=== PATIENT | male | born 1950 | race Caucasian/White ===

== ENCOUNTER 2017-06-05 16:48 | Inpatient (IN) | payer MEDICARE, BC ==
[~2017-06-05] VITALS: Ht 167.6 cm; Wt 79.7 kg
[~2017-06-05 16:48] MED LIST: APIX2.5T PO; FURO40TA PO; ISOS10TA35 PO; METO50TA PO; PARO1TAB71 PO; TRAD5TAB PO; ULTR50TA PO
[2017-06-05] MEDS: VASOPRESSIN INJ 40 UNITS in DEXTROSE 5% IN WATER 100ML INJ 98 ML IV SCH ×2 (16:56)
[2017-06-05 16:57] VITALS: BP 77/49; PULSE 60; RESP 13; TEMP 97.6; O2SAT 94
[2017-06-05] MEDS: NOREPINEPHRINE 4 MG/4 ML AMP ONE ×2 (16:57→17:46)
[2017-06-05 17:00] VITALS: O2SAT 94
[2017-06-05] MEDS ORDERED: EPINEPHrine (1:1000) INJ 2 MG in DEXTROSE 5% IN WATER INJ 248 ML IV PRN ×2 (17:00)
[2017-06-05] MEDS ORDERED: NOREPINEPHRINE-DEXTROSE DRIP 250 ML IV PRN (17:00)
[2017-06-05] MEDS: NOREPINEPHRINE 4 MG/D5W 250 ML IV PRN (17:47)
[2017-06-05 17:49] LABS: AUTOMATED NEUTROPHIL # 10.4 TH/MM3 (1.8-7.7); BASOPHIL % 0.2 % (0.0-2.0); EOSINOPHIL % 0.3 % (0.0-4.0); LYMPH % 3.9 % (9.0-44.0); LYMPHOCYTE # 0.4 TH/MM3 (1.0-4.8); MEAN CELL VOLUME 104.8 FL (80.0-100.0); MEAN CORPUSCULAR HEMOGLOBIN 33.4 PG (27.0-34.0); MEAN CORPUSCULAR HGB CONC 31.9 % (32.0-36.0); MONO % 4.7 % (0.0-8.0); MONOCYTE # 0.5 TH/MM3 (0-0.9); NEUT % 90.9 % (16.0-70.0); PLATELET COUNT 189 TH/MM3 (150-450); RED BLOOD COUNT 1.99 MIL/MM3 (4.50-5.90); RED CELL DISTRIBUTION WIDTH 17.7 % (11.6-17.2); WHITE BLOOD COUNT 11.4 TH/MM3 (4.0-11.0)
--- NOTE | 2017-06-05 17:55 | RADRPT ---
EXAM DATE/TIME: 06/05/2017 17:25 [place] COMPARISON: No previous studies available for comparison. INDICATIONS : Confirm central line placement. MEDICAL HISTORY : Stroke. AFIB, Stage 4 Renal Disease, Kidney failure, Low blood pressure. SURGICAL HISTORY : Appendectomy. Double lumen catheter on right side of chest. ENCOUNTER: Initial ACUITY: 1 day PAIN SCORE: Non-responsive. LOCATION: Bilateral chest FINDINGS: A single view of the chest demonstrates the lungs to be symmetrically, but under aerated with no conf luent infiltrate. Accounting for low lung volumes, heart size is borderline prominent a well compensa darling. Right IJ central venous catheter projects over the central venous system. Osseous structures are intact. CONCLUSION: 1. Right IJ central venous catheter with the tip projecting over the central venous system. No pneumo thorax. 2. Lungs are hypoinflated but clear. 3. Borderline prominent but well compensated heart Navneet Dover MD on June 05, 2017 at 17:52 Board Certified Radiologist. This report was verified electronically.
[2017-06-05 17:59] LABS: INTERNATIONAL NORMALIZED RATIO 1.8 RATIO
[2017-06-05 18:16] LABS: HEMATOCRIT 20.8 % (39.0-51.0); HEMOGLOBIN 6.7 GM/DL (13.0-17.0)
[2017-06-05 18:18] LABS: ALBUMIN 1.4 GM/DL (3.4-5.0); BICARBONATE 30.9 MEQ/L (21.0-32.0); CALCIUM 7.2 MG/DL (8.5-10.1); CREATININE 5.39 MG/DL (0.60-1.30)
[2017-06-05 18:22] LABS: CALCIUM-PROTEIN CORRECTED 8.2 MG/DL (8.5-10.1); TOTAL BILIRUBIN ADULT 0.4 MG/DL (0.2-1.0); TOTAL PROTEIN 5.2 GM/DL (6.4-8.2); TROPONIN I 0.05 NG/ML (0.02-0.05)
--- NOTE | 2017-06-05 19:01 | PD ---
HPI Chief Complaint: Cardiac Complaint Time Seen by Provider: 16:56 Travel History International Travel<30 days: No Contact w/Intl Traveler<30days: No Traveled to known affect area: No History of Present Illness HPI This is a 66-year-old male with a history of end-stage renal disease, peritoneal dialysis dependent, who presents here from dialysis center with profound hypotension. The patient apparently was getting ready for peritoneal dialysis when he was noted to be hypotensive and lethargic. 911 was called and he was transported here emergency. When patient arrived, he was hypotensive with a blood pressure in the 70s systolic. His heart rate was in the low 100s diastolic. The patient was awake and able to answer questions. He denied any pain. He was able to state that he was incontinent to stool. There is no further history given. PFSH Past Medical History Atrial Fibrillation: Yes Cancer: No Cardiovascular Problems: Yes (a fib) Diabetes: Yes Patient Takes Glucophage: Yes (unknown) Endocrine: Yes Genitourinary: Yes (kidney failure left AV fistula, peritoneal dialysis catheter) Hepatitis: No Hiatal Hernia: No Immune Disorder: No Medical other: Yes Musculoskeletal: Yes (minor arthritis) Neurologic: Yes (hx strokes) Psychiatric: No Reproductive: No Respiratory: No Renal Failure: Yes Thyroid Disease: No Past Surgical History Abdominal Surgery: Yes (appendectomy) Appendectomy: Yes Body Medical Devices: right double lumen catheter Cardiac Surgery: No Ear Surgery: No Endocrine Surgery: No Eye Surgery: Yes (CATARACTS REMOVED WITH LENS IMPLANTS) Genitourinary Surgery: No Joint Replacement: Yes (left hip) Oral Surgery: No Pacemaker: No Thoracic Surgery: Yes (double lumen catheter on the right side) Social History Alcohol Use: No Tobacco Use: No Substance Use: No Allergies-Medications (Allergen,Severity, Reaction): Coded Allergies: morphine (Unverified Allergy, Severe, anaphylactic, 06/05/17) Reported Meds & Prescriptions Reported Meds & Active Scripts Active Active Prescriptions or Reported Medications Unobtainable Review of Systems ROS Limitations: Clinical Condition (Review of systems may not be extremely accurate secondary to the patient's clinical situation.) Except as stated in HPI: all other systems reviewed are Neg General / Constitutional: No: Fever, Chills HENT: No: Headaches, Lightheadedness, Neck Stiffness, Neck Pain Cardiovascular: No: Chest Pain or Discomfort, Palpitations Respiratory: No: Cough, Shortness of Breath Gastrointestinal: Positive: Diarrhea, No: Nausea, Vomiting Genitourinary: Positive: Other (Patient reports that he makes trace amount of urine.) Musculoskeletal: Positive: Weakness (Generalized), No: Pain Neurologic: Positive: Weakness, No: Headache (Generalized) Physical Exam Narrative GENERAL: Pale ill-appearing male in no acute respiratory distress. SKIN: Focused skin assessment cool and dry. HEAD: Atraumatic. Normocephalic. EYES: No scleral icterus. No injection or drainage. ENT: No nasal bleeding or discharge. Mucous membranes pink and dry.. NECK: Trachea midline. Supple. CARDIOVASCULAR: Heart rate in the 80s. Irregularly irregular consistent with A. fib. RESPIRATORY: No accessory muscle use. Clear to auscultation. Breath sounds equal bilaterally. Decreased respiratory effort. GASTROINTESTINAL: Abdomen soft, nondistended. There is a Vas-Cath in place. There is no drainage noted around it. MUSCULOSKELETAL: Patient has a healing heel ulcer. This is noted on his right lower extremity. Venous stasis changes noted to his bilateral lower extremities. NEUROLOGICAL: Awake and weak and mildly confused. No obvious cranial nerve deficits. Minimal musculoskeletal movement. BACK: Stage I/early to decubitus in his sacral area. There is a large amount of maroon colored stool noted in his rectum area. This was grossly positive for heme. There were large clots noted as well. Data Data Last Documented VS Vital Signs Date Time Temp Pulse Resp B/P (MAP) Pulse Ox O2 Delivery O2 Flow Rate FiO2 06/05/17 19:13 86 18 98/50 (66) 96 Room Air 06/05/17 17:00 2.00 06/05/17 16:57 97.6 Orders Orders Norepinephrine Inj (Levophed Inj) (06/05/17 16:57) Sepsis Workup Initiated (06/05/17 ) Electrocardiogram (06/05/17 16:56) Complete Blood Count With Diff (06/05/17 16:56) Comprehensive Metabolic Panel (06/05/17 16:56) Prothrombin Time / Inr (Pt) (06/05/17 16:56) Act Partial Throm Time (Ptt) (06/05/17 16:56) Lactic Acid Sepsis Protocol (06/05/17 16:56) Ckmb (Isoenzyme) Profile (06/05/17 16:56) Troponin I (06/05/17 16:56) Urinalysis - C+S If Indicated (06/05/17 16:56) Blood Culture (06/05/17 16:56) Chest, Single Ap (06/05/17 16:56) Blood Glucose (06/05/17 16:56) Ecg Monitoring (06/05/17 16:56) Iv Access Insert/Monitor (06/05/17 16:56) Oximetry (06/05/17 16:56) Oxygen Administration (06/05/17 16:56) Norepinephrine-Dextrose Drip (Levophed-D (06/05/17 17:00) Dextrose 5% In Wate... W/Vasopressin Inj (06/05/17 16:56) Epinephrine (1:1000) Inj (Adrenalin (1:1 (06/05/17 17:00) Blood Culture (06/05/17 16:56) Norepinephrine-Dextrose Drip (Levophed-D (06/05/17 17:15) Type And Screen (06/05/17 18:02) Red Blood Cells (Rbc) (06/05/17 18:02) Labs Laboratory Tests Test 06/05/17 17:25 White Blood Count 11.4 TH/MM3 Red Blood Count 1.99 MIL/MM3 Hemoglobin 6.7 GM/DL Hematocrit 20.8 % Mean Corpuscular Volume 104.8 FL Mean Corpuscular Hemoglobin 33.4 PG Mean Corpuscular Hemoglobin Concent 31.9 % Red Cell Distribution Width 17.7 % Platelet Count 189 TH/MM3 Mean Platelet Volume 8.0 FL Neutrophils (%) (Auto) 90.9 % Lymphocytes (%) (Auto) 3.9 % Monocytes (%) (Auto) 4.7 % Eosinophils (%) (Auto) 0.3 % Basophils (%) (Auto) 0.2 % Neutrophils # (Auto) 10.4 TH/MM3 Lymphocytes # (Auto) 0.4 TH/MM3 Monocytes # (Auto) 0.5 TH/MM3 Eosinophils # (Auto) 0.0 TH/MM3 Basophils # (Auto) 0.0 TH/MM3 CBC Comment DIFF FINAL Differential Comment Prothrombin Time 18.0 SEC Prothromb Time International Ratio 1.8 RATIO Activated Partial Thromboplast Time 29.4 SEC Blood Urea Nitrogen 57 MG/DL Creatinine 5.39 MG/DL Random Glucose 163 MG/DL Total Protein 5.2 GM/DL Albumin 1.4 GM/DL Calcium Level 7.2 MG/DL Alkaline Phosphatase 414 U/L Aspartate Amino Transf (AST/SGOT) 22 U/L Alanine Aminotransferase (ALT/SGPT) 17 U/L Total Bilirubin 0.4 MG/DL Sodium Level 139 MEQ/L Potassium Level 4.5 MEQ/L Chloride Level 100 MEQ/L Carbon Dioxide Level 30.9 MEQ/L Anion Gap 8 MEQ/L Estimat Glomerular Filtration Rate 11 ML/MIN Lactic Acid Level 1.3 mmol/L Protein Corrected Calcium 8.2 MG/DL Total Creatine Kinase 45 U/L Troponin I 0.05 NG/ML MDM Medical Decision Making Medical Screen Exam Complete: Yes Emergency Medical Condition: Yes Differential Diagnosis GI bleed versus metabolic derangement versus sepsis Narrative Course 66-year-old gentleman with history of end-stage renal disease, atrial fibrillation, who presents here from dialysis center and profound hypotension. The patient was unable to give clear history. The patient was started on a Levophed drip after a central line was placed. He was noted to have profound bloody stool. Patient's came in and stated that he was a DO NOT RESUSCITATE. She states she is power of workers compensation defense attorney and wishes to have no further heroic treatment. She has requested that we not transfuse blood and discontinue the vasopressors. At that time, I discussed with her that if we were to do this then it would be best to have hospice come in and evaluate him for placement. She was amenable to this. There is a call out to hospice for evaluation and placement. Critical Care Narrative Aggregate critical care time was 60 minutes. Time to perform other separately billable procedures was not included in the critical care time. My time did not include minutes spent treating any other patients simultaneously or on activities that did not directly contribute to the patient's treatment. The services I provided to this patient were to treat and/or prevent clinically significant deterioration that could result in: I provided critical care services requiring my management, as noted below: Chart data review, documentation time, medication orders and management, vital sign assessments/reviewing monitor data, ordering and reviewing lab tests, ordering and interpreting/reviewing x-rays and diagnostic studies, care of the patient and discussion of the patient with the admitting physicians. Procedures Procedure Narrative CENTRAL VENOUS LINE: The site was prepped with Betadine and sterilely draped. It was infiltrated with 1% lidocaine plain. The deep vein was cannulated using normal Seldinger technique. A central line was placed in the right internal jugular site and secured with simple interrupted suture. The site was sterilely dressed. The patient tolerated the procedure well. Diagnosis Primary Impression: GI bleed Additional Impressions: Hypotension History of renal failure Do not resuscitate Scripts Unable to Obtain Active Prescriptions or Reported Meds Antonio Guzman MD Jun 05, 2017 19:01
[2017-06-05 19:13] VITALS: BP 98/50; PULSE 86; RESP 18; O2SAT 96
[2017-06-05 21:20] VITALS: BP 106/51; PULSE 91; RESP 18; O2SAT 98
[2017-06-06] VITALS (24 sets, daily range): BP systolic 85–101; BP diastolic 45–62; PULSE 66–160; RESP 11–20; TEMP 96.7–98.9; O2SAT 94–100
[2017-06-06] MEDS ORDERED: SODIUM CHLOR 0.9% 250 ML INJ 250 ML IV ONE (02:15)
--- NOTE | 2017-06-06 02:46 | HHI.HP ---
[facility] Service Critical Care Medicine Primary Care Physician Darryl Fair MD Admission Diagnosis GI Bleed Diagnosis: Travel History International Travel<30 Days: No Contact w/Intl Traveler <30 Da: No Traveled to Known Affected Are: No History of Present Illness History of Present Illness HPI 66 year-old male with a medical history significant for end-stage renal disease on peritoneal dialysis who was noted to be severely hypotensive and lethargic at the dialysis center on 06/05 and 911 was called and patient was transferred to [facility] ER. On arrival he was noted to be hypotensive with SBP 70s and heart rate 100s. He also reportedly had significant melena and rectal bleeding following arrival. A right IJ central line was placed by ER physician. Patient's arrived and wanted to make patient DNR status and did not want blood transfusions and wished transferring to hospice however subsequently patient woke up and wanted to continue aggressive care including blood transfusions. ER physician contacted me questioning patient's 's ability to make decisions for him due to concern for secondary gain as well as possible psychiatric illness. Patient was accepted for admission by critical care medicine service. 4 units PRBCs were ordered to be transfused stat by ER physician. When I arrived to see the patient he was laying in the ER stretcher on nasal cannula on 5 mics of Levophed. He is drowsy but easily arousable. He knew he was at the hospital. He could not give me details of his history. 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 Fair is his psychic reader. [facility] Past Medical History Atrial Fibrillation: Yes Cancer: No Cardiovascular Problems: Yes (a fib) Diabetes: Yes Patient Takes Glucophage: Yes (unknown) Endocrine: Yes Genitourinary: Yes (kidney failure left AV fistula, peritoneal dialysis catheter) Hepatitis: No Hiatal Hernia: No Immune Disorder: No Medical other: Yes Musculoskeletal: Yes (minor arthritis) Neurologic: Yes (hx strokes) Psychiatric: No Reproductive: No Respiratory: No Renal Failure: Yes Thyroid Disease: No Past Surgical History Abdominal Surgery: Yes (appendectomy) Appendectomy: Yes Body Medical Devices: right double lumen catheter Cardiac Surgery: No Ear Surgery: No Endocrine Surgery: No Eye Surgery: Yes (CATARACTS REMOVED WITH LENS IMPLANTS) Genitourinary Surgery: No Joint Replacement: Yes (left hip) Oral Surgery: No Pacemaker: No Thoracic Surgery: Yes (double lumen catheter on the right side) Social History Alcohol Use: No Tobacco Use: No Substance Use: No Allergies-Medications (Allergen,Severity, Reaction): Coded Allergies: morphine (Unverified Allergy, Severe, anaphylactic, 06/05/17) Reported Meds & Prescriptions Reported Meds & Active Scripts Active Active Prescriptions or Reported Medications Unobtainable Review of Systems ROS Limitations: Clinical Condition (Review of systems may not be extremely accurate secondary to the patient's clinical situation.) Except as stated in HPI: all other systems reviewed are Neg General / Constitutional: No: Fever, Chills HENT: No: Headaches, Lightheadedness, Neck Stiffness, Neck Pain Cardiovascular: No: Chest Pain or Discomfort, Palpitations Respiratory: No: Cough, Shortness of Breath Gastrointestinal: Positive: Diarrhea, No: Nausea, Vomiting Genitourinary: Positive: Other (Patient reports that he makes trace amount of urine.) Musculoskeletal: Positive: Weakness (Generalized), No: Pain Neurologic: Positive: Weakness, No: Headache (Generalized) Past Family Social History Allergies: Coded Allergies: morphine (Unverified Allergy, Severe, anaphylactic, 06/05/17) Physical Exam Vital Signs Vital Signs Date Time Temp Pulse Resp B/P (MAP) Pulse Ox O2 Delivery O2 Flow Rate FiO2 06/06/17 02:20 86 18 101/56 (71) 100 Nasal Cannula 2.00 06/05/17 21:20 91 18 106/51 (69) 98 Nasal Cannula 2.00 06/05/17 19:13 86 18 98/50 (66) 96 Room Air 06/05/17 17:47 81 84/57 06/05/17 17:00 94 Nasal Cannula 2.00 06/05/17 17:00 94 Nasal Cannula 2.00 06/05/17 16:57 97.6 60 13 77/49 (58) 94 Nasal Cannula 2.00 Physical Exam Physical Exam Narrative GENERAL: Pale ill-appearing male laying in ER stretcher in minimal respiratory distress on nasal cannula SKIN: Focused skin assessment cool and dry. HEAD: Atraumatic. Normocephalic. EYES: No scleral icterus. No injection or drainage. ENT: No nasal bleeding or discharge. Mucous membranes pink and dry.. NECK: Trachea midline. Supple. CARDIOVASCULAR: Heart rate in the 80s. Irregularly irregular consistent with A. fib. RESPIRATORY: No accessory muscle use. Clear to auscultation. Breath sounds equal bilaterally. Decreased respiratory effort. GASTROINTESTINAL: Abdomen soft, nondistended. There is a PD-Cath in place. There is no drainage noted around it. MUSCULOSKELETAL: Patient has a healing rt heel ulcer. Venous stasis changes noted to his bilateral lower extremities. NEUROLOGICAL: Awake and weak and mildly confused. No obvious cranial nerve deficits. Moves both upper extremity is BACK: Stage I/early to decubitus in his sacral area. There is a large amount of maroon colored stool noted in his rectum area. Laboratory Laboratory Tests Test 06/05/17 17:25 White Blood Count 11.4 Red Blood Count 1.99 Hemoglobin 6.7 Hematocrit 20.8 Mean Corpuscular Volume 104.8 Mean Corpuscular Hemoglobin 33.4 Mean Corpuscular Hemoglobin Concent 31.9 Red Cell Distribution Width 17.7 Platelet Count 189 Mean Platelet Volume 8.0 Neutrophils (%) (Auto) 90.9 Lymphocytes (%) (Auto) 3.9 Monocytes (%) (Auto) 4.7 Eosinophils (%) (Auto) 0.3 Basophils (%) (Auto) 0.2 Neutrophils # (Auto) 10.4 Lymphocytes # (Auto) 0.4 Monocytes # (Auto) 0.5 Eosinophils # (Auto) 0.0 Basophils # (Auto) 0.0 CBC Comment DIFF FINAL Differential Comment Prothrombin Time 18.0 Prothromb Time International Ratio 1.8 Activated Partial Thromboplast Time 29.4 Blood Urea Nitrogen 57 Creatinine 5.39 Random Glucose 163 Total Protein 5.2 Albumin 1.4 Calcium Level 7.2 Alkaline Phosphatase 414 Aspartate Amino Transf (AST/SGOT) 22 Alanine Aminotransferase (ALT/SGPT) 17 Total Bilirubin 0.4 Sodium Level 139 Potassium Level 4.5 Chloride Level 100 Carbon Dioxide Level 30.9 Anion Gap 8 Estimat Glomerular Filtration Rate 11 Lactic Acid Level 1.3 Protein Corrected Calcium 8.2 Total Creatine Kinase 45 Troponin I 0.05 Date/Time Source Procedure Growth Status 06/05/17 17:30 Blood Peripheral Aerobic Blood Culture Pending Received 06/05/17 17:30 Blood Peripheral Anaerobic Blood Culture Pending Received Result Diagram: 06/05/17 1725 06/05/17 1725 Imaging Last Impressions Chest X-Ray 06/05/17 1656 Signed Impressions: Service Date/Time: May 17:25 - CONCLUSION: 1. Right IJ central venous catheter with the tip projecting over the central venous system. No pneumothorax. 2. Lungs are hypoinflated but clear. 3. Borderline prominent but well compensated heart MD Earlene Ellis VTE Risk Assessment Caprinwilner VTE Risk Assessment: Mod/High Risk (score >= 2) Caprini Risk Assessment Model Point Value = 1 Point Value = 2 Point Value = 3 Point Value = 5 Age 41-60 Minor surgery BMI > 25 kg/m2 Swollen legs Varicose veins or History of unexplained or recurrent spontaneous Oral contraceptives or hormone replacement Sepsis (< 1 month) Serious lung disease, including pneumonia (< 1 month) Abnormal pulmonary function Acute myocardial infarction Congestive heart failure (< 1 month) History of inflammatory bowel disease Medical patient at bed rest Age 61-74 Arthroscopic surgery Major open surgery (> 45 min) Laparoscopic surgery (> 45 min) Malignancy Confined to bed (> 72 hours) Immobilizing plaster cast Central venous access Age >= 75 History of VTE Family history of VTE Factor V Leiden Prothrombin [id number] Lupus anticoagulant Anticardiolipin antibodies Elevated serum homocysteine Heparin-induced thrombocytopenia Other congenital or acquired thrombophilia Stroke (< 1 month) Elective arthroplasty Hip, pelvis, or leg fracture Acute spinal cord injury (< 1 month) Prophylaxis Regimen Total Risk Factor Score Risk Level Prophylaxis Regimen 0-1 Low Early ambulation 2 Moderate Order ONE of the following: *Sequential Compression Device (SCD) *Heparin 5000 units SQ BID 3-4 Higher Order ONE of the following medications: *Heparin 5000 units SQ TID *Enoxaparin/Lovenox 40 mg SQ daily (WT < 150 kg, CrCl > 30 mL/min) *Enoxaparin/Lovenox 30 mg SQ daily (WT < 150 kg, CrCl > 10-29 mL/min) *Enoxaparin/Lovenox 30 mg SQ BID (WT < 150 kg, CrCl > 30 mL/min) AND/OR *Sequential Compression Device (SCD) 5 or more Highest Order ONE of the following medications: *Heparin 5000 units SQ TID (Preferred with Epidurals) *Enoxaparin/Lovenox 40 mg SQ daily (WT < 150 kg, CrCl > 30 mL/min) *Enoxaparin/Lovenox 30 mg SQ daily (WT < 150 kg, CrCl > 10-29 mL/min) *Enoxaparin/Lovenox 30 mg SQ BID (WT < 150 kg, CrCl > 30 mL/min) AND *Sequential Compression Device (SCD) Assessment and Plan Assessment and Plan 66 year-old male with: GI bleed Hypotension Encephalopathy ESRD on peritoneal dialysis Diabetes mellitus Atrial fibrillation Sacral decubitus ulcer Right heel ulcer Plan: Neuro: Avoid sedatives and narcotics, follow neuro status. Cardiovascular: 4 units PRBCs to be transfused stat. Continue Levophed for pressor support. Pulmonary: Supplemental O2 as needed. Bronchodilators when necessary. GI/liver: Nothing by mouth, we'll initiate Protonix 80 mg IV bolus followed by 8 mg/h IV infusion. GI consult for further evaluation of GI bleed. EGD/ colonoscopy to be decided by GI. Renal/: Strict intake output, monitor and replete electro lites, follow BUN/ creatinine. We'll consult nephrology Dr. Fair for peritoneal dialysis. Heme: Follow serial H&H and coags. Vitamin K 10 mg IV stat. Calcium chloride 1 g IV piggyback. Endocrine: SSI for glycemic control ID: Will obtain blood cultures. Empiric antibiotic coverage with IV Levaquin. Prophylaxis: PPI/SCDs. CODE STATUS: Full CODE STATUS at this time. We'll consult palliative care to assist with deciding goals of therapy. Condition critical Time spent on critical care excluding procedures 60 minutes Michael Rodriguez MD Jun 06, 2017 02:46
[2017-06-06 02:53] LABS: AUTOMATED NEUTROPHIL # 10.6 TH/MM3 (1.8-7.7); BASOPHIL % 0.3 % (0.0-2.0); EOSINOPHIL % 0.2 % (0.0-4.0); LYMPH % 3.9 % (9.0-44.0); LYMPHOCYTE # 0.5 TH/MM3 (1.0-4.8); MEAN CELL VOLUME 104.9 FL (80.0-100.0); MEAN CORPUSCULAR HEMOGLOBIN 33.4 PG (27.0-34.0); MEAN CORPUSCULAR HGB CONC 31.8 % (32.0-36.0); MEAN PLATELET VOLUME 7.6 FL (7.0-11.0); MONO % 3.5 % (0.0-8.0); MONOCYTE # 0.4 TH/MM3 (0-0.9); NEUT % 92.1 % (16.0-70.0); PLATELET COUNT 204 TH/MM3 (150-450); RED CELL DISTRIBUTION WIDTH 17.8 % (11.6-17.2); WHITE BLOOD COUNT 11.6 TH/MM3 (4.0-11.0)
[2017-06-06 03:00] LABS: HEMOGLOBIN 6.4 GM/DL (13.0-17.0)
[2017-06-06] MEDS ORDERED: CHLORHEXIDINE GLUCONATE 2 % 1 PACK (2 CLOTHS) TOP PRN (03:00)
[2017-06-06] MEDS ORDERED: ACETAMINOPHEN 1000 MG/100 ML 100 ML IV ONE (03:00)
[2017-06-06] MEDS ORDERED: MISCELLANEOUS NURSING INFORMATION XX SCH (03:00)
[2017-06-06] MEDS ORDERED: ONDANSETRON HCL 4 MG/2 ML VIAL IV PUSH PRN ×2 (03:00→13:15)
[2017-06-06] MEDS ORDERED: SODIUM CHLORIDE 0.9% FLUSH 10 ML FLUSH IV FLUSH PRN ×2 (03:00→13:15)
[2017-06-06] MEDS ORDERED: RESP: ALBUTEROL 2.5 MG/IPRATROPIUM 0.5 MG NEB (PRN) INH (03:00)
[2017-06-06] MEDS ORDERED: LACTULOSE SYRUP 20 GM/30 ML CUP PO PRN (03:00)
[2017-06-06] MEDS ORDERED: CALCIUM GLUCONATE INJ 2 GM in DEXTROSE 5% IN WATER 100ML INJ 100 ML IV ONE ×2 (03:00)
[2017-06-06] MEDS ORDERED: MAGNESIUM HYDROXIDE SUSP 30 ML CUP PO PRN (03:00)
[2017-06-06] MEDS ORDERED: BISACODYL 10 MG SUPP RECTAL PRN (03:00)
[2017-06-06] MEDS ORDERED: SENNOSIDES 8.6 MG TAB PO PRN (03:00)
[2017-06-06 03:08] LABS: INTERNATIONAL NORMALIZED RATIO 1.6 RATIO; PROTHROMBIN TIME - PATIENT 16.4 SEC (9.8-11.6)
[2017-06-06] MEDS ORDERED: PHYTONADIONE INJ 10 MG in SODIUM CHLORIDE 0.9% INJ 50 ML IV ONE (03:10)
[2017-06-06] MEDS ORDERED: PANTOPRAZOLE INJ 80 MG in SODIUM CHLORIDE 0.9% INJ 35 ML IV ONE ×2 (03:30→03:46)
[2017-06-06] MEDS ORDERED: PANTOPRAZOLE INJ 80 MG in SODIUM CHLORIDE 0.9% INJ 100 ML IV SCH (03:46)
[2017-06-06 03:57] LABS: BANDS 3 % (0-6); CORRECTED NUCLEATED RBC 1 /100 WBC (0-0); LYMPHOCYTES 6 % (9-44); MONOCYTES 4 % (0-8); MYELOCYTES 1 % (0-0); NEUTROPHIL # MANUAL DIFF 10.4 TH/MM3 (1.8-7.7); NUCLEATED RED BLOOD CELL 1 (0-0); POLYS (SEG NEUTROPHILS) 86 % (16-70)
[2017-06-06 04:00] LABS: POLYCHROMASIA 5.5 % (0.0-1.9)
[2017-06-06] MEDS ORDERED: LEVOFLOXACIN 750 MG PREMIX INJ 150 ML IV ONE (04:00)
[2017-06-06] MEDS: CHLORHEXIDINE GLUCONATE 2 % 1 PACK (2 CLOTHS) TOP SCH (04:00)
--- NOTE | 2017-06-06 04:00 | PD ---
Physical Exam Narrative Case signed out to me at shift change by Dr. Antonio Guzman, status post resuscitation efforts central line placement and patient being put on Levophed blood pressure support. Patient currently altered, patient's presented with incomplete documentation for DNR, as well as a request for patient to be transferred to hospice. Hospice consulted, usual hospice nurse unavailable for consultation secondary to call, social worker assistant from [facility] presented for evaluation. Patient unable to give history at that time. Some concerns among staff regarding patient's 's capacity to understand provocations of transition to hospice care in patient's current state of hypotension, active probable GI bleed, and hypotension requiring pressors. Patient repeatedly expressed concern about bringing the patient's dog in so that the patient could say goodbye to the family pet. After some time on pressors, patient became awake and alert, able to communicate well and answer questions appropriately. Upon interview with patient, patient states that he understands his chronic illnesses and chronically debilitated state, and realizes the potential inevitability of his diseases, but states that he is not ready to have medical support removed and go on hospice. Patient also noted that he needs time to get his affairs in order. Update discussed with hospitalist nurse curing finisher who presented, who interviewed patient and agrees with plan. Case discussed with Dr. Rodriguez from intensive care, patient is to be admitted with continued pressure support, transfusion of blood products as originally ordered by Dr. Guzman, with addition of 3 more units for a total 4. Data Data Last Documented VS Vital Signs Date Time Temp Pulse Resp B/P (MAP) Pulse Ox O2 Delivery O2 Flow Rate FiO2 06/05/17 21:20 91 18 106/51 (69) 98 Nasal Cannula 2.00 06/05/17 16:57 97.6 Orders Orders Norepinephrine Inj (Levophed Inj) (06/05/17 16:57) Sepsis Workup Initiated (06/05/17 ) Electrocardiogram (06/05/17 16:56) Complete Blood Count With Diff (06/05/17 16:56) Comprehensive Metabolic Panel (06/05/17 16:56) Prothrombin Time / Inr (Pt) (06/05/17 16:56) Act Partial Throm Time (Ptt) (06/05/17 16:56) Lactic Acid Sepsis Protocol (06/05/17 16:56) Ckmb (Isoenzyme) Profile (06/05/17 16:56) Troponin I (06/05/17 16:56) Urinalysis - C+S If Indicated (06/05/17 16:56) Blood Culture (06/05/17 16:56) Chest, Single Ap (06/05/17 16:56) Blood Glucose (06/05/17 16:56) Ecg Monitoring (06/05/17 16:56) Iv Access Insert/Monitor (06/05/17 16:56) Oximetry (06/05/17 16:56) Oxygen Administration (06/05/17 16:56) Norepinephrine-Dextrose Drip (Levophed-D (06/05/17 17:00) Dextrose 5% In Wate... W/Vasopressin Inj (06/05/17 16:56) Epinephrine (1:1000) Inj (Adrenalin (1:1 (06/05/17 17:00) Norepinephrine-Dextrose Drip (Levophed-D (06/05/17 17:15) Type And Screen (06/05/17 18:02) Red Blood Cells (Rbc) (06/05/17 18:02) Hospice Consult (06/05/17 21:56) Complete Blood Count With Diff (06/06/17 02:06) Prothrombin Time / Inr (Pt) (06/06/17 02:06) Act Partial Throm Time (Ptt) (06/06/17 02:06) Red Blood Cells (Rbc) (06/06/17 02:08) Blood Product Administration (06/06/17 02:08) Sodium Chlor 0.9% 250 Ml Inj (Ns 250 Ml (06/06/17 02:15) Admit Order (Ed Use Only) (06/06/17 02:08) Labs Laboratory Tests Test 06/05/17 17:25 White Blood Count 11.4 TH/MM3 Red Blood Count 1.99 MIL/MM3 Hemoglobin 6.7 GM/DL Hematocrit 20.8 % Mean Corpuscular Volume 104.8 FL Mean Corpuscular Hemoglobin 33.4 PG Mean Corpuscular Hemoglobin Concent 31.9 % Red Cell Distribution Width 17.7 % Platelet Count 189 TH/MM3 Mean Platelet Volume 8.0 FL Neutrophils (%) (Auto) 90.9 % Lymphocytes (%) (Auto) 3.9 % Monocytes (%) (Auto) 4.7 % Eosinophils (%) (Auto) 0.3 % Basophils (%) (Auto) 0.2 % Neutrophils # (Auto) 10.4 TH/MM3 Lymphocytes # (Auto) 0.4 TH/MM3 Monocytes # (Auto) 0.5 TH/MM3 Eosinophils # (Auto) 0.0 TH/MM3 Basophils # (Auto) 0.0 TH/MM3 CBC Comment DIFF FINAL Differential Comment Prothrombin Time 18.0 SEC Prothromb Time International Ratio 1.8 RATIO Activated Partial Thromboplast Time 29.4 SEC Blood Urea Nitrogen 57 MG/DL Creatinine 5.39 MG/DL Random Glucose 163 MG/DL Total Protein 5.2 GM/DL Albumin 1.4 GM/DL Calcium Level 7.2 MG/DL Alkaline Phosphatase 414 U/L Aspartate Amino Transf (AST/SGOT) 22 U/L Alanine Aminotransferase (ALT/SGPT) 17 U/L Total Bilirubin 0.4 MG/DL Sodium Level 139 MEQ/L Potassium Level 4.5 MEQ/L Chloride Level 100 MEQ/L Carbon Dioxide Level 30.9 MEQ/L Anion Gap 8 MEQ/L Estimat Glomerular Filtration Rate 11 ML/MIN Lactic Acid Level 1.3 mmol/L Protein Corrected Calcium 8.2 MG/DL Total Creatine Kinase 45 U/L Troponin I 0.05 NG/ML MDM Medical Record Reviewed: Yes Supervised Visit with COLIN: Yes Differential Diagnosis GI bleed, hypertension, end-stage renal disease, potential end-of-life care Narrative Course Patient admitted to ICU with palliative care consult pending. Patient being actively transfused in ED. Diagnosis Primary Impression: GI bleed Qualified Codes: K92.2 - Gastrointestinal hemorrhage, unspecified Additional Impressions: Do not resuscitate History of renal failure Hypotension Qualified Codes: I95.9 - Hypotension, unspecified Admitting Information Admitting Physician Requests: Admit Scripts Unable to Obtain Active Prescriptions or Reported Meds Mac Reinoso MD Jun 06, 2017 04:00
[2017-06-06 04:01] LABS: ACANTHOCYTES OCC (NORMAL)
[2017-06-06] MEDS: PANTOPRAZOLE INJ 80 MG in SODIUM CHLORIDE 0.9% INJ 100 ML IV SCH ×2 (04:51→23:35)
[2017-06-06] MEDS ORDERED: GLUCAGON 1 MG/ML VIAL OTHER PRN (08:45)
[2017-06-06] MEDS: INSULIN NovoLIN REGULAR SUPPLEMENTAL SCALE SQ SCH ×2 (08:45→20:45)
[2017-06-06] MEDS ORDERED: DEXTROSE 50% IN WATER 50 ML VIAL(D50) IV PUSH PRN (08:45)
[2017-06-06] MEDS: SODIUM CHLORIDE 0.9% FLUSH 10 ML FLUSH IV FLUSH SCH ×2 (09:00→21:00)
[2017-06-06] MEDS: DOCUSATE SODIUM 50 MG/SENNA 8.6 MG TAB PO SCH ×2 (09:00→21:00)
--- NOTE | 2017-06-06 09:16 | PD.CONS ---
HPI History of Present Illness This is a 66 year old male who came into the emergency room on 06/06/17 hypotensive, lethargic, and with a hemoglobin of 6.7/hematocrit 20.8. An IJ central line was placed in the emergency room, Levophed was started. Patient was very drowsy initially on admission but did awaken son and was able to talk to staff. He requested aggressive care at that time and still is willing to continue treatment regimen if he can return back to his baseline. Onset of acute epigastric pain and discomfort noted for 5 days ago, but worsened over the past 24 hours. In the emergency room patient did report melena, nausea, mild vomiting undigested food yesterday, but denied any coffee ground emesis. Patient denies abdominal pain diarrhea or constipation. Current labs include WBC count 11.6, alkaline phosphatase 414. Blood pressure with mild fluctuation currently 98 systolic. Patient is currently off Levophed. 2 units packed RBCs have been transfused. (Mica Mann) PFSH Past Medical History End-stage renal disease with peritoneal dialysis Atrial fibrillation Diabetes Renal failure with left AV fistula Arthritis Chronic pain History of strokes Past Surgical History Appendectomy Cataracts removed with lens implants Right peritoneal double-lumen catheter This information is per the record (Mica Mann) Coded Allergies: morphine (Unverified Allergy, Severe, anaphylactic, 06/05/17) Medications Administered Medications Medications (Trade) Dose Ordered Sig/Randall Route PRN Reason Start Time Stop Time Status Last Admin Dose Admin Norepinephrine Bitartrate 250 ml @ 7.5 mls/hr TITRATE PRN IV Maintain MAP > 65 mmHg 06/05/17 17:15 06/05/17 17:47 Sodium Chloride 250 ml @ 15 mls/hr ONCE ONCE IV 06/06/17 02:15 06/06/17 18:54 06/06/17 04:30 Chlorhexidine Gluconate (Chlorhexidine 2% Cloth) 3 pack Taper DAILY@04 TOP 06/06/17 04:00 06/02/18 03:59 06/06/17 04:00 Pantoprazole Sodium 80 mg/ Sodium Chloride 100 ml @ 10 mls/hr Q10H IV 06/06/17 03:35 06/06/17 04:51 Social History Patient does have No current tobacco or alcohol (Mica Mann) Review of Systems Constitutional: COMPLAINS OF: Fatigue Gastrointestinal: COMPLAINS OF: Nausea Musculoskeletal: COMPLAINS OF: Joint pain (chronic pain and acute) (Mica Mann) GI Exam Vitals I&O Vital Signs Date Time Temp Pulse Resp B/P (MAP) Pulse Ox O2 Delivery O2 Flow Rate FiO2 06/06/17 06:07 78 84/54 06/06/17 06:06 06/06/17 06:00 87 06/06/17 05:55 96.7 66 20 98/56 (70) 06/06/17 05:34 77 18 90/50 (63) 98 Room Air 2.00 06/06/17 05:06 71 18 100/57 (71) 100 06/06/17 04:52 70 97/82 06/06/17 04:15 18 06/06/17 04:03 77 18 100/52 (68) 94 Nasal Cannula 2.00 06/06/17 03:51 81 18 90/51 (64) 98 Nasal Cannula 2.00 06/06/17 03:44 83 18 90/51 (64) 100 Nasal Cannula 2.00 06/06/17 03:39 78 16 90/45 97 06/06/17 03:05 97.4 101 16 93/55 100 06/06/17 02:59 99 Nasal Cannula 2.00 06/06/17 02:20 86 18 101/56 (71) 100 Nasal Cannula 2.00 06/05/17 21:20 91 18 106/51 (69) 98 Nasal Cannula 2.00 06/05/17 19:13 86 18 98/50 (66) 96 Room Air 06/05/17 17:47 81 84/57 06/05/17 17:00 94 Nasal Cannula 2.00 06/05/17 17:00 94 Nasal Cannula 2.00 06/05/17 16:57 97.6 60 13 77/49 (58) 94 Nasal Cannula 2.00 I/O 06/05/17 06/05/17 06/05/17 06/06/17 06/06/17 06/06/17 07:00 15:00 23:00 07:00 15:00 23:00 Intake Total 1137 ml Balance 1137 ml Intake IV Total 337 ml Packed Cells 800 ml # Voids 0 # Bowel Movements 1 Imaging Last Impressions Chest X-Ray 06/05/17 1636 Signed Impressions: Service Date/Time: May 17:25 - CONCLUSION: 1. Right IJ central venous catheter with the tip projecting over the central venous system. No pneumothorax. 2. Lungs are hypoinflated but clear. 3. Borderline prominent but well compensated heart Navneet Dover MD Laboratory Test 06/05/17 17:25 06/06/17 02:37 06/06/17 06:40 White Blood Count 11.4 TH/MM3 11.6 TH/MM3 Red Blood Count 1.99 MIL/MM3 1.90 MIL/MM3 Hemoglobin 6.7 GM/DL 6.4 GM/DL Hematocrit 20.8 % 20.0 % Mean Corpuscular Volume 104.8 FL 104.9 FL Mean Corpuscular Hemoglobin 33.4 PG 33.4 PG Mean Corpuscular Hemoglobin Concent 31.9 % 31.8 % Red Cell Distribution Width 17.7 % 17.8 % Platelet Count 189 TH/MM3 204 TH/MM3 Mean Platelet Volume 8.0 FL 7.6 FL Neutrophils (%) (Auto) 90.9 % 92.1 % Lymphocytes (%) (Auto) 3.9 % 3.9 % Monocytes (%) (Auto) 4.7 % 3.5 % Eosinophils (%) (Auto) 0.3 % 0.2 % Basophils (%) (Auto) 0.2 % 0.3 % Neutrophils # (Auto) 10.4 TH/MM3 10.6 TH/MM3 Lymphocytes # (Auto) 0.4 TH/MM3 0.5 TH/MM3 Monocytes # (Auto) 0.5 TH/MM3 0.4 TH/MM3 Eosinophils # (Auto) 0.0 TH/MM3 0.0 TH/MM3 Basophils # (Auto) 0.0 TH/MM3 0.0 TH/MM3 CBC Comment DIFF FINAL AUTO DIFF Differential Comment FINAL DIFF MANUAL Prothrombin Time 18.0 SEC 16.4 SEC Prothromb Time International Ratio 1.8 RATIO 1.6 RATIO Activated Partial Thromboplast Time 29.4 SEC 28.3 SEC Blood Urea Nitrogen 57 MG/DL Creatinine 5.39 MG/DL Random Glucose 163 MG/DL Total Protein 5.2 GM/DL Albumin 1.4 GM/DL Calcium Level 7.2 MG/DL Alkaline Phosphatase 414 U/L Aspartate Amino Transf (AST/SGOT) 22 U/L Alanine Aminotransferase (ALT/SGPT) 17 U/L Total Bilirubin 0.4 MG/DL Sodium Level 139 MEQ/L Potassium Level 4.5 MEQ/L Chloride Level 100 MEQ/L Carbon Dioxide Level 30.9 MEQ/L Anion Gap 8 MEQ/L Estimat Glomerular Filtration Rate 11 ML/MIN Lactic Acid Level 1.3 mmol/L Protein Corrected Calcium 8.2 MG/DL Total Creatine Kinase 45 U/L Troponin I 0.05 NG/ML Differential Total Cells Counted 100 Neutrophils % (Manual) 86 % Band Neutrophils % 3 % Lymphocytes % 6 % Monocytes % 4 % Neutrophils # (Manual) 10.4 TH/MM3 Myelocytes 1 % Nucleated Red Blood Cells 1 /100 WBC Platelet Estimate NORMAL Platelet Morphology Comment NORMAL Polychromasia 5.5 % Basophilic Stippling FAINT Acanthocytes OCC Date/Time Source Procedure Growth Status 06/06/17 07:19 Blood Peripheral Aerobic Blood Culture Pending Received 06/06/17 07:19 Blood Peripheral Anaerobic Blood Culture Pending Received Physical Examination HEENT: Pupils round and reactive to light 1-2 mm bilateral; normocephalic; atraumatic; no jaundice, very pale, Throat is hoarse NECK: Neck is supple, no JVD, no lymphadenopathy. CHEST: Chest managed breath sounds CARDIAC: Irregular rhythm under 100 ABDOMEN: Flat, Soft, nondistended, nontender; no hepatosplenomegaly; bowel sounds soft EXTREMITIES: No clubbing, cyanosis, or edema. SKIN: Thin, dry, pale, no rash; no jaundice. RN SOCIAL WORK: ; alert and oriented times 3, drowsy but arouses to verbal stimuli (Mica Mann) Assessment and Plan Assessment: (1) Anemia ICD Codes: D64.9 - Anemia, unspecified (2) GI bleed ICD Codes: K92.2 - Gastrointestinal hemorrhage, unspecified Status: Acute (3) History of renal failure ICD Codes: Z87.448 - Personal history of other diseases of urinary system Status: Acute Plan Anemia, symptomatic on admission to emergency room, so far received 2 units packed RBCs, hemoglobin is pending GI bleed, pain had been in gastric and epigastric area worse over the past 48 hours, 4 days total Patient has been hypotensive and is being monitored in the intensive care unit, but currently Levophed is off Plan EGD today, but need to evaluate next hemoglobin Consents, OR has been called to put on scheduled Monitor for any acute bleeding and call GI IV PPI drip Monitor hemoglobin and hematocrit and other labs Further recommendations will be based on symptom management and plan of care, currently patient is requesting full code full aggressive care per my discussion with him. This note has been written on the behalf of Dr. Amaral, seen on his behalf (Mica Mann) Plan Patient was seen and examined, agree with above-noted, we'll plan on doing upper endoscopy but may need colonoscopy eventually the patient is has multiple medical problems so he is high risk for the procedure and he is aware that (Avani Booth MD) Problem Qualifiers (1) GI bleed: Qualified Codes: K92.2 - Gastrointestinal hemorrhage, unspecified Mica Mann Jun 06, 2017 09:16 Avani Booth MD Jun 06, 2017 11:50
[2017-06-06 09:43] LABS: AUTOMATED NEUTROPHIL # 8.7 TH/MM3 (1.8-7.7); BASOPHIL % 0.1 % (0.0-2.0); EOSINOPHIL % 0.3 % (0.0-4.0); HEMATOCRIT 26.5 % (39.0-51.0); HEMOGLOBIN 8.9 GM/DL (13.0-17.0); LYMPHOCYTE # 0.4 TH/MM3 (1.0-4.8); MEAN CELL VOLUME 95.8 FL (80.0-100.0); MEAN CORPUSCULAR HEMOGLOBIN 32.1 PG (27.0-34.0); MEAN CORPUSCULAR HGB CONC 33.5 % (32.0-36.0); MEAN PLATELET VOLUME 7.7 FL (7.0-11.0); MONO % 4.3 % (0.0-8.0); MONOCYTE # 0.4 TH/MM3 (0-0.9); NEUT % 91.3 % (16.0-70.0); PLATELET COUNT 136 TH/MM3 (150-450); RED BLOOD COUNT 2.77 MIL/MM3 (4.50-5.90); RED CELL DISTRIBUTION WIDTH 18.6 % (11.6-17.2); WHITE BLOOD COUNT 9.6 TH/MM3 (4.0-11.0)
[2017-06-06 09:49] LABS: INTERNATIONAL NORMALIZED RATIO 1.5 RATIO; PROTHROMBIN TIME - PATIENT 15.2 SEC (9.8-11.6)
--- NOTE | 2017-06-06 09:59 | EKG ---
Date Performed: 06/05/2017 Time Performed: 16:57:23 PTAGE: 66 years EKG: ATRIAL FIBRILLATION INDETERMINATE AXIS RIGHT BUNDLE BRANCH BLOCK LOW QRS VOLTAGE ABNORMAL E CG PREVIOUS TRACING : 10/13/2015 14.06 No change from previous tracing noted. DOCTOR: Gonzales Joseph Interpretating Date/Time 06/06/2017 09:57:17
--- NOTE | 2017-06-06 10:01 | PD.CONS ---
[facility] Nephrology Consult Requested By Dr. Rodriguez Reason for Consult ESRD on PD Primary Care Physician Darryl Fair MD History of Present Illness Patient is a very pleasant 66 year old male who came into the emergency room on 06/06/17 hypotensive, lethargic, and with a hemoglobin of 6.7. He was transfused 2 units of PRBC's with a recheck pending. He was initially put on Levophed for blood pressure support however it is currently not running. Has a past medical history of End -stage renal disease with peritoneal dialysis, AFIB , diabetes, arthritis, chronic pain, and hx of strokes. Onset of acute epigastric pain and discomfort noted for 5 days ago, but worsened over the past 24 hours. Reported loose stools for 3 weeks. In the emergency room patient did report melena, nausea, mild vomiting undigested food yesterday, but denied any coffee ground emesis. Patient has AV fistula and will have dialysis while here. Per patient PD catheter needs to be removed secondary to infection. EGD planned for today. (Samreen Ward) Review of Systems Constitutional: COMPLAINS OF: Fatigue Respiratory: COMPLAINS OF: Shortness of breath Cardiovascular: DENIES: Chest pain, Lower Extremity Edema Gastrointestinal: COMPLAINS OF: Black stools, Diarrhea, Nausea, Vomiting Genitourinary: DENIES: Dysuria Musculoskeletal: COMPLAINS OF: Joint pain (Samreen Ward) Past Family Social History Allergies: Coded Allergies: morphine (Unverified Allergy, Severe, anaphylactic, 06/05/17) Past Medical History End-stage renal disease with peritoneal dialysis Atrial fibrillation Diabetes Renal failure with left AV fistula Arthritis Chronic pain History of strokes Past Surgical History Appendectomy Cataracts removed with lens implants Right peritoneal double-lumen catheter AVF Active Ordered Medications Current Medications Medications (Trade) Dose Ordered Sig/Randall Route Start Time Stop Time Status Last Admin Vasopressin 40 units/Dextrose 100 ml @ 6 mls/hr [id number] IV 06/05/17 16:56 Epinephrine HCl 2 mg/Dextrose 250 ml @ 22.5 mls/hr TITRATE PRN IV 06/05/17 17:00 Norepinephrine Bitartrate 250 ml @ 7.5 mls/hr TITRATE PRN IV 06/05/17 17:15 06/05/17 17:47 Sodium Chloride 250 ml @ 15 mls/hr ONCE ONCE IV 06/06/17 02:15 06/06/17 18:54 06/06/17 04:30 (NS Flush) 2 ml UNSCH PRN IV FLUSH 06/06/17 03:00 (NS Flush) 2 ml BID IV FLUSH 06/06/17 09:00 (Zofran Inj) 4 mg Q6H PRN IV PUSH 06/06/17 03:00 (Duoneb Neb) 1 ampule Q4HR NEB PRN INH 06/06/17 03:00 Miscellaneous Information 1 Q361D XX 06/06/17 03:00 (Chlorhexidine 2% Cloth) 3 pack Taper DAILY@04 TOP 06/06/17 04:00 06/02/18 03:59 06/06/17 04:00 (Chlorhexidine 2% Cloth) 3 pack UNSCH PRN TOP 06/06/17 03:00 (Rebecca-Colace) 1 tab BID PO 06/06/17 09:00 (Milk Of Magnesia Liq) 30 ml Q12H PRN PO 06/06/17 03:00 (Senokot) 17.2 mg Q12H PRN PO 06/06/17 03:00 (Dulcolax Supp) 10 mg DAILY PRN RECTAL 06/06/17 03:00 (Lactulose Liq) 30 ml DAILY PRN PO 06/06/17 03:00 Pantoprazole Sodium 80 mg/ Sodium Chloride 100 ml @ 10 mls/hr Q10H IV 06/06/17 03:35 06/06/17 04:51 (D50w (Vial) Inj) 50 ml UNSCH PRN IV PUSH 06/06/17 08:45 (Glucagon Inj) 1 mg UNSCH PRN OTHER 06/06/17 08:45 (NovoLIN R SUPPLEMENTAL SCALE) 1 Q4H SQ 06/06/17 08:45 Social History Denies ETOH use Denies smoking (Samreen Ward) Physical Exam Vital Signs Vital Signs Date Time Temp Pulse Resp B/P (MAP) Pulse Ox O2 Delivery O2 Flow Rate FiO2 06/06/17 06:07 78 84/54 06/06/17 06:06 06/06/17 06:00 87 06/06/17 05:55 96.7 66 20 98/56 (70) 06/06/17 05:34 77 18 90/50 (63) 98 Room Air 2.00 06/06/17 05:06 71 18 100/57 (71) 100 06/06/17 04:52 70 97/82 06/06/17 04:15 18 06/06/17 04:03 77 18 100/52 (68) 94 Nasal Cannula 2.00 06/06/17 03:51 81 18 90/51 (64) 98 Nasal Cannula 2.00 06/06/17 03:44 83 18 90/51 (64) 100 Nasal Cannula 2.00 06/06/17 03:39 78 16 90/45 97 06/06/17 03:05 97.4 101 16 93/55 100 06/06/17 02:59 99 Nasal Cannula 2.00 06/06/17 02:20 86 18 101/56 (71) 100 Nasal Cannula 2.00 06/05/17 21:20 91 18 106/51 (69) 98 Nasal Cannula 2.00 06/05/17 19:13 86 18 98/50 (66) 96 Room Air 06/05/17 17:47 81 84/57 06/05/17 17:00 94 Nasal Cannula 2.00 06/05/17 17:00 94 Nasal Cannula 2.00 06/05/17 16:57 97.6 60 13 77/49 (58) 94 Nasal Cannula 2.00 Physical Exam GENERAL: Pale and delayed SKIN: cool and dry. HEAD: Atraumatic. Normocephalic. EYES: No scleral icterus. No injection or drainage. ENT: No nasal bleeding or discharge. Mucous membranes pink and dry.. NECK: Trachea midline. Supple. CARDIOVASCULAR:. Irregularly irregular consistent with A. fib. RESPIRATORY: No accessory muscle use. Clear to auscultation. Breath sounds equal bilaterally. Decreased respiratory effort. GASTROINTESTINAL: Abdomen soft, nondistended. There is a PD-Cath in place. MUSCULOSKELETAL: Patient has a healing rt heel ulcer. Venous stasis changes noted to his bilateral lower extremities. NEUROLOGICAL: Awake and weak and mildly confused. No obvious cranial nerve deficits. Moves both upper extremity is Laboratory Laboratory Tests Test 06/05/17 17:25 06/06/17 02:37 06/06/17 06:40 06/06/17 09:00 White Blood Count 11.4 11.6 Red Blood Count 1.99 1.90 Hemoglobin 6.7 6.4 Hematocrit 20.8 20.0 Mean Corpuscular Volume 104.8 104.9 Mean Corpuscular Hemoglobin 33.4 33.4 Mean Corpuscular Hemoglobin Concent 31.9 31.8 Red Cell Distribution Width 17.7 17.8 Platelet Count 189 204 Mean Platelet Volume 8.0 7.6 Neutrophils (%) (Auto) 90.9 92.1 Lymphocytes (%) (Auto) 3.9 3.9 Monocytes (%) (Auto) 4.7 3.5 Eosinophils (%) (Auto) 0.3 0.2 Basophils (%) (Auto) 0.2 0.3 Neutrophils # (Auto) 10.4 10.6 Lymphocytes # (Auto) 0.4 0.5 Monocytes # (Auto) 0.5 0.4 Eosinophils # (Auto) 0.0 0.0 Basophils # (Auto) 0.0 0.0 CBC Comment DIFF FINAL AUTO DIFF Differential Comment FINAL DIFF MANUAL Prothrombin Time 18.0 16.4 Prothromb Time International Ratio 1.8 1.6 Activated Partial Thromboplast Time 29.4 28.3 Blood Urea Nitrogen 57 Creatinine 5.39 Random Glucose 163 Total Protein 5.2 Albumin 1.4 Calcium Level 7.2 Alkaline Phosphatase 414 Aspartate Amino Transf (AST/SGOT) 22 Alanine Aminotransferase (ALT/SGPT) 17 Total Bilirubin 0.4 Sodium Level 139 Potassium Level 4.5 Chloride Level 100 Carbon Dioxide Level 30.9 Anion Gap 8 Estimat Glomerular Filtration Rate 11 Lactic Acid Level 1.3 Protein Corrected Calcium 8.2 Total Creatine Kinase 45 Troponin I 0.05 Differential Total Cells Counted 100 Neutrophils % (Manual) 86 Band Neutrophils % 3 Lymphocytes % 6 Monocytes % 4 Neutrophils # (Manual) 10.4 Myelocytes 1 Nucleated Red Blood Cells 1 Platelet Estimate NORMAL Platelet Morphology Comment NORMAL Polychromasia 5.5 Basophilic Stippling FAINT Acanthocytes OCC Date/Time Source Procedure Growth Status 06/06/17 07:19 Blood Peripheral Aerobic Blood Culture Pending Received 06/06/17 07:19 Blood Peripheral Anaerobic Blood Culture Pending Received (Samreen Ward) Result Diagram: 06/06/17 0237 06/05/17 1725 Imaging Last Impressions Chest X-Ray 06/05/17 1656 Signed Impressions: Service Date/Time: May 17:25 - CONCLUSION: 1. Right IJ central venous catheter with the tip projecting over the central venous system. No pneumothorax. 2. Lungs are hypoinflated but clear. 3. Borderline prominent but well compensated heart Navneet Dover MD (Samreen Ward) Assessment and Plan Problem List: (1) ESRD (end stage renal disease) on dialysis ICD Codes: N18.6 - End stage renal disease; Z99.2 - Dependence on renal dialysis (2) Hypotension ICD Codes: I95.9 - Hypotension, unspecified Status: Acute (3) GI bleed ICD Codes: K92.2 - Gastrointestinal hemorrhage, unspecified Status: Acute Plan: (4) Anemia ICD Codes: D64.9 - Anemia, unspecified Assessment and Plan ESRD has usually been PD nightly but was told that he catheter needs to come out due to a fungal infection. BC pending. Has AVF fistula in left arm and dialyzed on Fri, , and was not able to have done on secondary to condition. Potassium WNL Dr. Fair to arrange dialysis. EGD today,symptomatic anemia with HGB of 6.7 to 6.4 on admission. Transfused 2 units of PRBC's. Initially on levophed. GI bleed, pain had been in gastric and epigastric area worse over the past 48 hours, 4 days total Protonix gtt. Monitor hemoglobin and hematocrit and other labs (Samreen Ward) Problem List: (1) ESRD (end stage renal disease) on dialysis ICD Codes: N18.6 - End stage renal disease; Z99.2 - Dependence on renal dialysis (2) Hypotension ICD Codes: I95.9 - Hypotension, unspecified Status: Acute (3) GI bleed ICD Codes: K92.2 - Gastrointestinal hemorrhage, unspecified Status: Acute Plan: (4) Anemia ICD Codes: D64.9 - Anemia, unspecified Assessment and Plan Patient seen and examined. Agree with above. HD arranged, orders written, minimal fluid removal. Surgery consulted for PD Catheter removal. (Darryl Fair MD) Problem Qualifiers (1) Hypotension: Qualified Codes: I95.9 - Hypotension, unspecified (2) GI bleed: Qualified Codes: K92.2 - Gastrointestinal hemorrhage, unspecified (3) Anemia: Samreen Ward Jun 06, 2017 10:01 Darryl Fair MD Jun 06, 2017 19:48
[2017-06-06 10:05] LABS: ALBUMIN 1.4 GM/DL (3.4-5.0); BICARBONATE 27.7 MEQ/L (21.0-32.0); CALCIUM 7.1 MG/DL (8.5-10.1); CALCIUM-PROTEIN CORRECTED 8.4 MG/DL (8.5-10.1); CREATININE 5.31 MG/DL (0.60-1.30); TOTAL BILIRUBIN ADULT 0.7 MG/DL (0.2-1.0); TOTAL PROTEIN 4.7 GM/DL (6.4-8.2)
[2017-06-06] MEDS ORDERED: PIPERACIL-TAZO 3.375 GM PREMIX 50 ML IV SCH (11:00)
--- NOTE | 2017-06-06 11:09 | PD.CONS ---
Consult Service Palliative Care Consult Requested By Dr Rodriguez Primary Care Physician Darryl Fair MD Reason for Consultation a. To assist with evaluation and management of symptoms including: weakness , chronic pain b. To assist medical decision maker(s) with: better understanding of current medical conditions; weighing benefits/burdens of medical treatment options; making medical treatment decisions. HPI History of Present Illness This 66-year-old male presented to the ED on 06/05/17, sent from dialysis center with significant hypotension. He was preparing for peritoneal dialysis when was noted to be hypotensive and lethargic, EMS was activated. At ED arrival patient hypotensive blood pressure 70s systolic, heart rate low 100s. Patient awake and able to answer questions. Denied pain, reporting incontinent of stool. No additional history provided. * ED: started on IVF, levophed. + bloody stool noted. Hemoglobin 6.7, hematocrit 20.8. Pt requested DNR, no heroic measures. requested no transfusions and to d/c vasopressors. ED MD recommended hospice for comfort if that was wishes, amenable. pt apparently later became more alert, and requested whatever aggressive treatments available to help him. Full CODE STATUS requested. Critical care was consulted; notes "ER physician contacted me questioning patient's 's ability to make decisions for him due to concern for secondary gain as well as possible psychiatric illness.". Ordered for 4 units PRBC. Given vitamin K. Him. Levaquin initiated. Cultures pending. Nephrology consulted. GI consulted. Tolerating nasal cannula O2. Palliative care consulted to assist with clarification of goals of treatment. * Planned for EGD 06/06/17, serial H&H's transfusions as needed. Status post transfusion 4 units RBC, hemoglobin 8.9, hematocrit 26.5 this morning. Attempted to see patient on unit however he is off unit for EGD procedure. Nursing reports he is Oriented and appropriate and able to provide his own consents. Unit staff reports patient called requesting update, I attempted to reach her, voicemail left. Will attempt to see him later and obtain additional psychosocial history etc. 1400 Pt seen again in room later afternoon, returned from GI procedure [dual visit w Juvencio Roth medical student] He is alert, oriented x3, appropriate. Fair insight into hospital course thus far, though forgetful at times, has to search for words at times. Cooperative, pleasant. He reports several recent hospitalizations at [facility]. He has been in rehab since April. He reports limited to no ambulation since May 05. He reports general weakness, decline, not well since May 05. He also reports IVC filter placed 4-[address] Izquierdo at [facility], though he is not aware of DVT at the time. He had recently had electrolyte abnormalities , and had recently just had 2 hemodialysis treatments. returned and assisted pt to complete new HCS, names his as HCS. Later spoke w his on phone- review current conditions, diagnostics. details trajectory or decline past several mos to year. Pt used to be able to go fishing, go on cruises etc 1-2 yrs ago. Has had progressive weakness, severe pain to BLE over past few mos. She describes a sharp, aching, pain to bilateral legs and chronic foot wounds, worse at night. (pt denies pain during my visit) Weakness more profound since around , + significant weight loss/ decreased appetite. She reports anemia requiring blood transfusion in April, she does not know that cause was identified. She reports weight 2 yr ago around 165#, at weight about 145#. Current weight this admission 148#. She reports pt has c/o suffering and in the past he had even questioned stopping dialysis but was frightened about a possible painful . Review w her current conditions, my d/w pt, and his expressed wishes. She is supportive of DNR. She will not be visiting today because she is trying to rest. . Function/Cognitive Trajectory Most recently at [facility], since April. Prior to April lived at home w , reports still driving at that time. Prev independent w ADLs though now requires some assistance. Prev. ambulatory w cane, scooter for longer distances, past 1 year. . Review of Systems Constitutional: COMPLAINS OF: Weight loss (3-4 lb in past month), Change in appetite (decreased x 2 wk), Generalized weakness (difficulty ambulating x 1 mo. ), DENIES: Fever, Chills, Dizziness, Pain Eyes: DENIES: Blurred vision, Vision loss Ears, nose, mouth, throat: DENIES: Oral lesions, Throat pain Respiratory: COMPLAINS OF: Cough (x 1 week), DENIES: Hemoptysis, Sputum production, Shortness of breath Cardiovascular: DENIES: Chest pain, Lower Extremity Edema Gastrointestinal: COMPLAINS OF: Bloody stools, Anorexia, DENIES: Abdominal pain , Nausea, Vomiting, Difficulty Swallowing Genitourinary: DENIES: Hematuria Musculoskeletal: DENIES: Joint pain Integumentary: DENIES: Rash Neurologic: DENIES: Headache, Localized weakness Past Family Social History Coded Allergies: morphine (Unverified Allergy, Severe, anaphylactic, 06/05/17) Past Medical History End-stage renal disease with peritoneal dialysis Atrial fibrillation Hypertension Diabetes Renal failure with left AV fistula Arthritis Chronic pain CVAs : 2006, 1995 recent infection to peritoneal dialysis catheter per pt . Past Surgical History Appendectomy Cataracts removed with lens implants Right peritoneal double-lumen catheter placement 2016 Left hip replacement . Reported Medications Calcium acetate clopidogrel 75mg eliquis 2.5mg furosemide 40mg norco 5/325 isosorbide mononitrate 30mg ER lisinopril 20mg metoprolol succinate 25mg ER, 50mg ER paroxetine 10mg proair respiclick Tradjenta 5mg tramodol 50mg . Current Medications Medications (Trade) Dose Ordered Sig/Randall Route Start Time Stop Time Status Last Admin Vasopressin 40 units/Dextrose 100 ml @ 6 mls/hr [id number] IV 06/05/17 16:56 Epinephrine HCl 2 mg/Dextrose 250 ml @ 22.5 mls/hr TITRATE PRN IV 06/05/17 17:00 Norepinephrine Bitartrate 250 ml @ 7.5 mls/hr TITRATE PRN IV 06/05/17 17:15 06/05/17 17:47 Sodium Chloride 250 ml @ 15 mls/hr ONCE ONCE IV 06/06/17 02:15 06/06/17 18:54 06/06/17 04:30 (NS Flush) 2 ml UNSCH PRN IV FLUSH 06/06/17 03:00 (NS Flush) 2 ml BID IV FLUSH 06/06/17 09:00 (Zofran Inj) 4 mg Q6H PRN IV PUSH 06/06/17 03:00 (Duoneb Neb) 1 ampule Q4HR NEB PRN INH 06/06/17 03:00 Miscellaneous Information 1 Q361D XX 06/06/17 03:00 (Chlorhexidine 2% Cloth) 3 pack Taper DAILY@04 TOP 06/06/17 04:00 06/02/18 03:59 06/06/17 04:00 (Chlorhexidine 2% Cloth) 3 pack UNSCH PRN TOP 06/06/17 03:00 (Rebecca-Colace) 1 tab BID PO 06/06/17 09:00 (Milk Of Magnesia Liq) 30 ml Q12H PRN PO 06/06/17 03:00 (Senokot) 17.2 mg Q12H PRN PO 06/06/17 03:00 (Dulcolax Supp) 10 mg DAILY PRN RECTAL 06/06/17 03:00 (Lactulose Liq) 30 ml DAILY PRN PO 06/06/17 03:00 Pantoprazole Sodium 80 mg/ Sodium Chloride 100 ml @ 10 mls/hr Q10H IV 06/06/17 03:35 06/06/17 04:51 (D50w (Vial) Inj) 50 ml UNSCH PRN IV PUSH 06/06/17 08:45 (Glucagon Inj) 1 mg UNSCH PRN OTHER 06/06/17 08:45 (NovoLIN R SUPPLEMENTAL SCALE) 1 Q4H SQ 06/06/17 08:45 Family History Mother had arthritis, father of old age at age 84, sister living in good health Substance Use Tobacco: Smokes 1/2 PPD x 50 years Alcohol: None Prescription med abuse: None Illicits: None . Psychosocial History to his x 6 yrs. Has 1 adult son from prior marriage, who is incarcerated in [place]. He communicates with him every Friday (son calls him) . 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 His mother is still living there, and a sister. Moved to [place] in his 50s for intermediate. . 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 Living Will: Never completed Health Care Surrogate: Copy in medical record Durable Power of Counter Professional: Copy in medical record Date completed: 06/01/17 Health Care Surrogate(s): Healthcare surrogate document [06/01/17] actually names the patient as healthcare surrogate. durable power of state's attorney does not include healthcare decision making. Ethical and Legal Issues Patient has a healthcare surrogate document in his chart [dated 06/01/17] however this document actually names the patient as designated healthcare surrogate. Per [place] statutes his would be appropriate legal proxy if patient incapacitated. Physical Exam Vital Signs Date Time Temp Pulse Resp B/P (MAP) Pulse Ox O2 Delivery O2 Flow Rate FiO2 06/06/17 06:07 78 84/54 06/06/17 06:06 06/06/17 06:00 87 06/06/17 05:55 96.7 66 20 98/56 (70) 06/06/17 05:34 77 18 90/50 (63) 98 Room Air 2.00 06/06/17 05:06 71 18 100/57 (71) 100 06/06/17 04:52 70 97/82 06/06/17 04:15 18 06/06/17 04:03 77 18 100/52 (68) 94 Nasal Cannula 2.00 06/06/17 03:51 81 18 90/51 (64) 98 Nasal Cannula 2.00 06/06/17 03:44 83 18 90/51 (64) 100 Nasal Cannula 2.00 06/06/17 03:39 78 16 90/45 97 06/06/17 03:05 97.4 101 16 93/55 100 06/06/17 02:59 99 Nasal Cannula 2.00 06/06/17 02:20 86 18 101/56 (71) 100 Nasal Cannula 2.00 06/05/17 21:20 91 18 106/51 (69) 98 Nasal Cannula 2.00 06/05/17 19:13 86 18 98/50 (66) 96 Room Air 06/05/17 17:47 81 84/57 06/05/17 17:00 94 Nasal Cannula 2.00 06/05/17 17:00 94 Nasal Cannula 2.00 06/05/17 16:57 97.6 60 13 77/49 (58) 94 Nasal Cannula 2.00 Exam CONSTITUTIONAL/GENERAL: Frail. Slight temporal wasting. In no apparent distress. Voice is hoarse. TUBES/LINES/DRAINS: Erythema with white, dry material surrounding immediate peritoneal drain. Central line rt IJ. SKIN: No jaundice. Diffuse pallor prominent in nail beds. Scattered petechia on upper extremities. Chronic venous insufficiency of lower extremities. Ulcers on plantar aspect of left foot and right great toe. HEAD: Atraumatic. Normocephalic. EYES: Pupils equal and round. No scleral icterus. No injection or drainage. Fundi not examined. ENT: Hearing grossly normal. Nose without bleeding or purulent drainage. NECK: Trachea midline. Supple, nontender. No palpable thyroid enlargement or nodularity. CARDIOVASCULAR: Irregular rate and irregular rhythm without murmurs, gallops, or rubs. No JVD. Peripheral pulses symmetric.atrial fib observed bedside monitor. RESPIRATORY/CHEST: Mild shortness of breath with conversation. Diffuse crackles bilaterally. Breath sounds equal bilaterally. No wheezes. GASTROINTESTINAL: Abdomen soft, non-tender, nondistended. No hepato- splenomegaly. No guarding. Peritoneal drain mid abdomen GENITOURINARY: Without palpable bladder distension. MUSCULOSKELETAL: Atrophy in bilateral lower extremities. Extremities without clubbing, cyanosis, or edema. No joint tenderness or effusion noted. No calf tenderness. No mottling or clubbing. NEUROLOGICAL: Awake and alert. Oriented x 3. Fair insight. Some word searching, and difficulty recalling events. Motor and sensory grossly within normal limits. Follows commands. moves all 4 extremities. PSYCHIATRIC:. No obvious anxiety/depression. no apparent hallucinations or other psychotic thought process. Diagnostic Tests Laboratory Laboratory Tests Test 06/05/17 17:25 06/06/17 02:37 06/06/17 06:40 06/06/17 09:00 White Blood Count 11.4 TH/MM3 (4.0-11.0) 11.6 TH/MM3 (4.0-11.0) 9.6 TH/MM3 (4.0-11.0) Red Blood Count 1.99 MIL/MM3 (4.50-5.90) 1.90 MIL/MM3 (4.50-5.90) 2.77 MIL/MM3 (4.50-5.90) Hemoglobin 6.7 GM/DL (13.0-17.0) 6.4 GM/DL (13.0-17.0) 8.9 GM/DL (13.0-17.0) Hematocrit 20.8 % (39.0-51.0) 20.0 % (39.0-51.0) 26.5 % (39.0-51.0) Mean Corpuscular Volume 104.8 FL (80.0-100.0) 104.9 FL (80.0-100.0) 95.8 FL (80.0-100.0) Mean Corpuscular Hemoglobin 33.4 PG (27.0-34.0) 33.4 PG (27.0-34.0) 32.1 PG (27.0-34.0) Mean Corpuscular Hemoglobin Concent 31.9 % (32.0-36.0) 31.8 % (32.0-36.0) 33.5 % (32.0-36.0) Red Cell Distribution Width 17.7 % (11.6-17.2) 17.8 % (11.6-17.2) 18.6 % (11.6-17.2) Platelet Count 189 TH/MM3 (150-450) 204 TH/MM3 (150-450) 136 TH/MM3 (150-450) Mean Platelet Volume 8.0 FL (7.0-11.0) 7.6 FL (7.0-11.0) 7.7 FL (7.0-11.0) Neutrophils (%) (Auto) 90.9 % (16.0-70.0) 92.1 % (16.0-70.0) 91.3 % (16.0-70.0) Lymphocytes (%) (Auto) 3.9 % (9.0-44.0) 3.9 % (9.0-44.0) 4.0 % (9.0-44.0) Monocytes (%) (Auto) 4.7 % (0.0-8.0) 3.5 % (0.0-8.0) 4.3 % (0.0-8.0) Eosinophils (%) (Auto) 0.3 % (0.0-4.0) 0.2 % (0.0-4.0) 0.3 % (0.0-4.0) Basophils (%) (Auto) 0.2 % (0.0-2.0) 0.3 % (0.0-2.0) 0.1 % (0.0-2.0) Neutrophils # (Auto) 10.4 TH/MM3 (1.8-7.7) 10.6 TH/MM3 (1.8-7.7) 8.7 TH/MM3 (1.8-7.7) Lymphocytes # (Auto) 0.4 TH/MM3 (1.0-4.8) 0.5 TH/MM3 (1.0-4.8) 0.4 TH/MM3 (1.0-4.8) Monocytes # (Auto) 0.5 TH/MM3 (0-0.9) 0.4 TH/MM3 (0-0.9) 0.4 TH/MM3 (0-0.9) Eosinophils # (Auto) 0.0 TH/MM3 (0-0.4) 0.0 TH/MM3 (0-0.4) 0.0 TH/MM3 (0-0.4) Basophils # (Auto) 0.0 TH/MM3 (0-0.2) 0.0 TH/MM3 (0-0.2) 0.0 TH/MM3 (0-0.2) CBC Comment DIFF FINAL AUTO DIFF DIFF FINAL Differential Comment FINAL DIFF MANUAL Prothrombin Time 18.0 SEC (9.8-11.6) 16.4 SEC (9.8-11.6) 15.2 SEC (9.8-11.6) Prothromb Time International Ratio 1.8 RATIO 1.6 RATIO 1.5 RATIO Activated Partial Thromboplast Time 29.4 SEC (24.3-30.1) 28.3 SEC (24.3-30.1) Blood Urea Nitrogen 57 MG/DL (7-18) Creatinine 5.39 MG/DL (0.60-1.30) Random Glucose 163 MG/DL (74-106) Total Protein 5.2 GM/DL (6.4-8.2) Albumin 1.4 GM/DL (3.4-5.0) Calcium Level 7.2 MG/DL (8.5-10.1) Alkaline Phosphatase 414 U/L (45-117) Aspartate Amino Transf (AST/SGOT) 22 U/L (15-37) Alanine Aminotransferase (ALT/SGPT) 17 U/L (12-78) Total Bilirubin 0.4 MG/DL (0.2-1.0) Sodium Level 139 MEQ/L (136-145) Potassium Level 4.5 MEQ/L (3.5-5.1) Chloride Level 100 MEQ/L (98-107) Carbon Dioxide Level 30.9 MEQ/L (21.0-32.0) Anion Gap 8 MEQ/L (5-15) Estimat Glomerular Filtration Rate 11 ML/MIN (>89) Lactic Acid Level 1.3 mmol/L (0.4-2.0) Protein Corrected Calcium 8.2 MG/DL (8.5-10.1) Total Creatine Kinase 45 U/L (39-308) Troponin I 0.05 NG/ML (0.02-0.05) Differential Total Cells Counted 100 Neutrophils % (Manual) 86 % (16-70) Band Neutrophils % 3 % (0-6) Lymphocytes % 6 % (9-44) Monocytes % 4 % (0-8) Neutrophils # (Manual) 10.4 TH/MM3 (1.8-7.7) Myelocytes 1 % (0-0) Nucleated Red Blood Cells 1 /100 WBC (0-0) Platelet Estimate NORMAL (NORMAL) Platelet Morphology Comment NORMAL (NORMAL) Polychromasia 5.5 % (0.0-1.9) Basophilic Stippling FAINT (NORMAL) Acanthocytes OCC (NORMAL) Result Diagram: 06/06/17 0900 06/05/17 1725 Microbiology Microbiology Date/Time Source Procedure Growth Status 06/06/17 07:19 Blood Peripheral Aerobic Blood Culture Pending Received 06/06/17 07:19 Blood Peripheral Anaerobic Blood Culture Pending Received 06/06/17 07:04 Blood Peripheral Aerobic Blood Culture Pending Received 06/06/17 07:04 Blood Peripheral Anaerobic Blood Culture Pending Received 06/05/17 17:30 Blood Peripheral Aerobic Blood Culture Pending Received 06/05/17 17:30 Blood Peripheral Anaerobic Blood Culture Pending Received 06/05/17 17:25 Blood Peripheral Aerobic Blood Culture Pending Received 06/05/17 17:25 Blood Peripheral Anaerobic Blood Culture Pending Received Imaging Last Impressions Chest X-Ray 06/05/17 1656 Signed Impressions: Service Date/Time: May 17:25 - CONCLUSION: 1. Right IJ central venous catheter with the tip projecting over the central venous system. No pneumothorax. 2. Lungs are hypoinflated but clear. 3. Borderline prominent but well compensated heart Navneet Dover MD Procedures 06/06/17 EGD Patient/Family Conference Family Conference Location: Bedside Issues Discussed: d/w pt at bedside: * Palliative care role, purpose, approach * Additional medical, psychosocial, and spiritual history * Patients general health, functional status, and cognitive changes in the months leading up to the current hospitalization * Patient understanding of the current medical problems * Patient understanding of prognosis * Patients goals of care as best understood from advance directives and/or conversations and/or values- he indicates at this time he would want to treat what things are treatable, short of resuscitation. He is accepting of blood transfusions if indicated. * Current medical treatment options and benefits/burdens of those options * code status- pt appears to understand benefits/burdens-- requests DNR * legal decision maker- indicates he would want his as decision maker- agrees to complete HCS * Likely scenarios comparing ongoing aggressive care with a transition to comfort measures only * Questions answered to the best of my ability * Palliative care contact information provided Call to after, also d/w her above bullet point items. She is supportive of pt wishes. She expresses that the pt is suffering and she does not wish to see him suffer. Assessment and Plan Disease Oriented Problem List: (1) Atrial fibrillation (2) Sacral decubitus ulcer (3) Heel ulceration (4) Hypotension (5) GI bleed (6) Anemia (7) ESRD (end stage renal disease) on dialysis Symptom Scale: (1) Weakness Pertinent Non-Medical Issues Psychosocial: to his x 6 yrs. Has 1 adult son from prior marriage, who is incarcerated in [place]. He communicates with him every Friday (son calls him). 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 His mother is still living there, and a sister. Moved to [place] in his 50s for intermediate. 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 Per [place] statutes his would be appropriate legal proxy if patient incapacitated. 06/06/17 assisted pt to complete new HCS, names his as HCS. Ethical issues impacting care: Important Contacts spouse Aparna Guadalupe [phone] . Prognosis This patient was admitted for hypotension, significant anemia, GI bleed. He has known history of dialysis dependent end-stage renal disease. Ongoing diagnostics, GI evaluation. With ongoing aggressive treatments and interventions may be able to recover from current acute conditions. . Code Status: Full Code Plan * Legal decision maker:Patient has a healthcare surrogate document in his chart however this document actually names the patient as designated healthcare surrogate. Per [place] statutes his would be appropriate legal proxy if patient incapacitated. Pt at time of my exam is oriented, appropriate and appears to have fair insight to his conditions/options. Appears able to make his own decisions . 06/06/17 assisted pt to complete new HCS, names his as HCS. * Pt reports multiple recent hospitalizations/ER visits at [facility] , recommend RECORDS REQUEST from [facility] * Goals: Pt goals aggressive short of resuscitation. * CODE STATUS: DNR * SYMPTOMS: --weakness/debility- ongoing since May 05. Limited to no ambulation since that time. Rec cont OT/PT to maintain/improve functional status --pain- pt denies pain, however pt reports he has chronic neuropathic sounding pain to BLE alyse at night, and chronic pain to bilateral chronic foot wounds. He has been on norco 5mg at home. Pt hypotensive, requiring pressor, cautious use of opiates. Consider resuming home norco or tramadol PRN * Palliative care will continue to follow during hospital course as condition evolves, to assist patient/decision-maker with understanding of medical conditions, weighing benefits/burdens of treatment options, for clarification of goals of treatment. Additionally will assist with any symptoms of palliative concern Thank you for the opportunity to participate in the care of Mr. Flor. Attestation To help prompt me to consider important information that might be impacting today's encounter and assessment, information from prior notes written by myself or my colleagues may have been "brought forward" into today's note. My signature on this note, however, is an attestation that I personally performed the exam, history, and/or decision-making noted today, and, unless otherwise indicated, the interactions with patient, family, and staff as well as the review of records all occurred today. I also attest that the listed assessment and stated plan reflect my best clinical judgment today based on the combination of historical information, prior notes, and today's exam/ interactions. When time spent is documented, it refers only to time spent today by the signer, or if indicated, combined time spent today by collaborating physician/nurse practitioner. Ranjana Linda Jun 06, 2017 11:09
[2017-06-06] MEDS ORDERED: KETAMINE HCL 500 MG/10 ML VIAL ONE (11:45)
--- NOTE | 2017-06-06 12:01 | PD.PROCEDR ---
GI Procedure PROCEDURE PERFORMED Upper endoscopy with biopsy INDICATION FOR PROCEDURE Anemia history of ulcer PROCEDURE: The procedure, risks and benefits were discussed with Mr. Flor and informed consent was obtained. Anesthesia sedated him with Diprivan. He was placed in the left lateral decubitus position. EGD: The Pentax videoscope was introduced through the oropharynx and advanced to the second portion of the duodenum under direct visualization. Retroflexion was performed in the stomach. Biopsy from the duodenum and from the antrum ESTIMATED BLOOD LOSS: None SPECIMENS REMOVED: Antrum, duodenal COMPLICATIONS: None IMPRESSION: Severe esophagitis grade D Gastritis 2 large duodenal ulcer almost taking over the duodenal bulb and first portion biopsy was done to rule out malignancy most likely the reason for the anemia and the bleeding PLAN: No NSAIDs Protonix 40 mg daily Follow-up biopsy Follow-up H&H with packed RBC as needed Clear liquid advance as tolerated Avani Booth MD Jun 06, 2017 12:01
[2017-06-06] MEDS ORDERED: DO NOT ADM ANY ANTICOAGULANT DRUGS PRN (12:05)
[2017-06-06] MEDS: MICAFUNGIN INJ 100 MG in SODIUM CHLORIDE 0.9% INJ 100 ML IV SCH (12:55)
[2017-06-06] MEDS ORDERED: SODIUM CHLOR 0.9% 1000 ML INJ 1,000 ML OTHER PRN ×2 (13:04)
[2017-06-06] MEDS ORDERED: SODIUM CHLOR 0.9% 1000 ML INJ 1,000 ML IV PRN (13:04)
[2017-06-06] MEDS ORDERED: MANNITOL 12.5 GM/50 ML VIAL IV PRN (13:15)
[2017-06-06] MEDS ORDERED: GENTAMICIN SULFATE 20 MG/2 ML VIAL OTHER PRN (13:15)
[2017-06-06] MEDS ORDERED: diphenhydrAMINE HCL 25 MG CAP PO PRN (13:15)
[2017-06-06] MEDS ORDERED: HEPARIN SODIUM - IV 10,000 UNITS/10 ML VIAL PRN (13:15)
[2017-06-06] MEDS ORDERED: cloNIDine HCL 0.1 MG TAB PO PRN (13:15)
[2017-06-06] MEDS ORDERED: NITROGLYCERIN 0.4 MG SL 25 TABS/BTL SL PRN (13:15)
[2017-06-06] MEDS ORDERED: HEPARIN SODIUM - IV 10,000 UNITS/10 ML VIAL IV FLUSH PRN (13:15)
--- NOTE | 2017-06-06 13:22 | PD.PROCEDR ---
GI Procedure PROCEDURE PERFORMED EGD with biopsy INDICATION FOR PROCEDURE Nausea vomiting, anemia, patient is known to have severe diabetes on hemodialysis PROCEDURE: The procedure, risks and benefits were discussed with Mr. Flor and informed consent was obtained. Anesthesia sedated him with Diprivan. He was placed in the left lateral decubitus position. EGD: The Pentax videoscope was introduced through the oropharynx and advanced to the second portion of the duodenum under direct visualization. Retroflexion was performed in the stomach. Biopsy from the antrum ESTIMATED BLOOD LOSS: None SPECIMENS REMOVED: Antrum, distal esophagus COMPLICATIONS: None IMPRESSION: Severe grade D esophagitis Severe gastritis Anemia could be related to chronic disease plus blood loss from the upper GI tract from above PLAN: no NSAIDs protonix 40 mg po Q am Follow-up biopsy Better control of diabetes Avani Booth MD Jun 06, 2017 13:21
[2017-06-06] MEDS ORDERED: LIDOCAINE 1%/EPINEPHrine 1:100,000 SOLN 20 ML VIAL ONE (14:14)
--- NOTE | 2017-06-06 14:34 | PD.ID.CON ---
History of Present Illness Service ID Consult Requested By Dr Ware Reason for Consult PD cath related peritonitis, candidal Primary Care Physician Darryl Fair MD Diagnoses: History of Present Illness Pt is a very poor historian AQ 66 yo male with multiple med problems including ESRD on PD He apparently has h/o 1-2 weeks of redness and discomfort aorund his PD cath that was placed 1.5 yrs ago I talked to Dr Fair, his shoulder pad molder who tolm me that his PD fluid grew out C.dallin arvizu Pt wa admitted yday severely hypotensive and lethargic at the dialysis center on 06/05 after 911 was called and patient was transferred to [facility] ER. He reportedly had significant melena and rectal bleeding following arrival. Patient's arrived and wanted to make patient DNR status and did not want blood transfusions and wished transferring to hospice however subsequently patient woke up and wanted to continue aggressive care including blood transfusions. Blood clx are negative @ 1 day At the time I saw the pt he was on low dose of Levaphed Review of Systems ROS Limitations: Poor Historian Past Family Social History Allergies: Coded Allergies: morphine (Unverified Allergy, Severe, anaphylactic, 06/05/17) Past Medical History End-stage renal disease with peritoneal dialysis Atrial fibrillation Diabetes Renal failure with left AV fistula Arthritis Chronic pain History of strokes Past Surgical History Past Surgical History Appendectomy Cataracts removed with lens implants Right peritoneal double-lumen catheter AVF Active Ordered Medications Medications where reviewed in EMR Antibiotics Include: micafungin, zosyn Family History reviewed non contributory Social History No Tobacco. No ETOH. No Illicit Drugs. Physical Exam Vital Signs Vital Signs Date Time Temp Pulse Resp B/P (MAP) Pulse Ox O2 Delivery O2 Flow Rate FiO2 06/06/17 12:30 97.6 96 16 98/55 (69) 96 Nasal Cannula 3 06/06/17 12:15 99 16 97/52 (67) 99 Nasal Cannula 4 06/06/17 12:05 97.6 98 16 103/59 (74) 98 Nasal Cannula 4 06/06/17 06:07 78 84/54 06/06/17 06:06 06/06/17 06:00 87 06/06/17 05:55 96.7 66 20 98/56 (70) 06/06/17 05:34 77 18 90/50 (63) 98 Room Air 2.00 06/06/17 05:06 71 18 100/57 (71) 100 06/06/17 04:52 70 97/82 06/06/17 04:15 18 06/06/17 04:03 77 18 100/52 (68) 94 Nasal Cannula 2.00 06/06/17 03:51 81 18 90/51 (64) 98 Nasal Cannula 2.00 06/06/17 03:44 83 18 90/51 (64) 100 Nasal Cannula 2.00 06/06/17 03:39 78 16 90/45 97 06/06/17 03:05 97.4 101 16 93/55 100 06/06/17 02:59 99 Nasal Cannula 2.00 06/06/17 02:20 86 18 101/56 (71) 100 Nasal Cannula 2.00 06/05/17 21:20 91 18 106/51 (69) 98 Nasal Cannula 2.00 06/05/17 19:13 86 18 98/50 (66) 96 Room Air 06/05/17 17:47 81 84/57 06/05/17 17:00 94 Nasal Cannula 2.00 06/05/17 17:00 94 Nasal Cannula 2.00 06/05/17 16:57 97.6 60 13 77/49 (58) 94 Nasal Cannula 2.00 Physical Exam CONSTITUTIONAL/GENERAL: This is an adequately nourished patient, in no apparent distress. Chronically ill apearing TUBES/LINES/DRAINS: AV fistula in place LUE with excellent thrill SKIN: No jaundice, rashes, or lesions. Ecchymoses on upper extremities. No wounds seen anteriorly. Skin temperature appropriate. Not diaphoretic. HEAD: Atraumatic. Normocephalic. EYES: Pupils equal and round and reactive. Extraocular motions intact. No scleral icterus. No injection or drainage. Fundi not examined. ENT: Hearing grossly normal. Nose without bleeding or purulent drainage. Throat without visible erythema, exudates, masses, or lesions. NECK: Trachea midline. Supple, nontender. No palpable thyroid enlargement or nodularity. CARDIOVASCULAR: Regular rate and rhythm without murmurs, gallops, or rubs. No JVD. Peripheral pulses symmetric. RESPIRATORY/CHEST: Symmetric, unlabored respirations. Clear to auscultation. Breath sounds equal bilaterally. No wheezes, rales, or rhonchi. GASTROINTESTINAL: Abdomen soft, non-tender, nondistended. No hepato-splenomegaly , or palpable masses. No guarding. Bowel sounds present. PD cath in place LLQ with minimal erythema and minimal tenderness NO peritoneal signs GENITOURINARY: Without palpable bladder distension. MUSCULOSKELETAL: Extremities without clubbing, cyanosis, or edema. No joint tenderness or effusion noted. No calf tenderness. No mottling or clubbing. LYMPHATICS: No palpable cervical or supraclavicular adenopathy. NEUROLOGICAL: Awake and alert. Motor and sensory grossly within normal limits. Follows commands. confused. Moves all extremities. PSYCHIATRIC: No obvious anxiety/depression. no apparent hallucinations or other psychotic thought process. Laboratory Laboratory Tests Test 06/05/17 17:25 06/06/17 02:37 06/06/17 06:40 06/06/17 09:00 White Blood Count 11.4 11.6 9.6 Red Blood Count 1.99 1.90 2.77 Hemoglobin 6.7 6.4 8.9 Hematocrit 20.8 20.0 26.5 Mean Corpuscular Volume 104.8 104.9 95.8 Mean Corpuscular Hemoglobin 33.4 33.4 32.1 Mean Corpuscular Hemoglobin Concent 31.9 31.8 33.5 Red Cell Distribution Width 17.7 17.8 18.6 Platelet Count 189 204 136 Mean Platelet Volume 8.0 7.6 7.7 Neutrophils (%) (Auto) 90.9 92.1 91.3 Lymphocytes (%) (Auto) 3.9 3.9 4.0 Monocytes (%) (Auto) 4.7 3.5 4.3 Eosinophils (%) (Auto) 0.3 0.2 0.3 Basophils (%) (Auto) 0.2 0.3 0.1 Neutrophils # (Auto) 10.4 10.6 8.7 Lymphocytes # (Auto) 0.4 0.5 0.4 Monocytes # (Auto) 0.5 0.4 0.4 Eosinophils # (Auto) 0.0 0.0 0.0 Basophils # (Auto) 0.0 0.0 0.0 CBC Comment DIFF FINAL AUTO DIFF DIFF FINAL Differential Comment FINAL DIFF MANUAL Prothrombin Time 18.0 16.4 15.2 Prothromb Time International Ratio 1.8 1.6 1.5 Activated Partial Thromboplast Time 29.4 28.3 Blood Urea Nitrogen 57 62 Creatinine 5.39 5.31 Random Glucose 163 157 Total Protein 5.2 4.7 Albumin 1.4 1.4 Calcium Level 7.2 7.1 Alkaline Phosphatase 414 342 Aspartate Amino Transf (AST/SGOT) 22 20 Alanine Aminotransferase (ALT/SGPT) 17 16 Total Bilirubin 0.4 0.7 Sodium Level 139 138 Potassium Level 4.5 5.0 Chloride Level 100 102 Carbon Dioxide Level 30.9 27.7 Anion Gap 8 8 Estimat Glomerular Filtration Rate 11 11 Lactic Acid Level 1.3 Protein Corrected Calcium 8.2 8.4 Total Creatine Kinase 45 Troponin I 0.05 Differential Total Cells Counted 100 Neutrophils % (Manual) 86 Band Neutrophils % 3 Lymphocytes % 6 Monocytes % 4 Neutrophils # (Manual) 10.4 Myelocytes 1 Nucleated Red Blood Cells 1 Platelet Estimate NORMAL Platelet Morphology Comment NORMAL Polychromasia 5.5 Basophilic Stippling FAINT Acanthocytes OCC Nasal Screen MRSA (PCR) MRSA NOT DETECTED Date/Time Source Procedure Growth Status 06/06/17 07:19 Blood Peripheral Aerobic Blood Culture Pending Received 06/06/17 07:19 Blood Peripheral Anaerobic Blood Culture Pending Received Result Diagram: 06/06/17 0900 06/06/17 0900 Imaging Last Impressions Chest X-Ray 06/05/17 1656 Signed Impressions: Service Date/Time: May 17:25 - CONCLUSION: 1. Right IJ central venous catheter with the tip projecting over the central venous system. No pneumothorax. 2. Lungs are hypoinflated but clear. 3. Borderline prominent but well compensated heart Navneet Dover MD Assessment and Plan Assessment and Plan Fungal peritonitis 2[facility] dw Dr Fair: he travis me that clx grw out C.albicans Sepis suspeced on presentation - catheter needs to be removed fu new PD fluid cl;x cont for now broad spectrum abx will switch to flucoanzol Discussed Condition With Manjula Tapia,Lexie Blevins MD Jun 06, 2017 14:34
--- NOTE | 2017-06-06 17:11 | HHI.PR ---
Addendum to Inpatient Note Additional Information Pt seen around 1500 today full note to follow Lexie Keith MD Jun 06, 2017 17:11
[2017-06-06 17:13] LABS: HEMATOCRIT 28.8 % (39.0-51.0); HEMOGLOBIN 9.6 GM/DL (13.0-17.0)
--- NOTE | 2017-06-06 17:57 | HHI.PR ---
Subjective Subjective Notes Pt known to me from office visit this week to discuss removal of PD catheter that by verbal report had a fungal infection. There apparently is difficulty confirming that per Dr Keith of ID. New fluid sent for culture, fungus included. Pt getting HD at the present. Notes from my office evaluation this week sent in for the hospital record. Objective Vitals/I&O Vital Signs Date Time Temp Pulse Resp B/P (MAP) Pulse Ox O2 Delivery O2 Flow Rate FiO2 06/06/17 16:00 160 06/06/17 15:00 98.9 94/62 (73) 06/06/17 12:30 16 96 Nasal Cannula 3 Labs Laboratory Tests Test 06/06/17 02:37 06/06/17 06:40 06/06/17 09:00 06/06/17 16:33 White Blood Count 11.6 9.6 Red Blood Count 1.90 2.77 Hemoglobin 6.4 8.9 9.6 Hematocrit 20.0 26.5 28.8 Mean Corpuscular Volume 104.9 95.8 Mean Corpuscular Hemoglobin 33.4 32.1 Mean Corpuscular Hemoglobin Concent 31.8 33.5 Red Cell Distribution Width 17.8 18.6 Platelet Count 204 136 Mean Platelet Volume 7.6 7.7 Neutrophils (%) (Auto) 92.1 91.3 Lymphocytes (%) (Auto) 3.9 4.0 Monocytes (%) (Auto) 3.5 4.3 Eosinophils (%) (Auto) 0.2 0.3 Basophils (%) (Auto) 0.3 0.1 Neutrophils # (Auto) 10.6 8.7 Lymphocytes # (Auto) 0.5 0.4 Monocytes # (Auto) 0.4 0.4 Eosinophils # (Auto) 0.0 0.0 Basophils # (Auto) 0.0 0.0 CBC Comment AUTO DIFF DIFF FINAL Differential Total Cells Counted 100 Neutrophils % (Manual) 86 Band Neutrophils % 3 Lymphocytes % 6 Monocytes % 4 Neutrophils # (Manual) 10.4 Myelocytes 1 Nucleated Red Blood Cells 1 Differential Comment FINAL DIFF MANUAL Platelet Estimate NORMAL Platelet Morphology Comment NORMAL Polychromasia 5.5 Basophilic Stippling FAINT Acanthocytes OCC Prothrombin Time 16.4 15.2 Prothromb Time International Ratio 1.6 1.5 Activated Partial Thromboplast Time 28.3 Nasal Screen MRSA (PCR) MRSA NOT DETECTED Blood Urea Nitrogen 62 Creatinine 5.31 Random Glucose 157 Total Protein 4.7 Albumin 1.4 Calcium Level 7.1 Alkaline Phosphatase 342 Aspartate Amino Transf (AST/SGOT) 20 Alanine Aminotransferase (ALT/SGPT) 16 Total Bilirubin 0.7 Sodium Level 138 Potassium Level 5.0 Chloride Level 102 Carbon Dioxide Level 27.7 Anion Gap 8 Estimat Glomerular Filtration Rate 11 Protein Corrected Calcium 8.4 Date/Time Source Procedure Growth Status 06/06/17 07:19 Blood Peripheral Aerobic Blood Culture Pending Received 06/06/17 07:19 Blood Peripheral Anaerobic Blood Culture Pending Received 06/06/17 15:20 Fluid Peritoneal Fluid Fungal Smear Pending Received 06/06/17 15:20 Fluid Peritoneal Fluid Fungal Culture Pending Received Narrative Exam Abdominal exam benign. No peritonitis present. PD catheter exit site uncomplicated. A/P Assessment and Plan PD catheter in place, apparent fungal infection requiring PD catheter removal. Cultures sent. Pt recovering from anemia, has had transfusions. I will se patient tomorrow and follow up on cultures. I will add on for PD catheter removal if cultures do demonstrate infection is present. I d/w patient tonight. He agrees with the plan. Bakari Donovan MD Jun 06, 2017 17:57
[2017-06-06] MEDS: PIPERACIL-TAZO 2.25 GM PREMIX 50 ML IV SCH (19:00)
[2017-06-06] MEDS: ALBUMIN 25% INJ 100 ML IV PRN (20:09)
[2017-06-06] MEDS: EPOETIN ALFA 10,000 UNITS/ML VIAL IV PUSH PRN (20:09)
[2017-06-06] MEDS: GELATIN 12 MM/7 MM FOAM TOP PRN (20:10)
[2017-06-07] VITALS (21 sets, daily range): BP systolic 80–124; BP diastolic 44–67; PULSE 71–124; RESP 9–28; TEMP 97.5–97.9; O2SAT 80–100
[2017-06-07] MEDS: INSULIN NovoLIN REGULAR SUPPLEMENTAL SCALE SQ SCH ×6 (01:00→20:45)
[2017-06-07 01:09] LABS: HEMATOCRIT 23.8 % (39.0-51.0)
[2017-06-07] MEDS: PIPERACIL-TAZO 2.25 GM PREMIX 50 ML IV SCH ×3 (01:40→13:03)
[2017-06-07] MEDS: CHLORHEXIDINE GLUCONATE 2 % 1 PACK (2 CLOTHS) TOP SCH (02:09)
[2017-06-07] MEDS: VASOPRESSIN INJ 40 UNITS in DEXTROSE 5% IN WATER 100ML INJ 98 ML IV SCH ×4 (02:16→17:35)
[2017-06-07 04:19] LABS: AUTOMATED NEUTROPHIL # 11.2 TH/MM3 (1.8-7.7); BASOPHIL % 0.1 % (0.0-2.0); EOSINOPHIL % 0.1 % (0.0-4.0); HEMATOCRIT 23.7 % (39.0-51.0); LYMPH % 2.5 % (9.0-44.0); LYMPHOCYTE # 0.3 TH/MM3 (1.0-4.8); MEAN CELL VOLUME 96.9 FL (80.0-100.0); MEAN CORPUSCULAR HEMOGLOBIN 32.5 PG (27.0-34.0); MEAN CORPUSCULAR HGB CONC 33.6 % (32.0-36.0); MEAN PLATELET VOLUME 7.7 FL (7.0-11.0); MONO % 2.1 % (0.0-8.0); MONOCYTE # 0.2 TH/MM3 (0-0.9); NEUT % 95.2 % (16.0-70.0); PLATELET COUNT 108 TH/MM3 (150-450); RED BLOOD COUNT 2.45 MIL/MM3 (4.50-5.90); WHITE BLOOD COUNT 11.8 TH/MM3 (4.0-11.0)
--- NOTE | 2017-06-07 04:25 | RADRPT ---
EXAM DATE/TIME: 06/07/2017 03:15 [place] COMPARISON: CHEST SINGLE AP, June 05, 2017, 17:25. INDICATIONS : Shortness of breath, possible pulmonary disease. MEDICAL HISTORY : Stroke. Renal disease, end stage. Renal failure, chronic. A-Fib SURGICAL HISTORY : Appendectomy. ENCOUNTER: Subsequent ACUITY: 3 days PAIN SCORE: Non-responsive. LOCATION: Bilateral chest FINDINGS: The heart size is upper limits of normal. There is a right internal jugular central line in place wit h the tip overlying the right atrium. There is patchy density at the left lower lung. The right lung is grossly clear. CONCLUSION: Patchy consolidation or atelectasis of the left lower lung. Tom Berry MD on June 07, 2017 at 4:21 Board Certified Radiologist. This report was verified electronically.
[2017-06-07 04:35] LABS: AST (GOT) 13 U/L (15-37); BICARBONATE 29.5 MEQ/L (21.0-32.0); BLOOD UREA NITROGEN 39 MG/DL (7-18); CALCIUM 7.7 MG/DL (8.5-10.1); CHLORIDE 103 MEQ/L (98-107); CREATININE 3.88 MG/DL (0.60-1.30); GLOMERULAR FILTRATION RATE 16 ML/MIN (>89); GLUCOSE,RANDOM 148 MG/DL (74-106); MAGNESIUM 1.9 MG/DL (1.5-2.5); SODIUM (NA) 140 MEQ/L (136-145)
[2017-06-07 04:46] LABS: ALKALINE PHOSPHATASE 237 U/L (45-117); ALT (GPT) 12 U/L (12-78); PHOSPHORUS 2.5 MG/DL (2.5-4.9); TOTAL BILIRUBIN ADULT 0.7 MG/DL (0.2-1.0); TOTAL PROTEIN 4.6 GM/DL (6.4-8.2)
--- NOTE | 2017-06-07 07:30 | HHI.CCPN ---
Subjective Remarks/Hospital Course 66 year-old male with a medical history significant for end-stage renal disease on peritoneal dialysis who was noted to be severely hypotensive and lethargic at the dialysis center on 06/05 and was called and patient was transferred to [facility] ER. On arrival he was noted to be hypotensive with SBP 70s and heart rate 100s. He also reportedly had significant melena and rectal bleeding following arrival. A right IJ central line was placed by ER physician. Patient's arrived and wanted to make patient DNR status and did not want blood transfusions and wished transferring to hospice however subsequently patient woke up and wanted to continue aggressive care including blood transfusions. ER physician contacted me questioning patient's 's ability to make decisions for him due to concern for secondary gain as well as possible psychiatric illness. Patient was accepted for admission by critical care medicine service. 4 units PRBCs were ordered to be transfused stat by ER physician. When I arrived to see the patient he was laying in the ER stretcher on nasal cannula on 5 mics of Levophed. He is drowsy but easily arousable. He knew he was at the hospital. He could not give me details of his history. 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 06/07 Patient is on Levophed 2 mics, s/p HD yesterday. Awake and alert on Protonix drip. s/p EGD yesterday showed 2 large Duodenal ulcer, esophagitis and gastritis. Objective Vital Signs Date Time Temp Pulse Resp B/P (MAP) Pulse Ox O2 Delivery O2 Flow Rate FiO2 06/07/17 06:00 95 06/07/17 03:00 97.6 12 85/52 (63) 97 06/06/17 21:17 Nasal Cannula 2.00 Result Diagram: 06/07/17 0358 06/07/17 0358 Other Results Laboratory Tests Test 06/06/17 09:00 06/06/17 16:33 06/07/17 00:39 06/07/17 03:58 White Blood Count 9.6 TH/MM3 11.8 TH/MM3 Red Blood Count 2.77 MIL/MM3 2.45 MIL/MM3 Hemoglobin 8.9 GM/DL 9.6 GM/DL 8.0 GM/DL 8.0 GM/DL Hematocrit 26.5 % 28.8 % 23.8 % 23.7 % Mean Corpuscular Volume 95.8 FL 96.9 FL Mean Corpuscular Hemoglobin 32.1 PG 32.5 PG Mean Corpuscular Hemoglobin Concent 33.5 % 33.6 % Red Cell Distribution Width 18.6 % 19.0 % Platelet Count 136 TH/MM3 108 TH/MM3 Mean Platelet Volume 7.7 FL 7.7 FL Neutrophils (%) (Auto) 91.3 % 95.2 % Lymphocytes (%) (Auto) 4.0 % 2.5 % Monocytes (%) (Auto) 4.3 % 2.1 % Eosinophils (%) (Auto) 0.3 % 0.1 % Basophils (%) (Auto) 0.1 % 0.1 % Neutrophils # (Auto) 8.7 TH/MM3 11.2 TH/MM3 Lymphocytes # (Auto) 0.4 TH/MM3 0.3 TH/MM3 Monocytes # (Auto) 0.4 TH/MM3 0.2 TH/MM3 Eosinophils # (Auto) 0.0 TH/MM3 0.0 TH/MM3 Basophils # (Auto) 0.0 TH/MM3 0.0 TH/MM3 CBC Comment DIFF FINAL DIFF FINAL Differential Comment Prothrombin Time 15.2 SEC Prothromb Time International Ratio 1.5 RATIO Blood Urea Nitrogen 62 MG/DL 39 MG/DL Creatinine 5.31 MG/DL 3.88 MG/DL Random Glucose 157 MG/DL 148 MG/DL Total Protein 4.7 GM/DL 4.6 GM/DL Albumin 1.4 GM/DL 2.0 GM/DL Calcium Level 7.1 MG/DL 7.7 MG/DL Alkaline Phosphatase 342 U/L 237 U/L Aspartate Amino Transf (AST/SGOT) 20 U/L 13 U/L Alanine Aminotransferase (ALT/SGPT) 16 U/L 12 U/L Total Bilirubin 0.7 MG/DL 0.7 MG/DL Sodium Level 138 MEQ/L 140 MEQ/L Potassium Level 5.0 MEQ/L 4.2 MEQ/L Chloride Level 102 MEQ/L 103 MEQ/L Carbon Dioxide Level 27.7 MEQ/L 29.5 MEQ/L Anion Gap 8 MEQ/L 8 MEQ/L Estimat Glomerular Filtration Rate 11 ML/MIN 16 ML/MIN Protein Corrected Calcium 8.4 MG/DL Phosphorus Level 2.5 MG/DL Magnesium Level 1.9 MG/DL Lactic Acid Level 2.2 mmol/L Imaging Last Impressions Chest X-Ray 06/07/17 0000 Signed Impressions: Service Date/Time: Wednesday, June 07, 2017 03:15 - CONCLUSION: Patchy consolidation or atelectasis of the left lower lung. Tom Berry MD Objective Remarks Physical Exam Narrative GENERAL: Pale ill-appearing male laying in ER stretcher in minimal respiratory distress on nasal cannula SKIN: Focused skin assessment cool and dry. HEAD: Atraumatic. Normocephalic. EYES: No scleral icterus. No injection or drainage. ENT: No nasal bleeding or discharge. Mucous membranes pink and dry.. NECK: Trachea midline. Supple. CARDIOVASCULAR: Heart rate in the 80s. Irregularly irregular consistent with A. fib. RESPIRATORY: No accessory muscle use. Clear to auscultation. Breath sounds equal bilaterally. Decreased respiratory effort. GASTROINTESTINAL: Abdomen soft, nondistended. There is a PD-Cath in place. There is no drainage noted around it. MUSCULOSKELETAL: Patient has a healing rt heel ulcer. Venous stasis changes noted to his bilateral lower extremities. NEUROLOGICAL: Awake and weak and mildly confused. No obvious cranial nerve deficits. Moves both upper extremity is BACK: Stage I/early to decubitus in his sacral area. There is a large amount of maroon colored stool noted in his rectum area. A/P Assessment and Plan 66 year-old male with: GI bleed Hypotension Encephalopathy ESRD on peritoneal dialysis Diabetes mellitus Atrial fibrillation Sacral decubitus ulcer Right heel ulcer Plan: Neuro: Avoid sedatives and narcotics, monitor neuro status. Awake and alert CV: On Levophed 2 mics, monitor HR and BP keep MAP>65mmHg Lactic acid 2.2 Pulm: Continue with oxygen keep sat >92%. Bronchodilators when necessary. GI/liver: On clear liquid diet, on Protonix drip. s/p EGD yesterday which showed 2 large duodenal ulcers, esophagitis, gastritis. Renal/: Monitor renal function, I/O's, avoid nephrotoxins. nephrology Dr. Fair. Surgery is following- Dr. Donovan? fungal infection requiring PD catheter removal. Heme:Monitor CBC, s/p transfusion 2units PRBC yesterday Hgb 8.0 from 6.4 Endocrine: SSI for glycemic control ID: Continue abx ( Micafungin, Zosyn) monitor for signs of infections ( Fever, WBC) follow up on cultures. ID is following. Prophylaxis: PPI/SCDs. Lines: Right IJ CVP placed 06/05 Palliative care is following Code status: No code DNR Stu He MD Jun 07, 2017 07:30
--- NOTE | 2017-06-07 08:24 | HHI.NPPN ---
Subjective Interval History On Levophed drip. Received 2 units of PRBC. Patient seen by surgery. Reportedly has fungal peritonitis. Had HD yesterday. Objective Data Data Vital Signs Date Time Temp Pulse Resp B/P (MAP) Pulse Ox O2 Delivery O2 Flow Rate FiO2 06/07/17 06:00 95 06/07/17 04:00 84 06/07/17 03:00 97.6 81 12 85/52 (63) 97 06/07/17 02:00 88 06/07/17 00:00 114 06/06/17 23:00 97.5 92 11 87/53 (64) 97 06/06/17 23:00 92 06/06/17 22:00 91 06/06/17 21:17 99 Nasal Cannula 2.00 06/06/17 20:00 97.5 92 11 85/50 (62) 99 06/06/17 20:00 92 06/06/17 18:00 104 06/06/17 16:00 160 06/06/17 15:00 98 06/06/17 15:00 98.9 99 94/62 (73) 06/06/17 14:00 101 06/06/17 12:30 97.6 96 16 98/55 (69) 96 Nasal Cannula 3 06/06/17 12:15 99 16 97/52 (67) 99 Nasal Cannula 4 06/06/17 12:05 97.6 98 16 103/59 (74) 98 Nasal Cannula 4 06/06/17 12:00 85 06/06/17 11:00 98.7 85 94/62 (73) 06/06/17 10:00 84 -: 06/07/17 0358 06/07/17 0358 Microbiology 06/06/17 Fungal Smear, Received Pending 06/06/17 Fungal Culture, Received Pending 06/06/17 Acid Fast Stain, Received Pending 06/06/17 Mycobacterial Culture, Received Pending 06/06/17 Gram Stain, Received Pending 06/06/17 Body Fluid Culture, Received Pending Physical Exam Neck Neck Exam: Neck Supple Pulmonary Resp Exam: Clear Bilaterally Cardiology CV Exam: Regular Gastrointestinal/Abdomen GI Exam: Soft Extremeties Extremities Exam: No Edema Assessment/Plan Problem List: (1) ESRD (end stage renal disease) on dialysis ICD Codes: N18.6 - End stage renal disease; Z99.2 - Dependence on renal dialysis Plan: Continue HD support. Was dialyzed on 06/06. Monitor fluid and electrolytes. (2) Hypotension ICD Codes: I95.9 - Hypotension, unspecified Status: Acute Plan: On Levophed. (3) GI bleed ICD Codes: K92.2 - Gastrointestinal hemorrhage, unspecified Status: Acute Plan: s/p EGD: duodenal ulcer, gastritis, esophagitis. Received blood transfusion. Hemoglobin is 8. On Protonix drip. (4) Anemia ICD Codes: D64.9 - Anemia, unspecified Problem Qualifiers (1) Hypotension: Qualified Codes: I95.9 - Hypotension, unspecified (2) GI bleed: Qualified Codes: K92.2 - Gastrointestinal hemorrhage, unspecified (3) Anemia: Abdirashid Escobar MD Jun 07, 2017 08:24
[2017-06-07] MEDS: PANTOPRAZOLE SOD 40 MG DELAYED RELEASE TAB PO SCH (09:00)
[2017-06-07] MEDS: DOCUSATE SODIUM 50 MG/SENNA 8.6 MG TAB PO SCH ×2 (09:00→21:00)
[2017-06-07] MEDS: PANTOPRAZOLE INJ 80 MG in SODIUM CHLORIDE 0.9% INJ 100 ML IV SCH ×2 (09:35→17:35)
[2017-06-07] MEDS: SODIUM CHLORIDE 0.9% FLUSH 10 ML FLUSH IV FLUSH SCH ×2 (09:55→21:00)
--- NOTE | 2017-06-07 11:35 | HHI.PR ---
Subjective Subjective Notes He feels much better, would like to get up and walk. He would like to continue peritoneal dialysis if possible, he says his thinks because they are getting older, they may not be able to do it. He has hooked himself up to the machine in the past and thinks he can continue to do it. Objective Vitals/I&O Vital Signs Date Time Temp Pulse Resp B/P (MAP) Pulse Ox O2 Delivery O2 Flow Rate FiO2 06/07/17 09:57 100 Nasal Cannula 2.00 06/07/17 06:00 95 06/07/17 03:00 97.6 12 85/52 (63) Labs Laboratory Tests Test 06/06/17 16:33 06/07/17 00:39 06/07/17 03:58 Hemoglobin 9.6 8.0 8.0 Hematocrit 28.8 23.8 23.7 White Blood Count 11.8 Red Blood Count 2.45 Mean Corpuscular Volume 96.9 Mean Corpuscular Hemoglobin 32.5 Mean Corpuscular Hemoglobin Concent 33.6 Red Cell Distribution Width 19.0 Platelet Count 108 Mean Platelet Volume 7.7 Neutrophils (%) (Auto) 95.2 Lymphocytes (%) (Auto) 2.5 Monocytes (%) (Auto) 2.1 Eosinophils (%) (Auto) 0.1 Basophils (%) (Auto) 0.1 Neutrophils # (Auto) 11.2 Lymphocytes # (Auto) 0.3 Monocytes # (Auto) 0.2 Eosinophils # (Auto) 0.0 Basophils # (Auto) 0.0 CBC Comment DIFF FINAL Differential Comment Blood Urea Nitrogen 39 Creatinine 3.88 Random Glucose 148 Total Protein 4.6 Albumin 2.0 Calcium Level 7.7 Phosphorus Level 2.5 Magnesium Level 1.9 Alkaline Phosphatase 237 Aspartate Amino Transf (AST/SGOT) 13 Alanine Aminotransferase (ALT/SGPT) 12 Total Bilirubin 0.7 Sodium Level 140 Potassium Level 4.2 Chloride Level 103 Carbon Dioxide Level 29.5 Anion Gap 8 Estimat Glomerular Filtration Rate 16 Lactic Acid Level 2.2 Date/Time Source Procedure Growth Status 06/06/17 07:19 Blood Peripheral Aerobic Blood Culture - Preliminary NO GROWTH IN 1 DAY Resulted 06/06/17 07:19 Blood Peripheral Anaerobic Blood Culture - Preliminary NO GROWTH IN 1 DAY Resulted 06/06/17 15:20 Fluid Peritoneal Fluid Fungal Smear - Final NO FUNGAL ELEMENTS SEEN. Resulted 06/06/17 15:20 Fluid Peritoneal Fluid Fungal Culture Pending Resulted Narrative Exam Abdominal exam benign. No peritonitis present. PD catheter exit site uncomplicated. A/P Assessment and Plan PD catheter in place, apparent fungal infection requiring PD catheter removal. Cultures sent. Initial results- no fungal elements seen. Final culture pending. Pt clinically improved. Discussed leaving PD catheter in and resuming PD, he would like that if possible. I will follow up on Friday. Can discuss logistics with Dr Fair at that time. Bakari Donovan MD Jun 07, 2017 11:35
[2017-06-07] MEDS: MICAFUNGIN INJ 100 MG in SODIUM CHLORIDE 0.9% INJ 100 ML IV SCH (13:02)
--- NOTE | 2017-06-07 15:15 | HHI.GIFU ---
Subjective Remarks Resting in the bed feels somewhat better today Still has some mild hoarseness but much improved and able to communicate better Pale mild improved Melena stool 1 (Mica Mann) Objective Vitals I&O Vital Signs Date Time Temp Pulse Resp B/P (MAP) Pulse Ox O2 Delivery O2 Flow Rate FiO2 06/07/17 09:57 100 Nasal Cannula 2.00 06/07/17 06:00 95 06/07/17 04:00 84 06/07/17 03:00 97.6 81 12 85/52 (63) 97 06/07/17 02:16 92/62 06/07/17 02:00 88 06/07/17 00:00 114 06/06/17 23:00 97.5 92 11 87/53 (64) 97 06/06/17 23:00 92 06/06/17 22:00 91 06/06/17 21:17 99 Nasal Cannula 2.00 06/06/17 20:00 97.5 92 11 85/50 (62) 99 06/06/17 20:00 92 06/06/17 18:00 104 06/06/17 16:00 160 I/O 06/06/17 06/06/17 06/06/17 06/07/17 06/07/17 06/07/17 07:00 15:00 23:00 07:00 15:00 23:00 Intake Total 1137 ml 100 ml 50 ml Output Total 250 ml Balance 1137 ml 100 ml -250 ml 50 ml Intake IV Total 337 ml 50 ml Packed Cells 800 ml Other 100 ml Output Hemodialysis 250 ml # Voids 0 0 # Bowel Movements 1 Laboratory Laboratory Tests Test 06/06/17 16:33 06/07/17 00:39 06/07/17 03:58 06/07/17 12:34 Hemoglobin 9.6 8.0 8.0 Hematocrit 28.8 23.8 23.7 White Blood Count 11.8 Red Blood Count 2.45 Mean Corpuscular Volume 96.9 Mean Corpuscular Hemoglobin 32.5 Mean Corpuscular Hemoglobin Concent 33.6 Red Cell Distribution Width 19.0 Platelet Count 108 Mean Platelet Volume 7.7 Neutrophils (%) (Auto) 95.2 Lymphocytes (%) (Auto) 2.5 Monocytes (%) (Auto) 2.1 Eosinophils (%) (Auto) 0.1 Basophils (%) (Auto) 0.1 Neutrophils # (Auto) 11.2 Lymphocytes # (Auto) 0.3 Monocytes # (Auto) 0.2 Eosinophils # (Auto) 0.0 Basophils # (Auto) 0.0 CBC Comment DIFF FINAL Differential Comment Blood Urea Nitrogen 39 Creatinine 3.88 Random Glucose 148 Total Protein 4.6 Albumin 2.0 Calcium Level 7.7 Phosphorus Level 2.5 Magnesium Level 1.9 Alkaline Phosphatase 237 Aspartate Amino Transf (AST/SGOT) 13 Alanine Aminotransferase (ALT/SGPT) 12 Total Bilirubin 0.7 Sodium Level 140 Potassium Level 4.2 Chloride Level 103 Carbon Dioxide Level 29.5 Anion Gap 8 Estimat Glomerular Filtration Rate 16 Lactic Acid Level 2.2 Activated Partial Thromboplast Time 30.9 Date/Time Source Procedure Growth Status 06/06/17 07:19 Blood Peripheral Aerobic Blood Culture - Preliminary NO GROWTH IN 1 DAY Resulted 06/06/17 07:19 Blood Peripheral Anaerobic Blood Culture - Preliminary NO GROWTH IN 1 DAY Resulted 06/06/17 15:20 Fluid Peritoneal Fluid Fungal Smear - Final NO FUNGAL ELEMENTS SEEN. Resulted 06/06/17 15:20 Fluid Peritoneal Fluid Fungal Culture Pending Resulted Imaging Last Impressions Chest X-Ray 06/07/17 0000 Signed Impressions: Service Date/Time: Wednesday, June 07, 2017 03:15 - CONCLUSION: Patchy consolidation or atelectasis of the left lower lung. Tom Berry MD Physical Exam HEENT: Pupils round and reactive to light; normocephalic; atraumatic; no jaundice. Pale Throat, hoarseness improved in the last 24 hours NECK: Neck thin CHEST: Chest is clear , CARDIAC: Regular rate and rhythm ABDOMEN: Soft, mild bloating, nontender; no hepatosplenomegaly; bowel sounds soft EXTREMITIES: No clubbing, cyanosis, or edema. SKIN: Thin turgor pale, frail; no rash; no jaundice. 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., Hoarseness improved but understandable today (Mica Mann) Assessment and Plan Assessment: (1) Anemia ICD Codes: D64.9 - Anemia, unspecified (2) GI bleed ICD Codes: K92.2 - Gastrointestinal hemorrhage, unspecified Status: Acute (3) History of renal failure ICD Codes: Z87.448 - Personal history of other diseases of urinary system Status: Acute Plan Anemia, history of renal disease probable chronic, Hoarseness improving over the past 24 hours Melena 1 stool today EGD done 06/06/17, results show Severe grade D esophagitis Severe gastritis Anemia could be related to chronic disease plus blood loss from the upper GI tract from above PLAN: Multivitamins Diet renal ADA, clear liquids today may advance no NSAIDs Pantoprazole 40 mg by mouth daily, 30 minutes before eating the a.m. Follow-up biopsy in 7-10 days Patient will need colonoscopy in the future for his multi-medical comorbidities can follow-up in the office as outpatient. duodenal ulcers enlarged that was biopsied most likely reason for the anemia, biopsy was done from the duodenum not from the esophagus Continue to monitor hemoglobin, no active bleeding now, currently stable at 8 Bowel regimen meds stool softeners and laxatives as needed Supportive care CODE STATUS no code DO NOT RESUSCITATE Patient was seen by myself and Dr. Booth, note done on his behalf (Mica Mann) Plan Patient was seen and examined, agree with above-noted, seemed to be doing better , okay to advance diet as tolerated, we will follow up as needed please call us if there is any question (Avani Booth MD) Problem Qualifiers (1) Anemia: (2) GI bleed: Qualified Codes: K92.2 - Gastrointestinal hemorrhage, unspecified Mica Mann Jun 07, 2017 15:15 Avani Booth MD Jun 07, 2017 20:25
--- NOTE | 2017-06-07 16:54 | HHI.IDPN ---
Subjective Subjective Remarks BP is still a little low On minimal Levophed 1.5 mcgs + diarrhea growing yeast again from PD fluid no fever BC negative @ 1-2 days Antibiotics zosyn micafungin Allergies: Coded Allergies: morphine (Unverified Allergy, Severe, anaphylactic, 06/05/17) Objective . Vital Signs Date Time Temp Pulse Resp B/P (MAP) Pulse Ox O2 Delivery O2 Flow Rate FiO2 06/07/17 16:00 97.8 84 28 89/55 (66) 99 06/07/17 16:00 84 06/07/17 15:00 89 25 80/54 (63) 95 06/07/17 14:00 80 9 92/51 (65) 100 06/07/17 14:00 80 06/07/17 13:00 104 25 102/54 (70) 95 06/07/17 12:00 98 06/07/17 12:00 97.6 98 14 99/58 (72) 100 06/07/17 11:01 100 25 107/67 (80) 90 06/07/17 10:00 86 06/07/17 10:00 86 13 92/62 (72) 100 06/07/17 09:57 100 Nasal Cannula 2.00 06/07/17 09:00 124 23 102/51 (68) 80 06/07/17 08:00 97.9 77 16 86/52 (63) 06/07/17 08:00 95 06/07/17 07:01 83 21 124/67 (86) 96 06/07/17 06:00 95 06/07/17 06:00 76 13 86/51 (63) 93 06/07/17 05:00 71 15 91/44 (60) 93 06/07/17 04:00 84 19 82/50 (61) 95 06/07/17 04:00 84 06/07/17 03:00 97.6 81 12 85/52 (63) 97 06/07/17 02:16 92/62 06/07/17 02:00 88 06/07/17 00:00 114 06/06/17 23:00 97.5 92 11 87/53 (64) 97 06/06/17 23:00 92 06/06/17 22:00 91 06/06/17 21:17 99 Nasal Cannula 2.00 06/06/17 20:00 97.5 92 11 85/50 (62) 99 06/06/17 20:00 92 06/06/17 18:00 104 06/07/17 06/07/17 06/08/17 15:00 23:00 07:00 # Bowel Movements 1 . Laboratory Tests Test 06/05/17 17:25 06/06/17 02:37 06/06/17 09:00 06/06/17 16:33 White Blood Count 11.4 TH/MM3 11.6 TH/MM3 9.6 TH/MM3 Red Blood Count 1.99 MIL/MM3 1.90 MIL/MM3 2.77 MIL/MM3 Hemoglobin 6.7 GM/DL 6.4 GM/DL 8.9 GM/DL 9.6 GM/DL Hematocrit 20.8 % 20.0 % 26.5 % 28.8 % Mean Corpuscular Volume 104.8 FL 104.9 FL 95.8 FL Mean Corpuscular Hemoglobin 33.4 PG 33.4 PG 32.1 PG Mean Corpuscular Hemoglobin Concent 31.9 % 31.8 % 33.5 % Red Cell Distribution Width 17.7 % 17.8 % 18.6 % Platelet Count 189 TH/MM3 204 TH/MM3 136 TH/MM3 Mean Platelet Volume 8.0 FL 7.6 FL 7.7 FL Neutrophils (%) (Auto) 90.9 % 92.1 % 91.3 % Lymphocytes (%) (Auto) 3.9 % 3.9 % 4.0 % Monocytes (%) (Auto) 4.7 % 3.5 % 4.3 % Eosinophils (%) (Auto) 0.3 % 0.2 % 0.3 % Basophils (%) (Auto) 0.2 % 0.3 % 0.1 % Neutrophils # (Auto) 10.4 TH/MM3 10.6 TH/MM3 8.7 TH/MM3 Lymphocytes # (Auto) 0.4 TH/MM3 0.5 TH/MM3 0.4 TH/MM3 Monocytes # (Auto) 0.5 TH/MM3 0.4 TH/MM3 0.4 TH/MM3 Eosinophils # (Auto) 0.0 TH/MM3 0.0 TH/MM3 0.0 TH/MM3 Basophils # (Auto) 0.0 TH/MM3 0.0 TH/MM3 0.0 TH/MM3 CBC Comment DIFF FINAL AUTO DIFF DIFF FINAL Differential Comment FINAL DIFF MANUAL Differential Total Cells Counted 100 Neutrophils % (Manual) 86 % Band Neutrophils % 3 % Lymphocytes % 6 % Monocytes % 4 % Neutrophils # (Manual) 10.4 TH/MM3 Myelocytes 1 % Nucleated Red Blood Cells 1 /100 WBC Platelet Estimate NORMAL Platelet Morphology Comment NORMAL Polychromasia 5.5 % Basophilic Stippling FAINT Acanthocytes OCC Test 06/07/17 00:39 06/07/17 03:58 Hemoglobin 8.0 GM/DL 8.0 GM/DL Hematocrit 23.8 % 23.7 % White Blood Count 11.8 TH/MM3 Red Blood Count 2.45 MIL/MM3 Mean Corpuscular Volume 96.9 FL Mean Corpuscular Hemoglobin 32.5 PG Mean Corpuscular Hemoglobin Concent 33.6 % Red Cell Distribution Width 19.0 % Platelet Count 108 TH/MM3 Mean Platelet Volume 7.7 FL Neutrophils (%) (Auto) 95.2 % Lymphocytes (%) (Auto) 2.5 % Monocytes (%) (Auto) 2.1 % Eosinophils (%) (Auto) 0.1 % Basophils (%) (Auto) 0.1 % Neutrophils # (Auto) 11.2 TH/MM3 Lymphocytes # (Auto) 0.3 TH/MM3 Monocytes # (Auto) 0.2 TH/MM3 Eosinophils # (Auto) 0.0 TH/MM3 Basophils # (Auto) 0.0 TH/MM3 CBC Comment DIFF FINAL Differential Comment Laboratory Tests Test 06/05/17 17:25 06/06/17 09:00 06/07/17 03:58 Blood Urea Nitrogen 57 MG/DL 62 MG/DL 39 MG/DL Creatinine 5.39 MG/DL 5.31 MG/DL 3.88 MG/DL Random Glucose 163 MG/DL 157 MG/DL 148 MG/DL Total Protein 5.2 GM/DL 4.7 GM/DL 4.6 GM/DL Albumin 1.4 GM/DL 1.4 GM/DL 2.0 GM/DL Calcium Level 7.2 MG/DL 7.1 MG/DL 7.7 MG/DL Alkaline Phosphatase 414 U/L 342 U/L 237 U/L Aspartate Amino Transf (AST/SGOT) 22 U/L 20 U/L 13 U/L Alanine Aminotransferase (ALT/SGPT) 17 U/L 16 U/L 12 U/L Total Bilirubin 0.4 MG/DL 0.7 MG/DL 0.7 MG/DL Sodium Level 139 MEQ/L 138 MEQ/L 140 MEQ/L Potassium Level 4.5 MEQ/L 5.0 MEQ/L 4.2 MEQ/L Chloride Level 100 MEQ/L 102 MEQ/L 103 MEQ/L Carbon Dioxide Level 30.9 MEQ/L 27.7 MEQ/L 29.5 MEQ/L Anion Gap 8 MEQ/L 8 MEQ/L 8 MEQ/L Estimat Glomerular Filtration Rate 11 ML/MIN 11 ML/MIN 16 ML/MIN Lactic Acid Level 1.3 mmol/L 2.2 mmol/L Protein Corrected Calcium 8.2 MG/DL 8.4 MG/DL Total Creatine Kinase 45 U/L Troponin I 0.05 NG/ML Phosphorus Level 2.5 MG/DL Magnesium Level 1.9 MG/DL Microbiology Date/Time Source Procedure Growth Status 06/06/17 07:19 Blood Peripheral Aerobic Blood Culture - Preliminary NO GROWTH IN 1 DAY Resulted 06/06/17 07:19 Blood Peripheral Anaerobic Blood Culture - Preliminary NO GROWTH IN 1 DAY Resulted 06/06/17 07:04 Blood Peripheral Aerobic Blood Culture - Preliminary NO GROWTH IN 1 DAY Resulted 06/06/17 07:04 Blood Peripheral Anaerobic Blood Culture - Preliminary NO GROWTH IN 1 DAY Resulted 06/05/17 17:30 Blood Peripheral Aerobic Blood Culture - Preliminary NO GROWTH IN 2 DAYS Resulted 06/05/17 17:30 Blood Peripheral Anaerobic Blood Culture - Preliminary NO GROWTH IN 2 DAYS Resulted 06/05/17 17:25 Blood Peripheral Aerobic Blood Culture - Preliminary NO GROWTH IN 2 DAYS Resulted 06/05/17 17:25 Blood Peripheral Anaerobic Blood Culture - Preliminary NO GROWTH IN 2 DAYS Resulted 06/06/17 15:20 Fluid Peritoneal Fluid Fungal Smear - Final NO FUNGAL ELEMENTS SEEN. Resulted 06/06/17 15:20 Fluid Peritoneal Fluid Fungal Culture Pending Resulted 06/06/17 15:20 Fluid Peritoneal Fluid Acid Fast Stain Pending Received 06/06/17 15:20 Fluid Peritoneal Fluid Mycobacterial Culture Pending Received 06/06/17 15:20 Fluid Peritoneal Fluid Gram Stain - Final Resulted 06/06/17 15:20 Body Fluid Culture - Preliminary Carmen Albicans Resulted Imaging Last Impressions Chest X-Ray 06/07/17 0000 Signed Impressions: Service Date/Time: Wednesday, June 07, 2017 03:15 - CONCLUSION: Patchy consolidation or atelectasis of the left lower lung. Tom Berry MD Physical Exam CONSTITUTIONAL/GENERAL: This is an adequately nourished patient, in no apparent distress. Chronically ill apearing TUBES/LINES/DRAINS: AV fistula in place LUE with excellent thrill SKIN: No jaundice, rashes, or lesions. Ecchymoses on upper extremities. No wounds seen anteriorly. Skin temperature appropriate. Not diaphoretic. EYES: Pupils equal and round and reactive. Extraocular motions intact. No scleral icterus. No injection or drainage. Fundi not examined. CARDIOVASCULAR: Regular rate and rhythm without murmurs, gallops, or rubs. No JVD. Peripheral pulses symmetric. RESPIRATORY/CHEST: Symmetric, unlabored respirations. Clear to auscultation. Breath sounds equal bilaterally. No wheezes, rales, or rhonchi. GASTROINTESTINAL: Abdomen soft, non-tender, nondistended. No hepato-splenomegaly , or palpable masses. No guarding. Bowel sounds present. Imncontinent of liquid stool PD cath in place NO peritoneal signs GENITOURINARY: Without palpable bladder distension. MUSCULOSKELETAL: Extremities without clubbing, cyanosis, or edema. No joint tenderness or effusion noted. No calf tenderness. No mottling or clubbing. LYMPHATICS: No palpable cervical or supraclavicular adenopathy. NEUROLOGICAL: Awake and alert. Motor and sensory grossly within normal limits. Follows commands. confused. Moves all extremities. PSYCHIATRIC: No obvious anxiety/depression. no apparent hallucinations or other psychotic thought process. Assessment & Plan Remarks Assessment and Plan Assessment and Plan Fungal peritonitis 2/2 PD cahteter - again growin C albicans case was dw Dr Fair: he travis me that clx grw out C.albicans Sepis suspeced on presentation sp GI bleed - catheter needs to be removed fu new PD fluid cl;x dc zosyn chk stool for C.diff will switch to flucoanzol Discussed Condition With Lexie Galaviz RN, MD Jun 07, 2017 16:54
[2017-06-07] MEDS: FLUCONAZOLE 200 MG PREMIX BAG 100 ML IV SCH (17:35)
[2017-06-08] VITALS (22 sets, daily range): BP systolic 82–107; BP diastolic 40–64; PULSE 81–175; RESP 9–27; TEMP 97.2–98; O2SAT 94–100
[2017-06-08] MEDS: INSULIN NovoLIN REGULAR SUPPLEMENTAL SCALE SQ SCH ×6 (00:45→20:32)
[2017-06-08] MEDS: NOREPINEPHRINE 4 MG/D5W 250 ML IV PRN (02:35)
[2017-06-08] MEDS: CHLORHEXIDINE GLUCONATE 2 % 1 PACK (2 CLOTHS) TOP SCH (04:00)
[2017-06-08] MEDS: PANTOPRAZOLE INJ 80 MG in SODIUM CHLORIDE 0.9% INJ 100 ML IV SCH ×2 (05:35→15:35)
[2017-06-08 07:07] LABS: AUTOMATED NEUTROPHIL # 8.5 TH/MM3 (1.8-7.7); BASOPHIL % 0.1 % (0.0-2.0); EOSINOPHIL # 0.1 TH/MM3 (0-0.4); EOSINOPHIL % 0.9 % (0.0-4.0); HEMATOCRIT 25.6 % (39.0-51.0); HEMOGLOBIN 8.4 GM/DL (13.0-17.0); LYMPH % 3.8 % (9.0-44.0); LYMPHOCYTE # 0.3 TH/MM3 (1.0-4.8); MEAN CELL VOLUME 98.2 FL (80.0-100.0); MEAN CORPUSCULAR HEMOGLOBIN 32.3 PG (27.0-34.0); MEAN CORPUSCULAR HGB CONC 32.9 % (32.0-36.0); MONO % 2.8 % (0.0-8.0); MONOCYTE # 0.3 TH/MM3 (0-0.9); NEUT % 92.4 % (16.0-70.0); PLATELET COUNT 113 TH/MM3 (150-450); RED CELL DISTRIBUTION WIDTH 19.4 % (11.6-17.2); WHITE BLOOD COUNT 9.2 TH/MM3 (4.0-11.0)
[2017-06-08 07:24] LABS: BICARBONATE 27.6 MEQ/L (21.0-32.0); CALCIUM 7.1 MG/DL (8.5-10.1); CREATININE 4.46 MG/DL (0.60-1.30)
[2017-06-08 07:54] LABS: CALCIUM-PROTEIN CORRECTED 8.5 MG/DL (8.5-10.1); TOTAL PROTEIN 4.6 GM/DL (6.4-8.2)
--- NOTE | 2017-06-08 08:29 | HHI.NPPN ---
Subjective Interval History All the notes were reviewed. Peritoneal fluid culture is positive for Carmen albicans. Seen by ID. On Diflucan. Review of Systems General Constitutional: Fatigue Objective Data Data Vital Signs Date Time Temp Pulse Resp B/P (MAP) Pulse Ox O2 Delivery O2 Flow Rate FiO2 06/08/17 06:00 116 06/08/17 04:06 94 Nasal Cannula 2.00 06/08/17 04:00 87 06/08/17 04:00 97.7 87 10 82/53 (63) 96 06/08/17 02:35 104 92/54 06/08/17 02:00 114 06/08/17 00:18 96 Nasal Cannula 2.00 06/08/17 00:00 175 06/08/17 00:00 97.8 175 19 92/52 (65) 94 06/07/17 22:00 80 06/07/17 20:15 94 Nasal Cannula 2.00 06/07/17 20:00 79 06/07/17 20:00 97.5 79 17 88/54 (65) 96 06/07/17 18:00 84 06/07/17 17:43 86 87/55 06/07/17 16:00 97.8 84 28 89/55 (66) 99 06/07/17 16:00 84 06/07/17 15:00 89 25 80/54 (63) 95 06/07/17 14:00 80 9 92/51 (65) 100 06/07/17 14:00 80 06/07/17 13:00 104 25 102/54 (70) 95 06/07/17 12:00 98 06/07/17 12:00 97.6 98 14 99/58 (72) 100 06/07/17 11:01 100 25 107/67 (80) 90 06/07/17 10:00 86 06/07/17 10:00 86 13 92/62 (72) 100 06/07/17 09:57 100 Nasal Cannula 2.00 06/07/17 09:00 124 23 102/51 (68) 80 -: 06/08/17 0530 06/08/17 0530 Physical Exam General Appearance: Malnourished Neck Neck Exam: Neck Supple Pulmonary Resp Exam: Clear Bilaterally Cardiology CV Exam: Regular Gastrointestinal/Abdomen GI Exam: Soft Extremeties Extremities Exam: No Edema Assessment/Plan Problem List: (1) ESRD (end stage renal disease) on dialysis ICD Codes: N18.6 - End stage renal disease; Z99.2 - Dependence on renal dialysis Plan: Continue HD support. Was dialyzed on 06/06. Monitor fluid and electrolytes. Next dialysis will be on 06/09. (2) Peritonitis associated with peritoneal dialysis ICD Codes: T85.71XA - Infection and inflammatory reaction due to peritoneal dialysis catheter, initial encounter Plan: Peritoneal fluid culture positive for Carmen. PD catheter needs to be removed. ID and surgery following. (3) Hypotension ICD Codes: I95.9 - Hypotension, unspecified Status: Acute Plan: Sepsis present on admission. Continue supportive care. (4) GI bleed ICD Codes: K92.2 - Gastrointestinal hemorrhage, unspecified Status: Acute Plan: s/p EGD: duodenal ulcer, gastritis, esophagitis. Received blood transfusion. Hemoglobin is 8. On Protonix drip. (5) Anemia ICD Codes: D64.9 - Anemia, unspecified Problem Qualifiers (1) Hypotension: Qualified Codes: I95.9 - Hypotension, unspecified (2) GI bleed: Qualified Codes: K92.2 - Gastrointestinal hemorrhage, unspecified (3) Anemia: Abdirashid Escobar MD Jun 08, 2017 08:29
[2017-06-08] MEDS: PANTOPRAZOLE SOD 40 MG DELAYED RELEASE TAB PO SCH ×2 (09:00→13:46)
[2017-06-08] MEDS: SODIUM CHLORIDE 0.9% FLUSH 10 ML FLUSH IV FLUSH SCH ×2 (09:00→20:34)
[2017-06-08] MEDS: DOCUSATE SODIUM 50 MG/SENNA 8.6 MG TAB PO SCH ×2 (09:00→20:33)
[2017-06-08] MEDS: VASOPRESSIN INJ 40 UNITS in DEXTROSE 5% IN WATER 100ML INJ 98 ML IV SCH ×2 (10:08)
[2017-06-08] MEDS: FLUCONAZOLE 200 MG PREMIX BAG 100 ML IV SCH (18:33)
--- NOTE | 2017-06-08 20:55 | HHI.CCPN ---
Subjective Remarks/Hospital Course 66 year-old male with a medical history significant for end-stage renal disease on peritoneal dialysis who was noted to be severely hypotensive and lethargic at the dialysis center on 06/05 and was called and patient was transferred to [facility] [place] ER. On arrival he was noted to be hypotensive with SBP 70s and heart rate 100s. He also reportedly had significant melena and rectal bleeding following arrival. A right IJ central line was placed by ER physician. Patient's arrived and wanted to make patient DNR status and did not want blood transfusions and wished transferring to hospice however subsequently patient woke up and wanted to continue aggressive care including blood transfusions. ER physician contacted me questioning patient's 's ability to make decisions for him due to concern for secondary gain as well as possible psychiatric illness. Patient was accepted for admission by critical care medicine service. 4 units PRBCs were ordered to be transfused stat by ER physician. When I arrived to see the patient he was laying in the ER stretcher on nasal cannula on 5 mics of Levophed. He is drowsy but easily arousable. He knew he was at the hospital. He could not give me details of his history. 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 06/07 Patient is on Levophed 2 mics, s/p HD yesterday. Awake and alert on Protonix drip. s/p EGD yesterday showed 2 large Duodenal ulcer, esophagitis and gastritis. Subjective 06/08: Afebrile. Currently off norepinephrine but MAP is around 60 currently. States he is okay with removing peritoneal dialysis catheter. Will discuss with general surgery in nephrology in a.m. Objective Vital Signs Date Time Temp Pulse Resp B/P (MAP) Pulse Ox O2 Delivery O2 Flow Rate FiO2 06/08/17 18:00 107 06/08/17 16:00 97.8 27 107/56 (73) 99 06/08/17 08:22 Nasal Cannula 2.00 Intake and Output 06/08/17 06/08/17 06/09/17 08:00 16:00 00:00 Intake Total 201 ml 422 ml Balance 201 ml 422 ml Result Diagram: 06/08/17 0530 06/08/17 0530 Other Results Microbiology Date/Time Source Procedure Growth Status 06/06/17 07:19 Blood Peripheral Aerobic Blood Culture - Preliminary NO GROWTH IN 2 DAYS Resulted 06/06/17 07:19 Blood Peripheral Anaerobic Blood Culture - Preliminary NO GROWTH IN 2 DAYS Resulted 06/06/17 15:20 Fluid Peritoneal Fluid Fungal Smear - Final NO FUNGAL ELEMENTS SEEN. Resulted 06/06/17 15:20 Fluid Peritoneal Fluid Fungal Culture Pending Resulted Imaging Last Impressions Chest X-Ray 06/07/17 0000 Signed Impressions: Service Date/Time: Wednesday, June 07, 2017 03:15 - CONCLUSION: Patchy consolidation or atelectasis of the left lower lung. Tom Berry MD Objective Remarks GENERAL: 66 year male resting in bed in no acute distress SKIN: Woman dry. No rash HEAD: Atraumatic. Normocephalic. EYES: No scleral icterus. No injection or drainage. ENT: No nasal bleeding or discharge. Mucous membranes pink and dry.. NECK: Trachea midline. Supple. CARDIOVASCULAR: Heart rate in the 80s. Irregularly irregular consistent with A. fib. RESPIRATORY: No accessory muscle use. Clear to auscultation. Breath sounds equal bilaterally. Decreased respiratory effort. GASTROINTESTINAL: Abdomen soft, nondistended. There is a PD-Cath in place. No signs erythema or drainage. MUSCULOSKELETAL: Patient has a well-healed rt heel ulcer. Venous stasis changes noted to his bilateral lower extremities. NEUROLOGICAL: Awake and weak and mildly confused. No obvious cranial nerve deficits. Moves both upper extremity is BACK: Stage I/early to decubitus in his sacral area. Vascular Central Line Catheter: Yes Assessment to: Continue Line: Central Venous Catheter Side: Right Location: Internal, Jugular A/P Assessment and Plan Neuro/Psych: Depression Chronic Pain syndrome History of CVA Holding paroxetine 10 mg daily/home medication. Resume when clinically indicated Avoid sedatives and narcotics including tramadol/home medication, monitor neuro status. Awake and alert Holding clopidogrel 75 mg daily. Resume when okay with GI CV: Atrial fibrillation rate controlled Straight hypertension monitor HR and BP keep MAP>65mmHg Lactic acid 2.2 Holding clopidogrel 75 mg daily light of duodenal ulcer Holding lisinopril 20 mill grams daily and metoprolol 50 mill grams daily in light of hypotension Holding isosorbide mononitrate 30 mg daily light of borderline blood pressures As needed norepinephrine to maintain mean arterial pressure gradient 65 Pulm: Continue with oxygen keep sat >92%. Bronchodilators when necessary. GI/liver: Upper GI bleed secondary to duodenal ulcer On clear liquid diet, On pantoprazole 40 mg by mouth daily s/p EGD/ which showed 2 large duodenal ulcers, grade D esophagitis, gastritis. Renal/: Monitor renal function, I/O's, avoid nephrotoxins. nephrology Dr. Fair. Surgery is following- Dr. Donovan? fungal infection requiring PD catheter removal. Heme: Normocytic anemia Thrombocytopenia Monitor CBC, s/p transfusion 2units PRBC Endocrine: Diabetes mellitus SSI for glycemic control with low Novulog before meals at bedtime Holding Tradjenta 5 mg daily ID: Infected peritoneal dialysis catheter Continue /fluconazole 200 mg IV daily) monitor for signs of infections ( Fever, WBC) follow up on cultures. ID is following. All cultures from this hospital admission no growth to date. Patient wishes to discuss with nephrology and general surgery in a.m. Wishes to have dialysis catheter removed at this time. MSK: Right heel ulcer Sacral decubitus ulcer Wound care evaluate and treat Prophylaxis: PPI/SCDs. Lines: Right IJ CVP placed 06/05 Level II follow-up Tariq Layc MD Jun 08, 2017 20:55
[2017-06-09] VITALS (40 sets, daily range): BP systolic 84–116; BP diastolic 50–72; PULSE 74–127; RESP 11–27; TEMP 97.3–98.6; O2SAT 86–100
[2017-06-09] MEDS: CHLORHEXIDINE GLUCONATE 2 % 1 PACK (2 CLOTHS) TOP SCH (04:00)
[2017-06-09 04:40] LABS: AUTOMATED NEUTROPHIL # 9.6 TH/MM3 (1.8-7.7); BASOPHIL # 0.1 TH/MM3 (0-0.2); BASOPHIL % 0.5 % (0.0-2.0); EOSINOPHIL # 0.1 TH/MM3 (0-0.4); EOSINOPHIL % 0.8 % (0.0-4.0); HEMATOCRIT 24.5 % (39.0-51.0); HEMOGLOBIN 8.3 GM/DL (13.0-17.0); LYMPH % 3.5 % (9.0-44.0); LYMPHOCYTE # 0.4 TH/MM3 (1.0-4.8); MEAN CELL VOLUME 98.9 FL (80.0-100.0); MEAN CORPUSCULAR HEMOGLOBIN 33.5 PG (27.0-34.0); MEAN CORPUSCULAR HGB CONC 33.9 % (32.0-36.0); MEAN PLATELET VOLUME 8.2 FL (7.0-11.0); MONO % 3.1 % (0.0-8.0); MONOCYTE # 0.3 TH/MM3 (0-0.9); NEUT % 92.1 % (16.0-70.0); PLATELET COUNT 111 TH/MM3 (150-450); RED BLOOD COUNT 2.48 MIL/MM3 (4.50-5.90); RED CELL DISTRIBUTION WIDTH 18.7 % (11.6-17.2); WHITE BLOOD COUNT 10.4 TH/MM3 (4.0-11.0)
[2017-06-09 05:08] LABS: ALBUMIN 1.6 GM/DL (3.4-5.0); BICARBONATE 27.5 MEQ/L (21.0-32.0); CALCIUM 6.8 MG/DL (8.5-10.1); CALCIUM-PROTEIN CORRECTED 8.1 MG/DL (8.5-10.1); CREATININE 5.04 MG/DL (0.60-1.30); MAGNESIUM 2.1 MG/DL (1.5-2.5); PHOSPHORUS 3.6 MG/DL (2.5-4.9); TOTAL BILIRUBIN ADULT 0.5 MG/DL (0.2-1.0); TOTAL PROTEIN 4.7 GM/DL (6.4-8.2)
[2017-06-09] MEDS: INSULIN NovoLIN REGULAR SUPPLEMENTAL SCALE SQ SCH ×3 (08:00→21:00)
[2017-06-09] MEDS: DOCUSATE SODIUM 50 MG/SENNA 8.6 MG TAB PO SCH ×2 (08:06→21:00)
[2017-06-09] MEDS: SODIUM CHLORIDE 0.9% FLUSH 10 ML FLUSH IV FLUSH SCH ×2 (08:06→21:26)
[2017-06-09] MEDS: PANTOPRAZOLE SOD 40 MG DELAYED RELEASE TAB PO SCH (08:06)
[2017-06-09] MEDS: NOREPINEPHRINE 4 MG/D5W 250 ML IV PRN ×2 (08:07→22:05)
--- NOTE | 2017-06-09 10:02 | HHI.NPPN ---
Subjective General Problems: Anemia Renal Failure: End Stage Renal Disease History of Present Illness Patient is a very pleasant 66 year old male who came into the emergency room on 06/06/17 hypotensive, lethargic, and with a hemoglobin of 6.7. He was transfused 2 units of PRBC's with a recheck pending. He was initially put on Levophed for blood pressure support however it is currently not running. Has a past medical history of End -stage renal disease with peritoneal dialysis, AFIB , diabetes, arthritis, chronic pain, and hx of strokes. Onset of acute epigastric pain and discomfort noted for 5 days ago, but worsened over the past 24 hours. Reported loose stools for 3 weeks. In the emergency room patient did report melena, nausea, mild vomiting undigested food yesterday, but denied any coffee ground emesis. Patient has AV fistula and will have dialysis while here. Per patient PD catheter needs to be removed secondary to infection. Additional Remarks Resting comfortably. Seen during dialysis. On low dose Levophed (Samreen Ward) Additional Remarks Patient seen in AM, during HD, not in distress, still on pressors. (Darryl Fair MD) Review of Systems General Constitutional: Fatigue General Remarks weakness (Samreen Ward) Respiratory Respiratory Remarks Denies SOB (Samreen Ward) Cardiovascular Cardiac Remarks Denies CP (Samreen Ward) Gastrointestinal GI Remarks Denies abdominal pain (Samreen Ward) Objective Data Data 06/09/17 06/10/17 19:00 07:00 Intake Total 100 ml Balance 100 ml IV Total 100 ml Vital Signs Date Time Temp Pulse Resp B/P (MAP) Pulse Ox O2 Delivery O2 Flow Rate FiO2 06/09/17 09:30 93 06/09/17 09:30 93 13 95/54 (68) 94 06/09/17 09:15 74 06/09/17 09:15 74 12 98/55 (69) 96 06/09/17 09:00 79 06/09/17 09:00 79 14 109/51 (70) 97 06/09/17 08:45 74 06/09/17 08:45 74 19 96/52 (67) 96 06/09/17 08:32 95 21 06/09/17 08:30 81 12 93/63 (73) 97 06/09/17 08:30 81 06/09/17 08:07 87 84/51 06/09/17 08:00 98.2 84 21 84/51 (62) 98 06/09/17 08:00 84 06/09/17 06:00 76 06/09/17 04:00 97.3 86 23 116/65 (82) 93 06/09/17 04:00 86 06/09/17 02:00 89 06/09/17 00:00 97.4 76 13 85/50 (62) 95 06/09/17 00:00 76 06/08/17 22:00 84 06/08/17 20:00 97.2 97 11 83/53 (63) 98 06/08/17 20:00 97 06/08/17 19:12 95 Nasal Cannula 2.00 06/08/17 18:00 107 06/08/17 16:00 103 06/08/17 16:00 97.8 103 27 107/56 (73) 99 06/08/17 14:00 104 06/08/17 12:00 98.0 88 19 84/53 (63) 99 06/08/17 12:00 88 06/08/17 11:00 81 9 85/40 (55) 99 06/08/17 10:30 123 27 100/64 (76) 98 06/08/17 10:00 119 23 98/58 (71) 99 06/08/17 10:00 119 (Samreen Ward) -: 06/09/17 0420 06/09/17 0420 Imaging Last Impressions Chest X-Ray 06/07/17 0000 Signed Impressions: Service Date/Time: Wednesday, June 07, 2017 03:15 - CONCLUSION: Patchy consolidation or atelectasis of the left lower lung. Tom Berry MD (Samreen Ward) Physical Exam General Appearance: Malnourished (Samreen Ward) Neck Neck Exam: Neck Supple (Samreen Ward) Pulmonary Resp Exam: Clear Bilaterally (Samreen Ward) Cardiology CV Exam: Regular (Samreen Ward) Gastrointestinal/Abdomen GI Exam: Soft (Samreen Ward) Extremeties Extremities Exam: No Edema (Samreen Ward) Assessment/Plan Problem List: (1) ESRD (end stage renal disease) on dialysis ICD Codes: N18.6 - End stage renal disease; Z99.2 - Dependence on renal dialysis Plan: Seen during dialysis. Potassium and phos WNL Protein corrected calcuim at 8.3. Replacement added. Monitor fluid and electrolytes. (2) Peritonitis associated with peritoneal dialysis ICD Codes: T85.71XA - Infection and inflammatory reaction due to peritoneal dialysis catheter, initial encounter Plan: Peritoneal fluid culture positive for Carmen. PD catheter needs to be removed. ID and surgery following. (3) Hypotension ICD Codes: I95.9 - Hypotension, unspecified Status: Acute Plan: Sepsis present on admission. Continue supportive care. (4) GI bleed ICD Codes: K92.2 - Gastrointestinal hemorrhage, unspecified Status: Acute Plan: s/p EGD: duodenal ulcer, gastritis, esophagitis. Received blood transfusion. Hemoglobin is 8. (5) Anemia ICD Codes: D64.9 - Anemia, unspecified (Samreen Ward) Problem List: (1) ESRD (end stage renal disease) on dialysis ICD Codes: N18.6 - End stage renal disease; Z99.2 - Dependence on renal dialysis Plan: Seen during dialysis. Potassium and phos WNL Protein corrected calcium at 8.3. Replacement added. Monitor fluid and electrolytes. HD now, will remove minimal fluid as the BP is low. For PD Catheter removal. (2) Peritonitis associated with peritoneal dialysis ICD Codes: T85.71XA - Infection and inflammatory reaction due to peritoneal dialysis catheter, initial encounter Plan: Peritoneal fluid culture positive for Carmen. PD catheter needs to be removed. ID and surgery following. (3) Hypotension ICD Codes: I95.9 - Hypotension, unspecified Status: Acute Plan: Sepsis present on admission. Continue supportive care. (4) GI bleed ICD Codes: K92.2 - Gastrointestinal hemorrhage, unspecified Status: Acute Plan: s/p EGD: duodenal ulcer, gastritis, esophagitis. Received blood transfusion. Hemoglobin is 8. (5) Anemia ICD Codes: D64.9 - Anemia, unspecified (Darryl Fair MD) Problem Qualifiers (1) Hypotension: Qualified Codes: I95.9 - Hypotension, unspecified (2) GI bleed: Qualified Codes: K92.2 - Gastrointestinal hemorrhage, unspecified (3) Anemia: Samreen Ward Jun 09, 2017 10:02 Darryl Fair MD Jun 09, 2017 16:14
[2017-06-09] MEDS: EPOETIN ALFA 10,000 UNITS/ML VIAL IV PUSH PRN (11:12)
[2017-06-09] MEDS: GELATIN 12 MM/7 MM FOAM TOP PRN (11:35)
--- NOTE | 2017-06-09 11:41 | HHI.HCPN ---
Reason for visit a. To assist with evaluation and management of symptoms including: weakness , chronic pain b. To assist medical decision maker(s) with: better understanding of current medical conditions; weighing benefits/burdens of medical treatment options; making medical treatment decisions. Subjective/Interval History Pt seen today to follow up on comfort, goals. Stable over the weekend. S/p gen surgery consult RE possible infected peritoneal dialysis catheter, GS to follow cultures, possible may remove. Culture + nahid, pt changed from micafungin to fluconazole per ID. Pt now on HD, nephrology following. Requiring some Levophed for hypotension, nursing titrating up to 8mcg during hemodialysis. H&H stable. CXR 06/07= Patchy consolidation or atelectasis of the left lower lung. [dual visit w Carrol PACK] Pt seen in room while HD nurse present, pt undergoing HD currently. He is alert , mostly oriented, Does not remember me from last week. Indicates feeling better overall (than last week). Some insight into hospital course-- some insight to dialysis situation, GI situation/EGD findings. Explore with him my conversation last week regarding conditions, prognosis, and that he is likely to continue to experience chronic medical problems and continued debility though with aggressive medical treatments he might remain stable for some time. Not clear at this time if or when he would be able to resume peritoneal dialysis. He indicates he is okay with things as they are as he is physically feeling much better. He endorses aggressive goal short of resuscitation. Further breifly explore with him that if/when he no longer desires aggressive/invasive interventions he has the option for comfort measures , no further aggressive tx. ROS essentially negative he denies any GI complaints. Endorses fair appetite though he is only receiving clear liquids at this time. Indicates feeling significant weakness when they attempted to stand him up at the bedside and get to a chair yesterday. Patient complains of very mild pain to legs/feet, only when "roughly touched". Denies SOB, endorses mild infrequent cough, nonproductive. Requests I call his to update. Call to . . Family/friend interactions call to per pt request. provided update, all questions answered. She has questions RE possible discharge home, explore w her possible may require rehab again, depending on functional status. She asks about PT, OOB activity. She will be in later to see pt . Advance Directives Living Will: Never completed Health Care Surrogate: Copy in medical record Durable Power of Vertical Mill Operator: Copy in medical record Advance Directive Specifics Date completed: 06/01/17 Health Care Surrogate(s): Healthcare surrogate document [06/01/17] actually names the patient as healthcare surrogate. durable power of funeral counselor does not include healthcare decision making. Objective Vital Signs Date Time Temp Pulse Resp B/P (MAP) Pulse Ox O2 Delivery O2 Flow Rate FiO2 06/09/17 10:03 85 83/47 06/09/17 10:00 95 06/09/17 09:30 93 06/09/17 09:30 93 13 95/54 (68) 94 06/09/17 09:15 74 06/09/17 09:15 74 12 98/55 (69) 96 06/09/17 09:00 79 06/09/17 09:00 79 14 109/51 (70) 97 06/09/17 08:45 74 06/09/17 08:45 74 19 96/52 (67) 96 06/09/17 08:32 95 21 06/09/17 08:30 81 12 93/63 (73) 97 06/09/17 08:30 81 06/09/17 08:07 87 84/51 06/09/17 08:00 98.2 84 21 84/51 (62) 98 06/09/17 08:00 84 06/09/17 06:00 76 06/09/17 04:00 97.3 86 23 116/65 (82) 93 06/09/17 04:00 86 06/09/17 02:00 89 06/09/17 00:00 97.4 76 13 85/50 (62) 95 06/09/17 00:00 76 06/08/17 22:00 84 06/08/17 20:00 97.2 97 11 83/53 (63) 98 06/08/17 20:00 97 06/08/17 19:12 95 Nasal Cannula 2.00 06/08/17 18:00 107 06/08/17 16:00 103 06/08/17 16:00 97.8 103 27 107/56 (73) 99 06/08/17 14:00 104 06/08/17 12:00 98.0 88 19 84/53 (63) 99 06/08/17 12:00 88 06/08/17 11:00 81 9 85/40 (55) 99 Intake & Output 06/09/17 06/09/17 07:00 19:00 Intake Total 240 ml 100 ml Output Total 1000 ml Balance 240 ml -900 ml Intake Oral 240 ml IV Total 100 ml Hemodialysis 1000 ml # Bowel Movements 2 Physical Exam CONSTITUTIONAL/GENERAL: Frail. Slight temporal wasting. In no apparent distress. Voice is hoarse. TUBES/LINES/DRAINS: . Central line rt IJ. SKIN: No jaundice. Diffuse pallor prominent in nail beds. Scattered petechia on upper extremities. Chronic venous insufficiency of lower extremities. Ulcers on plantar aspect of left foot and right great toe. NECK: Trachea midline. Supple, nontender. No palpable thyroid enlargement or nodularity. CARDIOVASCULAR: Irregular rate and irregular rhythm without murmur. observe afib on bedside monitor. No JVD. Peripheral pulses symmetric. RESPIRATORY/CHEST: Mild shortness of breath with conversation. Diffuse crackles bilaterally. Breath sounds equal bilaterally. No wheezes. GASTROINTESTINAL: Abdomen soft, non-tender, nondistended. No hepato- splenomegaly. No guarding. Peritoneal drain mid abdomen covered w clean dry dressing GENITOURINARY: Without palpable bladder distension. MUSCULOSKELETAL: Atrophy in bilateral lower extremities. Extremities without clubbing, cyanosis, or edema.+ chronic vascular skin changes BLE NEUROLOGICAL: Awake and alert. Oriented x2-3. Fair insight. Some word searching. Motor and sensory grossly within normal limits. Follows commands. moves all 4 extremities. PSYCHIATRIC:. No obvious anxiety/depression. no apparent hallucinations or other psychotic thought process. Diagnostic Tests Laboratory Laboratory Tests Test 06/06/17 16:33 06/07/17 00:39 06/07/17 03:58 06/07/17 12:34 Hemoglobin 9.6 GM/DL (13.0-17.0) 8.0 GM/DL (13.0-17.0) 8.0 GM/DL (13.0-17.0) Hematocrit 28.8 % (39.0-51.0) 23.8 % (39.0-51.0) 23.7 % (39.0-51.0) White Blood Count 11.8 TH/MM3 (4.0-11.0) Red Blood Count 2.45 MIL/MM3 (4.50-5.90) Mean Corpuscular Volume 96.9 FL (80.0-100.0) Mean Corpuscular Hemoglobin 32.5 PG (27.0-34.0) Mean Corpuscular Hemoglobin Concent 33.6 % (32.0-36.0) Red Cell Distribution Width 19.0 % (11.6-17.2) Platelet Count 108 TH/MM3 (150-450) Mean Platelet Volume 7.7 FL (7.0-11.0) Neutrophils (%) (Auto) 95.2 % (16.0-70.0) Lymphocytes (%) (Auto) 2.5 % (9.0-44.0) Monocytes (%) (Auto) 2.1 % (0.0-8.0) Eosinophils (%) (Auto) 0.1 % (0.0-4.0) Basophils (%) (Auto) 0.1 % (0.0-2.0) Neutrophils # (Auto) 11.2 TH/MM3 (1.8-7.7) Lymphocytes # (Auto) 0.3 TH/MM3 (1.0-4.8) Monocytes # (Auto) 0.2 TH/MM3 (0-0.9) Eosinophils # (Auto) 0.0 TH/MM3 (0-0.4) Basophils # (Auto) 0.0 TH/MM3 (0-0.2) CBC Comment DIFF FINAL Differential Comment Blood Urea Nitrogen 39 MG/DL (7-18) Creatinine 3.88 MG/DL (0.60-1.30) Random Glucose 148 MG/DL (74-106) Total Protein 4.6 GM/DL (6.4-8.2) Albumin 2.0 GM/DL (3.4-5.0) Calcium Level 7.7 MG/DL (8.5-10.1) Phosphorus Level 2.5 MG/DL (2.5-4.9) Magnesium Level 1.9 MG/DL (1.5-2.5) Alkaline Phosphatase 237 U/L (45-117) Aspartate Amino Transf (AST/SGOT) 13 U/L (15-37) Alanine Aminotransferase (ALT/SGPT) 12 U/L (12-78) Total Bilirubin 0.7 MG/DL (0.2-1.0) Sodium Level 140 MEQ/L (136-145) Potassium Level 4.2 MEQ/L (3.5-5.1) Chloride Level 103 MEQ/L (98-107) Carbon Dioxide Level 29.5 MEQ/L (21.0-32.0) Anion Gap 8 MEQ/L (5-15) Estimat Glomerular Filtration Rate 16 ML/MIN (>89) Lactic Acid Level 2.2 mmol/L (0.4-2.0) Activated Partial Thromboplast Time 30.9 SEC (24.3-30.1) Test 06/08/17 05:30 06/09/17 04:20 White Blood Count 9.2 TH/MM3 (4.0-11.0) 10.4 TH/MM3 (4.0-11.0) Red Blood Count 2.60 MIL/MM3 (4.50-5.90) 2.48 MIL/MM3 (4.50-5.90) Hemoglobin 8.4 GM/DL (13.0-17.0) 8.3 GM/DL (13.0-17.0) Hematocrit 25.6 % (39.0-51.0) 24.5 % (39.0-51.0) Mean Corpuscular Volume 98.2 FL (80.0-100.0) 98.9 FL (80.0-100.0) Mean Corpuscular Hemoglobin 32.3 PG (27.0-34.0) 33.5 PG (27.0-34.0) Mean Corpuscular Hemoglobin Concent 32.9 % (32.0-36.0) 33.9 % (32.0-36.0) Red Cell Distribution Width 19.4 % (11.6-17.2) 18.7 % (11.6-17.2) Platelet Count 113 TH/MM3 (150-450) 111 TH/MM3 (150-450) Mean Platelet Volume 8.0 FL (7.0-11.0) 8.2 FL (7.0-11.0) Neutrophils (%) (Auto) 92.4 % (16.0-70.0) 92.1 % (16.0-70.0) Lymphocytes (%) (Auto) 3.8 % (9.0-44.0) 3.5 % (9.0-44.0) Monocytes (%) (Auto) 2.8 % (0.0-8.0) 3.1 % (0.0-8.0) Eosinophils (%) (Auto) 0.9 % (0.0-4.0) 0.8 % (0.0-4.0) Basophils (%) (Auto) 0.1 % (0.0-2.0) 0.5 % (0.0-2.0) Neutrophils # (Auto) 8.5 TH/MM3 (1.8-7.7) 9.6 TH/MM3 (1.8-7.7) Lymphocytes # (Auto) 0.3 TH/MM3 (1.0-4.8) 0.4 TH/MM3 (1.0-4.8) Monocytes # (Auto) 0.3 TH/MM3 (0-0.9) 0.3 TH/MM3 (0-0.9) Eosinophils # (Auto) 0.1 TH/MM3 (0-0.4) 0.1 TH/MM3 (0-0.4) Basophils # (Auto) 0.0 TH/MM3 (0-0.2) 0.1 TH/MM3 (0-0.2) CBC Comment DIFF FINAL DIFF FINAL Differential Comment Blood Urea Nitrogen 46 MG/DL (7-18) 51 MG/DL (7-18) Creatinine 4.46 MG/DL (0.60-1.30) 5.04 MG/DL (0.60-1.30) Random Glucose 55 MG/DL (74-106) 90 MG/DL (74-106) Total Protein 4.6 GM/DL (6.4-8.2) 4.7 GM/DL (6.4-8.2) Calcium Level 7.1 MG/DL (8.5-10.1) 6.8 MG/DL (8.5-10.1) Sodium Level 140 MEQ/L (136-145) 137 MEQ/L (136-145) Potassium Level 4.2 MEQ/L (3.5-5.1) 4.4 MEQ/L (3.5-5.1) Chloride Level 103 MEQ/L (98-107) 100 MEQ/L (98-107) Carbon Dioxide Level 27.6 MEQ/L (21.0-32.0) 27.5 MEQ/L (21.0-32.0) Anion Gap 9 MEQ/L (5-15) 10 MEQ/L (5-15) Estimat Glomerular Filtration Rate 13 ML/MIN (>89) 12 ML/MIN (>89) Protein Corrected Calcium 8.5 MG/DL (8.5-10.1) 8.1 MG/DL (8.5-10.1) Albumin 1.6 GM/DL (3.4-5.0) Phosphorus Level 3.6 MG/DL (2.5-4.9) Magnesium Level 2.1 MG/DL (1.5-2.5) Alkaline Phosphatase 239 U/L (45-117) Aspartate Amino Transf (AST/SGOT) 13 U/L (15-37) Alanine Aminotransferase (ALT/SGPT) 15 U/L (12-78) Total Bilirubin 0.5 MG/DL (0.2-1.0) Result Diagram: 06/09/17 0420 06/09/17 0420 Microbiology Microbiology Date/Time Source Procedure Growth Status 06/06/17 15:20 Fluid Peritoneal Fluid Fungal Smear - Final NO FUNGAL ELEMENTS SEEN. Resulted 06/06/17 15:20 Fluid Peritoneal Fluid Fungal Culture Pending Resulted 06/06/17 15:20 Fluid Peritoneal Fluid Acid Fast Stain - Final NO ACID FAST BACILLI SEEN Resulted 06/06/17 15:20 Fluid Peritoneal Fluid Mycobacterial Culture Pending Resulted 06/06/17 15:20 Fluid Peritoneal Fluid Gram Stain - Final Complete 06/06/17 15:20 Body Fluid Culture - Final Nahid Albicans Complete Imaging Last Impressions Chest X-Ray 06/07/17 0000 Signed Impressions: Service Date/Time: Wednesday, June 07, 2017 03:15 - CONCLUSION: Patchy consolidation or atelectasis of the left lower lung. Tom Berry MD Procedures 06/06/17 EGD Assessment and Plan Disease Oriented Problem List: (1) Atrial fibrillation (2) Sacral decubitus ulcer (3) Heel ulceration (4) Hypotension (5) GI bleed (6) Anemia (7) ESRD (end stage renal disease) on dialysis Symptom Scale: (1) Weakness Pertinent Non-Medical Issues Psychosocial: to his x 6 yrs. Has 1 adult son from prior marriage, who is incarcerated in [place]. He communicates with him every Friday (son calls him). 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 His mother is still living there, and a sister. Moved to [place] in his 50s for snf. Spiritual:no particular affiliation, does not want category analyst support Legal:Patient has a healthcare surrogate document in his chart however this document actually names the patient as designated healthcare surrogate. Per [place] statutes his would be appropriate legal proxy if patient incapacitated. 06/06/17 assisted pt to complete new HCS, names his as HCS. Ethical issues impacting care: Important Contacts spouse Aparna Guadalupe [phone] . Prognosis This patient was admitted for hypotension, significant anemia, GI bleed. He has known history of dialysis dependent end-stage renal disease. Ongoing diagnostics, GI evaluation. With ongoing aggressive treatments and interventions may be able to recover from current acute conditions. . Code Status: Full Code Plan * Legal decision maker:Patient has a healthcare surrogate document in his chart however this document actually names the patient as designated healthcare surrogate. Per [place] statutes his would be appropriate legal proxy if patient incapacitated. Pt at time of my exam is oriented, appropriate and appears to have fair insight to his conditions/options. Appears able to make his own decisions . 06/06/17 assisted pt to complete new HCS, names his as HCS. * Pt reports multiple recent hospitalizations/ER visits at [facility] , recommend RECORDS REQUEST from [facility] * Goals: Pt goals aggressive short of resuscitation. * CODE STATUS: DNR * SYMPTOMS: --weakness/debility- ongoing since May 05. Limited to no ambulation since that time. Rec cont OT/PT to maintain/improve functional status --pain- pt denies pain, however pt reports he has chronic neuropathic sounding pain to BLE alyse at night, and chronic pain to bilateral chronic foot wounds. He has been on norco 5mg at home. Pt hypotensive, requiring pressor, cautious use of opiates. Consider resuming home norco or tramadol PRN . denies pain today except with "rough touch " to LE. * Palliative care will continue to follow during hospital course as condition evolves, to assist patient/decision-maker with understanding of medical conditions, weighing benefits/burdens of treatment options, for clarification of goals of treatment. Additionally will assist with any symptoms of palliative concern Attestation To help prompt me to consider important information that might be impacting today's encounter and assessment, information from prior notes written by myself or my colleagues may have been "brought forward" into today's note. My signature on this note, however, is an attestation that I personally performed the exam, history, and/or decision-making noted today, and, unless otherwise indicated, the interactions with patient, family, and staff as well as the review of records all occurred today. I also attest that the listed assessment and stated plan reflect my best clinical judgment today based on the combination of historical information, prior notes, and today's exam/ interactions. When time spent is documented, it refers only to time spent today by the signer, or if indicated, combined time spent today by collaborating physician/nurse practitioner. Ranjana Linda Jun 09, 2017 11:41
--- NOTE | 2017-06-09 12:47 | HHI.CCPN ---
Subjective Remarks/Hospital Course 66 year-old male with a medical history significant for end-stage renal disease on peritoneal dialysis who was noted to be severely hypotensive and lethargic at the dialysis center on 06/05 and 1 was called and patient was transferred to [facility] ER. On arrival he was noted to be hypotensive with SBP 70s and heart rate 100s. He also reportedly had significant melena and rectal bleeding following arrival. A right IJ central line was placed by ER physician. Patient's arrived and wanted to make patient DNR status and did not want blood transfusions and wished transferring to hospice however subsequently patient woke up and wanted to continue aggressive care including blood transfusions. ER physician contacted me questioning patient's 's ability to make decisions for him due to concern for secondary gain as well as possible psychiatric illness. Patient was accepted for admission by critical care medicine service. 4 units PRBCs were ordered to be transfused stat by ER physician. When I arrived to see the patient he was laying in the ER stretcher on nasal cannula on 5 mics of Levophed. He is drowsy but easily arousable. He knew he was at the hospital. He could not give me details of his history. 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 06/07 Patient is on Levophed 2 mics, s/p HD yesterday. Awake and alert on Protonix drip. s/p EGD yesterday showed 2 large Duodenal ulcer, esophagitis and gastritis. 06/08: Afebrile. Currently off norepinephrine but MAP is around 60 currently. States he is okay with removing peritoneal dialysis catheter. Will discuss with general surgery in nephrology in a.m. Subjective 06/09: Blood pressures are borderline. Awake and alert and eating popsicles currently. Patient's okay with removing peroneal dialysis catheter. Dr. Van as yet to see patient today. Agree with ID and nephrology's recommendations for removal. Objective Vital Signs Date Time Temp Pulse Resp B/P (MAP) Pulse Ox O2 Delivery O2 Flow Rate FiO2 06/09/17 10:03 85 83/47 06/09/17 09:30 13 94 06/09/17 08:32 21 06/09/17 08:00 98.2 06/08/17 19:12 Nasal Cannula 2.00 Intake and Output 106/09/17 06/10/17 08:00 16:00 00:00 Intake Total 240 ml 100 ml Output Total 600 ml Balance 240 ml -500 ml Result Diagram: 06/09/170 06/09/17 0420 Other Results Microbiology Date/Time Source Procedure Growth Status 06/06/17 07:19 Blood Peripheral Aerobic Blood Culture - Preliminary NO GROWTH IN 3 DAYS Resulted 06/06/17 07:19 Blood Peripheral Anaerobic Blood Culture - Preliminary NO GROWTH IN 3 DAYS Resulted 06/06/17 15:20 Fluid Peritoneal Fluid Fungal Smear - Final NO FUNGAL ELEMENTS SEEN. Resulted 06/06/17 15:20 Fungal Culture - Preliminary Yeast Species Resulted Imaging Last Impressions Chest X-Ray 06/07/17 0000 Signed Impressions: Service Date/Time: Wednesday, June 07, 2017 03:15 - CONCLUSION: Patchy consolidation or atelectasis of the left lower lung. Tom Berry MD Objective Remarks GENERAL: 66 year male resting in bed in no acute distress SKIN: Woman dry. No rash HEAD: Atraumatic. Normocephalic. EYES: No scleral icterus. No injection or drainage. ENT: No nasal bleeding or discharge. Mucous membranes pink and dry.. NECK: Trachea midline. Supple. CARDIOVASCULAR: Heart rate in the 80s. Irregularly irregular consistent with A. fib. RESPIRATORY: No accessory muscle use. Clear to auscultation. Breath sounds equal bilaterally. Decreased respiratory effort. GASTROINTESTINAL: Abdomen soft, nondistended. There is a PD-Cath in place. No signs erythema or drainage. MUSCULOSKELETAL: Patient has a well-healed rt heel ulcer. Venous stasis changes noted to his bilateral lower extremities. NEUROLOGICAL: Awake and weak and mildly confused. No obvious cranial nerve deficits. Moves both upper extremity is BACK: Stage I/early to decubitus in his sacral area. Vascular Central Line Catheter: Yes Assessment to: Continue Line: Central Venous Catheter Side: Right Location: Internal, Jugular A/P Assessment and Plan Neuro/Psych: Depression Chronic Pain syndrome History of CVA Holding paroxetine 10 mg daily/home medication. Resume when clinically indicated Avoid sedatives and narcotics including tramadol/home medication, monitor neuro status. Awake and alert Holding clopidogrel 75 mg daily. Resume when okay with GI CV: Atrial fibrillation rate controlled Straight hypertension monitor HR and BP keep MAP>65mmHg Lactic acid 2.2 Holding clopidogrel 75 mg daily light of duodenal ulcer Holding lisinopril 20 mill grams daily and metoprolol 50 mill grams daily in light of hypotension Holding isosorbide mononitrate 30 mg daily light of borderline blood pressures As needed norepinephrine to maintain mean arterial pressure gradient 65 Pulm: Continue with oxygen keep sat >92%. Bronchodilators when necessary. GI/liver: Upper GI bleed secondary to duodenal ulcer On clear liquid diet, advance per surgery/GI On pantoprazole 40 mg by mouth daily s/p EGD 06/06 which showed 2 large duodenal ulcers, grade D esophagitis, gastritis. Renal/: Monitor renal function, I/O's, avoid nephrotoxins. nephrology Dr. Fair. Surgery is following- Dr. Donovan fungal infection requiring PD catheter removal. Heme: Normocytic anemia Thrombocytopenia Monitor CBC, s/p transfusion 2units PRBC Endocrine: Diabetes mellitus SSI for glycemic control with low Novulog before meals at bedtime Holding Tradjenta 5 mg daily ID: Infected peritoneal dialysis catheter/peritonitis fungal Continue /fluconazole 200 mg IV daily) monitor for signs of infections ( Fever, WBC) follow up on cultures. Peritoneal fluid 06/06 positive for yeast/Carmen ID is following. All cultures from this hospital admission no growth to date. Patient wishes to discuss with nephrology and general surgery in a.m. Wishes to have dialysis catheter removed at this time. MSK: Right heel ulcer Sacral decubitus ulcer Wound care evaluate and treat Prophylaxis: PPI/SCDs. Lines: Right IJ CVP placed 06/05 Level II follow-up Tariq Lacy MD Jun 09, 2017 12:47
[2017-06-09] MEDS ORDERED: ALBUMIN 25% INJ 100 ML IV ONE (13:00)
--- NOTE | 2017-06-09 15:47 | HHI.PR ---
Addendum to Inpatient Note Additional Information pt seen around 1200 today full note to follow Lexie Ketih MD Jun 09, 2017 15:47
--- NOTE | 2017-06-09 16:22 | HHI.PR ---
Subjective Subjective Notes Awake, alert. No complaints. Objective Vitals/I&O Vital Signs Date Time Temp Pulse Resp B/P (MAP) Pulse Ox O2 Delivery O2 Flow Rate FiO2 06/09/17 16:15 89 06/09/17 13:30 18 108/60 (76) 99 06/09/17 12:00 98.0 06/09/17 08:32 21 06/08/17 19:12 Nasal Cannula 2.00 Labs Laboratory Tests Test 06/09/17 04:20 White Blood Count 10.4 Red Blood Count 2.48 Hemoglobin 8.3 Hematocrit 24.5 Mean Corpuscular Volume 98.9 Mean Corpuscular Hemoglobin 33.5 Mean Corpuscular Hemoglobin Concent 33.9 Red Cell Distribution Width 18.7 Platelet Count 111 Mean Platelet Volume 8.2 Neutrophils (%) (Auto) 92.1 Lymphocytes (%) (Auto) 3.5 Monocytes (%) (Auto) 3.1 Eosinophils (%) (Auto) 0.8 Basophils (%) (Auto) 0.5 Neutrophils # (Auto) 9.6 Lymphocytes # (Auto) 0.4 Monocytes # (Auto) 0.3 Eosinophils # (Auto) 0.1 Basophils # (Auto) 0.1 CBC Comment DIFF FINAL Differential Comment Blood Urea Nitrogen 51 Creatinine 5.04 Random Glucose 90 Total Protein 4.7 Albumin 1.6 Calcium Level 6.8 Phosphorus Level 3.6 Magnesium Level 2.1 Alkaline Phosphatase 239 Aspartate Amino Transf (AST/SGOT) 13 Alanine Aminotransferase (ALT/SGPT) 15 Total Bilirubin 0.5 Sodium Level 137 Potassium Level 4.4 Chloride Level 100 Carbon Dioxide Level 27.5 Anion Gap 10 Estimat Glomerular Filtration Rate 12 Protein Corrected Calcium 8.1 Date/Time Source Procedure Growth Status 06/06/17 07:19 Blood Peripheral Aerobic Blood Culture - Preliminary NO GROWTH IN 3 DAYS Resulted 06/06/17 07:19 Blood Peripheral Anaerobic Blood Culture - Preliminary NO GROWTH IN 3 DAYS Resulted 06/06/17 15:20 Fluid Peritoneal Fluid Fungal Smear - Final NO FUNGAL ELEMENTS SEEN. Resulted 06/06/17 15:20 Fungal Culture - Preliminary Yeast Species Resulted Narrative Exam Abdominal exam benign. No peritonitis present. PD catheter exit site uncomplicated. A/P Assessment and Plan PD catheter in place, apparent fungal infection requiring PD catheter removal. Fungal culture grew Carmen. Plan Removal PD catheter in OR tomorrow 7:15 AM. Discussed in detail with patient. He understands. Bakari Donovan MD Jun 09, 2017 16:22
[2017-06-09] MEDS: FLUCONAZOLE 200 MG PREMIX BAG 100 ML IV SCH (16:46)
[2017-06-09] MEDS: CALCIUM CARBONATE 500 MG CHEWABLE TAB CHEW SCH (21:26)
--- NOTE | 2017-06-09 23:51 | HHI.IDPN ---
Subjective Subjective Remarks delaeyd entry pt is doing well to OR tomorrow no fever C.alicans in the blood Antibiotics fluconazole Allergies: Coded Allergies: morphine (Unverified Allergy, Severe, anaphylactic, 06/05/17) Objective . Vital Signs Date Time Temp Pulse Resp B/P (MAP) Pulse Ox O2 Delivery O2 Flow Rate FiO2 06/09/17 22:05 99 99/59 06/09/17 21:26 99 Nasal Cannula 2.00 06/09/17 18:30 100 06/09/17 18:15 107 22 96/53 (67) 98 06/09/17 18:15 107 06/09/17 18:00 96 16 98/55 (69) 100 06/09/17 18:00 96 06/09/17 17:45 84 13 97/57 (70) 100 06/09/17 17:30 91 16 101/59 (73) 100 06/09/17 17:15 96 18 99/59 (72) 100 06/09/17 17:00 92 18 105/55 (72) 86 06/09/17 16:45 105 23 98/54 (69) 97 06/09/17 16:30 108 18 106/50 (68) 97 06/09/17 16:15 89 16 98/52 (67) 99 06/09/17 16:15 89 06/09/17 16:00 89 06/09/17 16:00 98.6 89 19 98/53 (68) 98 06/09/17 15:45 89 06/09/17 15:30 99 06/09/17 15:15 97 06/09/17 15:00 88 06/09/17 14:45 89 06/09/17 14:30 89 06/09/17 14:15 100 06/09/17 14:00 101 06/09/17 13:30 97 18 108/60 (76) 99 06/09/17 13:30 97 06/09/17 13:15 105 11 104/72 (83) 96 06/09/17 13:15 105 06/09/17 13:00 127 06/09/17 13:00 127 27 91/72 (78) 89 06/09/17 12:46 123 06/09/17 12:46 123 27 103/64 (77) 94 1/29/18 12:30 113 26 91/65 (74) 95 06/09/17 12:30 113 06/09/17 12:16 116 06/09/17 12:16 116 18 89/67 (74) 91 06/09/17 12:00 84 06/09/17 12:00 98.0 84 15 111/60 (77) 97 06/09/17 10:03 85 83/47 06/09/17 10:00 95 06/09/17 09:30 93 06/09/17 09:30 93 13 95/54 (68) 94 06/09/17 09:15 74 06/09/17 09:15 74 12 98/55 (69) 96 06/09/17 09:00 79 06/09/17 09:00 79 14 109/51 (70) 97 06/09/17 08:45 74 06/09/17 08:45 74 19 96/52 (67) 96 06/09/17 08:32 95 21 06/09/17 08:30 81 12 93/63 (73) 97 06/09/17 08:30 81 06/09/17 08:07 87 84/51 06/09/17 08:00 98.2 84 21 84/51 (62) 98 06/09/17 08:00 84 06/09/17 06:00 76 06/09/17 04:00 97.3 86 23 116/65 (82) 93 06/09/17 04:00 86 06/09/17 02:00 89 06/09/17 00:00 97.4 76 13 85/50 (62) 95 06/09/17 00:00 76 06/09/17 06/09/17 06/10/17 15:00 23:00 07:00 Intake Total 100 ml 1640 ml Output Total 600 ml 600 ml Balance -500 ml 1040 ml Intake Oral 1440 ml IV Total 100 ml 200 ml Hemodialysis 600 ml 600 ml # Bowel Movements 0 . Laboratory Tests Test 06/08/17 05:30 06/09/17 04:20 White Blood Count 9.2 TH/MM3 10.4 TH/MM3 Red Blood Count 2.60 MIL/MM3 2.48 MIL/MM3 Hemoglobin 8.4 GM/DL 8.3 GM/DL Hematocrit 25.6 % 24.5 % Mean Corpuscular Volume 98.2 FL 98.9 FL Mean Corpuscular Hemoglobin 32.3 PG 33.5 PG Mean Corpuscular Hemoglobin Concent 32.9 % 33.9 % Red Cell Distribution Width 19.4 % 18.7 % Platelet Count 113 TH/MM3 111 TH/MM3 Mean Platelet Volume 8.0 FL 8.2 FL Neutrophils (%) (Auto) 92.4 % 92.1 % Lymphocytes (%) (Auto) 3.8 % 3.5 % Monocytes (%) (Auto) 2.8 % 3.1 % Eosinophils (%) (Auto) 0.9 % 0.8 % Basophils (%) (Auto) 0.1 % 0.5 % Neutrophils # (Auto) 8.5 TH/MM3 9.6 TH/MM3 Lymphocytes # (Auto) 0.3 TH/MM3 0.4 TH/MM3 Monocytes # (Auto) 0.3 TH/MM3 0.3 TH/MM3 Eosinophils # (Auto) 0.1 TH/MM3 0.1 TH/MM3 Basophils # (Auto) 0.0 TH/MM3 0.1 TH/MM3 CBC Comment DIFF FINAL DIFF FINAL Differential Comment Laboratory Tests Test 06/08/17 05:30 06/09/17 04:20 Blood Urea Nitrogen 46 MG/DL 51 MG/DL Creatinine 4.46 MG/DL 5.04 MG/DL Random Glucose 55 MG/DL 90 MG/DL Total Protein 4.6 GM/DL 4.7 GM/DL Calcium Level 7.1 MG/DL 6.8 MG/DL Sodium Level 140 MEQ/L 137 MEQ/L Potassium Level 4.2 MEQ/L 4.4 MEQ/L Chloride Level 103 MEQ/L 100 MEQ/L Carbon Dioxide Level 27.6 MEQ/L 27.5 MEQ/L Anion Gap 9 MEQ/L 10 MEQ/L Estimat Glomerular Filtration Rate 13 ML/MIN 12 ML/MIN Protein Corrected Calcium 8.5 MG/DL 8.1 MG/DL Albumin 1.6 GM/DL Phosphorus Level 3.6 MG/DL Magnesium Level 2.1 MG/DL Alkaline Phosphatase 239 U/L Aspartate Amino Transf (AST/SGOT) 13 U/L Alanine Aminotransferase (ALT/SGPT) 15 U/L Total Bilirubin 0.5 MG/DL Imaging Last Impressions Chest X-Ray 06/07/17 0000 Signed Impressions: Service Date/Time: Wednesday, June 07, 2017 03:15 - CONCLUSION: Patchy consolidation or atelectasis of the left lower lung. Tom Berry MD Physical Exam CONSTITUTIONAL/GENERAL: This is an adequately nourished patient, in no apparent distress. Chronically ill apearing TUBES/LINES/DRAINS: AV fistula in place LUE with excellent thrill SKIN: No jaundice, rashes, or lesions. Ecchymoses on upper extremities. No wounds seen anteriorly. Skin temperature appropriate. Not diaphoretic. CARDIOVASCULAR: Regular rate and rhythm without murmurs, gallops, or rubs. No JVD. Peripheral pulses symmetric. RESPIRATORY/CHEST: Symmetric, unlabored respirations. Clear to auscultation. Breath sounds equal bilaterally. No wheezes, rales, or rhonchi. GASTROINTESTINAL: Abdomen soft, non-tender, nondistended. No hepato-splenomegaly , or palpable masses. No guarding. Bowel sounds present. Imncontinent of liquid stool PD cath in place NO peritoneal signs MUSCULOSKELETAL: Extremities without clubbing, cyanosis, or edema. No joint tenderness or effusion noted. No calf tenderness. No mottling or clubbing. NEUROLOGICAL: Awake and alert. Motor and sensory grossly within normal limits. Follows commands. confused. Moves all extremities. PSYCHIATRIC: No obvious anxiety/depression. no apparent hallucinations or other psychotic thought process. Assessment & Plan Remarks Assessment and Plan Assessment and Plan Fungal peritonitis 2/2 PD cahteter - again growin C albicans case was dw Dr Fair: he travis me that clx grw out C.albicans Sepis suspeced on presentation sp GI bleed - catheter to be removed tomorros fu new PD fluid cl;x cont flucoanzol, can be switched to PO cont for 2 weeks post op if blood clx remain negative Lexie Keith MD Jun 09, 2017 23:51
[2017-06-10] VITALS (68 sets, daily range): BP systolic 78–106; BP diastolic 51–68; PULSE 90–152; RESP 11–24; TEMP 97.5–98.9; O2SAT 70–100
[2017-06-10 05:25] LABS: AUTOMATED NEUTROPHIL # 8.2 TH/MM3 (1.8-7.7); BASOPHIL % 0.4 % (0.0-2.0); EOSINOPHIL # 0.1 TH/MM3 (0-0.4); EOSINOPHIL % 0.6 % (0.0-4.0); HEMATOCRIT 25.3 % (39.0-51.0); HEMOGLOBIN 8.6 GM/DL (13.0-17.0); LYMPH % 4.4 % (9.0-44.0); LYMPHOCYTE # 0.4 TH/MM3 (1.0-4.8); MEAN CORPUSCULAR HEMOGLOBIN 33.5 PG (27.0-34.0); MEAN CORPUSCULAR HGB CONC 33.8 % (32.0-36.0); MEAN PLATELET VOLUME 7.9 FL (7.0-11.0); MONO % 3.6 % (0.0-8.0); MONOCYTE # 0.3 TH/MM3 (0-0.9); PLATELET COUNT 118 TH/MM3 (150-450); RED BLOOD COUNT 2.55 MIL/MM3 (4.50-5.90); RED CELL DISTRIBUTION WIDTH 19.3 % (11.6-17.2)
[2017-06-10 05:51] LABS: BICARBONATE 30.7 MEQ/L (21.0-32.0); CALCIUM-PROTEIN CORRECTED 8.1 MG/DL (8.5-10.1); CREATININE 3.77 MG/DL (0.60-1.30); MAGNESIUM 1.9 MG/DL (1.5-2.5); PHOSPHORUS 2.9 MG/DL (2.5-4.9); TOTAL BILIRUBIN ADULT 0.6 MG/DL (0.2-1.0)
[2017-06-10] MEDS ORDERED: BUPIVACAINE/EPINEPHRINE 0.25% 50 ML VIAL ONE (06:04)
[2017-06-10] MEDS: INSULIN NovoLIN REGULAR SUPPLEMENTAL SCALE SQ SCH ×4 (08:00→21:00)
--- NOTE | 2017-06-10 08:08 | PD.OP ---
Operative Report Date of Surgery: Jun 10, 2017 Preoperative Diagnosis: fungal infection of PD catheter Postoperative Diagnosis: same Procedure: removal PD catheter Anesthesia: general Surgeon: Bakari Donovan Wind Farm Designer(s): Pat Operation and Findings: PD catheter removed. EBL less than 5 ml. Bakari Donovan MD Jun 10, 2017 08:08
[2017-06-10] MEDS ORDERED: DO NOT ADM ANY ANTICOAGULANT DRUGS PRN (08:15)
[2017-06-10] MEDS: SODIUM CHLORIDE 0.9% FLUSH 10 ML FLUSH IV FLUSH SCH ×2 (09:00→22:42)
[2017-06-10] MEDS ORDERED: Post-op Orders (for Pharmacy) XX ONE (09:00)
[2017-06-10] MEDS: PANTOPRAZOLE SOD 40 MG DELAYED RELEASE TAB PO SCH (09:41)
[2017-06-10] MEDS: CALCIUM CARBONATE 500 MG CHEWABLE TAB CHEW SCH ×2 (09:41→22:42)
[2017-06-10] MEDS: DOCUSATE SODIUM 50 MG/SENNA 8.6 MG TAB PO SCH ×2 (09:41→22:42)
--- NOTE | 2017-06-10 10:07 | HHI.CCPN ---
Subjective Remarks/Hospital Course 66 year-old male with a medical history significant for end-stage renal disease on peritoneal dialysis who was noted to be severely hypotensive and lethargic at the dialysis center on 06/05 and was called and patient was transferred to [facility] ER. On arrival he was noted to be hypotensive with SBP 70s and heart rate 100s. He also reportedly had significant melena and rectal bleeding following arrival. A right IJ central line was placed by ER physician. Patient's arrived and wanted to make patient DNR status and did not want blood transfusions and wished transferring to hospice however subsequently patient woke up and wanted to continue aggressive care including blood transfusions. ER physician contacted me questioning patient's 's ability to make decisions for him due to concern for secondary gain as well as possible psychiatric illness. Patient was accepted for admission by critical care medicine service. 4 units PRBCs were ordered to be transfused stat by ER physician. When I arrived to see the patient he was laying in the ER stretcher on nasal cannula on 5 mics of Levophed. He is drowsy but easily arousable. He knew he was at the hospital. He could not give me details of his history. 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 06/07 Patient is on Levophed 2 mics, s/p HD yesterday. Awake and alert on Protonix drip. s/p EGD yesterday showed 2 large Duodenal ulcer, esophagitis and gastritis. 06/08: Afebrile. Currently off norepinephrine but MAP is around 60 currently. States he is okay with removing peritoneal dialysis catheter. Will discuss with general surgery in nephrology in a.m. Subjective 06/09: Blood pressures are borderline. Awake and alert and eating popsicles currently. Patient's okay with removing peroneal dialysis catheter. Dr. Van as yet to see patient today. Agree with ID and nephrology's recommendations for removal. 06/10 Patient s/p PD catheter removal this morning. On Levophed 2 mics. Afebrile. Objective Vital Signs Date Time Temp Pulse Resp B/P (MAP) Pulse Ox O2 Delivery O2 Flow Rate FiO2 06/10/17 09:53 100 Nasal Cannula 2.00 06/10/17 09:00 98.0 107 17 99/42 (61) 06/09/17 08:32 21 Intake and Output 06/10/17 06/10/17 06/11/17 08:00 16:00 00:00 Intake Total 100 ml Output Total 0 ml Balance 100 ml Result Diagram: 06/10/17 0505 06/10/17 0505 Other Results Laboratory Tests Test 06/10/17 05:05 White Blood Count 9.0 TH/MM3 Red Blood Count 2.55 MIL/MM3 Hemoglobin 8.6 GM/DL Hematocrit 25.3 % Mean Corpuscular Volume 99.0 FL Mean Corpuscular Hemoglobin 33.5 PG Mean Corpuscular Hemoglobin Concent 33.8 % Red Cell Distribution Width 19.3 % Platelet Count 118 TH/MM3 Mean Platelet Volume 7.9 FL Neutrophils (%) (Auto) 91.0 % Lymphocytes (%) (Auto) 4.4 % Monocytes (%) (Auto) 3.6 % Eosinophils (%) (Auto) 0.6 % Basophils (%) (Auto) 0.4 % Neutrophils # (Auto) 8.2 TH/MM3 Lymphocytes # (Auto) 0.4 TH/MM3 Monocytes # (Auto) 0.3 TH/MM3 Eosinophils # (Auto) 0.1 TH/MM3 Basophils # (Auto) 0.0 TH/MM3 CBC Comment AUTO DIFF Differential Comment AUTO DIFF CONFIRMED Platelet Estimate LOW Platelet Morphology Comment NORMAL Basophilic Stippling FAINT Blood Urea Nitrogen 32 MG/DL Creatinine 3.77 MG/DL Random Glucose 70 MG/DL Total Protein 5.0 GM/DL Albumin 2.0 GM/DL Calcium Level 7.0 MG/DL Phosphorus Level 2.9 MG/DL Magnesium Level 1.9 MG/DL Alkaline Phosphatase 245 U/L Aspartate Amino Transf (AST/SGOT) 12 U/L Alanine Aminotransferase (ALT/SGPT) 12 U/L Total Bilirubin 0.6 MG/DL Sodium Level 137 MEQ/L Potassium Level 4.0 MEQ/L Chloride Level 99 MEQ/L Carbon Dioxide Level 30.7 MEQ/L Anion Gap 7 MEQ/L Estimat Glomerular Filtration Rate 16 ML/MIN Protein Corrected Calcium 8.1 MG/DL Imaging Last Impressions Chest X-Ray 06/07/17 0000 Signed Impressions: Service Date/Time: Wednesday, June 07, 2017 03:15 - CONCLUSION: Patchy consolidation or atelectasis of the left lower lung. Tom Berry MD Objective Remarks GENERAL: 66 year male resting in bed in no acute distress SKIN: Woman dry. No rash HEAD: Atraumatic. Normocephalic. EYES: No scleral icterus. No injection or drainage. ENT: No nasal bleeding or discharge. Mucous membranes pink and dry.. NECK: Trachea midline. Supple. CARDIOVASCULAR: Heart rate in the 80s. Irregularly irregular consistent with A. fib. RESPIRATORY: No accessory muscle use. Clear to auscultation. Breath sounds equal bilaterally. Decreased respiratory effort. GASTROINTESTINAL: Abdomen soft, nondistended. There is a PD-Cath in place. No signs erythema or drainage. MUSCULOSKELETAL: Patient has a well-healed rt heel ulcer. Venous stasis changes noted to his bilateral lower extremities. NEUROLOGICAL: Awake and weak and mildly confused. No obvious cranial nerve deficits. Moves both upper extremity is BACK: Stage I/early to decubitus in his sacral area. Line: Central Venous Catheter Side: Right Location: Internal, Jugular A/P Assessment and Plan Neuro/Psych: Depression Chronic Pain syndrome History of CVA Holding paroxetine 10 mg daily/home medication. Resume when clinically indicated Avoid sedatives and narcotics including tramadol/home medication, monitor neuro status. Awake and alert Holding clopidogrel 75 mg daily. Resume when okay with GI CV: Atrial fibrillation rate controlled Straight hypertension On Levophed 2 mics- Monitor HR and BP keep MAP>65mmHg Lactic acid 2.2 on 06/07 Holding clopidogrel 75 mg daily light of duodenal ulcer Holding lisinopril 20 mill grams daily, Imdur and metoprolol 50 mill grams daily in light of hypotension Pulm: Continue with oxygen keep sat >92%. Bronchodilators when necessary. GI/liver: Upper GI bleed secondary to duodenal ulcer NPO advance if ok with surgery/GI On pantoprazole 40 mg by mouth daily s/p EGD 06/06 which showed 2 large duodenal ulcers, grade D esophagitis, gastritis. Renal/: Monitor renal function, I/O's, avoid nephrotoxins. nephrology Dr. Fair. Surgery is following- Dr. Donovan fungal infection requiring PD catheter removal. Heme: Normocytic anemia Thrombocytopenia Monitor CBC, s/p transfusion 2units PRBC on 06/06 Endocrine: Diabetes mellitus SSI for glycemic control with low Novulog before meals at bedtime Holding Tradjenta 5 mg daily ID: Infected peritoneal dialysis catheter/peritonitis fungal Continue fluconazole 200 mg IV daily) monitor for signs of infections ( Fever, WBC) follow up on cultures. Peritoneal fluid 06/06 positive for yeast/Carmen ID is following. MSK: Right heel ulcer Sacral decubitus ulcer Wound care evaluate and treat Prophylaxis: PPI/SCDs. Lines: Right IJ CVP placed 06/05 Level II follow-up Stu He MD Jun 10, 2017 10:07
[2017-06-10] MEDS ORDERED: SODIUM CHLORID 0.9% 500 ML INJ 1,000 ML IV ONE (12:00)
[2017-06-10] MEDS ORDERED: LIDOCAINE HCL 1% PF 5 ML SYRINGE OTHER ONE (12:00)
[2017-06-10] MEDS ORDERED: PROPOFOL 200 MG/20 ML AMP IV ONE (12:00)
[2017-06-10] MEDS ORDERED: ROCURONIUM INJ 50 MG/5 ML SYRINGE IV PUSH ONE (12:00)
[2017-06-10] MEDS ORDERED: ONDANSETRON HCL 4 MG/2 ML VIAL IV ONE (12:00)
[2017-06-10] MEDS ORDERED: DEXAMETHASONE SOD PHOS 4 MG/ML VIAL IV ONE (12:00)
--- NOTE | 2017-06-10 17:26 | HHI.NPPN ---
Subjective General Problems: Anemia Renal Failure: End Stage Renal Disease History of Present Illness Patient is a very pleasant 66 year old male who came into the emergency room on 06/06/17 hypotensive, lethargic, and with a hemoglobin of 6.7. He was transfused 2 units of PRBC's with a recheck pending. He was initially put on Levophed for blood pressure support however it is currently not running. Has a past medical history of End -stage renal disease with peritoneal dialysis, AFIB , diabetes, arthritis, chronic pain, and hx of strokes. Onset of acute epigastric pain and discomfort noted for 5 days ago, but worsened over the past 24 hours. Reported loose stools for 3 weeks. In the emergency room patient did report melena, nausea, mild vomiting undigested food yesterday, but denied any coffee ground emesis. Patient has AV fistula and will have dialysis while here. Per patient PD catheter needs to be removed secondary to infection. Additional Remarks Patient is alert, now off and on has confusion, not in distress, still on pressors. Review of Systems General Constitutional: Fatigue General Remarks weakness Respiratory Respiratory Remarks Denies SOB Cardiovascular Cardiac Remarks Denies CP Gastrointestinal GI Remarks Denies abdominal pain Objective Data Data 06/10/17 06/11/17 19:00 07:00 Intake Total 250 ml Balance 250 ml Other 250 ml Vital Signs Date Time Temp Pulse Resp B/P (MAP) Pulse Ox O2 Delivery O2 Flow Rate FiO2 06/10/17 15:35 118 06/10/17 15:31 134 06/10/17 15:25 117 06/10/17 15:20 117 06/10/17 15:15 117 06/10/17 15:10 113 06/10/17 15:05 119 06/10/17 15:00 119 06/10/17 14:55 120 06/10/17 14:50 114 06/10/17 14:45 120 06/10/17 14:40 115 06/10/17 14:35 123 06/10/17 14:30 120 06/10/17 14:25 121 06/10/17 14:20 92 06/10/17 14:15 101 06/10/17 14:10 103 06/10/17 14:05 112 06/10/17 14:00 117 06/10/17 12:00 98.1 139 24 98 06/10/17 12:00 139 06/10/17 11:00 103 13 99 06/10/17 11:00 103 06/10/17 10:00 125 06/10/17 10:00 125 17 97 06/10/17 09:53 100 Nasal Cannula 2.00 06/10/17 09:50 117 06/10/17 09:50 117 11 99/58 (72) 100 06/10/17 09:00 98.0 107 17 99/42 (61) 100 Nasal Cannula 2 06/10/17 08:45 110 17 96/52 (67) 100 Nasal Cannula 2 101/56 (71) 06/10/17 08:30 102 17 99/42 (61) 97 Nasal Cannula 2 92/48 (63) 06/10/17 08:13 97.7 98 17 112/58 (76) 99 Simple Mask 6 93/55 (68) 06/10/17 06:40 97.7 94 16 98/56 (70) 100 Nasal Cannula 2 06/10/17 00:00 97.5 90 20 102/57 (72) 97 06/10/17 00:00 90 06/09/17 22:05 99 99/59 06/09/17 21:26 99 Nasal Cannula 2.00 06/09/17 20:00 97.7 115 20 97/64 (75) 99 06/09/17 20:00 115 06/09/17 18:30 100 06/09/17 18:15 107 22 96/53 (67) 98 06/09/17 18:15 107 06/09/17 18:00 96 16 98/55 (69) 100 06/09/17 18:00 96 06/09/17 17:45 84 13 97/57 (70) 100 06/09/17 17:30 91 16 101/59 (73) 100 -: 06/10/17 0505 06/10/17 0505 Physical Exam General Appearance: Malnourished Neck Neck Exam: Neck Supple Pulmonary Resp Exam: Clear Bilaterally Cardiology CV Exam: Regular Gastrointestinal/Abdomen GI Exam: Soft Extremeties Extremities Exam: No Edema Assessment/Plan Problem List: (1) ESRD (end stage renal disease) on dialysis ICD Codes: N18.6 - End stage renal disease; Z99.2 - Dependence on renal dialysis Plan: Seen during dialysis. Potassium and phos WNL Protein corrected calcium at 8.3. Replacement added. Monitor fluid and electrolytes. HD done yesterday. PD Catheter removed. Continue antibiotics as per ID. BP is still low, and has tachycardia. HD will be in AM. (2) Peritonitis associated with peritoneal dialysis ICD Codes: T85.71XA - Infection and inflammatory reaction due to peritoneal dialysis catheter, initial encounter Plan: Peritoneal fluid culture positive for Carmen. PD catheter needs to be removed. ID and surgery following. (3) Hypotension ICD Codes: I95.9 - Hypotension, unspecified Status: Acute Plan: Sepsis present on admission. Continue supportive care. (4) GI bleed ICD Codes: K92.2 - Gastrointestinal hemorrhage, unspecified Status: Acute Plan: s/p EGD: duodenal ulcer, gastritis, esophagitis. Received blood transfusion. Hemoglobin is 8. (5) Anemia ICD Codes: D64.9 - Anemia, unspecified Problem Qualifiers (1) Hypotension: Qualified Codes: I95.9 - Hypotension, unspecified (2) GI bleed: Qualified Codes: K92.2 - Gastrointestinal hemorrhage, unspecified (3) Anemia: Darryl Fair MD Jun 10, 2017 17:26
[2017-06-10] MEDS: FLUCONAZOLE 200 MG PREMIX BAG 100 ML IV SCH (18:41)
--- NOTE | 2017-06-10 23:00 | MP ---
cc: DUY LERMA MD, ABDUL Q. MD NEMANI,GINETTE Dubon MD DATE OF SURGERY: 06/10/2017 PREOPERATIVE DIAGNOSIS: Fungal infection of peritoneal dialysis catheter. POSTOPERATIVE DIAGNOSIS Fungal infection of peritoneal dialysis catheter. PROCEDURE Removal of peritoneal dialysis catheter. SURGEON Dr. Duy Lerma ANESTHESIA General INDICATIONS This is an unfortunate 66-year-old gentleman who had a peritoneal dialysis catheter placed about a year and a half ago. It functioned very well. He has developed fungal infection. Recommendations were made for removal. INTRAOPERATIVE FINDINGS The entire PD catheter removed. ESTIMATED BLOOD LOSS: Less than 5 mL DESCRIPTION OF PROCEDURE IN DETAIL The patient identified as Jc Flor, taken to the operating room and placed in supine position. Sequential compression devices were placed on bilateral lower extremities. Following induction of adequate general endotracheal anesthesia, the patient's abdomen was prepped and draped in the usual sterile fashion with Betadine. A time-out procedure was performed. Following completion of time-out procedure to everyone's satisfaction within the room, local anesthetic was injected around the peritoneal dialysis catheter exit site along its tract to the second palpable cuff in the infraumbilical position slightly left of midline. The proximal cuff had extruded through the incision. It was released from the remaining attachments to subcutaneous tissue using a scalpel. Hemostat was used to dissect along the catheter. A counter incision was made over the second cuff which was palpable through the skin and subcutaneous tissue. It was mobilized with a hemostat and brought into the second open surgical wound. The distal cuff and catheter was excised and the catheter was brought out through the wound. The cuff was then able to be visualized and from surrounding subcutaneous tissue using a scalpel. The tunnel tract was identified and grasped with a mosquito hemostat. The catheter was removed from the peritoneal cavity in its entirety and discarded. A [id number] 2-0 Vicryl suture was used to occlude the catheter tract. Copious irrigation was then performed. The catheter exit site skin which was irritated was excised in its entirety with an elliptical incision. Hemostasis was controlled electrocautery. Further irrigation ensued. The two wounds were approximated with interrupted inverted 4-0 Monocryl sutures. Dry dressing was applied. The patient tolerated the procedure without apparent complication. Sponge, needle and instrument counts were correct at the end of the case. MD FRANCISCO Lackey /8:03 AM /10:41 PM
[2017-06-11] VITALS (9 sets, daily range): BP systolic 89–107; BP diastolic 52–76; PULSE 79–122; RESP 11–20; TEMP 97.5–98.4; O2SAT 70–100
[2017-06-11] MEDS: NOREPINEPHRINE 4 MG/D5W 250 ML IV PRN (05:43)
[2017-06-11 06:22] LABS: AUTOMATED NEUTROPHIL # 7.8 TH/MM3 (1.8-7.7); BASOPHIL % 0.1 % (0.0-2.0); EOSINOPHIL % 0.2 % (0.0-4.0); HEMOGLOBIN 8.6 GM/DL (13.0-17.0); LYMPH % 4.4 % (9.0-44.0); LYMPHOCYTE # 0.4 TH/MM3 (1.0-4.8); MEAN CORPUSCULAR HEMOGLOBIN 32.9 PG (27.0-34.0); MEAN CORPUSCULAR HGB CONC 33.2 % (32.0-36.0); MEAN PLATELET VOLUME 8.1 FL (7.0-11.0); MONO % 5.5 % (0.0-8.0); MONOCYTE # 0.5 TH/MM3 (0-0.9); NEUT % 89.8 % (16.0-70.0); PLATELET COUNT 150 TH/MM3 (150-450); RED BLOOD COUNT 2.63 MIL/MM3 (4.50-5.90); WHITE BLOOD COUNT 8.7 TH/MM3 (4.0-11.0)
[2017-06-11 06:34] LABS: BICARBONATE 28.2 MEQ/L (21.0-32.0); CREATININE 4.38 MG/DL (0.60-1.30)
[2017-06-11 07:00] LABS: CALCIUM-PROTEIN CORRECTED 8.1 MG/DL (8.5-10.1); TOTAL PROTEIN 5.1 GM/DL (6.4-8.2)
[2017-06-11] MEDS: INSULIN NovoLIN REGULAR SUPPLEMENTAL SCALE SQ SCH ×4 (08:00→20:17)
--- NOTE | 2017-06-11 08:20 | HHI.PR ---
Subjective Subjective Notes " I did not feel a thing". No pain Objective Vitals/I&O Vital Signs Date Time Temp Pulse Resp B/P (MAP) Pulse Ox O2 Delivery O2 Flow Rate FiO2 06/11/17 05:43 95 91/53 06/11/17 04:00 97.7 20 06/11/17 00:00 100 06/10/17 20:32 Nasal Cannula 2.00 06/09/17 08:32 21 Labs Laboratory Tests Test 06/11/17 05:30 White Blood Count 8.7 Red Blood Count 2.63 Hemoglobin 8.6 Hematocrit 26.0 Mean Corpuscular Volume 99.0 Mean Corpuscular Hemoglobin 32.9 Mean Corpuscular Hemoglobin Concent 33.2 Red Cell Distribution Width 21.0 Platelet Count 150 Mean Platelet Volume 8.1 Neutrophils (%) (Auto) 89.8 Lymphocytes (%) (Auto) 4.4 Monocytes (%) (Auto) 5.5 Eosinophils (%) (Auto) 0.2 Basophils (%) (Auto) 0.1 Neutrophils # (Auto) 7.8 Lymphocytes # (Auto) 0.4 Monocytes # (Auto) 0.5 Eosinophils # (Auto) 0.0 Basophils # (Auto) 0.0 CBC Comment DIFF FINAL Differential Comment Blood Urea Nitrogen 37 Creatinine 4.38 Random Glucose 134 Total Protein 5.1 Calcium Level 7.0 Sodium Level 135 Potassium Level 4.3 Chloride Level 98 Carbon Dioxide Level 28.2 Anion Gap 9 Estimat Glomerular Filtration Rate 14 Protein Corrected Calcium 8.1 Date/Time Source Procedure Growth Status 06/06/17 07:19 Blood Peripheral Aerobic Blood Culture - Preliminary NO GROWTH IN 4 DAYS Resulted 06/06/17 07:19 Blood Peripheral Anaerobic Blood Culture - Preliminary NO GROWTH IN 4 DAYS Resulted 06/06/17 15:20 Fluid Peritoneal Fluid Fungal Smear - Final NO FUNGAL ELEMENTS SEEN. Resulted 06/06/17 15:20 Fungal Culture - Preliminary Carmen Albicans Resulted Narrative Exam Dressing dry, minimal serosanguinous drainage. Non tender abdomen. A/P Assessment and Plan POD 1 s/p PD catheter removal. Recovering well. Dry dressing as needed. Will sign off. Please call me if needed [phone]. Bakari Donovan MD Jun 11, 2017 08:20
[2017-06-11] MEDS: SODIUM CHLORIDE 0.9% FLUSH 10 ML FLUSH IV FLUSH SCH ×2 (09:00→20:19)
[2017-06-11] MEDS: CALCIUM CARBONATE 500 MG CHEWABLE TAB CHEW SCH ×2 (09:18→20:19)
[2017-06-11] MEDS: DOCUSATE SODIUM 50 MG/SENNA 8.6 MG TAB PO SCH ×2 (09:18→20:16)
[2017-06-11] MEDS: PANTOPRAZOLE SOD 40 MG DELAYED RELEASE TAB PO SCH (09:18)
--- NOTE | 2017-06-11 09:56 | HHI.NPPN ---
Subjective General Problems: Anemia Renal Failure: End Stage Renal Disease History of Present Illness Patient is a very pleasant 66 year old male who came into the emergency room on 06/06/17 hypotensive, lethargic, and with a hemoglobin of 6.7. He was transfused 2 units of PRBC's with a recheck pending. He was initially put on Levophed for blood pressure support however it is currently not running. Has a past medical history of End -stage renal disease with peritoneal dialysis, AFIB , diabetes, arthritis, chronic pain, and hx of strokes. Onset of acute epigastric pain and discomfort noted for 5 days ago, but worsened over the past 24 hours. Reported loose stools for 3 weeks. In the emergency room patient did report melena, nausea, mild vomiting undigested food yesterday, but denied any coffee ground emesis. Patient has AV fistula and will have dialysis while here. Per patient PD catheter needs to be removed secondary to infection. Additional Remarks Patient is alert. Reports that he is feeling much better today. Continues on low dose pressors with SBP in the . Plan for dialysis today. (Samreen Ward) Review of Systems General Constitutional: Fatigue General Remarks weakness (Samreen Ward) Respiratory Respiratory Remarks Denies SOB (Samreen Ward) Cardiovascular Cardiac Remarks Denies CP (Samreen Ward) Gastrointestinal GI Remarks Denies abdominal pain (Samreen Ward) Objective Data Data Vital Signs Date Time Temp Pulse Resp B/P (MAP) Pulse Ox O2 Delivery O2 Flow Rate FiO2 06/11/17 05:43 95 91/53 06/11/17 04:00 95 06/11/17 04:00 97.7 95 20 107/76 (86) 06/11/17 00:00 97.6 96 20 91/55 (67) 100 06/11/17 00:00 96 06/10/17 20:32 95 Nasal Cannula 2.00 06/10/17 20:00 117 06/10/17 20:00 97.7 117 20 90/66 (74) 97 06/10/17 19:35 115 06/10/17 19:30 97 06/10/17 19:25 135 1/30/18 19:20 115 06/10/17 19:16 140 06/10/17 19:10 122 06/10/17 19:05 152 06/10/17 19:00 117 06/10/17 18:55 113 06/10/17 18:50 119 06/10/17 18:46 126 06/10/17 18:40 121 06/10/17 18:35 120 06/10/17 18:30 124 06/10/17 18:25 110 06/10/17 18:20 114 06/10/17 18:15 126 06/10/17 18:10 126 06/10/17 18:05 140 06/10/17 18:00 120 06/10/17 17:35 124 06/10/17 17:35 124 13 91/61 (71) 06/10/17 17:30 125 06/10/17 17:30 125 14 94/59 (71) 06/10/17 17:25 118 14 96/51 (66) 06/10/17 17:25 118 06/10/17 17:20 122 16 93/57 (69) 06/10/17 17:20 122 06/10/17 17:15 126 13 97/58 (71) 06/10/17 17:15 126 06/10/17 17:10 130 12 93/53 (66) 06/10/17 17:10 130 06/10/17 17:05 136 20 93/57 (69) 06/10/17 17:05 136 06/10/17 17:00 135 15 91/61 (71) 06/10/17 17:00 135 06/10/17 16:56 138 06/10/17 16:56 138 13 101/68 (79) 06/10/17 16:50 127 06/10/17 16:50 127 21 78/52 (61) 06/10/17 16:45 129 17 99/57 (71) 06/10/17 16:45 129 06/10/17 16:40 123 06/10/17 16:40 123 13 92/59 (70) 06/10/17 16:35 140 06/10/17 16:35 140 12 93/55 (68) 06/10/17 16:30 118 12 93/52 (66) 06/10/17 16:30 118 06/10/17 16:25 114 06/10/17 16:25 114 11 101/55 (70) 06/10/17 16:20 125 06/10/17 16:20 125 12 92/51 (65) 06/10/17 16:15 126 06/10/17 16:15 126 12 102/60 (74) 70 06/10/17 16:10 119 14 92/61 (71) 96 06/10/17 16:10 119 06/10/17 16:05 121 06/10/17 16:05 121 11 92/54 (67) 100 06/10/17 16:00 98.9 123 12 106/55 (72) 99 06/10/17 16:00 123 06/10/17 15:35 118 06/10/17 15:31 134 06/10/17 15:25 117 06/10/17 15:20 117 06/10/17 15:15 117 06/10/17 15:10 113 06/10/17 15:05 119 06/10/17 15:00 119 06/10/17 14:55 120 06/10/17 14:50 114 06/10/17 14:45 120 06/10/17 14:40 115 06/10/17 14:35 123 06/10/17 14:30 120 06/10/17 14:25 121 06/10/17 14:20 92 06/10/17 14:15 101 06/10/17 14:10 103 06/10/17 14:05 112 06/10/17 14:00 117 06/10/17 12:00 98.1 139 24 98 06/10/17 12:00 139 06/10/17 11:00 103 13 99 06/10/17 11:00 103 06/10/17 10:00 125 06/10/17 10:00 125 17 97 06/10/17 09:53 100 Nasal Cannula 2.00 (Samreen Ward) -: 06/11/17 0530 06/11/17 0530 Imaging Last Impressions Chest X-Ray 06/07/17 0000 Signed Impressions: Service Date/Time: Wednesday, June 07, 2017 03:15 - CONCLUSION: Patchy consolidation or atelectasis of the left lower lung. Tom Berry MD (Samreen Ward) Physical Exam General Appearance: Malnourished (Samreen Ward) Neck Neck Exam: Neck Supple (Samreen Ward) Pulmonary Resp Exam: Clear Bilaterally (Samreen Ward) Cardiology CV Exam: Regular (Samreen Ward) Gastrointestinal/Abdomen GI Exam: Soft (Samreen Wadr) Extremeties Extremities Exam: No Edema (Samreen Ward) Assessment/Plan Problem List: (1) ESRD (end stage renal disease) on dialysis ICD Codes: N18.6 - End stage renal disease; Z99.2 - Dependence on renal dialysis Plan: Potassium and phos WNL Protein corrected calcium at 8.1 on replacement. PD Catheter removed. Continue antibiotics as per ID. BP is still low on low dose norepinephrine with SBP in the 90's. HD today (2) Peritonitis associated with peritoneal dialysis ICD Codes: T85.71XA - Infection and inflammatory reaction due to peritoneal dialysis catheter, initial encounter Plan: Peritoneal fluid culture positive for Carmen. PD catheter removed ID and surgery following. (3) Hypotension ICD Codes: I95.9 - Hypotension, unspecified Status: Acute Plan: Sepsis present on admission. Continue supportive care. (4) GI bleed ICD Codes: K92.2 - Gastrointestinal hemorrhage, unspecified Status: Acute Plan: s/p EGD: duodenal ulcer, gastritis, esophagitis. Received blood transfusion. Hemoglobin stable (5) Anemia ICD Codes: D64.9 - Anemia, unspecified Plan: HGB stable at 8.6 procrit with dialysis (Samreen Ward) Problem List: (1) ESRD (end stage renal disease) on dialysis ICD Codes: N18.6 - End stage renal disease; Z99.2 - Dependence on renal dialysis Plan: Potassium and phos WNL Protein corrected calcium at 8.1 on replacement. PD Catheter removed. Continue antibiotics as per ID. BP is still low on low dose norepinephrine with SBP in the 90's. HD today, I will add Midodrine, try to get off Norepi. Not much fluid removal with HD. (2) Peritonitis associated with peritoneal dialysis ICD Codes: T85.71XA - Infection and inflammatory reaction due to peritoneal dialysis catheter, initial encounter Plan: Peritoneal fluid culture positive for Carmen. PD catheter removed ID and surgery following. (3) Hypotension ICD Codes: I95.9 - Hypotension, unspecified Status: Acute Plan: Sepsis present on admission. Continue supportive care. (4) GI bleed ICD Codes: K92.2 - Gastrointestinal hemorrhage, unspecified Status: Acute Plan: s/p EGD: duodenal ulcer, gastritis, esophagitis. Received blood transfusion. Hemoglobin stable (5) Anemia ICD Codes: D64.9 - Anemia, unspecified Plan: HGB stable at 8.6 procrit with dialysis (Darryl Fair MD) Problem Qualifiers (1) Hypotension: Qualified Codes: I95.9 - Hypotension, unspecified (2) GI bleed: Qualified Codes: K92.2 - Gastrointestinal hemorrhage, unspecified (3) Anemia: Samreen Ward Jun 11, 2017 09:56 Darryl Fair MD Jun 11, 2017 11:12
--- NOTE | 2017-06-11 10:56 | HHI.CCPN ---
Subjective Remarks/Hospital Course 66 year-old male with a medical history significant for end-stage renal disease on peritoneal dialysis who was noted to be severely hypotensive and lethargic at the dialysis center on 06/05 and was called and patient was transferred to [facility] ER. On arrival he was noted to be hypotensive with SBP 70s and heart rate 100s. He also reportedly had significant melena and rectal bleeding following arrival. A right IJ central line was placed by ER physician. Patient's arrived and wanted to make patient DNR status and did not want blood transfusions and wished transferring to hospice however subsequently patient woke up and wanted to continue aggressive care including blood transfusions. ER physician contacted me questioning patient's 's ability to make decisions for him due to concern for secondary gain as well as possible psychiatric illness. Patient was accepted for admission by critical care medicine service. 4 units PRBCs were ordered to be transfused stat by ER physician. When I arrived to see the patient he was laying in the ER stretcher on nasal cannula on 5 mics of Levophed. He is drowsy but easily arousable. He knew he was at the hospital. He could not give me details of his history. 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 06/07 Patient is on Levophed 2 mics, s/p HD yesterday. Awake and alert on Protonix drip. s/p EGD yesterday showed 2 large Duodenal ulcer, esophagitis and gastritis. 06/08: Afebrile. Currently off norepinephrine but MAP is around 60 currently. States he is okay with removing peritoneal dialysis catheter. Will discuss with general surgery in nephrology in a.m. 06/09: Blood pressures are borderline. Awake and alert and eating popsicles currently. Patient's okay with removing peroneal dialysis catheter. Dr. Van as yet to see patient today. Agree with ID and nephrology's recommendations for removal. 06/10 Patient s/p PD catheter removal this morning. On Levophed 2 mics. Afebrile. Subjective 06/11: Postoperative day #1 PD catheter removal. Remains on norepinephrine at 2 g per minute. Asymptomatic. Plan for hemodialysis today. Objective Vital Signs Date Time Temp Pulse Resp B/P (MAP) Pulse Ox O2 Delivery O2 Flow Rate FiO2 06/11/17 08:00 98.4 79 11 101/56 (08) 100 06/11/17 07:00 Nasal Cannula 2.00 06/09/17 08:32 21 Intake and Output 06/11/17 06/11/17 2/05/29 08:00 16:00 00:00 Intake Total 120 ml Output Total 0 ml Balance 120 ml Result Diagram: 06/11/17 0530 06/11/17 0530 Other Results Microbiology Date/Time Source Procedure Growth Status 06/06/17 07:19 Blood Peripheral Aerobic Blood Culture - Preliminary NO GROWTH IN 4 DAYS Resulted 06/06/17 07:19 Blood Peripheral Anaerobic Blood Culture - Preliminary NO GROWTH IN 4 DAYS Resulted 06/06/17 15:20 Fluid Peritoneal Fluid Fungal Smear - Final NO FUNGAL ELEMENTS SEEN. Resulted 06/06/17 15:20 Fungal Culture - Preliminary Carmen Albicans Resulted Imaging Last Impressions Chest X-Ray 06/07/17 0000 Signed Impressions: Service Date/Time: Wednesday, June 07, 2017 03:15 - CONCLUSION: Patchy consolidation or atelectasis of the left lower lung. Tom Berry MD Objective Remarks GENERAL: 66 year male resting in bed in no acute distress SKIN: Woman dry. No rash HEAD: Atraumatic. Normocephalic. EYES: No scleral icterus. No injection or drainage. ENT: No nasal bleeding or discharge. Mucous membranes pink and dry.. NECK: Trachea midline. Supple. CARDIOVASCULAR: Heart rate in the 80s. Irregularly irregular consistent with A. fib. RESPIRATORY: No accessory muscle use. Clear to auscultation. Breath sounds equal bilaterally. Decreased respiratory effort. GASTROINTESTINAL: Abdomen soft, nondistended. PD catheter has been removed. Site is clean dry and intact. No signs erythema drainage. MUSCULOSKELETAL: Patient has a well-healed rt heel ulcer. Venous stasis changes noted to his bilateral lower extremities. NEUROLOGICAL: Awake and weak and mildly confused. No obvious cranial nerve deficits. Moves bilateral upper extremities. BACK: Stage I/early decubitus in his sacral area. Urinary Catheter: No Assessment to: Continue Vascular Central Line Catheter: Yes Assessment to: Continue Line: Central Venous Catheter Side: Right Location: Internal, Jugular A/P Assessment and Plan Neuro/Psych: Depression Chronic Pain syndrome History of CVA Holding paroxetine 10 mg daily/home medication. Resume when clinically indicated Avoid sedatives and narcotics including tramadol/home medication, monitor neuro status. Awake and alert Holding clopidogrel 75 mg daily. Resume when okay with GI CV: Atrial fibrillation rate controlled History of essential hypertension On norepinephrine at 2 g per minute- Monitor HR and BP keep MAP>65mmHg Lactic acid 2.2 on 06/07 Holding clopidogrel 75 mg daily light of duodenal ulcer Holding lisinopril 20 mill grams daily, Imdur and metoprolol 50 mill grams daily in light of hypotension Check cortisol level. Start Midodrine 5 mg 3 times a day Pulm: Continue with oxygen keep sat >92%. Currently on room air Albuterol aerosols every 2 hours when necessary dyspnea GI/liver: Upper GI bleed secondary to duodenal ulcer NPO advance if ok with surgery/GI On pantoprazole 40 mg by mouth daily s/p EGD 06/06 which showed 2 large duodenal ulcers, grade D esophagitis, gastritis. Renal/: Status post PD catheter removal day #1 Dr. Donovan End-stage renal disease on hemodialysis Monitor renal function, I/O's, avoid nephrotoxins. Pathology Dr. Fair. General Surgery is following- Dr. Donovan fungal infection requiring PD catheter removal. Heme: Normocytic anemia Monitor CBC, s/p transfusion 2units PRBC on 06/06 Endocrine: Diabetes mellitus SSI for glycemic control with low Novulog before meals at bedtime Holding Tradjenta 5 mg daily ID: Infected peritoneal dialysis catheter/peritonitis fungal Continue fluconazole 200 mg IV daily) monitor for signs of infections ( Fever, WBC) follow up on cultures. Peritoneal fluid 06/06 positive for yeast/Carmen ID is following. MSK: Right heel ulcer Sacral decubitus ulcer Wound care evaluate and treat Prophylaxis: Pantoprazole/heparin subcutaneous Lines: Right IJ CVP placed 06/05 Level II follow-up Tariq Lacy MD Jun 11, 2017 10:56
--- NOTE | 2017-06-11 11:52 | HHI.IDPN ---
Note Infectious Disease Note ID coverage: For Dr Keith. Notes reviewed. Patient says he feels okay. Has visual hallucinations but is oriented x 3. Afebrile. C. albicans in the peritoneal fluid. Post removal of PD catheter. Antibiotics fluconazole Allergies: Coded Allergies: morphine (Unverified Allergy, Severe, anaphylactic, 06/05/17) Objective Vital Signs Date Time Temp Pulse Resp B/P (MAP) Pulse Ox O2 Delivery O2 Flow Rate FiO2 06/11/17 08:00 98.4 79 11 101/56 (71) 100 06/11/17 07:00 97 Nasal Cannula 2.00 06/11/17 05:43 95 91/53 06/11/17 04:00 95 06/11/17 04:00 97.7 95 20 107/76 (86) 06/11/17 00:00 97.6 96 20 91/55 (67) 100 06/11/17 00:00 96 06/10/17 20:32 95 Nasal Cannula 2.00 06/10/17 20:00 117 06/10/17 20:00 97.7 117 20 90/66 (74) 97 06/10/17 19:35 115 06/10/17 19:30 97 06/10/17 19:25 135 06/10/17 19:20 115 06/10/17 19:16 140 06/10/17 19:10 122 06/10/17 19:05 152 06/10/17 19:00 117 06/10/17 18:55 113 06/10/17 18:50 119 06/10/17 18:46 126 06/10/17 18:40 121 06/10/17 18:35 120 06/10/17 18:30 124 18 18:25 110 06/10/17 18:20 114 06/10/17 18:15 126 06/10/17 18:10 126 06/10/17 18:05 140 06/10/17 18:00 120 06/10/17 17:35 124 06/10/17 17:35 124 13 91/61 (71) 06/10/17 17:30 125 06/10/17 17:30 125 14 94/59 (71) 06/10/17 17:25 118 14 96/51 (66) 06/10/17 17:25 118 1/30/18 17:20 122 16 93/57 (69) 18 17:20 122 18 17:15 126 13 97/58 (71) 18 17:15 126 18 17:10 130 12 93/53 (66) 18 17:10 130 18 17:05 136 20 93/57 (69) 06/10/17 17:05 136 06/10/17 17:00 135 15 91/61 (71) 06/10/17 17:00 135 06/10/17 16:56 138 06/10/17 16:56 138 13 101/68 (79) 06/10/17 16:50 127 06/10/17 16:50 127 21 78/52 (61) 06/10/17 16:45 129 17 99/57 (71) 06/10/17 16:45 129 06/10/17 16:40 123 06/10/17 16:40 123 13 92/59 (70) 06/10/17 16:35 140 18 16:35 140 12 93/55 (68) 06/10/17 16:30 118 12 93/52 (66) 18 16:30 118 06/10/17 16:25 114 18 16:25 114 11 101/55 (70) 18 16:20 125 18 16:20 125 12 92/51 (65) 18 16:15 126 06/10/17 16:15 126 12 102/60 (74) 70 18 16:10 119 14 92/61 (71) 96 18 16:10 119 18 16:05 121 06/10/17 16:05 121 11 92/54 (67) 100 06/10/17 16:00 98.9 123 12 106/55 (72) 99 18 16:00 123 06/10/17 15:35 118 18 15:31 134 18 15:25 117 18 15:20 117 18 15:15 117 18 15:10 113 18 15:05 119 06/10/17 15:00 119 06/10/17 14:55 120 06/10/17 14:50 114 06/10/17 14:45 120 06/10/17 14:40 115 06/10/17 14:35 123 06/10/17 14:30 120 06/10/17 14:25 121 06/10/17 14:20 92 06/10/17 14:15 101 06/10/17 14:10 103 06/10/17 14:05 112 06/10/17 14:00 117 06/10/17 12:00 98.1 139 24 98 06/10/17 12:00 139 Laboratory Tests Test 06/11/17 05:30 White Blood Count 8.7 TH/MM3 Red Blood Count 2.63 MIL/MM3 Hemoglobin 8.6 GM/DL Hematocrit 26.0 % Mean Corpuscular Volume 99.0 FL Mean Corpuscular Hemoglobin 32.9 PG Mean Corpuscular Hemoglobin Concent 33.2 % Red Cell Distribution Width 21.0 % Platelet Count 150 TH/MM3 Mean Platelet Volume 8.1 FL Neutrophils (%) (Auto) 89.8 % Lymphocytes (%) (Auto) 4.4 % Monocytes (%) (Auto) 5.5 % Eosinophils (%) (Auto) 0.2 % Basophils (%) (Auto) 0.1 % Neutrophils # (Auto) 7.8 TH/MM3 Lymphocytes # (Auto) 0.4 TH/MM3 Monocytes # (Auto) 0.5 TH/MM3 Eosinophils # (Auto) 0.0 TH/MM3 Basophils # (Auto) 0.0 TH/MM3 CBC Comment DIFF FINAL Differential Comment Blood Urea Nitrogen 37 MG/DL Creatinine 4.38 MG/DL Random Glucose 134 MG/DL Total Protein 5.1 GM/DL Calcium Level 7.0 MG/DL Sodium Level 135 MEQ/L Potassium Level 4.3 MEQ/L Chloride Level 98 MEQ/L Carbon Dioxide Level 28.2 MEQ/L Anion Gap 9 MEQ/L Estimat Glomerular Filtration Rate 14 ML/MIN Protein Corrected Calcium 8.1 MG/DL Imaging Chest X-Ray 06/07/17 0000 Signed Impressions: Service Date/Time: Wednesday, June 07, 2017 03:15 - CONCLUSION: Patchy consolidation or atelectasis of the left lower lung. Tom Berry MD Physical Exam GENERAL: Patient is in no acute distress. HEENT: EOMI, No icterus. NECK: Supple. LUNGS: Clear breath sounds. CARDIAC: Regular rate and rhythm. ABDOMEN: Soft, non tender. EXTREMITIES: No clubbing, cyanosis or edema. SKIN: No rash. Assessment and Plan Fungal peritonitis 2/2 PD cahteter. C albicans Sepis suspeced on presentation sp GI bleed Continue fluconazole, can be switched to PO cont for 2 weeks post op if blood clx remain negative. Nikhil Conti MD Jun 11, 2017 11:52
[2017-06-11] MEDS: MIDODRINE 5 MG TAB PO SCH ×2 (12:00→17:00)
[2017-06-11] MEDS ORDERED: RESP: ALBUTEROL 2.5 MG/3 ML NEB (PRN) NEB (12:00)
--- NOTE | 2017-06-11 15:54 | OTSOAPIP ---
TIME SESSION COMPLETED: PM TREATMENT TIME: 0 MINS. CHART REVIEWED. ATTEMPTED TO SEE FOR OT EVALUATION, HOWEVER HAVING DIALYSIS. Therapist: DULCE MARIA MALONEY OT/L Signature on file
[2017-06-11] MEDS: FLUCONAZOLE 200 MG PREMIX BAG 100 ML IV SCH (17:00)
[2017-06-11] MEDS: HEPARIN SODIUM - SQ 10,000 UNITS/ML VIAL SQ SCH (20:19)
[2017-06-11] MEDS: CHLORHEXIDINE GLUCONATE 2 % 1 PACK (2 CLOTHS) TOP SCH (23:25)
[2017-06-12] VITALS (14 sets, daily range): BP systolic 91–104; BP diastolic 50–62; PULSE 71–147; RESP 11–19; TEMP 97.3–98; O2SAT 92–100
[2017-06-12] MEDS: NOREPINEPHRINE 4 MG/D5W 250 ML IV PRN (04:43)
[2017-06-12 05:48] LABS: AUTOMATED NEUTROPHIL # 8.4 TH/MM3 (1.8-7.7); BASOPHIL % 0.2 % (0.0-2.0); EOSINOPHIL % 0.4 % (0.0-4.0); HEMATOCRIT 25.3 % (39.0-51.0); HEMOGLOBIN 8.2 GM/DL (13.0-17.0); LYMPHOCYTE # 0.4 TH/MM3 (1.0-4.8); MEAN CELL VOLUME 100.4 FL (80.0-100.0); MEAN CORPUSCULAR HEMOGLOBIN 32.8 PG (27.0-34.0); MEAN CORPUSCULAR HGB CONC 32.6 % (32.0-36.0); MONO % 4.6 % (0.0-8.0); MONOCYTE # 0.4 TH/MM3 (0-0.9); NEUT % 90.8 % (16.0-70.0); PLATELET COUNT 155 TH/MM3 (150-450); RED BLOOD COUNT 2.52 MIL/MM3 (4.50-5.90); RED CELL DISTRIBUTION WIDTH 21.6 % (11.6-17.2); WHITE BLOOD COUNT 9.3 TH/MM3 (4.0-11.0)
[2017-06-12] MEDS: MIDODRINE 5 MG TAB PO SCH ×3 (06:02→18:32)
[2017-06-12 06:22] LABS: ALBUMIN 1.8 GM/DL (3.4-5.0); BICARBONATE 29.6 MEQ/L (21.0-32.0); CALCIUM 6.9 MG/DL (8.5-10.1); CREATININE 3.15 MG/DL (0.60-1.30)
[2017-06-12] MEDS: INSULIN NovoLIN REGULAR SUPPLEMENTAL SCALE SQ SCH ×4 (08:00→20:28)
[2017-06-12] MEDS: DOCUSATE SODIUM 50 MG/SENNA 8.6 MG TAB PO SCH ×2 (09:00→19:46)
[2017-06-12] MEDS: CALCIUM CARBONATE 500 MG CHEWABLE TAB CHEW SCH ×2 (09:36→21:45)
[2017-06-12] MEDS: HEPARIN SODIUM - SQ 10,000 UNITS/ML VIAL SQ SCH ×2 (09:36→21:45)
[2017-06-12] MEDS: PANTOPRAZOLE SOD 40 MG DELAYED RELEASE TAB PO SCH (09:36)
[2017-06-12] MEDS: SODIUM CHLORIDE 0.9% FLUSH 10 ML FLUSH IV FLUSH SCH ×2 (09:38→21:45)
[2017-06-12] MEDS ORDERED: DILTIAZEM INJ 125 MG in SODIUM CHLORIDE 0.9% INJ 100 ML IV PRN (11:00)
[2017-06-12] MEDS ORDERED: DILTIAZEM HCL 25 MG/5 ML VIAL IV PUSH ONE (11:00)
[2017-06-12] MEDS ORDERED: TERBUTALINE INJ 1 MG/ML AMP SQ PRN (11:00)
[2017-06-12] MEDS ORDERED: CALCIUM GLUCONATE INJ 1 GM in SODIUM CHLORIDE 0.9% INJ 100 ML IV ONE (11:00)
--- NOTE | 2017-06-12 12:11 | HHI.NPPN ---
Subjective General Problems: Anemia Renal Failure: End Stage Renal Disease History of Present Illness Patient is a very pleasant 66 year old male who came into the emergency room on 06/06/17 hypotensive, lethargic, and with a hemoglobin of 6.7. He was transfused 2 units of PRBC's with a recheck pending. He was initially put on Levophed for blood pressure support however it is currently not running. Has a past medical history of End -stage renal disease with peritoneal dialysis, AFIB , diabetes, arthritis, chronic pain, and hx of strokes. Onset of acute epigastric pain and discomfort noted for 5 days ago, but worsened over the past 24 hours. Reported loose stools for 3 weeks. In the emergency room patient did report melena, nausea, mild vomiting undigested food yesterday, but denied any coffee ground emesis. Patient has AV fistula and will have dialysis while here. Per patient PD catheter needs to be removed secondary to infection. Additional Remarks Patient is resting comfortably. Does report any problems or concerns. Continues on low dose pressors (Samreen Ward) Review of Systems General Constitutional: Fatigue General Remarks weakness (Samreen Ward) Respiratory Respiratory Remarks Denies SOB (Samreen Ward) Cardiovascular Cardiac Remarks Denies CP (Samreen Ward) Gastrointestinal GI Remarks Denies abdominal pain (Samreen Ward) Objective Data Data Vital Signs Date Time Temp Pulse Resp B/P (MAP) Pulse Ox O2 Delivery O2 Flow Rate FiO2 06/12/17 08:04 100 21 06/12/17 08:04 100 21 06/12/17 08:00 105 06/12/17 08:00 97.3 105 11 94/62 (73) 92 06/12/17 06:00 102 06/12/17 04:43 132 91/55 06/12/17 04:42 132 06/12/17 04:00 139 06/12/17 04:00 97.8 139 16 91/51 (64) 97 06/12/17 02:00 118 06/12/17 00:00 110 06/12/17 00:00 97.6 147 19 104/54 (71) 95 06/11/17 23:09 97 Nasal Cannula 06/11/17 22:00 101 06/11/17 20:00 97.5 102 11 91/53 (66) 87 Arterial Line 06/11/17 20:00 102 06/11/17 19:00 104 91/57 06/11/17 18:00 98.0 106 11 89/52 (64) 98 (Samreen Ward) -: 06/12/17 0400 06/12/17 0400 Physical Exam General Appearance: Malnourished (Samreen Ward) Neck Neck Exam: Neck Supple (Samreen Ward) Pulmonary Resp Exam: Clear Bilaterally (Samreen Ward) Cardiology CV Exam: Regular (Samreen Ward) Gastrointestinal/Abdomen GI Exam: Soft (Samreen Ward) Extremeties Extremities Exam: No Edema (Samreen Ward) Assessment/Plan Problem List: (1) ESRD (end stage renal disease) on dialysis ICD Codes: N18.6 - End stage renal disease; Z99.2 - Dependence on renal dialysis Plan: Dialysis MWF Potassium and phos WNL Calcuim glucanate given Albumin with dialsis PD Catheter removed. Continue antibiotics as per ID. BP is still low on low dose norepinephrine with SBP in the midodrine has been added TID Not much fluid removal with HD yesterday Dialysis scheduled for tomorrow (2) Peritonitis associated with peritoneal dialysis ICD Codes: T85.71XA - Infection and inflammatory reaction due to peritoneal dialysis catheter, initial encounter Plan: Peritoneal fluid culture positive for Carmen. PD catheter removed ID and surgery following. (3) Hypotension ICD Codes: I95.9 - Hypotension, unspecified Status: Acute Plan: Sepsis present on admission. Continue supportive care. (4) GI bleed ICD Codes: K92.2 - Gastrointestinal hemorrhage, unspecified Status: Acute Plan: s/p EGD: duodenal ulcer, gastritis, esophagitis. Received blood transfusion. Hemoglobin stable (5) Anemia ICD Codes: D64.9 - Anemia, unspecified Plan: HGB stable at 8.2 procrit with dialysis (Samreen Ward) Problem List: (1) ESRD (end stage renal disease) on dialysis ICD Codes: N18.6 - End stage renal disease; Z99.2 - Dependence on renal dialysis Plan: Dialysis MWF Potassium and phos WNL Calcium gluconate given Albumin with dialysis PD Catheter removed. Continue antibiotics as per ID. BP is still low on low dose norepinephrine with SBP in the midodrine has been added TID Not much fluid removal with HD yesterday Dialysis scheduled for tomorrow. Patient seen, examined and agree with above. On Midodrine, seen by Palliative care. (2) Peritonitis associated with peritoneal dialysis ICD Codes: T85.71XA - Infection and inflammatory reaction due to peritoneal dialysis catheter, initial encounter Plan: Peritoneal fluid culture positive for Carmen. PD catheter removed ID and surgery following. (3) Hypotension ICD Codes: I95.9 - Hypotension, unspecified Status: Acute Plan: Sepsis present on admission. Continue supportive care. (4) GI bleed ICD Codes: K92.2 - Gastrointestinal hemorrhage, unspecified Status: Acute Plan: s/p EGD: duodenal ulcer, gastritis, esophagitis. Received blood transfusion. Hemoglobin stable (5) Anemia ICD Codes: D64.9 - Anemia, unspecified Plan: HGB stable at 8.2 procrit with dialysis (Darryl Fair MD) Problem Qualifiers (1) Hypotension: Qualified Codes: I95.9 - Hypotension, unspecified (2) GI bleed: Qualified Codes: K92.2 - Gastrointestinal hemorrhage, unspecified (3) Anemia: Samreen Ward Jun 12, 2017 12:11 Darryl Fair MD Jun 12, 2017 17:09
[2017-06-12] MEDS: PHENYLEPHRINE INJ 160 MG in DEXTROSE 5% IN WATE 500 ML INJ 484 ML IV PRN ×2 (12:27)
[2017-06-12 13:37] LABS: MAGNESIUM 1.9 MG/DL (1.5-2.5)
[2017-06-12 13:46] LABS: TROPONIN I 0.08 NG/ML (0.02-0.05)
--- NOTE | 2017-06-12 14:35 | HHI.HCPN ---
Reason for visit a. To assist with evaluation and management of symptoms including: weakness , chronic pain b. To assist medical decision maker(s) with: better understanding of current medical conditions; weighing benefits/burdens of medical treatment options; making medical treatment decisions. Subjective/Interval History Pt seen today to follow up on comfort, goals. s/p peritoneal dialysis catheter removal. Episode afib RVR earlier today, pt received cardizem, resolved, now rate 90s. Serial troponins pending; first at 1200 0.08. H&H low but stable, cont to have several loose dark brown/reddish stools. On norepinephrine for hypotension. [dual visit w Carrol PACK] Pt seen in ICU room . He is initially sleeping, arouses easily. Once awake is oriented, however distant/flat affect. Answers orientation questions appropriately however is forgetful and word searches and is poor historian for today's events and medical treatments in place. He denies dyspnea. C/o rt knee pain, no other c/o pain. Unable to further describe pain- knee exam benign. He denies chest pain. D/w primary nurse, called her earlier today for update. . Family/friend interactions attempted to reach , unable leave VM . Advance Directives Living Will: Never completed Health Care Surrogate: Copy in medical record Durable Power of Log Yard Manager: Copy in medical record Advance Directive Specifics Date completed: 06/01/17 Health Care Surrogate(s): Healthcare surrogate document [06/01/17] actually names the patient as healthcare surrogate. durable power of content designer does not include healthcare decision making. Objective Vital Signs Date Time Temp Pulse Resp B/P (MAP) Pulse Ox O2 Delivery O2 Flow Rate FiO2 06/12/17 12:27 103 94/55 06/12/17 08:04 100 21 06/12/17 08:04 100 21 06/12/17 08:00 105 06/12/17 08:00 97.3 105 11 94/62 (73) 92 06/12/17 06:00 102 06/12/17 04:43 132 91/55 06/12/17 04:42 132 06/12/17 04:00 139 06/12/17 04:00 97.8 139 16 91/51 (64) 97 06/12/17 02:00 118 06/12/17 00:00 110 06/12/17 00:00 97.6 147 19 104/54 (71) 95 06/11/17 23:09 97 Nasal Cannula 06/11/17 22:00 101 06/11/17 20:00 97.5 102 11 91/53 (66) 87 Arterial Line 06/11/17 20:00 102 06/11/17 19:00 104 91/57 06/11/17 18:00 98.0 106 11 89/52 (64) 98 Intake & Output 06/12/17 06/12/17 07:00 19:00 Intake Total 310 ml Output Total 0 ml Balance 310 ml Intake Oral 60 ml IV Total 250 ml Output Urine Total 0 ml Physical Exam CONSTITUTIONAL/GENERAL: Frail. Slight temporal wasting. In no apparent distress. Voice is hoarse. TUBES/LINES/DRAINS: Central line rt IJ. SKIN: No jaundice. Diffuse pallor prominent in nail beds. Scattered petechia on upper extremities. Chronic venous insufficiency of lower extremities. Ulcers on plantar aspect of left foot and right great toe. NECK: Trachea midline. Supple, nontender. No palpable thyroid enlargement or nodularity. CARDIOVASCULAR: Irregular rate and irregular rhythm without murmur. observe afib on bedside monitor. rate 90s. No JVD. Peripheral pulses symmetric. RESPIRATORY/CHEST: Mild shortness of breath with conversation. Diffuse crackles bilaterally. Breath sounds equal bilaterally. No wheezes. GASTROINTESTINAL: Abdomen soft, non-tender, nondistended. No hepato- splenomegaly. No guarding. dressing abdomen clean dry. +large amt dark red/ brown stool in bedding notified nurse GENITOURINARY: Without palpable bladder distension. MUSCULOSKELETAL: Atrophy in bilateral lower extremities. Extremities without clubbing, cyanosis, or edema.+ chronic vascular skin changes BLE. No joint effusion, erythema or tenderness to exam bilateral knees NEUROLOGICAL: Awake and alert. Oriented x 3. very limited insight. + word searching. Motor and sensory grossly within normal limits. Follows commands. moves all 4 extremities. PSYCHIATRIC:. No obvious anxiety/depression. flat/distance affect . Diagnostic Tests Laboratory Laboratory Tests Test 06/10/17 05:05 06/11/17 05:30 06/11/17 20:56 06/12/17 04:00 White Blood Count 9.0 TH/MM3 (4.0-11.0) 8.7 TH/MM3 (4.0-11.0) 9.3 TH/MM3 (4.0-11.0) Red Blood Count 2.55 MIL/MM3 (4.50-5.90) 2.63 MIL/MM3 (4.50-5.90) 2.52 MIL/MM3 (4.50-5.90) Hemoglobin 8.6 GM/DL (13.0-17.0) 8.6 GM/DL (13.0-17.0) 8.2 GM/DL (13.0-17.0) Hematocrit 25.3 % (39.0-51.0) 26.0 % (39.0-51.0) 25.3 % (39.0-51.0) Mean Corpuscular Volume 99.0 FL (80.0-100.0) 99.0 FL (80.0-100.0) 100.4 FL (80.0-100.0) Mean Corpuscular Hemoglobin 33.5 PG (27.0-34.0) 32.9 PG (27.0-34.0) 32.8 PG (27.0-34.0) Mean Corpuscular Hemoglobin Concent 33.8 % (32.0-36.0) 33.2 % (32.0-36.0) 32.6 % (32.0-36.0) Red Cell Distribution Width 19.3 % (11.6-17.2) 21.0 % (11.6-17.2) 21.6 % (11.6-17.2) Platelet Count 118 TH/MM3 (150-450) 150 TH/MM3 (150-450) 155 TH/MM3 (150-450) Mean Platelet Volume 7.9 FL (7.0-11.0) 8.1 FL (7.0-11.0) 8.0 FL (7.0-11.0) Neutrophils (%) (Auto) 91.0 % (16.0-70.0) 89.8 % (16.0-70.0) 90.8 % (16.0-70.0) Lymphocytes (%) (Auto) 4.4 % (9.0-44.0) 4.4 % (9.0-44.0) 4.0 % (9.0-44.0) Monocytes (%) (Auto) 3.6 % (0.0-8.0) 5.5 % (0.0-8.0) 4.6 % (0.0-8.0) Eosinophils (%) (Auto) 0.6 % (0.0-4.0) 0.2 % (0.0-4.0) 0.4 % (0.0-4.0) Basophils (%) (Auto) 0.4 % (0.0-2.0) 0.1 % (0.0-2.0) 0.2 % (0.0-2.0) Neutrophils # (Auto) 8.2 TH/MM3 (1.8-7.7) 7.8 TH/MM3 (1.8-7.7) 8.4 TH/MM3 (1.8-7.7) Lymphocytes # (Auto) 0.4 TH/MM3 (1.0-4.8) 0.4 TH/MM3 (1.0-4.8) 0.4 TH/MM3 (1.0-4.8) Monocytes # (Auto) 0.3 TH/MM3 (0-0.9) 0.5 TH/MM3 (0-0.9) 0.4 TH/MM3 (0-0.9) Eosinophils # (Auto) 0.1 TH/MM3 (0-0.4) 0.0 TH/MM3 (0-0.4) 0.0 TH/MM3 (0-0.4) Basophils # (Auto) 0.0 TH/MM3 (0-0.2) 0.0 TH/MM3 (0-0.2) 0.0 TH/MM3 (0-0.2) CBC Comment AUTO DIFF DIFF FINAL DIFF FINAL Differential Comment AUTO DIFF CONFIRMED Platelet Estimate LOW (NORMAL) Platelet Morphology Comment NORMAL (NORMAL) Basophilic Stippling FAINT (NORMAL) Blood Urea Nitrogen 32 MG/DL (7-18) 37 MG/DL (7-18) 27 MG/DL (7-18) Creatinine 3.77 MG/DL (0.60-1.30) 4.38 MG/DL (0.60-1.30) 3.15 MG/DL (0.60-1.30) Random Glucose 70 MG/DL (74-106) 134 MG/DL (74-106) 144 MG/DL (74-106) Total Protein 5.0 GM/DL (6.4-8.2) 5.1 GM/DL (6.4-8.2) Albumin 2.0 GM/DL (3.4-5.0) 1.8 GM/DL (3.4-5.0) Calcium Level 7.0 MG/DL (8.5-10.1) 7.0 MG/DL (8.5-10.1) 6.9 MG/DL (8.5-10.1) Phosphorus Level 2.9 MG/DL (2.5-4.9) 3.0 MG/DL (2.5-4.9) Magnesium Level 1.9 MG/DL (1.5-2.5) Alkaline Phosphatase 245 U/L (45-117) Aspartate Amino Transf (AST/SGOT) 12 U/L (15-37) Alanine Aminotransferase (ALT/SGPT) 12 U/L (12-78) Total Bilirubin 0.6 MG/DL (0.2-1.0) Sodium Level 137 MEQ/L (136-145) 135 MEQ/L (136-145) 138 MEQ/L (136-145) Potassium Level 4.0 MEQ/L (3.5-5.1) 4.3 MEQ/L (3.5-5.1) 3.9 MEQ/L (3.5-5.1) Chloride Level 99 MEQ/L (98-107) 98 MEQ/L (98-107) 99 MEQ/L (98-107) Carbon Dioxide Level 30.7 MEQ/L (21.0-32.0) 28.2 MEQ/L (21.0-32.0) 29.6 MEQ/L (21.0-32.0) Anion Gap 7 MEQ/L (5-15) 9 MEQ/L (5-15) 9 MEQ/L (5-15) Estimat Glomerular Filtration Rate 16 ML/MIN (>89) 14 ML/MIN (>89) 20 ML/MIN (>89) Protein Corrected Calcium 8.1 MG/DL (8.5-10.1) 8.1 MG/DL (8.5-10.1) Random Cortisol 20.9 MCG/DL Test 06/12/17 12:00 Magnesium Level 1.9 MG/DL (1.5-2.5) Troponin I 0.08 NG/ML (0.02-0.05) Thyroid Stimulating Hormone 3rd Gen 4.190 uIU/ML (0.358-3.740) Result Diagram: 06/12/17 0400 06/12/17 0400 Imaging Last Impressions Chest X-Ray 06/07/17 0000 Signed Impressions: Service Date/Time: Wednesday, June 07, 2017 03:15 - CONCLUSION: Patchy consolidation or atelectasis of the left lower lung. Tom Berry MD Procedures 06/06/17 EGD Assessment and Plan Disease Oriented Problem List: (1) Atrial fibrillation (2) Sacral decubitus ulcer (3) Heel ulceration (4) Hypotension (5) GI bleed (6) Anemia (7) ESRD (end stage renal disease) on dialysis Symptom Scale: (1) Weakness 0-10 Scale: Unable to quantify Pertinent Non-Medical Issues Psychosocial: to his x 6 yrs. Has 1 adult son from prior marriage, who is incarcerated in [place]. He communicates with him every Friday (son calls him). Originally from [place] worked in [employer] there. His mother is still living there, and a sister. Moved to [place] in his 50s for group home. Spiritual:no particular affiliation, does not want demolition specialist support Legal:Patient has a healthcare surrogate document in his chart however this document actually names the patient as designated healthcare surrogate. Per [place] statutes his would be appropriate legal proxy if patient incapacitated. 06/06/17 assisted pt to complete new HCS, names his as HCS. Ethical issues impacting care: Important Contacts spouse Aparna Guadalupe [phone] . Prognosis This patient was admitted for hypotension, significant anemia, GI bleed. He has known history of dialysis dependent end-stage renal disease. Ongoing diagnostics, GI evaluation. With ongoing aggressive treatments and interventions may be able to recover from current acute conditions. . Code Status: Full Code Plan * Legal decision maker:Patient has a healthcare surrogate document in his chart however this document actually names the patient as designated healthcare surrogate. Per [place] statutes his would be appropriate legal proxy if patient incapacitated. Pt at time of my exam is oriented, appropriate and appears to have fair insight to his conditions/options. Appears able to make his own decisions . 06/06/17 assisted pt to complete new HCS, names his as HCS. * Pt reports multiple recent hospitalizations/ER visits at [facility] , recommend RECORDS REQUEST from [facility] * Goals: Pt goals aggressive short of resuscitation. * CODE STATUS: DNR * SYMPTOMS: --weakness/debility- ongoing since May 05. Limited to no ambulation since that time. Rec cont OT/PT to maintain/improve functional status --pain- today pt reports Rt knee pain, exam benign. pt reports he has chronic neuropathic sounding pain to BLE alyse at night, and chronic pain to bilateral chronic foot wounds. He has been on norco 5mg at home. Pt hypotensive , requiring pressor, cautious use of opiates. Consider resuming home norco or tramadol PRN . * Palliative care will continue to follow during hospital course as condition evolves, to assist patient/decision-maker with understanding of medical conditions, weighing benefits/burdens of treatment options, for clarification of goals of treatment. Additionally will assist with any symptoms of palliative concern Attestation To help prompt me to consider important information that might be impacting today's encounter and assessment, information from prior notes written by myself or my colleagues may have been "brought forward" into today's note. My signature on this note, however, is an attestation that I personally performed the exam, history, and/or decision-making noted today, and, unless otherwise indicated, the interactions with patient, family, and staff as well as the review of records all occurred today. I also attest that the listed assessment and stated plan reflect my best clinical judgment today based on the combination of historical information, prior notes, and today's exam/ interactions. When time spent is documented, it refers only to time spent today by the signer, or if indicated, combined time spent today by collaborating physician/nurse practitioner. Ranjana Linda Jun 12, 2017 14:34
[2017-06-12] MEDS: FLUCONAZOLE 200 MG PREMIX BAG 100 ML IV SCH (18:32)
--- NOTE | 2017-06-12 19:48 | HHI.CCPN ---
Subjective Remarks/Hospital Course 66 year-old male with a medical history significant for end-stage renal disease on peritoneal dialysis who was noted to be severely hypotensive and lethargic at the dialysis center on 06/05 and was called and patient was transferred to [facility] ER. On arrival he was noted to be hypotensive with SBP 70s and heart rate 100s. He also reportedly had significant melena and rectal bleeding following arrival. A right IJ central line was placed by ER physician. Patient's arrived and wanted to make patient DNR status and did not want blood transfusions and wished transferring to hospice however subsequently patient woke up and wanted to continue aggressive care including blood transfusions. ER physician contacted me questioning patient's 's ability to make decisions for him due to concern for secondary gain as well as possible psychiatric illness. Patient was accepted for admission by critical care medicine service. 4 units PRBCs were ordered to be transfused stat by ER physician. When I arrived to see the patient he was laying in the ER stretcher on nasal cannula on 5 mics of Levophed. He is drowsy but easily arousable. He knew he was at the hospital. He could not give me details of his history. 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 06/07 Patient is on Levophed 2 mics, s/p HD yesterday. Awake and alert on Protonix drip. s/p EGD yesterday showed 2 large Duodenal ulcer, esophagitis and gastritis. 06/08: Afebrile. Currently off norepinephrine but MAP is around 60 currently. States he is okay with removing peritoneal dialysis catheter. Will discuss with general surgery in nephrology in a.m. 06/09: Blood pressures are borderline. Awake and alert and eating popsicles currently. Patient's okay with removing peroneal dialysis catheter. Dr. Van as yet to see patient today. Agree with ID and nephrology's recommendations for removal. 06/10 Patient s/p PD catheter removal this morning. On Levophed 2 mics. Afebrile. 06/11: Postoperative day #1 PD catheter removal. Remains on norepinephrine at 2 g per minute. Asymptomatic. Plan for hemodialysis today. Subjective 06/12: Afebrile. Intermittently A. fib with RVR, currently rate controlled. Denies chest pain or shortness of breath. Intermittently on phenylephrine drip Objective Vital Signs Date Time Temp Pulse Resp B/P (MAP) Pulse Ox O2 Delivery O2 Flow Rate FiO2 06/12/17 18:00 90 06/12/17 16:00 97.9 18 91/52 (65) 99 06/12/17 08:04 21 06/11/17 23:09 Nasal Cannula 06/11/17 07:00 2.00 Intake and Output 06/12/17 06/12/17 06/12/17 07:59 15:59 23:59 Intake Total 310 ml 100 ml Output Total 0 ml Balance 310 ml 100 ml Result Diagram: 06/12/17 0400 06/12/17 0400 Other Results Microbiology Date/Time Source Procedure Growth Status 06/06/17 07:19 Blood Peripheral Aerobic Blood Culture - Final NO GROWTH IN 5 DAYS Complete 06/06/17 07:19 Blood Peripheral Anaerobic Blood Culture - Final NO GROWTH IN 5 DAYS Complete 06/06/17 15:20 Fluid Peritoneal Fluid Fungal Smear - Final NO FUNGAL ELEMENTS SEEN. Resulted 06/06/17 15:20 Fungal Culture - Preliminary Carmen Albicans Resulted Imaging Last Impressions Chest X-Ray 06/07/17 0000 Signed Impressions: Service Date/Time: Wednesday, June 07, 2017 03:15 - CONCLUSION: Patchy consolidation or atelectasis of the left lower lung. Tom Berry MD Objective Remarks GENERAL: 66 year male resting in bed in no acute distress SKIN: Woman dry. No rash HEAD: Atraumatic. Normocephalic. EYES: No scleral icterus. No injection or drainage. ENT: No nasal bleeding or discharge. Mucous membranes pink and dry.. NECK: Trachea midline. Supple. CARDIOVASCULAR: Heart rate in the 80s. Irregularly irregular consistent with A. fib. RESPIRATORY: No accessory muscle use. Clear to auscultation. Breath sounds equal bilaterally. Decreased respiratory effort. GASTROINTESTINAL: Abdomen soft, nondistended. PD catheter has been removed. Site is clean dry and intact. No signs erythema drainage. MUSCULOSKELETAL: Patient has a well-healed rt heel ulcer. Venous stasis changes noted to his bilateral lower extremities. NEUROLOGICAL: Awake and weak and mildly confused. No obvious cranial nerve deficits. Moves bilateral upper extremities. BACK: Stage I/early decubitus in his sacral area. Vascular Central Line Catheter: Yes Assessment to: Continue Date of Insertion: Jun 05, 2017 Line: Central Venous Catheter Side: Right Location: Internal, Jugular A/P Assessment and Plan Neuro/Psych: Depression Chronic Pain syndrome History of CVA Holding paroxetine 10 mg daily/home medication. Resume when clinically indicated Avoid sedatives and narcotics including tramadol/home medication, monitor neuro status. Awake and alert Holding clopidogrel 75 mg daily. Resume when okay with GI CV: Atrial fibrillation rate controlled History of essential hypertension On norepinephrine at 2 g per minute- Monitor HR and BP keep MAP>65mmHg Lactic acid 2.2 on 06/07 Holding clopidogrel 75 mg daily light of duodenal ulcer Holding lisinopril 20 mill grams daily, Imdur and metoprolol 50 mill grams daily in light of hypotension Check cortisol level. 20 Start Midodrine 5 mg 3 times a day Pulm: Continue with oxygen keep sat >92%. Currently on room air Albuterol aerosols every 2 hours when necessary dyspnea GI/liver: Upper GI bleed secondary to duodenal ulcer Advance diet per GI. Currently on soft renal diet On pantoprazole 40 mg by mouth daily s/p EGD 06/06 which showed 2 large duodenal ulcers, grade D esophagitis, gastritis. Renal/: Status post PD catheter removal day #1 Dr. Donovan End-stage renal disease on hemodialysis Monitor renal function, I/O's, avoid nephrotoxins. Pathology Dr. Fair. General Surgery is following- Dr. Donovan fungal infection requiring PD catheter removal on 06/10. Heme: Macrocytic anemia Monitor CBC, s/p transfusion 2units PRBC on 06/06 Endocrine: Diabetes mellitus Elevated TSH - repeat in 3-6 weeks SSI for glycemic control with low Novulog before meals at bedtime Holding Tradjenta 5 mg daily ID: Infected peritoneal dialysis catheter/peritonitis fungal Continue fluconazole 200 mg IV daily) monitor for signs of infections ( Fever, WBC) follow up on cultures. Peritoneal fluid 06/06 positive for yeast/Carmen ID is following. MSK: Right heel ulcer Sacral decubitus ulcer Wound care evaluate and treat Prophylaxis: Pantoprazole/heparin subcutaneous Lines: Right IJ CVP placed 06/05 Level II follow-up Tariq Lacy MD Jun 12, 2017 19:48
[2017-06-13] VITALS (31 sets, daily range): BP systolic 71–104; BP diastolic 40–71; PULSE 54–141; RESP 10–28; TEMP 97.3–97.9; O2SAT 78–100
[2017-06-13] MEDS: CHLORHEXIDINE GLUCONATE 2 % 1 PACK (2 CLOTHS) TOP SCH (00:18)
[2017-06-13] MEDS: MIDODRINE 5 MG TAB PO SCH ×2 (05:56→17:22)
[2017-06-13 06:16] LABS: AUTOMATED NEUTROPHIL # 7.6 TH/MM3 (1.8-7.7); BASOPHIL % 0.4 % (0.0-2.0); EOSINOPHIL # 0.1 TH/MM3 (0-0.4); EOSINOPHIL % 0.9 % (0.0-4.0); HEMATOCRIT 23.7 % (39.0-51.0); LYMPH % 4.9 % (9.0-44.0); LYMPHOCYTE # 0.4 TH/MM3 (1.0-4.8); MEAN CELL VOLUME 99.7 FL (80.0-100.0); MEAN CORPUSCULAR HEMOGLOBIN 33.4 PG (27.0-34.0); MEAN CORPUSCULAR HGB CONC 33.5 % (32.0-36.0); MEAN PLATELET VOLUME 8.1 FL (7.0-11.0); MONO % 5.9 % (0.0-8.0); MONOCYTE # 0.5 TH/MM3 (0-0.9); NEUT % 87.9 % (16.0-70.0); PLATELET COUNT 181 TH/MM3 (150-450); RED BLOOD COUNT 2.38 MIL/MM3 (4.50-5.90); RED CELL DISTRIBUTION WIDTH 21.1 % (11.6-17.2); WHITE BLOOD COUNT 8.6 TH/MM3 (4.0-11.0)
[2017-06-13 06:25] LABS: ALBUMIN 1.7 GM/DL (3.4-5.0); BICARBONATE 30.1 MEQ/L (21.0-32.0); CALCIUM 7.2 MG/DL (8.5-10.1); CREATININE 3.87 MG/DL (0.60-1.30); PHOSPHORUS 3.1 MG/DL (2.5-4.9)
[2017-06-13 06:45] LABS: CALCIUM-PROTEIN CORRECTED 8.6 MG/DL (8.5-10.1); TOTAL PROTEIN 4.6 GM/DL (6.4-8.2)
[2017-06-13] MEDS: INSULIN NovoLIN REGULAR SUPPLEMENTAL SCALE SQ SCH ×4 (08:00→21:27)
[2017-06-13] MEDS: CALCIUM CARBONATE 500 MG CHEWABLE TAB CHEW SCH ×2 (09:00→21:28)
[2017-06-13] MEDS: SODIUM CHLORIDE 0.9% FLUSH 10 ML FLUSH IV FLUSH SCH ×2 (09:00→21:28)
[2017-06-13] MEDS: DOCUSATE SODIUM 50 MG/SENNA 8.6 MG TAB PO SCH ×2 (09:00→21:27)
[2017-06-13] MEDS: ALBUMIN 25% INJ 100 ML IV PRN (10:36)
[2017-06-13] MEDS: GELATIN 12 MM/7 MM FOAM TOP PRN (10:37)
[2017-06-13] MEDS: EPOETIN ALFA 10,000 UNITS/ML VIAL IV PUSH PRN (10:37)
--- NOTE | 2017-06-13 12:04 | HHI.IDPN ---
Note Infectious Disease Note ID coverage: For Dr Keith. Notes reviewed. Patient without complaints. Just finished dialysis. Afebrile. C. albicans in the peritoneal fluid. Post removal of PD catheter. Antibiotics Fluconazole Allergies: Coded Allergies: morphine (Unverified Allergy, Severe, anaphylactic, 06/05/17) Objective Vital Signs Date Time Temp Pulse Resp B/P (MAP) Pulse Ox O2 Delivery O2 Flow Rate FiO2 06/13/17 08:00 97.9 87 10 98/54 (69) 06/13/17 08:00 87 06/13/17 06:00 82 06/13/17 04:00 82 06/13/17 04:00 97.3 82 12 97/51 (66) 100 06/13/17 02:00 90 06/13/17 00:15 83 10 92/55 (67) 97 06/13/17 00:00 91 06/13/17 00:00 97.7 91 14 80/40 (53) 91 06/13/17 00:00 91 80/40 06/12/17 22:00 96 06/12/17 21:52 100 06/12/17 20:00 97.5 85 12 94/50 (65) 94 06/12/17 20:00 85 06/12/17 18:00 90 06/12/17 16:00 101 06/12/17 16:00 97.9 101 18 91/52 (65) 99 06/12/17 14:00 76 06/12/17 12:27 103 94/55 Laboratory Tests Test 06/12/17 04:00 06/13/17 04:00 White Blood Count 9.3 TH/MM3 8.6 TH/MM3 Red Blood Count 2.52 MIL/MM3 2.38 MIL/MM3 Hemoglobin 8.2 GM/DL 8.0 GM/DL Hematocrit 25.3 % 23.7 % Mean Corpuscular Volume 100.4 FL 99.7 FL Mean Corpuscular Hemoglobin 32.8 PG 33.4 PG Mean Corpuscular Hemoglobin Concent 32.6 % 33.5 % Red Cell Distribution Width 21.6 % 21.1 % Platelet Count 155 TH/MM3 181 TH/MM3 Mean Platelet Volume 8.0 FL 8.1 FL Neutrophils (%) (Auto) 90.8 % 87.9 % Lymphocytes (%) (Auto) 4.0 % 4.9 % Monocytes (%) (Auto) 4.6 % 5.9 % Eosinophils (%) (Auto) 0.4 % 0.9 % Basophils (%) (Auto) 0.2 % 0.4 % Neutrophils # (Auto) 8.4 TH/MM3 7.6 TH/MM3 Lymphocytes # (Auto) 0.4 TH/MM3 0.4 TH/MM3 Monocytes # (Auto) 0.4 TH/MM3 0.5 TH/MM3 Eosinophils # (Auto) 0.0 TH/MM3 0.1 TH/MM3 Basophils # (Auto) 0.0 TH/MM3 0.0 TH/MM3 CBC Comment DIFF FINAL DIFF FINAL Differential Comment Laboratory Tests Test 06/11/17 20:56 06/12/17 04:00 06/12/17 12:00 06/12/17 21:45 Random Cortisol 20.9 MCG/DL Blood Urea Nitrogen 27 MG/DL Creatinine 3.15 MG/DL Random Glucose 144 MG/DL Albumin 1.8 GM/DL Calcium Level 6.9 MG/DL Phosphorus Level 3.0 MG/DL Sodium Level 138 MEQ/L Potassium Level 3.9 MEQ/L Chloride Level 99 MEQ/L Carbon Dioxide Level 29.6 MEQ/L Anion Gap 9 MEQ/L Estimat Glomerular Filtration Rate 20 ML/MIN Magnesium Level 1.9 MG/DL Troponin I 0.08 NG/ML 0.08 NG/ML Thyroid Stimulating Hormone 3rd Gen 4.190 uIU/ML Test 06/13/17 04:00 Blood Urea Nitrogen 31 MG/DL Creatinine 3.87 MG/DL Random Glucose 133 MG/DL Total Protein 4.6 GM/DL Albumin 1.7 GM/DL Calcium Level 7.2 MG/DL Phosphorus Level 3.1 MG/DL Sodium Level 136 MEQ/L Potassium Level 3.9 MEQ/L Chloride Level 97 MEQ/L Carbon Dioxide Level 30.1 MEQ/L Anion Gap 9 MEQ/L Estimat Glomerular Filtration Rate 16 ML/MIN Protein Corrected Calcium 8.6 MG/DL Imaging Chest X-Ray 06/07/17 0000 Signed Impressions: Service Date/Time: Wednesday, June 07, 2017 03:15 - CONCLUSION: Patchy consolidation or atelectasis of the left lower lung. Tom Berry MD Physical Exam GENERAL: Patient is in no acute distress. HEENT: Pupils constricted. EOMI, No icterus. NECK: Supple. LUNGS: Clear. CARDIAC: Regular rate and rhythm. ABDOMEN: Soft, non tender. EXTREMITIES: No clubbing, cyanosis or edema. SKIN: No rash. Assessment and Plan Fungal peritonitis 2/2 PD cahteter. C albicans Sepis suspeced on presentation sp GI bleed Change fluconazole to 400mg PO. Treat until 06/24/17. Nikhil Conti MD Jun 13, 2017 12:03
--- NOTE | 2017-06-13 12:56 | HHI.NPPN ---
Subjective General Problems: Anemia Renal Failure: End Stage Renal Disease History of Present Illness Patient is a very pleasant 66 year old male who came into the emergency room on 06/06/17 hypotensive, lethargic, and with a hemoglobin of 6.7. He was transfused 2 units of PRBC's with a recheck pending. He was initially put on Levophed for blood pressure support however it is currently not running. Has a past medical history of End -stage renal disease with peritoneal dialysis, AFIB , diabetes, arthritis, chronic pain, and hx of strokes. Onset of acute epigastric pain and discomfort noted for 5 days ago, but worsened over the past 24 hours. Reported loose stools for 3 weeks. In the emergency room patient did report melena, nausea, mild vomiting undigested food yesterday, but denied any coffee ground emesis. Patient has AV fistula and will have dialysis while here. Per patient PD catheter needs to be removed secondary to infection. Additional Remarks Patient is alert, off and on has confusion and hallucinations, still on low dose pressors, no SOB. Review of Systems General Constitutional: Fatigue General Remarks weakness Respiratory Respiratory Remarks Denies SOB Cardiovascular Cardiac Remarks Denies CP Gastrointestinal GI Remarks Denies abdominal pain Objective Data Data 06/13/17 06/14/17 19:00 07:00 Output Total 3000 ml Balance -3000 ml Hemodialysis 3000 ml Vital Signs Date Time Temp Pulse Resp B/P (MAP) Pulse Ox O2 Delivery O2 Flow Rate FiO2 06/13/17 08:00 97.9 87 10 98/54 (69) 06/13/17 08:00 87 06/13/17 06:00 82 06/13/17 04:00 82 06/13/17 04:00 97.3 82 12 97/51 (66) 100 06/13/17 02:00 90 06/13/17 00:15 83 10 92/55 (67) 97 06/13/17 00:00 91 06/13/17 00:00 97.7 91 14 80/40 (53) 91 06/13/17 00:00 91 80/40 06/12/17 22:00 96 06/12/17 21:52 100 06/12/17 20:00 97.5 85 12 94/50 (65) 94 06/12/17 20:00 85 06/12/17 18:00 90 06/12/17 16:00 101 06/12/17 16:00 97.9 101 18 91/52 (65) 99 06/12/17 14:00 76 -: 06/13/17 0400 06/13/17 0400 Physical Exam General Appearance: Malnourished Neck Neck Exam: Neck Supple Pulmonary Resp Exam: Clear Bilaterally Cardiology CV Exam: Regular Gastrointestinal/Abdomen GI Exam: Soft Extremeties Extremities Exam: No Edema Assessment/Plan Problem List: (1) ESRD (end stage renal disease) on dialysis ICD Codes: N18.6 - End stage renal disease; Z99.2 - Dependence on renal dialysis Plan: Dialysis MWF Potassium and phos WNL Calcium gluconate given Albumin with dialysis PD Catheter removed. Continue antibiotics as per ID. BP is still low on low dose norepinephrine with SBP in the midodrine has been added TID. Dialysis done in AM, and 3 liters removed. seen by Palliative care. I will increase Midodrine. (2) Peritonitis associated with peritoneal dialysis ICD Codes: T85.71XA - Infection and inflammatory reaction due to peritoneal dialysis catheter, initial encounter Plan: Peritoneal fluid culture positive for Carmen. PD catheter removed ID and surgery following. (3) Hypotension ICD Codes: I95.9 - Hypotension, unspecified Status: Acute Plan: Sepsis present on admission. Continue supportive care. (4) GI bleed ICD Codes: K92.2 - Gastrointestinal hemorrhage, unspecified Status: Acute Plan: s/p EGD: duodenal ulcer, gastritis, esophagitis. Received blood transfusion. Hemoglobin stable (5) Anemia ICD Codes: D64.9 - Anemia, unspecified Plan: HGB stable at 8.2 procrit with dialysis Problem Qualifiers (1) Hypotension: Qualified Codes: I95.9 - Hypotension, unspecified (2) GI bleed: Qualified Codes: K92.2 - Gastrointestinal hemorrhage, unspecified (3) Anemia: Darryl Fair MD Jun 13, 2017 12:56
[2017-06-13] MEDS: HEPARIN SODIUM - SQ 10,000 UNITS/ML VIAL SQ SCH ×2 (13:08→21:27)
[2017-06-13] MEDS: PANTOPRAZOLE SOD 40 MG DELAYED RELEASE TAB PO SCH (13:09)
--- NOTE | 2017-06-13 15:29 | HHI.CCPN ---
Subjective Remarks/Hospital Course 66 year-old male with a medical history significant for end-stage renal disease on peritoneal dialysis who was noted to be severely hypotensive and lethargic at the dialysis center on 06/05 and was called and patient was transferred to [facility] ER. On arrival he was noted to be hypotensive with SBP 70s and heart rate 100s. He also reportedly had significant melena and rectal bleeding following arrival. A right IJ central line was placed by ER physician. Patient's arrived and wanted to make patient DNR status and did not want blood transfusions and wished transferring to hospice however subsequently patient woke up and wanted to continue aggressive care including blood transfusions. ER physician contacted me questioning patient's 's ability to make decisions for him due to concern for secondary gain as well as possible psychiatric illness. Patient was accepted for admission by critical care medicine service. 4 units PRBCs were ordered to be transfused stat by ER physician. When I arrived to see the patient he was laying in the ER stretcher on nasal cannula on 5 mics of Levophed. He is drowsy but easily arousable. He knew he was at the hospital. He could not give me details of his history. 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 06/07 Patient is on Levophed 2 mics, s/p HD yesterday. Awake and alert on Protonix drip. s/p EGD yesterday showed 2 large Duodenal ulcer, esophagitis and gastritis. 06/08: Afebrile. Currently off norepinephrine but MAP is around 60 currently. States he is okay with removing peritoneal dialysis catheter. Will discuss with general surgery in nephrology in a.m. 06/09: Blood pressures are borderline. Awake and alert and eating popsicles currently. Patient's okay with removing peroneal dialysis catheter. Dr. Van as yet to see patient today. Agree with ID and nephrology's recommendations for removal. 06/10 Patient s/p PD catheter removal this morning. On Levophed 2 mics. Afebrile. 06/11: Postoperative day #1 PD catheter removal. Remains on norepinephrine at 2 g per minute. Asymptomatic. Plan for hemodialysis today. 06/12: Afebrile. Intermittently A. fib with RVR, currently rate controlled. Denies chest pain or shortness of breath. Intermittently on phenylephrine drip Subjective 2/2: Resting in bed in no acute distress. Remains on Manan-Synephrine drip at 60 mics grams per minute. Appears more depressed today. Status post -3 L of hemodialysis. Objective Vital Signs Date Time Temp Pulse Resp B/P (MAP) Pulse Ox O2 Delivery O2 Flow Rate FiO2 06/13/17 08:00 97.9 87 10 98/54 (69) 06/13/17 04:00 100 06/12/17 08:04 21 06/11/17 23:09 Nasal Cannula 06/11/17 07:00 2.00 Intake and Output 06/13/17 06/13/17 06/14/17 08:00 16:00 00:00 Intake Total 360 ml Output Total 3000 ml Balance 360 ml -3000 ml Result Diagram: 06/13/17 0400 06/13/17 0400 Other Results Microbiology Date/Time Source Procedure Growth Status 06/06/17 07:19 Blood Peripheral Aerobic Blood Culture - Final NO GROWTH IN 5 DAYS Complete 06/06/17 07:19 Blood Peripheral Anaerobic Blood Culture - Final NO GROWTH IN 5 DAYS Complete 06/06/17 15:20 Fluid Peritoneal Fluid Fungal Smear - Final NO FUNGAL ELEMENTS SEEN. Resulted 06/06/17 15:20 Fungal Culture - Preliminary Carmen Albicans Resulted Imaging Last Impressions Chest X-Ray 06/07/17 0000 Signed Impressions: Service Date/Time: Wednesday, June 07, 2017 03:15 - CONCLUSION: Patchy consolidation or atelectasis of the left lower lung. Tom Berry MD Objective Remarks GENERAL: 66 year male resting in bed in no acute distress SKIN: Woman dry. No rash HEAD: Atraumatic. Normocephalic. EYES: No scleral icterus. No injection or drainage. ENT: No nasal bleeding or discharge. Mucous membranes pink and dry.. NECK: Trachea midline. Supple. CARDIOVASCULAR: Heart rate in the 80s. Irregularly irregular consistent with A. fib. RESPIRATORY: No accessory muscle use. Clear to auscultation. Breath sounds equal bilaterally. Decreased respiratory effort. GASTROINTESTINAL: Abdomen soft, nondistended. PD catheter has been removed. Site is clean dry and intact. No signs erythema drainage. MUSCULOSKELETAL: Patient has a well-healed rt heel ulcer. Venous stasis changes noted to his bilateral lower extremities. NEUROLOGICAL: Awake and weak and mildly confused. No obvious cranial nerve deficits. Moves bilateral upper extremities. BACK: Stage I/early decubitus in his sacral area. Urinary Catheter: No Assessment to: Continue Vascular Central Line Catheter: Yes Assessment to: Continue Date of Insertion: Jun 05, 2017 Line: Central Venous Catheter Side: Right Location: Internal, Jugular A/P Assessment and Plan Neuro/Psych: Depression Chronic Pain syndrome History of CVA Holding paroxetine 10 mg daily/home medication. Resume when clinically indicated Avoid sedatives and narcotics including tramadol/home medication, monitor neuro status. Awake and alert Holding clopidogrel 75 mg daily. Resume when okay with GI CV: Atrial fibrillation rate controlled History of essential hypertension On norepinephrine at 2 g per minute- Monitor HR and BP keep MAP>65mmHg Lactic acid 2.2 on 06/07 Holding clopidogrel 75 mg daily light of duodenal ulcer Holding lisinopril 20 mill grams daily, Imdur and metoprolol 50 mill grams daily in light of hypotension Check cortisol level. 20 Start Midodrine 5 mg 3 times a day Pulm: Continue with oxygen keep sat >92%. Currently on room air Albuterol aerosols every 2 hours when necessary dyspnea GI/liver: Upper GI bleed secondary to duodenal ulcer Currently on soft renal diet On pantoprazole 40 mg by mouth daily s/p EGD 06/06 which showed 2 large duodenal ulcers, grade D esophagitis, gastritis. Renal/: Status post PD catheter removal day #1 Dr. Donovan End-stage renal disease on hemodialysis Monitor renal function, I/O's, avoid nephrotoxins. Pathology Dr. Fair. General Surgery is following- Dr. Donovan fungal infection requiring PD catheter removal on 06/10. Heme: Macrocytic anemia Monitor CBC, s/p transfusion 2units PRBC on 06/06 Endocrine: Diabetes mellitus Elevated TSH - repeat in 3-6 weeks SSI for glycemic control with low Novulog before meals at bedtime Holding Tradjenta 5 mg daily ID: Infected peritoneal dialysis catheter/peritonitis fungal Continue fluconazole 200 mg IV daily Monitor for signs of infections ( Fever, WBC) follow up on cultures. Peritoneal fluid 06/06 positive for yeast/Carmen ID is following. MSK: Right heel ulcer Sacral decubitus ulcer Wound care evaluate and treat Prophylaxis: Pantoprazole/heparin subcutaneous Lines: Right IJ CVP placed 06/05 Level II follow-up Tariq Lacy MD Jun 13, 2017 15:28
[2017-06-13 21:59] LABS: BICARBONATE 32.3 MEQ/L (21.0-32.0); CALCIUM 7.2 MG/DL (8.5-10.1); CREATININE 3.03 MG/DL (0.60-1.30); MAGNESIUM 1.9 MG/DL (1.5-2.5)
[2017-06-13 22:13] LABS: CALCIUM-PROTEIN CORRECTED 8.3 MG/DL (8.5-10.1); TOTAL PROTEIN 5.1 GM/DL (6.4-8.2)
[2017-06-13] MEDS: PHENYLEPHRINE INJ 160 MG in DEXTROSE 5% IN WATE 500 ML INJ 484 ML IV PRN ×2 (23:19)
[2017-06-14] VITALS (81 sets, daily range): BP systolic 80–125; BP diastolic 48–67; PULSE 62–109; RESP 10–38; TEMP 97.8–98.4; O2SAT 77–100
[2017-06-14] MEDS: CHLORHEXIDINE GLUCONATE 2 % 1 PACK (2 CLOTHS) TOP SCH (04:00)
[2017-06-14 04:26] LABS: AUTOMATED NEUTROPHIL # 5.7 TH/MM3 (1.8-7.7); BASOPHIL % 0.6 % (0.0-2.0); EOSINOPHIL # 0.1 TH/MM3 (0-0.4); EOSINOPHIL % 0.9 % (0.0-4.0); HEMATOCRIT 22.8 % (39.0-51.0); HEMOGLOBIN 7.4 GM/DL (13.0-17.0); LYMPH % 7.8 % (9.0-44.0); LYMPHOCYTE # 0.5 TH/MM3 (1.0-4.8); MEAN CORPUSCULAR HEMOGLOBIN 32.9 PG (27.0-34.0); MEAN CORPUSCULAR HGB CONC 32.6 % (32.0-36.0); MONO % 8.6 % (0.0-8.0); MONOCYTE # 0.6 TH/MM3 (0-0.9); NEUT % 82.1 % (16.0-70.0); PLATELET COUNT 177 TH/MM3 (150-450); RED BLOOD COUNT 2.26 MIL/MM3 (4.50-5.90); RED CELL DISTRIBUTION WIDTH 22.3 % (11.6-17.2)
[2017-06-14 04:55] LABS: ALBUMIN 2.1 GM/DL (3.4-5.0); CALCIUM 6.9 MG/DL (8.5-10.1); CALCIUM-PROTEIN CORRECTED 8.1 MG/DL (8.5-10.1); CREATININE 3.11 MG/DL (0.60-1.30); FREE T3 1.24 PG/ML (2.18-3.98); FREE T4 1.07 NG/DL (0.76-1.46); TOTAL BILIRUBIN ADULT 0.6 MG/DL (0.2-1.0); TOTAL PROTEIN 4.9 GM/DL (6.4-8.2)
[2017-06-14] MEDS: MIDODRINE 5 MG TAB PO SCH ×3 (06:13→17:26)
[2017-06-14] MEDS: INSULIN NovoLIN REGULAR SUPPLEMENTAL SCALE SQ SCH ×4 (08:00→21:00)
[2017-06-14] MEDS: CALCIUM CARBONATE 500 MG CHEWABLE TAB CHEW SCH ×2 (08:03→19:33)
[2017-06-14] MEDS: FLUCONAZOLE 200 MG TAB PO SCH (08:03)
[2017-06-14] MEDS: PANTOPRAZOLE SOD 40 MG DELAYED RELEASE TAB PO SCH (08:03)
[2017-06-14] MEDS: DOCUSATE SODIUM 50 MG/SENNA 8.6 MG TAB PO SCH ×2 (08:06→19:33)
[2017-06-14] MEDS: SODIUM CHLORIDE 0.9% FLUSH 10 ML FLUSH IV FLUSH SCH ×2 (08:08→19:33)
[2017-06-14] MEDS: HEPARIN SODIUM - SQ 10,000 UNITS/ML VIAL SQ SCH ×2 (09:41→19:33)
--- NOTE | 2017-06-14 11:10 | HHI.NPPN ---
Subjective General Problems: Anemia Renal Failure: End Stage Renal Disease History of Present Illness Patient is a very pleasant 66 year old male who came into the emergency room on 06/06/17 hypotensive, lethargic, and with a hemoglobin of 6.7. He was transfused 2 units of PRBC's with a recheck pending. He was initially put on Levophed for blood pressure support however it is currently not running. Has a past medical history of End -stage renal disease with peritoneal dialysis, AFIB , diabetes, arthritis, chronic pain, and hx of strokes. Onset of acute epigastric pain and discomfort noted for 5 days ago, but worsened over the past 24 hours. Reported loose stools for 3 weeks. In the emergency room patient did report melena, nausea, mild vomiting undigested food yesterday, but denied any coffee ground emesis. Patient has AV fistula and will have dialysis while here. Per patient PD catheter needs to be removed secondary to infection. Additional Remarks Patient is alert, off and on has confusion and hallucinations, still on low dose pressors, no SOB. Review of Systems General Constitutional: Fatigue General Remarks weakness Respiratory Respiratory Remarks Denies SOB Cardiovascular Cardiac Remarks Denies CP Gastrointestinal GI Remarks Denies abdominal pain Objective Data Data Vital Signs Date Time Temp Pulse Resp B/P (MAP) Pulse Ox O2 Delivery O2 Flow Rate FiO2 06/14/17 10:00 77 06/14/17 08:30 99 06/14/17 08:00 99 06/14/17 08:00 97.8 99 20 109/60 (76) 88 06/14/17 06:00 77 06/14/17 04:52 95 06/14/17 04:00 98.0 83 14 96/52 (67) 97 06/14/17 04:00 83 06/14/17 03:45 80 22 87/57 (67) 80 06/14/17 03:30 79 15 91/52 (65) 06/14/17 03:15 73 14 91/52 (65) 06/14/17 03:00 78 17 94/52 (66) 06/14/17 02:45 81 15 89/53 (65) 06/14/17 02:30 80 13 95/51 (66) 06/14/17 02:15 74 13 92/52 (65) 06/14/17 02:00 75 14 91/50 (64) 2/3/18 02:00 72 2/3/18 01:45 80 16 89/57 (68) 93 2/3/18 01:30 106 14 99/60 (73) 2/3/18 01:15 79 23 98/55 (69) 2/3/18 01:00 77 24 90/50 (63) 77 2/3/18 00:45 75 26 87/53 (64) 98 2/3/18 00:30 71 17 88/53 (65) 96 2/3/18 00:15 73 23 92/55 (67) 98 2/3/18 00:00 97.9 62 17 80/48 (59) 100 2//18 00:00 62 2/2/18 23:49 45 81/46 2/2/18 23:45 59 26 81/46 (58) 97 2/2/18 23:32 54 17 84/49 (61) 95 2/2/18 23:30 69 16 71/51 (58) 83 2/2/18 23:29 85 71/51 2/2/18 23:19 87 86/49 2/2/18 23:16 84 13 86/49 (61) 97 2/2/18 23:15 91 23 88 2/2/18 23:00 114 28 100/71 (81) 80 2/2/18 22:45 90 20 92/56 (68) 97 2/2/18 22:30 113 15 101/69 (80) 88 2/2/18 22:15 106 17 97/60 (72) 95 2/2/18 22:10 120 104/57 2/2/18 22:00 134 2/2/18 22:00 134 18 104/57 (73) 88 2/2/18 21:45 102 15 99/57 (71) 97 2/2/18 21:30 113 14 92/57 (69) 97 2/2/18 21:28 118 96/57 2/2/18 21:15 103 13 96/57 (70) 94 2/2/18 21:00 118 13 96/53 (67) 94 2/2/18 20:45 141 20 99/62 (74) 78 2/2/18 20:35 94 2/2/18 20:30 113 13 95/60 (72) 93 2/2/18 20:15 116 11 95/58 (70) 94 06/13/17 20:08 134 18 85/60 (68) 06/13/17 20:00 97.8 133 21 100 06/13/17 20:00 133 06/13/17 19:00 103 93/55 06/13/17 18:00 100 06/13/17 16:00 97.7 101 13 103/55 (71) 100 06/13/17 14:00 89 06/13/17 12:00 97.8 98 12 94/52 (66) 06/13/17 12:00 98 -: 06/14/17 0303 06/14/17 0303 Physical Exam General Appearance: Malnourished Neck Neck Exam: Neck Supple Pulmonary Resp Exam: Clear Bilaterally Cardiology CV Exam: Regular Gastrointestinal/Abdomen GI Exam: Soft Extremeties Extremities Exam: No Edema Assessment/Plan Problem List: (1) ESRD (end stage renal disease) on dialysis ICD Codes: N18.6 - End stage renal disease; Z99.2 - Dependence on renal dialysis Plan: Dialysis MWF HD done yesterday 3 L off stable monitor PD catheter removed (2) Peritonitis associated with peritoneal dialysis ICD Codes: T85.71XA - Infection and inflammatory reaction due to peritoneal dialysis catheter, initial encounter Plan: Peritoneal fluid culture positive for Carmen. PD catheter removed ID and surgery following. (3) Hypotension ICD Codes: I95.9 - Hypotension, unspecified Status: Acute Plan: Sepsis present on admission. Continue supportive care. (4) GI bleed ICD Codes: K92.2 - Gastrointestinal hemorrhage, unspecified Status: Acute Plan: s/p EGD: duodenal ulcer, gastritis, esophagitis. Received blood transfusion. Hemoglobin stable (5) Anemia ICD Codes: D64.9 - Anemia, unspecified Plan: HGB low Problem Qualifiers (1) Hypotension: Qualified Codes: I95.9 - Hypotension, unspecified (2) GI bleed: Qualified Codes: K92.2 - Gastrointestinal hemorrhage, unspecified (3) Anemia: Helen Peacock MD Jun 14, 2017 11:10
--- NOTE | 2017-06-14 13:36 | HHI.CCPN ---
Subjective Remarks/Hospital Course 66 year-old male with a medical history significant for end-stage renal disease on peritoneal dialysis who was noted to be severely hypotensive and lethargic at the dialysis center on 06/05 and was called and patient was transferred to [facility] ER. On arrival he was noted to be hypotensive with SBP 70s and heart rate 100s. He also reportedly had significant melena and rectal bleeding following arrival. A right IJ central line was placed by ER physician. Patient's arrived and wanted to make patient DNR status and did not want blood transfusions and wished transferring to hospice however subsequently patient woke up and wanted to continue aggressive care including blood transfusions. ER physician contacted me questioning patient's 's ability to make decisions for him due to concern for secondary gain as well as possible psychiatric illness. Patient was accepted for admission by critical care medicine service. 4 units PRBCs were ordered to be transfused stat by ER physician. When I arrived to see the patient he was laying in the ER stretcher on nasal cannula on 5 mics of Levophed. He is drowsy but easily arousable. He knew he was at the hospital. He could not give me details of his history. 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 06/07 Patient is on Levophed 2 mics, s/p HD yesterday. Awake and alert on Protonix drip. s/p EGD yesterday showed 2 large Duodenal ulcer, esophagitis and gastritis. 06/08: Afebrile. Currently off norepinephrine but MAP is around 60 currently. States he is okay with removing peritoneal dialysis catheter. Will discuss with general surgery in nephrology in a.m. 06/09: Blood pressures are borderline. Awake and alert and eating popsicles currently. Patient's okay with removing peroneal dialysis catheter. Dr. Van as yet to see patient today. Agree with ID and nephrology's recommendations for removal. 06/10 Patient s/p PD catheter removal this morning. On Levophed 2 mics. Afebrile. 06/11: Postoperative day #1 PD catheter removal. Remains on norepinephrine at 2 g per minute. Asymptomatic. Plan for hemodialysis today. 06/12: Afebrile. Intermittently A. fib with RVR, currently rate controlled. Denies chest pain or shortness of breath. Intermittently on phenylephrine drip 2/2: Resting in bed in no acute distress. Remains on Manan-Synephrine drip at 60 mics grams per minute. Appears more depressed today. Status post -3 L of hemodialysis. Subjective 3: Resting in bed in no acute distress. Afebrile. Remains on low-dose phenylephrine at 50 mics grams per minute. More attentive today. Objective Vital Signs Date Time Temp Pulse Resp B/P (MAP) Pulse Ox O2 Delivery O2 Flow Rate FiO2 06/14/17 13:00 82 13 105/54 (71) 100 06/14/17 12:00 98.4 06/12/17 08:04 21 06/11/17 23:09 Nasal Cannula 06/11/17 07:00 2.00 Intake and Output 06/14/17 06/14/17 06/15/17 08:00 16:00 00:00 Intake Total 100 ml Output Total 25 ml Balance 75 ml Result Diagram: 06/14/17 0303 06/14/17 0303 Other Results Microbiology Date/Time Source Procedure Growth Status 06/06/17 07:19 Blood Peripheral Aerobic Blood Culture - Final NO GROWTH IN 5 DAYS Complete 06/06/17 07:19 Blood Peripheral Anaerobic Blood Culture - Final NO GROWTH IN 5 DAYS Complete 06/06/17 15:20 Fluid Peritoneal Fluid Fungal Smear - Final NO FUNGAL ELEMENTS SEEN. Resulted 06/06/17 15:20 Fungal Culture - Preliminary Carmen Albicans Resulted Imaging Last Impressions Chest X-Ray 06/07/17 0000 Signed Impressions: Service Date/Time: Wednesday, June 07, 2017 03:15 - CONCLUSION: Patchy consolidation or atelectasis of the left lower lung. Tom Berry MD Objective Remarks GENERAL: 66 year male resting in bed in no acute distress SKIN: Woman dry. No rash HEAD: Atraumatic. Normocephalic. EYES: No scleral icterus. No injection or drainage. ENT: No nasal bleeding or discharge. Mucous membranes pink and dry.. NECK: Trachea midline. Supple. CARDIOVASCULAR: Heart rate in the 80s. Irregularly irregular consistent with A. fib. RESPIRATORY: No accessory muscle use. Clear to auscultation. Breath sounds equal bilaterally. Decreased respiratory effort. GASTROINTESTINAL: Abdomen soft, nondistended. PD catheter has been removed. Site is clean dry and intact. No signs erythema drainage. MUSCULOSKELETAL: Patient has a well-healed rt heel ulcer. Venous stasis changes noted to his bilateral lower extremities. NEUROLOGICAL: Awake and weak and mildly confused. No obvious cranial nerve deficits. Moves bilateral upper extremities. BACK: Stage I/early decubitus in his sacral area. Vascular Central Line Catheter: Yes Assessment to: Continue Date of Insertion: Jun 05, 2017 Line: Central Venous Catheter Side: Right Location: Internal, Jugular A/P Assessment and Plan Neuro/Psych: Depression Chronic Pain syndrome History of CVA Holding paroxetine 10 mg daily/home medication. Resume when clinically indicated Avoid sedatives and narcotics including tramadol/home medication, monitor neuro status. Awake and alert Holding clopidogrel 75 mg daily. Resume when okay with GI CV: Atrial fibrillation rate controlled History of essential hypertension On phenylephrine at 50 g per minute- Monitor HR and BP keep MAP>65mmHg Lactic acid 2.2 on 06/07 Holding clopidogrel 75 mg daily light of duodenal ulcer Holding lisinopril 20 mill grams daily, Imdur and metoprolol 50 mill grams daily in light of hypotension Check cortisol level. 20 Continue Midodrine 10 mg 3 times a day Pulm: Continue with oxygen keep sat >92%. Currently on room air Albuterol aerosols every 2 hours when necessary dyspnea GI/liver: Upper GI bleed secondary to duodenal ulcer Currently on soft renal diet On pantoprazole 40 mg by mouth daily s/p EGD 06/06 which showed 2 large duodenal ulcers, grade D esophagitis, gastritis. Renal/: Status post PD catheter removal day #4 Dr. Donovan End-stage renal disease on hemodialysis Monitor renal function, I/O's, avoid nephrotoxins. Pathology Dr. Fair. General Surgery has followed- Dr. Donovan fungal infection requiring PD catheter removal on 06/10. Heme: Macrocytic anemia Monitor CBC, s/p transfusion 2units PRBC on 06/06 Endocrine: Diabetes mellitus Elevated TSH - repeat in 3-6 weeks. Free T4 normal. Free T3 low. Would not initiate any levothyroxine at this time in this acute clinical setting SSI for glycemic control with low Novulog before meals at bedtime Holding Tradjenta 5 mg daily ID: Infected peritoneal dialysis catheter/peritonitis fungal Continue fluconazole 200 mg po daily docusate 06/24 Monitor for signs of infections ( Fever, WBC) follow up on cultures. Peritoneal fluid 06/06 positive for yeast/Carmen ID is following. MSK: Right heel ulcer Sacral decubitus ulcer Wound care evaluate and treat Prophylaxis: Pantoprazole/heparin subcutaneous Lines: Right IJ CVP placed 06/05 Level II follow-up Tariq Lacy MD Jun 14, 2017 13:36
[2017-06-15] VITALS (71 sets, daily range): BP systolic 83–112; BP diastolic 47–71; PULSE 76–125; RESP 9–27; TEMP 98–98.5; O2SAT 65–100
[2017-06-15] MEDS: CHLORHEXIDINE GLUCONATE 2 % 1 PACK (2 CLOTHS) TOP SCH ×2 (04:00→20:08)
[2017-06-15 04:26] LABS: AUTOMATED NEUTROPHIL # 6.1 TH/MM3 (1.8-7.7); BASOPHIL % 0.7 % (0.0-2.0); EOSINOPHIL % 0.6 % (0.0-4.0); HEMOGLOBIN 7.9 GM/DL (13.0-17.0); LYMPH % 7.8 % (9.0-44.0); LYMPHOCYTE # 0.6 TH/MM3 (1.0-4.8); MEAN CORPUSCULAR HEMOGLOBIN 33.4 PG (27.0-34.0); MEAN CORPUSCULAR HGB CONC 33.1 % (32.0-36.0); MEAN PLATELET VOLUME 7.8 FL (7.0-11.0); MONO % 7.2 % (0.0-8.0); MONOCYTE # 0.5 TH/MM3 (0-0.9); NEUT % 83.7 % (16.0-70.0); PLATELET COUNT 201 TH/MM3 (150-450); RED BLOOD COUNT 2.38 MIL/MM3 (4.50-5.90); RED CELL DISTRIBUTION WIDTH 21.9 % (11.6-17.2); WHITE BLOOD COUNT 7.3 TH/MM3 (4.0-11.0)
[2017-06-15 05:09] LABS: ALBUMIN 2.2 GM/DL (3.4-5.0); BICARBONATE 32.1 MEQ/L (21.0-32.0); CALCIUM 7.1 MG/DL (8.5-10.1); CALCIUM-PROTEIN CORRECTED 8.3 MG/DL (8.5-10.1); CREATININE 3.9 MG/DL (0.60-1.30); MAGNESIUM 2.1 MG/DL (1.5-2.5); PHOSPHORUS 2.8 MG/DL (2.5-4.9); TOTAL BILIRUBIN ADULT 0.7 MG/DL (0.2-1.0); TOTAL PROTEIN 4.9 GM/DL (6.4-8.2)
[2017-06-15] MEDS: MIDODRINE 5 MG TAB PO SCH ×3 (06:03→16:53)
[2017-06-15] MEDS: CALCIUM CARBONATE 500 MG CHEWABLE TAB CHEW SCH ×2 (08:13→20:08)
[2017-06-15] MEDS: INSULIN NovoLIN REGULAR SUPPLEMENTAL SCALE SQ SCH ×4 (08:13→20:08)
[2017-06-15] MEDS: FLUCONAZOLE 200 MG TAB PO SCH (08:13)
[2017-06-15] MEDS: DOCUSATE SODIUM 50 MG/SENNA 8.6 MG TAB PO SCH ×2 (08:13→20:07)
[2017-06-15] MEDS: PANTOPRAZOLE SOD 40 MG DELAYED RELEASE TAB PO SCH (08:13)
[2017-06-15] MEDS: HEPARIN SODIUM - SQ 10,000 UNITS/ML VIAL SQ SCH ×2 (08:13→20:08)
[2017-06-15] MEDS: SODIUM CHLORIDE 0.9% FLUSH 10 ML FLUSH IV FLUSH SCH ×2 (08:14→20:08)
--- NOTE | 2017-06-15 11:44 | HHI.NPPN ---
Subjective General Problems: Anemia Renal Failure: End Stage Renal Disease History of Present Illness Patient is a very pleasant 66 year old male who came into the emergency room on 06/06/17 hypotensive, lethargic, and with a hemoglobin of 6.7. He was transfused 2 units of PRBC's with a recheck pending. He was initially put on Levophed for blood pressure support however it is currently not running. Has a past medical history of End -stage renal disease with peritoneal dialysis, AFIB , diabetes, arthritis, chronic pain, and hx of strokes. Onset of acute epigastric pain and discomfort noted for 5 days ago, but worsened over the past 24 hours. Reported loose stools for 3 weeks. In the emergency room patient did report melena, nausea, mild vomiting undigested food yesterday, but denied any coffee ground emesis. Patient has AV fistula and will have dialysis while here. Per patient PD catheter needs to be removed secondary to infection. Additional Remarks Patient is alert, off and on has confusion and hallucinations, still on low dose pressors, no SOB. Review of Systems General Constitutional: Fatigue General Remarks weakness Respiratory Respiratory Remarks Denies SOB Cardiovascular Cardiac Remarks Denies CP Gastrointestinal GI Remarks Denies abdominal pain Objective Data Data Vital Signs Date Time Temp Pulse Resp B/P (MAP) Pulse Ox O2 Delivery O2 Flow Rate FiO2 06/15/17 10:45 86 13 103/56 (72) 97 06/15/17 10:30 85 12 97/56 (70) 98 06/15/17 10:15 92 21 92/62 (72) 69 06/15/17 10:00 82 06/15/17 10:00 83 14 100/58 (72) 100 06/15/17 09:45 82 15 102/57 (72) 95 06/15/17 09:35 86 19 95/52 (66) 98 06/15/17 09:30 102 24 86/50 (62) 65 06/15/17 09:15 99 14 107/56 (73) 99 06/15/17 09:00 105 18 100/71 (81) 93 06/15/17 08:45 93 18 98/58 (71) 80 06/15/17 08:30 86 13 92/50 (64) 97 06/15/17 08:15 79 18 110/59 (76) 89 06/15/17 08:00 90 2/08/27 08:00 98.1 90 19 105/59 (74) 80 2/18 07:45 76 9 110/56 (74) 98 18 07:30 102 16 101/65 (77) 69 2/18 07:15 125 19 91/61 (71) 94 06/15/17 07:00 134 111/60 218 06:52 124 2 06:00 115 95/68 218 06:00 115 18 05:00 106 90/68 2 04:45 117 15 92/68 (76) 76 18 04:34 104 21 86/61 (69) 79 18 04:30 108 17 85/56 (66) 91 06/15/17 04:15 110 20 87/58 (68) 93 06/15/17 04:00 98.3 105 16 83/54 (64) 95 06/15/17 04:00 105 06/15/17 03:45 116 11 90/56 (67) 92 06/15/17 03:30 110 16 104/66 (79) 93 2/18 03:15 107 17 104/58 (73) 94 06/15/17 03:00 90 13 91/54 (66) 95 06/15/17 03:00 90 91/54 06/15/17 02:52 96 14 91/54 (66) 96 06/15/17 02:46 94 17 87/51 (63) 06/15/17 02:45 95 12 83/47 (59) 06/15/17 02:30 102 18 97/58 (71) 18 02:15 115 27 101/60 (74) 2 02:00 100 19 112/53 (72) 84 06/15/17 02:00 100 06/15/17 02:00 100 112/53 /08/27 01:45 86 15 105/59 (74) 93 18 01:30 83 13 95/52 (66) 95 18 01:15 85 12 95/52 (66) 95 06/15/17 01:00 86 12 96/51 (66) 97 2/4/18 01:00 86 96/51 2/4/18 00:45 87 13 101/57 (72) 97 2/4/18 00:30 83 11 101/59 (73) 68 2/4/18 00:15 91 14 98/54 (69) 2/4/18 00:00 98.5 93 12 96/58 (71) 95 2//18 00:00 93 12 96/58 (71) 95 2//18 00:00 93 2/3/18 23:45 104 24 100/56 (71) 94 2/3/18 23:30 105 22 107/67 (80) 94 2/3/18 23:15 91 14 96/59 (71) 95 2//18 23:00 85 14 95/56 (69) 96 2//18 23:00 85 95/56 2/3/18 22:45 82 13 99/57 (71) 96 2//18 22:30 87 17 110/51 (70) 96 2//18 22:15 95 16 102/58 (73) 96 2//18 22:00 92 2/3/18 22:00 92 18 96/58 (71) 93 2/3/18 21:45 92 18 107/56 (73) 92 2/3/18 21:30 80 13 87/52 (64) 97 2/3/18 21:15 81 12 90/51 (64) 97 2/3/18 21:00 89 20 94/64 (74) 96 2/3/18 21:00 89 94/64 2/3/18 20:45 86 14 90/55 (67) 95 2/3/18 20:30 79 16 92/54 (67) 97 2/3/18 20:28 97 21 2/3/18 20:15 79 15 98/55 (69) 96 2/3/18 20:00 98.0 86 12 95/61 (72) 98 2/3/18 20:00 86 2/3/18 19:00 80 13 105/59 (74) 99 2/3/18 19:00 80 105/59 2/3/18 18:45 91 12 107/59 (75) 97 2/3/18 18:30 84 20 110/57 (74) 95 2/3/18 18:15 90 14 111/58 (75) 99 2/3/18 18:11 83 97/56 2/3/18 18:00 103 2/3/18 18:00 103 24 97/56 (70) 92 2/3/18 17:45 104 25 111/54 (73) 92 2/3/18 17:30 91 38 125/53 (77) 94 2/3/18 17:15 80 13 108/53 (71) 97 2/3/18 17:00 70 12 98/50 (66) 96 2/3/18 16:45 89 21 99/51 (67) 94 2/3/18 16:30 85 17 95/59 (71) 95 2/3/18 16:15 98 13 99/57 (71) 94 2/3/18 16:00 98.4 89 13 91/50 (64) 86 2/3/18 16:00 89 2/3/18 15:45 85 14 86/51 (63) 91 2//18 15:30 80 10 99/53 (68) 93 2/3/18 15:15 82 12 106/56 (73) 94 2/3/18 15:00 89 26 93/53 (66) 93 2/3/18 14:45 83 11 90/54 (66) 95 2/3/18 14:30 84 11 95/50 (65) 97 2/3/18 14:15 83 11 110/48 (68) 95 2/3/18 14:00 79 2/3/18 14:00 79 15 99/51 (67) 88 2/3/18 13:45 78 12 98/51 (67) 93 2/3/18 13:30 82 11 106/52 (70) 83 2/3/18 13:25 91 125/58 2/3/18 13:15 85 24 125/58 (80) 83 2/3/18 13:00 82 13 105/54 (71) 100 2/3/18 13:00 82 13 105/54 (71) 100 2/3/18 12:45 109 25 89/51 (64) 84 2/3/18 12:45 109 89/51 2/3/18 12:30 85 26 80/49 (59) 95 2/3/18 12:15 90 26 99/57 (71) 90 2/3/18 12:00 74 06/14/17 12:00 98.4 74 12 102/54 (70) 96 06/14/17 11:45 84 20 106/62 (77) 92 -: 06/15/17 0356 06/15/17 0356 Physical Exam General Appearance: Malnourished Neck Neck Exam: Neck Supple Pulmonary Resp Exam: Clear Bilaterally Cardiology CV Exam: Regular Gastrointestinal/Abdomen GI Exam: Soft Extremeties Extremities Exam: No Edema Assessment/Plan Problem List: (1) ESRD (end stage renal disease) on dialysis ICD Codes: N18.6 - End stage renal disease; Z99.2 - Dependence on renal dialysis Plan: Dialysis MWF HD done Friday 3 L off stable monitor PD catheter removed Dr. Fair to follow (2) Peritonitis associated with peritoneal dialysis ICD Codes: T85.71XA - Infection and inflammatory reaction due to peritoneal dialysis catheter, initial encounter Plan: Peritoneal fluid culture positive for Carmen. PD catheter removed ID and surgery following. (3) Hypotension ICD Codes: I95.9 - Hypotension, unspecified Status: Acute Plan: Sepsis present on admission. Continue supportive care. (4) GI bleed ICD Codes: K92.2 - Gastrointestinal hemorrhage, unspecified Status: Acute Plan: s/p EGD: duodenal ulcer, gastritis, esophagitis. Received blood transfusion. Hemoglobin stable (5) Anemia ICD Codes: D64.9 - Anemia, unspecified Plan: HGB low Problem Qualifiers (1) Hypotension: Qualified Codes: I95.9 - Hypotension, unspecified (2) GI bleed: Qualified Codes: K92.2 - Gastrointestinal hemorrhage, unspecified (3) Anemia: Helen Peacock MD Jun 15, 2017 11:44
--- NOTE | 2017-06-15 18:54 | HHI.CCPN ---
Subjective Remarks/Hospital Course 66 year-old male with a medical history significant for end-stage renal disease on peritoneal dialysis who was noted to be severely hypotensive and lethargic at the dialysis center on 06/05 and was called and patient was transferred to [facility] ER. On arrival he was noted to be hypotensive with SBP 70s and heart rate 100s. He also reportedly had significant melena and rectal bleeding following arrival. A right IJ central line was placed by ER physician. Patient's arrived and wanted to make patient DNR status and did not want blood transfusions and wished transferring to hospice however subsequently patient woke up and wanted to continue aggressive care including blood transfusions. ER physician contacted me questioning patient's 's ability to make decisions for him due to concern for secondary gain as well as possible psychiatric illness. Patient was accepted for admission by critical care medicine service. 4 units PRBCs were ordered to be transfused stat by ER physician. When I arrived to see the patient he was laying in the ER stretcher on nasal cannula on 5 mics of Levophed. He is drowsy but easily arousable. He knew he was at the hospital. He could not give me details of his history. 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 06/07 Patient is on Levophed 2 mics, s/p HD yesterday. Awake and alert on Protonix drip. s/p EGD yesterday showed 2 large Duodenal ulcer, esophagitis and gastritis. 06/08: Afebrile. Currently off norepinephrine but MAP is around 60 currently. States he is okay with removing peritoneal dialysis catheter. Will discuss with general surgery in nephrology in a.m. 06/09: Blood pressures are borderline. Awake and alert and eating popsicles currently. Patient's okay with removing peroneal dialysis catheter. Dr. Van as yet to see patient today. Agree with ID and nephrology's recommendations for removal. 06/10 Patient s/p PD catheter removal this morning. On Levophed 2 mics. Afebrile. 06/11: Postoperative day #1 PD catheter removal. Remains on norepinephrine at 2 g per minute. Asymptomatic. Plan for hemodialysis today. 06/12: Afebrile. Intermittently A. fib with RVR, currently rate controlled. Denies chest pain or shortness of breath. Intermittently on phenylephrine drip 2/: Resting in bed in no acute distress. Remains on Manan-Synephrine drip at 60 mics grams per minute. Appears more depressed today. Status post -3 L of hemodialysis. Subjective 06/14: Resting in bed in no acute distress. Afebrile. Remains on low-dose phenylephrine at 50 mics grams per minute. More attentive today. 06/15: No acute issues overnight. Patient remains on low-dose phenylephrine currently at 40 mcgs/min. Patient continues on Midrin 3 times a day. Hemoglobin stable. Patient tolerating diet. Objective Vital Signs Date Time Temp Pulse Resp B/P (MAP) Pulse Ox O2 Delivery O2 Flow Rate FiO2 06/15/17 18:00 114 06/15/17 17:45 22 99/70 (80) 81 06/15/17 08:00 98.1 06/14/17 20:28 21 06/11/17 23:09 Nasal Cannula 06/11/17 07:00 2.00 Intake and Output 06/15/17 06/15/17 06/16/17 08:00 16:00 00:00 Intake Total 192 ml 120 ml Output Total 0 ml 0 ml Balance 192 ml 120 ml Result Diagram: 06/15/17 0356 06/15/17 0356 Imaging Last Impressions Chest X-Ray 06/07/17 0000 Signed Impressions: Service Date/Time: Wednesday, June 07, 2017 03:15 - CONCLUSION: Patchy consolidation or atelectasis of the left lower lung. Tom Berry MD Last Impressions Chest X-Ray 06/07/17 0000 Signed Impressions: Service Date/Time: Wednesday, June 07, 2017 03:15 - CONCLUSION: Patchy consolidation or atelectasis of the left lower lung. Tom Brery MD Objective Remarks GENERAL: 66 year male resting in bed in no acute distress, pleasantly conversant and interactive SKIN: Woman dry. No rash HEAD: Atraumatic. Normocephalic. EYES: No scleral icterus. No injection or drainage. ENT: No nasal bleeding or discharge. Mucous membranes pink and dry.. NECK: Trachea midline. Supple. CARDIOVASCULAR: Heart rate in the 80s. Irregularly irregular consistent with A. fib. RESPIRATORY: No accessory muscle use. Clear to auscultation. Breath sounds equal bilaterally. Decreased respiratory effort. GASTROINTESTINAL: Abdomen soft, nondistended. PD catheter has been removed. Site is clean dry and intact. No signs erythema drainage. MUSCULOSKELETAL: Patient has a well-healed rt heel ulcer. Venous stasis changes noted to his bilateral lower extremities. NEUROLOGICAL: Awake and weak and mildly confused. No obvious cranial nerve deficits. Moves bilateral upper extremities. BACK: Stage I/early decubitus in his sacral area. Date of Insertion: Jun 05, 2017 Line: Central Venous Catheter Side: Right Location: Internal, Jugular A/P Assessment and Plan Neuro/Psych: Depression Chronic Pain syndrome History of CVA Holding paroxetine 10 mg daily/home medication. Resume when clinically indicated Avoid sedatives and narcotics including tramadol/home medication, monitor neuro status. Awake and alert Holding clopidogrel 75 mg daily. Resume when okay with GI CV: Atrial fibrillation rate controlled History of essential hypertension On phenylephrine at 50 g per minute- Monitor HR and BP keep MAP>65mmHg Lactic acid 2.2 on 06/07 Holding clopidogrel 75 mg daily light of duodenal ulcer Holding lisinopril 20 mill grams daily, Imdur and metoprolol 50 mill grams daily in light of hypotension random Cortisol level. 20 Continue Midodrine 10 mg 3 times a day Pulm: Continue with oxygen keep sat >92%. Currently on room air Albuterol aerosols every 2 hours when necessary dyspnea GI/liver: Upper GI bleed secondary to duodenal ulcer Currently on soft renal diet On pantoprazole 40 mg by mouth daily s/p EGD 06/06 which showed 2 large duodenal ulcers, grade D esophagitis, gastritis. Renal/: Status post PD catheter removal day #4 Dr. Donovan End-stage renal disease on hemodialysis Monitor renal function, I/O's, avoid nephrotoxins. Pathology Dr. Fair. General Surgery has followed- Dr. Donovan fungal infection requiring PD catheter removal on 06/10. Heme: Macrocytic anemia Monitor CBC, s/p transfusion 2units PRBC on 06/06 Hgb stable, continue to monitor Endocrine: Diabetes mellitus Elevated TSH - repeat in 3-6 weeks. Free T4 normal. Free T3 low. Would not initiate any levothyroxine at this time in this acute clinical setting SSI for glycemic control with low Novulog before meals at bedtime Holding Tradjenta 5 mg daily ID: Infected peritoneal dialysis catheter/peritonitis fungal Continue fluconazole 200 mg po daily docusate 06/24 Monitor for signs of infections ( Fever, WBC) follow up on cultures. Peritoneal fluid 06/06 positive for yeast/Carmen ID is following. MSK: Right heel ulcer Sacral decubitus ulcer 06/15 Wound care consulted evaluate and treat 06/15 Transfer pt on Zehra bed Prophylaxis: Pantoprazole/heparin subcutaneous Lines: Right IJ CVP placed 06/05 Level II follow-up Physician Mavis Collier MD Jun 15, 2017 18:54
[2017-06-16] VITALS (13 sets, daily range): BP systolic 93–123; BP diastolic 51–68; PULSE 71–103; RESP 14–20; TEMP 96.6–97.7; O2SAT 93–99
[2017-06-16] MEDS: PHENYLEPHRINE INJ 160 MG in DEXTROSE 5% IN WATE 500 ML INJ 484 ML IV PRN ×2 (04:27)
[2017-06-16 05:29] LABS: HEMATOCRIT 22.8 % (39.0-51.0); HEMOGLOBIN 7.5 GM/DL (13.0-17.0); MEAN CELL VOLUME 101.9 FL (80.0-100.0); MEAN CORPUSCULAR HEMOGLOBIN 33.3 PG (27.0-34.0); MEAN CORPUSCULAR HGB CONC 32.7 % (32.0-36.0); MEAN PLATELET VOLUME 7.6 FL (7.0-11.0); PLATELET COUNT 217 TH/MM3 (150-450); RED BLOOD COUNT 2.24 MIL/MM3 (4.50-5.90); RED CELL DISTRIBUTION WIDTH 22.8 % (11.6-17.2); WHITE BLOOD COUNT 6.2 TH/MM3 (4.0-11.0)
[2017-06-16] MEDS: MIDODRINE 5 MG TAB PO SCH ×3 (05:42→17:10)
[2017-06-16 05:48] LABS: BICARBONATE 28.4 MEQ/L (21.0-32.0); CALCIUM 6.9 MG/DL (8.5-10.1); CREATININE 4.78 MG/DL (0.60-1.30); MAGNESIUM 2.1 MG/DL (1.5-2.5); PHOSPHORUS 3.7 MG/DL (2.5-4.9)
[2017-06-16 06:01] LABS: CALCIUM-PROTEIN CORRECTED 7.9 MG/DL (8.5-10.1); TOTAL PROTEIN 5.2 GM/DL (6.4-8.2)
[2017-06-16] MEDS: INSULIN NovoLIN REGULAR SUPPLEMENTAL SCALE SQ SCH ×4 (08:00→20:57)
[2017-06-16] MEDS: FLUCONAZOLE 200 MG TAB PO SCH (08:07)
[2017-06-16] MEDS: PANTOPRAZOLE SOD 40 MG DELAYED RELEASE TAB PO SCH (08:07)
[2017-06-16] MEDS: HEPARIN SODIUM - SQ 10,000 UNITS/ML VIAL SQ SCH ×2 (08:07→20:57)
[2017-06-16] MEDS: DOCUSATE SODIUM 50 MG/SENNA 8.6 MG TAB PO SCH ×2 (08:07→20:58)
[2017-06-16] MEDS: CALCIUM CARBONATE 500 MG CHEWABLE TAB CHEW SCH ×2 (08:07→20:57)
[2017-06-16] MEDS: SODIUM CHLORIDE 0.9% FLUSH 10 ML FLUSH IV FLUSH SCH ×2 (08:51→20:58)
[2017-06-16] MEDS: EPOETIN ALFA 10,000 UNITS/ML VIAL IV PUSH PRN (10:37)
[2017-06-16] MEDS: ALBUMIN 25% INJ 100 ML IV PRN (10:37)
[2017-06-16] MEDS: GELATIN 12 MM/7 MM FOAM TOP PRN (10:38)
--- NOTE | 2017-06-16 14:31 | HHI.NPPN ---
Subjective General Problems: Anemia Renal Failure: End Stage Renal Disease History of Present Illness Patient is a very pleasant 66 year old male who came into the emergency room on 06/06/17 hypotensive, lethargic, and with a hemoglobin of 6.7. He was transfused 2 units of PRBC's with a recheck pending. He was initially put on Levophed for blood pressure support however it is currently not running. Has a past medical history of End -stage renal disease with peritoneal dialysis, AFIB , diabetes, arthritis, chronic pain, and hx of strokes. Onset of acute epigastric pain and discomfort noted for 5 days ago, but worsened over the past 24 hours. Reported loose stools for 3 weeks. In the emergency room patient did report melena, nausea, mild vomiting undigested food yesterday, but denied any coffee ground emesis. Patient has AV fistula and will have dialysis while here. Per patient PD catheter needs to be removed secondary to infection. Additional Remarks Patient is alert continues on talya-synephrine for blood pressure support, no SOB. (Samreen Ward) Review of Systems General Constitutional: Fatigue General Remarks weakness (Samreen Ward) Respiratory Respiratory Remarks Denies SOB (Samreen Ward) Cardiovascular Cardiac Remarks Denies CP (Samreen Ward) Gastrointestinal GI Remarks Denies abdominal pain (Samreen Ward) Objective Data Data 06/16/17 06/17/17 19:00 07:00 Output Total 1500 ml Balance -1500 ml Hemodialysis 1500 ml Vital Signs Date Time Temp Pulse Resp B/P (MAP) Pulse Ox O2 Delivery O2 Flow Rate FiO2 06/16/17 14:00 88 06/16/17 12:00 76 06/16/17 12:00 96.7 76 14 101/56 (71) 96 06/16/17 10:00 76 06/16/17 08:00 83 06/16/17 08:00 96.6 83 16 106/64 (78) 99 06/16/17 06:00 103 06/16/17 06:00 103 94/54 06/16/17 04:27 93 112/64 06/16/17 04:00 97.6 96 20 106/53 (70) 96 06/16/17 04:00 96 2/5/18 04:00 96 106/53 06/16/17 02:00 96 06/16/17 02:00 96 103/61 06/16/17 00:00 99 06/16/17 00:00 99 94/68 06/16/17 00:00 97.4 99 15 94/68 (77) 94 06/15/17 22:00 94 06/15/17 22:00 94 85/55 06/15/17 20:30 88 93/54 06/15/17 20:00 81 06/15/17 20:00 98.0 81 16 86/47 (60) 95 06/15/17 20:00 81 86/47 06/15/17 19:00 116 112/58 06/15/17 18:00 114 06/15/17 17:45 109 22 99/70 (80) 81 06/15/17 17:30 99 20 92/59 (70) 90 06/15/17 17:15 109 20 99/58 (72) 72 06/15/17 17:00 106 22 100/59 (73) 67 06/15/17 16:45 91 13 101/67 (78) 91 06/15/17 16:30 92 13 103/67 (79) 73 06/15/17 16:15 93 17 100/62 (75) 92 06/15/17 16:00 101 06/15/17 16:00 101 17 106/57 (73) 92 06/15/17 15:45 100 14 98/55 (69) 94 06/15/17 15:30 91/53 (66) 06/15/17 15:15 102 19 98/58 (71) 82 06/15/17 15:00 87 13 99/55 (70) 98 06/15/17 14:45 84 17 84/58 (67) 86 06/15/17 14:30 91 17 92/53 (66) 83 (Samreen Ward) -: 06/16/17 0450 06/16/17 0450 Imaging Last Impressions Chest X-Ray 06/07/17 0000 Signed Impressions: Service Date/Time: Wednesday, June 07, 2017 03:15 - CONCLUSION: Patchy consolidation or atelectasis of the left lower lung. Tom Berry MD (Samreen Ward [facility]) Physical Exam General Appearance: Malnourished (Samreen WardP) Neck Neck Exam: Neck Supple (Samreen Ward [employer]) Pulmonary Resp Exam: Clear Bilaterally (Samreen WardP) Cardiology CV Exam: Regular (Samreen WardP) Gastrointestinal/Abdomen GI Exam: Soft (Samreen WardP) Extremeties Extremities Exam: No Edema (Samreen WardP) Assessment/Plan Problem List: (1) ESRD (end stage renal disease) on dialysis ICD Codes: N18.6 - End stage renal disease; Z99.2 - Dependence on renal dialysis Plan: Dialysis MWF HD done done today. 1 .5 liters removed Protein corrected calcium at 7.9 on oral replacement. HGB 7.5 down from 7.9 Continue on midodrine and talya synephrine for blood pressure support Labs in AM (2) Peritonitis associated with peritoneal dialysis ICD Codes: T85.71XA - Infection and inflammatory reaction due to peritoneal dialysis catheter, initial encounter Plan: Peritoneal fluid culture positive for Carmen. PD catheter removed ID and surgery following. (3) Hypotension ICD Codes: I95.9 - Hypotension, unspecified Status: Acute Plan: Sepsis present on admission. Continue supportive care. (4) GI bleed ICD Codes: K92.2 - Gastrointestinal hemorrhage, unspecified Status: Acute Plan: s/p EGD: duodenal ulcer, gastritis, esophagitis. Received 2 units PRBC on admission. (5) Anemia ICD Codes: D64.9 - Anemia, unspecified Plan: HGB 7.5 today (Samreen WardP) Problem List: (1) ESRD (end stage renal disease) on dialysis ICD Codes: N18.6 - End stage renal disease; Z99.2 - Dependence on renal dialysis Plan: Dialysis MWF HD done done today. 1 .5 liters removed Protein corrected calcium at 7.9 on oral replacement. HGB 7.5 down from 7.9 Continue on midodrine and Phenylephrine for blood pressure support Labs in AM. Patient seen an examined, agree with above. (2) Peritonitis associated with peritoneal dialysis ICD Codes: T85.71XA - Infection and inflammatory reaction due to peritoneal dialysis catheter, initial encounter Plan: Peritoneal fluid culture positive for Carmen. PD catheter removed ID and surgery following. (3) Hypotension ICD Codes: I95.9 - Hypotension, unspecified Status: Acute Plan: Sepsis present on admission. Continue supportive care. (4) GI bleed ICD Codes: K92.2 - Gastrointestinal hemorrhage, unspecified Status: Acute Plan: s/p EGD: duodenal ulcer, gastritis, esophagitis. Received 2 units PRBC on admission. (5) Anemia ICD Codes: D64.9 - Anemia, unspecified Plan: HGB 7.5 today (Darryl Fair MD) Problem Qualifiers (1) Hypotension: Qualified Codes: I95.9 - Hypotension, unspecified (2) GI bleed: Qualified Codes: K92.2 - Gastrointestinal hemorrhage, unspecified (3) Anemia: Samreen Ward Jun 16, 2017 14:31 Darryl Fair MD Jun 16, 2017 14:35
--- NOTE | 2017-06-16 14:54 | PD.WCN.NOT ---
Wound Consult Description: Wound consult ordered by for sacral pressure ulcer Communicated with: Donya Palacio RN 5th floor [facility], Recommendation: 1) Reposition patient every 2 hours for comfort and offloading. 2) Float heels when in bed avoiding contact with mattress. 3) Apply thick layer of Calazime cream to sacrum/left buttocks BID or after loose stool. 4) Apply Santyl 2mm thick to bilateral heel wounds.Cover with calcium alginate cut to fit wound base secure with dry boarder gauze sign and date. Change daily. 5) Apply povidone iodine to Left great toe blister Daily. 6) Skin prep Left A/C superficial adhesive wounds BID avoiding use of adhesive tape other than paper tape please. Additional Information: Patient was seen today on 5th floor [facility] by verse writer and Donya Turner RN 5th floor [facility].Patient alert in bed upon verse writer arrival .Denies any discomfort at this time. Assessment finding of bilateral lower extremities Left Calcaneus presents with 5.8cm x 4.5cm x unstable soft eschar unstageable pressure injury periwound intact no drainage or odor noted.Wound base is 100% soft/semi boggy unstable black eschar. Left great toe has a 0.6cm x 0.9cm intact boggy bulla painted with Iodine. Right Calcaneus presents with a 3.0cm x 3.0cm x Slough unstageable pressure injury.Periwound unremarkable wound edges even with wound base.No drainage or odor noted. Bilateral Calcaneus cleansed with normal saline pat dry skin prep applied and covered with dry dressing till Santyl available floated on pillow avoiding contact with mattress. Left bicep migel fistula has scattered partial thickness wounds created by adhesive tape scant bloody drainage noted no odor present .Personal Injury Law Specialist encrusted wounds with stoma powder and skin prep left open to air. Patient required 1 person assistance to reposition to right side.Patient has a mixed etiology of pressure,moisture,incontinence and friction wound to Sacrum and left buttocks measuring 6.0cm x 4.0cm x 0.2cm wound base is ~50% pink/red tissue with ~50% yellow slough biofilm.Wound edges are jagged but even with wound base.DTI noted to sacrum measuring ~0.3cm x ~0.3cm dark purple in color intact.Scant serosanguineous drainage noted to underpad. Sacrum/Buttocks cleansed with normal saline pat dry thick layer of Calazime cream applied to all open areas. Patient was then repositioned to Right side with 2 pillow under back/buttocks. Naye Montoya [facility] Jun 16, 2017 14:54
--- NOTE | 2017-06-16 16:52 | HHI.CCPN ---
Subjective Remarks/Hospital Course 66 year-old male with a medical history significant for end-stage renal disease on peritoneal dialysis who was noted to be severely hypotensive and lethargic at the dialysis center on 06/05 and was called and patient was transferred to [facility] ER. On arrival he was noted to be hypotensive with SBP 70s and heart rate 100s. He also reportedly had significant melena and rectal bleeding following arrival. A right IJ central line was placed by ER physician. Patient's arrived and wanted to make patient DNR status and did not want blood transfusions and wished transferring to hospice however subsequently patient woke up and wanted to continue aggressive care including blood transfusions. ER physician contacted me questioning patient's 's ability to make decisions for him due to concern for secondary gain as well as possible psychiatric illness. Patient was accepted for admission by critical care medicine service. 4 units PRBCs were ordered to be transfused stat by ER physician. When I arrived to see the patient he was laying in the ER stretcher on nasal cannula on 5 mics of Levophed. He is drowsy but easily arousable. He knew he was at the hospital. He could not give me details of his history. 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 06/07 Patient is on Levophed 2 mics, s/p HD yesterday. Awake and alert on Protonix drip. s/p EGD yesterday showed 2 large Duodenal ulcer, esophagitis and gastritis. 06/08: Afebrile. Currently off norepinephrine but MAP is around 60 currently. States he is okay with removing peritoneal dialysis catheter. Will discuss with general surgery in nephrology in a.m. 06/09: Blood pressures are borderline. Awake and alert and eating popsicles currently. Patient's okay with removing peroneal dialysis catheter. Dr. Van as yet to see patient today. Agree with ID and nephrology's recommendations for removal. 06/10 Patient s/p PD catheter removal this morning. On Levophed 2 mics. Afebrile. 06/11: Postoperative day #1 PD catheter removal. Remains on norepinephrine at 2 g per minute. Asymptomatic. Plan for hemodialysis today. 06/12: Afebrile. Intermittently A. fib with RVR, currently rate controlled. Denies chest pain or shortness of breath. Intermittently on phenylephrine drip 2/2: Resting in bed in no acute distress. Remains on Manan-Synephrine drip at 60 mics grams per minute. Appears more depressed today. Status post -3 L of hemodialysis. Subjective 06/14: Resting in bed in no acute distress. Afebrile. Remains on low-dose phenylephrine at 50 mics grams per minute. More attentive today. 06/15: No acute issues overnight. Patient remains on low-dose phenylephrine currently at 40 mcgs/min. Patient continues on Midrin 3 times a day. Hemoglobin stable. Patient tolerating diet. 06/16: The patient continues on Phenylephrine infusion, now increased to 60 mcgs/ min. Objective Vital Signs Date Time Temp Pulse Resp B/P (MAP) Pulse Ox O2 Delivery O2 Flow Rate FiO2 06/16/17 16:00 76 06/16/17 16:00 97.5 15 123/63 (83) 93 06/14/17 20:28 21 Intake and Output 06/16/17 06/16/17 06/17/17 08:00 16:00 00:00 Intake Total 620 ml Output Total 10 ml 1500 ml Balance 610 ml -1500 ml Result Diagram: 06/16/17 0450 06/16/17 0450 Imaging Last Impressions Chest X-Ray 06/07/17 0000 Signed Impressions: Service Date/Time: Wednesday, June 07, 2017 03:15 - CONCLUSION: Patchy consolidation or atelectasis of the left lower lung. Tom Berry MD Last Impressions Chest X-Ray 06/07/17 0000 Signed Impressions: Service Date/Time: Wednesday, June 07, 2017 03:15 - CONCLUSION: Patchy consolidation or atelectasis of the left lower lung. Tom Berry MD Objective Remarks GENERAL: 66 year male resting in bed in no acute distress, pleasantly conversant and interactive SKIN: Woman dry. No rash HEAD: Atraumatic. Normocephalic. EYES: No scleral icterus. No injection or drainage. ENT: No nasal bleeding or discharge. Mucous membranes pink and dry.. NECK: Trachea midline. Supple. CARDIOVASCULAR: Heart rate in the 80s. Irregularly irregular consistent with A. fib. RESPIRATORY: No accessory muscle use. Clear to auscultation. Breath sounds equal bilaterally. Decreased respiratory effort. GASTROINTESTINAL: Abdomen soft, nondistended. PD catheter has been removed. Site is clean dry and intact. No signs erythema drainage. MUSCULOSKELETAL: Patient has a well-healed rt heel ulcer. Venous stasis changes noted to his bilateral lower extremities. NEUROLOGICAL: Awake and weak and mildly confused. No obvious cranial nerve deficits. Moves bilateral upper extremities. BACK: Stage I/early decubitus in his sacral area. Date of Insertion: Jun 05, 2017 Line: Central Venous Catheter Side: Right Location: Internal, Jugular A/P Assessment and Plan Neuro/Psych: Depression Chronic Pain syndrome History of CVA Holding paroxetine 10 mg daily/home medication. Resume when clinically indicated Avoid sedatives and narcotics including tramadol/home medication, monitor neuro status. Awake and alert Holding clopidogrel 75 mg daily. Resume when okay with GI CV: Atrial fibrillation rate controlled History of essential hypertension On phenylephrine at 50 g per minute- Monitor HR and BP keep MAP>65mmHg Lactic acid 2.2 on 06/07 Holding clopidogrel 75 mg daily light of duodenal ulcer Holding lisinopril 20 mill grams daily, Imdur and metoprolol 50 mill grams daily in light of hypotension random Cortisol level. 20 Continue Midodrine 10 mg 3 times a day Pulm: Continue with oxygen keep sat >92%. Currently on room air Albuterol aerosols every 2 hours when necessary dyspnea GI/liver: Upper GI bleed secondary to duodenal ulcer Currently on soft renal diet On pantoprazole 40 mg by mouth daily s/p EGD 06/06 which showed 2 large duodenal ulcers, grade D esophagitis, gastritis. Renal/: Status post PD catheter removal day #4 Dr. Donovan End-stage renal disease on hemodialysis Monitor renal function, I/O's, avoid nephrotoxins. Pathology Dr. Fair. General Surgery has followed- Dr. Donovan fungal infection requiring PD catheter removal on 06/10. Heme: Macrocytic anemia Monitor CBC, s/p transfusion 2units PRBC on 06/06 Hgb stable, continue to monitor Endocrine: Diabetes mellitus Elevated TSH - repeat in 3-6 weeks. Free T4 normal. Free T3 low. Would not initiate any levothyroxine at this time in this acute clinical setting SSI for glycemic control with low Novulog before meals at bedtime Holding Tradjenta 5 mg daily ID: Infected peritoneal dialysis catheter/peritonitis fungal Continue fluconazole 200 mg po daily docusate 06/24 Monitor for signs of infections ( Fever, WBC) follow up on cultures. Peritoneal fluid 06/06 positive for yeast/Carmen ID is following. MSK: Right heel ulcer Sacral decubitus ulcer 06/15 Wound care consulted evaluate and treat 06/15 Transfer pt on Zehra bed Prophylaxis: Pantoprazole/heparin subcutaneous Lines: Right IJ CVP placed 06/05 Level II follow-up Physician Mavis Collier MD Jun 16, 2017 16:52
[2017-06-17] VITALS (12 sets, daily range): BP systolic 96–141; BP diastolic 54–71; PULSE 73–109; RESP 12–26; TEMP 96.7–99.3; O2SAT 94–98
[2017-06-17] MEDS: CHLORHEXIDINE GLUCONATE 2 % 1 PACK (2 CLOTHS) TOP SCH ×2 (04:00→23:10)
[2017-06-17 05:26] LABS: HEMATOCRIT 23.1 % (39.0-51.0); HEMOGLOBIN 7.6 GM/DL (13.0-17.0); MEAN CELL VOLUME 101.3 FL (80.0-100.0); MEAN CORPUSCULAR HEMOGLOBIN 33.5 PG (27.0-34.0); MEAN CORPUSCULAR HGB CONC 33.1 % (32.0-36.0); MEAN PLATELET VOLUME 7.6 FL (7.0-11.0); PLATELET COUNT 202 TH/MM3 (150-450); RED BLOOD COUNT 2.28 MIL/MM3 (4.50-5.90); RED CELL DISTRIBUTION WIDTH 22.9 % (11.6-17.2); WHITE BLOOD COUNT 5.8 TH/MM3 (4.0-11.0)
[2017-06-17 05:34] LABS: BICARBONATE 31.9 MEQ/L (21.0-32.0); CALCIUM 7.2 MG/DL (8.5-10.1); CREATININE 3.65 MG/DL (0.60-1.30); MAGNESIUM 2.1 MG/DL (1.5-2.5)
[2017-06-17 05:52] LABS: CALCIUM-PROTEIN CORRECTED 8.2 MG/DL (8.5-10.1); TOTAL PROTEIN 5.2 GM/DL (6.4-8.2)
[2017-06-17] MEDS: MIDODRINE 5 MG TAB PO SCH ×3 (06:27→17:42)
[2017-06-17] MEDS: INSULIN NovoLIN REGULAR SUPPLEMENTAL SCALE SQ SCH ×4 (08:00→21:00)
[2017-06-17] MEDS: DOCUSATE SODIUM 50 MG/SENNA 8.6 MG TAB PO SCH ×2 (09:17→22:59)
[2017-06-17] MEDS: CALCIUM CARBONATE 500 MG CHEWABLE TAB CHEW SCH ×2 (09:17→22:59)
[2017-06-17] MEDS: FLUCONAZOLE 200 MG TAB PO SCH (09:18)
[2017-06-17] MEDS: HEPARIN SODIUM - SQ 10,000 UNITS/ML VIAL SQ SCH ×2 (09:18→22:58)
[2017-06-17] MEDS: SODIUM CHLORIDE 0.9% FLUSH 10 ML FLUSH IV FLUSH SCH ×2 (09:18→23:09)
[2017-06-17] MEDS: PANTOPRAZOLE SOD 40 MG DELAYED RELEASE TAB PO SCH (09:18)
--- NOTE | 2017-06-17 09:53 | HHI.NPPN ---
Subjective General Problems: Anemia Renal Failure: End Stage Renal Disease History of Present Illness Patient is a very pleasant 66 year old male who came into the emergency room on 06/06/17 hypotensive, lethargic, and with a hemoglobin of 6.7. He was transfused 2 units of PRBC's with a recheck pending. He was initially put on Levophed for blood pressure support however it is currently not running. Has a past medical history of End -stage renal disease with peritoneal dialysis, AFIB , diabetes, arthritis, chronic pain, and hx of strokes. Onset of acute epigastric pain and discomfort noted for 5 days ago, but worsened over the past 24 hours. Reported loose stools for 3 weeks. In the emergency room patient did report melena, nausea, mild vomiting undigested food yesterday, but denied any coffee ground emesis. Patient has AV fistula and will have dialysis while here. Per patient PD catheter needs to be removed secondary to infection. Additional Remarks Patient is alert continues on Phenylephrine for blood pressure support dose has been decreased no SOB. (Samreen Ward) Review of Systems General Constitutional: Fatigue General Remarks weakness (Samreen Ward) Respiratory Respiratory Remarks Denies SOB (Samreen Ward) Cardiovascular Cardiac Remarks Denies CP (Samreen Ward) Gastrointestinal GI Remarks Denies abdominal pain (Samreen Ward) Objective Data Data Vital Signs Date Time Temp Pulse Resp B/P (MAP) Pulse Ox O2 Delivery O2 Flow Rate FiO2 06/17/17 06:00 88 06/17/17 04:00 97.4 78 12 96/57 (70) 95 06/17/17 04:00 78 06/17/17 02:00 79 06/17/17 00:00 97.2 73 12 102/54 (70) 95 06/17/17 00:00 73 06/16/17 22:48 77 06/16/17 20:00 71 06/16/17 20:00 97.7 71 14 93/51 (65) 98 06/16/17 19:12 95 21 06/16/17 18:00 81 06/16/17 16:00 76 06/16/17 16:00 97.5 76 15 123/63 (83) 93 06/16/17 14:00 88 06/16/17 12:00 76 06/16/17 12:00 96.7 76 14 101/56 (71) 96 06/16/17 10:00 76 (Samreen Ward) -: 06/17/17 0450 06/17/17 0450 Imaging Last Impressions Chest X-Ray 06/07/17 0000 Signed Impressions: Service Date/Time: Wednesday, June 07, 2017 03:15 - CONCLUSION: Patchy consolidation or atelectasis of the left lower lung. Tom Berry MD (Samreen Ward) Physical Exam General Appearance: Malnourished (Samreen Ward) Neck Neck Exam: Neck Supple (Samreen Ward) Pulmonary Resp Exam: Clear Bilaterally, No Distress (Samreen Ward) Cardiology CV Exam: Regular (Samreen Ward) Gastrointestinal/Abdomen GI Exam: Soft, Non-Tender (Samreen Ward) Genitourinary Exam: Flank Non-Tender (Samreen Ward) Extremeties Extremities Exam: No Edema (Samreen Ward) Assessment/Plan Problem List: (1) ESRD (end stage renal disease) on dialysis ICD Codes: N18.6 - End stage renal disease; Z99.2 - Dependence on renal dialysis Plan: Dialysis MWF HD done done today. 1 .5 liters removed Protein corrected calcium at 7.9 on oral replacement. HGB 7.6 Continue on midodrine 10 mg TID Phenylephrine has been decreased and MAP is good. Dialysis in AM (2) Peritonitis associated with peritoneal dialysis ICD Codes: T85.71XA - Infection and inflammatory reaction due to peritoneal dialysis catheter, initial encounter Plan: Peritoneal fluid culture positive for Carmen. On fluconazole with stop date of the PD catheter removed ID and surgery following. (3) Hypotension ICD Codes: I95.9 - Hypotension, unspecified Status: Acute Plan: Sepsis present on admission. Continue supportive care. (4) GI bleed ICD Codes: K92.2 - Gastrointestinal hemorrhage, unspecified Status: Acute Plan: s/p EGD: duodenal ulcer, gastritis, esophagitis. Received 2 units PRBC on admission. (5) Anemia ICD Codes: D64.9 - Anemia, unspecified Plan: HGB 7.6 today Epogen 10,000 units with each dialysis (Samreen Ward) Problem List: (1) ESRD (end stage renal disease) on dialysis ICD Codes: N18.6 - End stage renal disease; Z99.2 - Dependence on renal dialysis Plan: Dialysis MWF HD done done today. 1 .5 liters removed Protein corrected calcium at 7.9 on oral replacement. HGB 7.6 Continue on midodrine 10 mg TID Phenylephrine has been decreased and MAP is good. Dialysis in AM. Patient seen and examined, agree with above. Hgb. is low, on Epogen, transfuse 2 units with HD tomorrow. (2) Peritonitis associated with peritoneal dialysis ICD Codes: T85.71XA - Infection and inflammatory reaction due to peritoneal dialysis catheter, initial encounter Plan: Peritoneal fluid culture positive for Carmen. On fluconazole with stop date of the PD catheter removed ID and surgery following. (3) Hypotension ICD Codes: I95.9 - Hypotension, unspecified Status: Acute Plan: Sepsis present on admission. Continue supportive care. (4) GI bleed ICD Codes: K92.2 - Gastrointestinal hemorrhage, unspecified Status: Acute Plan: s/p EGD: duodenal ulcer, gastritis, esophagitis. Received 2 units PRBC on admission. (5) Anemia ICD Codes: D64.9 - Anemia, unspecified Plan: HGB 7.6 today Epogen 10,000 units with each dialysis (Darryl Fair MD) Problem Qualifiers (1) Hypotension: Qualified Codes: I95.9 - Hypotension, unspecified (2) GI bleed: Qualified Codes: K92.2 - Gastrointestinal hemorrhage, unspecified (3) Anemia: Samreen Ward Jun 17, 2017 09:53 Darryl Fair MD Jun 17, 2017 14:31
--- NOTE | 2017-06-17 12:57 | HHI.CCPN ---
Subjective Remarks/Hospital Course 66 year-old male with a medical history significant for end-stage renal disease on peritoneal dialysis who was noted to be severely hypotensive and lethargic at the dialysis center on 06/05 and was called and patient was transferred to [facility] ER. On arrival he was noted to be hypotensive with SBP 70s and heart rate 100s. He also reportedly had significant melena and rectal bleeding following arrival. A right IJ central line was placed by ER physician. Patient's arrived and wanted to make patient DNR status and did not want blood transfusions and wished transferring to hospice however subsequently patient woke up and wanted to continue aggressive care including blood transfusions. ER physician contacted me questioning patient's 's ability to make decisions for him due to concern for secondary gain as well as possible psychiatric illness. Patient was accepted for admission by critical care medicine service. 4 units PRBCs were ordered to be transfused stat by ER physician. When I arrived to see the patient he was laying in the ER stretcher on nasal cannula on 5 mics of Levophed. He is drowsy but easily arousable. He knew he was at the hospital. He could not give me details of his history. 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 Fair is his chief building inspector. 06/07 Patient is on Levophed 2 mics, s/p HD yesterday. Awake and alert on Protonix drip. s/p EGD yesterday showed 2 large Duodenal ulcer, esophagitis and gastritis. 06/08: Afebrile. Currently off norepinephrine but MAP is around 60 currently. States he is okay with removing peritoneal dialysis catheter. Will discuss with general surgery in nephrology in a.m. 06/09: Blood pressures are borderline. Awake and alert and eating popsicles currently. Patient's okay with removing peroneal dialysis catheter. Dr. Van as yet to see patient today. Agree with ID and nephrology's recommendations for removal. 06/10 Patient s/p PD catheter removal this morning. On Levophed 2 mics. Afebrile. 06/11: Postoperative day #1 PD catheter removal. Remains on norepinephrine at 2 g per minute. Asymptomatic. Plan for hemodialysis today. 06/12: Afebrile. Intermittently A. fib with RVR, currently rate controlled. Denies chest pain or shortness of breath. Intermittently on phenylephrine drip 2/2: Resting in bed in no acute distress. Remains on Manan-Synephrine drip at 60 mics grams per minute. Appears more depressed today. Status post -3 L of hemodialysis. Subjective 06/14: Resting in bed in no acute distress. Afebrile. Remains on low-dose phenylephrine at 50 mics grams per minute. More attentive today. 06/15: No acute issues overnight. Patient remains on low-dose phenylephrine currently at 40 mcgs/min. Patient continues on Midrin 3 times a day. Hemoglobin stable. Patient tolerating diet. 06/16: The patient continues on Phenylephrine infusion, now increased to 60 mcgs/ min. 06/17: Phenylephrine continues at 30mcg/min. Patient up out of bed with physical therapy today. IHD 3.5 L off yesterday Objective Vital Signs Date Time Temp Pulse Resp B/P (MAP) Pulse Ox O2 Delivery O2 Flow Rate FiO2 06/17/17 10:00 97 06/17/17 08:00 97.1 13 100/57 (71) 94 06/16/17 19:12 21 Intake and Output 06/17/17 06/17/17 06/18/17 08:00 16:00 00:00 Intake Total 120 ml Output Total 0 ml Balance 120 ml Result Diagram: 06/17/17 0450 06/17/17 0450 Imaging Last Impressions Chest X-Ray 06/07/17 0000 Signed Impressions: Service Date/Time: Wednesday, June 07, 2017 03:15 - CONCLUSION: Patchy consolidation or atelectasis of the left lower lung. Tom Berry MD Last Impressions Chest X-Ray 06/07/17 0000 Signed Impressions: Service Date/Time: Wednesday, June 07, 2017 03:15 - CONCLUSION: Patchy consolidation or atelectasis of the left lower lung. Tom Berry MD Objective Remarks GENERAL: 66 year male sitting up in bed eating lunch, in no apparent distress SKIN: Woman dry. No rash HEAD: Atraumatic. Normocephalic. EYES: No scleral icterus. No injection or drainage. ENT: No nasal bleeding or discharge. Mucous membranes pink and dry.. NECK: Trachea midline. Supple. CARDIOVASCULAR: Heart rate in the 80s. Irregularly irregular consistent with A. fib. RESPIRATORY: No accessory muscle use. Clear to auscultation. Breath sounds equal bilaterally. Decreased respiratory effort. GASTROINTESTINAL: Abdomen soft, nondistended. PD catheter has been removed. Site is clean dry and intact. No signs erythema drainage. MUSCULOSKELETAL: Patient has a well-healed rt heel ulcer. Venous stasis changes noted to his bilateral lower extremities. NEUROLOGICAL: Awake and weak and mildly confused. No obvious cranial nerve deficits. Moves bilateral upper extremities. BACK: Stage I/early decubitus in his sacral area. Date of Insertion: Jun 05, 2017 Line: Central Venous Catheter Side: Right Location: Internal, Jugular A/P Assessment and Plan Neuro/Psych: Depression Chronic Pain syndrome History of CVA Holding paroxetine 10 mg daily/home medication. Resume when clinically indicated Avoid sedatives and narcotics including tramadol/home medication, monitor neuro status. Awake and alert Holding clopidogrel 75 mg daily. Resume when okay with GI CV: Atrial fibrillation rate controlled History of essential hypertension On phenylephrine at 30 g per minute- Monitor HR and BP keep MAP >65mmHg Lactic acid 2.2 on 06/07 Holding clopidogrel 75 mg daily light of duodenal ulcer Holding lisinopril 20 mill grams daily, Imdur and metoprolol 50 mill grams daily in light of hypotension random Cortisol level. 20 Continue Midodrine 10 mg 3 times a day Pulm: Continue with oxygen keep sat >92%. Currently on room air Albuterol aerosols every 2 hours when necessary dyspnea GI/liver: Upper GI bleed secondary to duodenal ulcer Currently on soft renal diet On pantoprazole 40 mg by mouth daily s/p EGD 06/06 which showed 2 large duodenal ulcers, grade D esophagitis, gastritis. Renal/: Status post PD catheter removal day #4 Dr. Donovan End-stage renal disease on hemodialysis Monitor renal function, I/O's, avoid nephrotoxins. Pathology Dr. Fair. General Surgery has followed- Dr. Donovan fungal infection requiring PD catheter removal on 06/10. Heme: Macrocytic anemia Monitor CBC, s/p transfusion 2units PRBC on 06/06 Hgb stable, continue to monitor Endocrine: Diabetes mellitus Elevated TSH - repeat in 3-6 weeks. Free T4 normal. Free T3 low. Would not initiate any levothyroxine at this time in this acute clinical setting SSI for glycemic control with low Novulog before meals at bedtime Holding Tradjenta 5 mg daily ID: Infected peritoneal dialysis catheter/peritonitis fungal Continue fluconazole 200 mg po daily docusate 06/24 Monitor for signs of infections ( Fever, WBC) follow up on cultures. Peritoneal fluid 06/06 positive for yeast/Carmen ID is following. MSK: Right heel ulcer Sacral decubitus ulcer 06/15 Wound care consulted evaluate and treat 06/15 Transfer pt on Zehra bed Prophylaxis: Pantoprazole/heparin subcutaneous Lines: Right IJ CVP placed 06/05 Level II follow-up Case management consulted regarding disposition possible transfer to select specialty hospital Physician Mavis Collier MD Jun 17, 2017 12:57
--- NOTE | 2017-06-17 16:26 | HHI.HCPN ---
Reason for visit a. To assist with evaluation and management of symptoms including: weakness , chronic pain b. To assist medical decision maker(s) with: better understanding of current medical conditions; weighing benefits/burdens of medical treatment options; making medical treatment decisions. Subjective/Interval History Pt seen today to follow up on comfort, goals. Patient remains on ICU, unable to wean off of Manan-Synephrine for hypotension. Ongoing hemodialysis for renal failure. H&H remains low, stable 7.5/23.1. Planned for transfusion 2 units RBCs tomorrow with hemodialysis per nephrology. Continues on fluconazole for nahid infection at peritoneal dialysis catheter site. Discharge planning for possible LTAC placement. Patient seen in room no visitors present. He is initially sleeping though arouses easily. He has mostly oriented, though at times forgetful. He remembers me from prior visits but can't remember my name. He endorses " feeling pretty good ". With conversation he appears slightly short of breath and he denies dyspnea subjectively. Pale, ashen color. Explore with him hospitalization and that he continues to require medication for his blood pressure. He recalls initial acute admission and transfusion however he feels he has improved overall since admission. He tells me he just wants tibial to walk again. I gently explored with him that given prolonged hospitalization this course and recent hospitalization and that he has been bedbound since May 05 it is unlikely that his walking function will be restored. Further explore he does remain at risk for ongoing complications. Ask if he would want continued hospitalizations and aggressive intervention short of resuscitation , he indicates that he would want to keep coming to the hospital if they could "keep helping him get better." Offered to call and provide update he indicates she has been coming in and has been updated. He denies pain. Reports good appetite, except that he is tired of eating chicken. Has been eating 75-100% of meals. Discussed with primary nurse, critical care. . Advance Directives Living Will: Never completed Health Care Surrogate: Copy in medical record Durable Power of Mold Unloader: Copy in medical record Advance Directive Specifics Date completed: 06/01/17 Health Care Surrogate(s): Healthcare surrogate document [06/01/17] actually names the patient as healthcare surrogate. durable power of commercial litigation attorney does not include healthcare decision making. Objective Vital Signs Date Time Temp Pulse Resp B/P (MAP) Pulse Ox O2 Delivery O2 Flow Rate FiO2 2/6/18 14:00 109 06/17/17 12:00 96.7 108 12 103/64 (77) 98 06/17/17 12:00 108 06/17/17 10:00 97 06/17/17 08:00 97.1 79 13 100/57 (71) 94 06/17/17 08:00 79 06/17/17 06:00 88 06/17/17 04:00 97.4 78 12 96/57 (70) 95 06/17/17 04:00 78 06/17/17 02:00 79 06/17/17 00:00 97.2 73 12 102/54 (70) 95 06/17/17 00:00 73 06/16/17 22:48 77 06/16/17 20:00 71 06/16/17 20:00 97.7 71 14 93/51 (65) 98 06/16/17 19:12 95 21 06/16/17 18:00 81 Intake & Output 06/17/17 06/17/17 07:00 19:00 Intake Total 120 ml Output Total 0 ml Balance 120 ml Intake Oral 120 ml Output Urine Total 0 ml # Bowel Movements 1 Physical Exam CONSTITUTIONAL/GENERAL: Frail. Slight temporal wasting. In no apparent distress. TUBES/LINES/DRAINS: Central line rt IJ. SKIN: Pale, ashen color. Scattered petechia/ecchymosis on upper extremities. Chronic venous insufficiency of lower extremities. Ulcers on plantar aspect of left foot and right great toe. NECK: Trachea midline. Supple, nontender. No palpable thyroid enlargement or nodularity. CARDIOVASCULAR: Irregular rate and irregular rhythm without murmur. No JVD. Peripheral pulses symmetric. RESPIRATORY/CHEST: Mild shortness of breath with conversation. Lungs are clear. Breath sounds equal bilaterally. GASTROINTESTINAL: Abdomen soft, non-tender, nondistended. No hepato- splenomegaly. No guarding. dressing abdomen clean dry. MUSCULOSKELETAL: Atrophy in bilateral lower extremities. Extremities without clubbing, cyanosis, or edema.+ chronic vascular skin changes BLE. No joint effusion, erythema or tenderness to exam bilateral knees NEUROLOGICAL: Awake and alert. Oriented x 2-3. limited insight. Forgetful at times. Follows commands. moves all 4 extremities. PSYCHIATRIC:. No obvious anxiety/depression. . Diagnostic Tests Laboratory Laboratory Tests Test 06/15/17 03:56 06/16/17 04:50 06/17/17 04:50 White Blood Count 7.3 TH/MM3 (4.0-11.0) 6.2 TH/MM3 (4.0-11.0) 5.8 TH/MM3 (4.0-11.0) Red Blood Count 2.38 MIL/MM3 (4.50-5.90) 2.24 MIL/MM3 (4.50-5.90) 2.28 MIL/MM3 (4.50-5.90) Hemoglobin 7.9 GM/DL (13.0-17.0) 7.5 GM/DL (13.0-17.0) 7.6 GM/DL (13.0-17.0) Hematocrit 24.0 % (39.0-51.0) 22.8 % (39.0-51.0) 23.1 % (39.0-51.0) Mean Corpuscular Volume 101.0 FL (80.0-100.0) 101.9 FL (80.0-100.0) 101.3 FL (80.0-100.0) Mean Corpuscular Hemoglobin 33.4 PG (27.0-34.0) 33.3 PG (27.0-34.0) 33.5 PG (27.0-34.0) Mean Corpuscular Hemoglobin Concent 33.1 % (32.0-36.0) 32.7 % (32.0-36.0) 33.1 % (32.0-36.0) Red Cell Distribution Width 21.9 % (11.6-17.2) 22.8 % (11.6-17.2) 22.9 % (11.6-17.2) Platelet Count 201 TH/MM3 (150-450) 217 TH/MM3 (150-450) 202 TH/MM3 (150-450) Mean Platelet Volume 7.8 FL (7.0-11.0) 7.6 FL (7.0-11.0) 7.6 FL (7.0-11.0) Neutrophils (%) (Auto) 83.7 % (16.0-70.0) Lymphocytes (%) (Auto) 7.8 % (9.0-44.0) Monocytes (%) (Auto) 7.2 % (0.0-8.0) Eosinophils (%) (Auto) 0.6 % (0.0-4.0) Basophils (%) (Auto) 0.7 % (0.0-2.0) Neutrophils # (Auto) 6.1 TH/MM3 (1.8-7.7) Lymphocytes # (Auto) 0.6 TH/MM3 (1.0-4.8) Monocytes # (Auto) 0.5 TH/MM3 (0-0.9) Eosinophils # (Auto) 0.0 TH/MM3 (0-0.4) Basophils # (Auto) 0.0 TH/MM3 (0-0.2) CBC Comment DIFF FINAL Differential Comment Blood Urea Nitrogen 26 MG/DL (7-18) 40 MG/DL (7-18) 26 MG/DL (7-18) Creatinine 3.90 MG/DL (0.60-1.30) 4.78 MG/DL (0.60-1.30) 3.65 MG/DL (0.60-1.30) Random Glucose 141 MG/DL (74-106) 141 MG/DL (74-106) 117 MG/DL (74-106) Total Protein 4.9 GM/DL (6.4-8.2) 5.2 GM/DL (6.4-8.2) 5.2 GM/DL (6.4-8.2) Albumin 2.2 GM/DL (3.4-5.0) Calcium Level 7.1 MG/DL (8.5-10.1) 6.9 MG/DL (8.5-10.1) 7.2 MG/DL (8.5-10.1) Phosphorus Level 2.8 MG/DL (2.5-4.9) 3.7 MG/DL (2.5-4.9) 3.0 MG/DL (2.5-4.9) Magnesium Level 2.1 MG/DL (1.5-2.5) 2.1 MG/DL (1.5-2.5) 2.1 MG/DL (1.5-2.5) Alkaline Phosphatase 231 U/L (45-117) Aspartate Amino Transf (AST/SGOT) 15 U/L (15-37) Alanine Aminotransferase (ALT/SGPT) 12 U/L (12-78) Total Bilirubin 0.7 MG/DL (0.2-1.0) Sodium Level 137 MEQ/L (136-145) 137 MEQ/L (136-145) 139 MEQ/L (136-145) Potassium Level 4.4 MEQ/L (3.5-5.1) 4.9 MEQ/L (3.5-5.1) 4.1 MEQ/L (3.5-5.1) Chloride Level 100 MEQ/L (98-107) 98 MEQ/L (98-107) 99 MEQ/L (98-107) Carbon Dioxide Level 32.1 MEQ/L (21.0-32.0) 28.4 MEQ/L (21.0-32.0) 31.9 MEQ/L (21.0-32.0) Anion Gap 5 MEQ/L (5-15) 11 MEQ/L (5-15) 8 MEQ/L (5-15) Estimat Glomerular Filtration Rate 16 ML/MIN (>89) 12 ML/MIN (>89) 17 ML/MIN (>89) Protein Corrected Calcium 8.3 MG/DL (8.5-10.1) 7.9 MG/DL (8.5-10.1) 8.2 MG/DL (8.5-10.1) Result Diagram: 06/17/17 0450 06/17/17 0450 Imaging Last Impressions Chest X-Ray 06/07/17 0000 Signed Impressions: Service Date/Time: Wednesday, June 07, 2017 03:15 - CONCLUSION: Patchy consolidation or atelectasis of the left lower lung. Tom Berry MD Procedures 06/06/17 EGD Assessment and Plan Disease Oriented Problem List: (1) Atrial fibrillation (2) Sacral decubitus ulcer (3) Heel ulceration (4) Hypotension (5) GI bleed (6) Anemia (7) ESRD (end stage renal disease) on dialysis Symptom Scale: (1) Weakness 0-10 Scale: Unable to quantify Pertinent Non-Medical Issues Psychosocial: to his x 6 yrs. Has 1 adult son from prior marriage, who is incarcerated in [place]. He communicates with him every Friday (son calls him). Originally from [place] worked in [employer] there. His mother is still living there, and a sister. Moved to [place] in his 50s for care home. 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 Per [place] statutes his would be appropriate legal proxy if patient incapacitated. 06/06/17 assisted pt to complete new HCS, names his as HCS. Ethical issues impacting care: Important Contacts spouse Aparna Guadalupe [phone] . Prognosis This patient was admitted for hypotension, significant anemia, GI bleed. He has known history of dialysis dependent end-stage renal disease. Ongoing diagnostics, GI evaluation. With ongoing aggressive treatments and interventions may be able to recover from current acute conditions. . Code Status: Full Code Plan * Legal decision maker:Patient has a healthcare surrogate document in his chart however this document actually names the patient as designated healthcare surrogate. Per [place] statutes his would be appropriate legal proxy if patient incapacitated. Pt at time of my exam is oriented, appropriate and appears to have fair insight to his conditions/options. Appears able to make his own decisions . 06/06/17 assisted pt to complete new HCS, names his as HCS. * Pt reports multiple recent hospitalizations/ER visits at [facility] , recommend RECORDS REQUEST from [facility] * Goals: Pt goals remain aggressive short of resuscitation. * CODE STATUS: DNR * SYMPTOMS: --weakness/debility- ongoing since May 05. Limited to no ambulation since that time. Rec cont OT/PT to maintain/improve functional status --pain- today pt reports Rt knee pain, exam benign. pt reports he has chronic neuropathic sounding pain to BLE alyse at night, and chronic pain to bilateral chronic foot wounds. He has been on norco 5mg at home. Pt hypotensive , requiring pressor, cautious use of opiates. Consider resuming home norco or tramadol PRN . * Palliative care will continue to follow during hospital course as condition evolves, to assist patient/decision-maker with understanding of medical conditions, weighing benefits/burdens of treatment options, for clarification of goals of treatment. Additionally will assist with any symptoms of palliative concern Attestation To help prompt me to consider important information that might be impacting today's encounter and assessment, information from prior notes written by myself or my colleagues may have been "brought forward" into today's note. My signature on this note, however, is an attestation that I personally performed the exam, history, and/or decision-making noted today, and, unless otherwise indicated, the interactions with patient, family, and staff as well as the review of records all occurred today. I also attest that the listed assessment and stated plan reflect my best clinical judgment today based on the combination of historical information, prior notes, and today's exam/ interactions. When time spent is documented, it refers only to time spent today by the signer, or if indicated, combined time spent today by collaborating physician/nurse practitioner. Ranjana Linda Jun 17, 2017 16:26
[2017-06-18] VITALS (19 sets, daily range): BP systolic 88–120; BP diastolic 55–73; PULSE 60–120; RESP 13–30; TEMP 97.5–98.4; O2SAT 91–100
[2017-06-18 05:42] LABS: BICARBONATE 30.1 MEQ/L (21.0-32.0); CALCIUM 6.5 MG/DL (8.5-10.1); CREATININE 4.13 MG/DL (0.60-1.30); MAGNESIUM 2.1 MG/DL (1.5-2.5); PHOSPHORUS 3.4 MG/DL (2.5-4.9)
[2017-06-18] MEDS: MIDODRINE 5 MG TAB PO SCH ×3 (05:56→16:13)
[2017-06-18] MEDS: ACETAMINOPHEN 325 MG TAB PO PRN ×2 (05:56→21:03)
[2017-06-18 06:05] LABS: CALCIUM-PROTEIN CORRECTED 7.5 MG/DL (8.5-10.1)
[2017-06-18] MEDS: INSULIN NovoLIN REGULAR SUPPLEMENTAL SCALE SQ SCH ×4 (08:00→21:00)
[2017-06-18] MEDS: CALCIUM CARBONATE 500 MG CHEWABLE TAB CHEW SCH ×2 (10:45→21:03)
[2017-06-18] MEDS: FLUCONAZOLE 200 MG TAB PO SCH (10:45)
[2017-06-18] MEDS: HEPARIN SODIUM - SQ 10,000 UNITS/ML VIAL SQ SCH ×2 (10:45→21:03)
[2017-06-18] MEDS: PANTOPRAZOLE SOD 40 MG DELAYED RELEASE TAB PO SCH (10:45)
[2017-06-18] MEDS: DOCUSATE SODIUM 50 MG/SENNA 8.6 MG TAB PO SCH ×2 (10:46→21:03)
--- NOTE | 2017-06-18 10:46 | HHI.CCPN ---
Subjective Remarks/Hospital Course 66 year-old male with a medical history significant for end-stage renal disease on peritoneal dialysis who was noted to be severely hypotensive and lethargic at the dialysis center on 06/05 and was called and patient was transferred to [facility] ER. On arrival he was noted to be hypotensive with SBP 70s and heart rate 100s. He also reportedly had significant melena and rectal bleeding following arrival. A right IJ central line was placed by ER physician. Patient's arrived and wanted to make patient DNR status and did not want blood transfusions and wished transferring to hospice however subsequently patient woke up and wanted to continue aggressive care including blood transfusions. ER physician contacted me questioning patient's 's ability to make decisions for him due to concern for secondary gain as well as possible psychiatric illness. Patient was accepted for admission by critical care medicine service. 4 units PRBCs were ordered to be transfused stat by ER physician. When I arrived to see the patient he was laying in the ER stretcher on nasal cannula on 5 mics of Levophed. He is drowsy but easily arousable. He knew he was at the hospital. He could not give me details of his history. 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 06/07 Patient is on Levophed 2 mics, s/p HD yesterday. Awake and alert on Protonix drip. s/p EGD yesterday showed 2 large Duodenal ulcer, esophagitis and gastritis. 06/08: Afebrile. Currently off norepinephrine but MAP is around 60 currently. States he is okay with removing peritoneal dialysis catheter. Will discuss with general surgery in nephrology in a.m. 06/09: Blood pressures are borderline. Awake and alert and eating popsicles currently. Patient's okay with removing peroneal dialysis catheter. Dr. Van as yet to see patient today. Agree with ID and nephrology's recommendations for removal. 06/10 Patient s/p PD catheter removal this morning. On Levophed 2 mics. Afebrile. 06/11: Postoperative day #1 PD catheter removal. Remains on norepinephrine at 2 g per minute. Asymptomatic. Plan for hemodialysis today. 06/12: Afebrile. Intermittently A. fib with RVR, currently rate controlled. Denies chest pain or shortness of breath. Intermittently on phenylephrine drip 2/2: Resting in bed in no acute distress. Remains on Manan-Synephrine drip at 60 mics grams per minute. Appears more depressed today. Status post -3 L of hemodialysis. Subjective 06/14: Resting in bed in no acute distress. Afebrile. Remains on low-dose phenylephrine at 50 mics grams per minute. More attentive today. 06/15: No acute issues overnight. Patient remains on low-dose phenylephrine currently at 40 mcgs/min. Patient continues on Midrin 3 times a day. Hemoglobin stable. Patient tolerating diet. 06/16: The patient continues on Phenylephrine infusion, now increased to 60 mcgs/ min. 06/17: Phenylephrine continues at 30mcg/min. Patient up out of bed with physical therapy today. IHD 3.5 L off yesterday 06/18: Phenylephrine weaned off since 3 AM. Patient currently undergoing hemodialysis and is hemodynamically stable with maps in the low 70s. The patient is tolerating a diet. PT has been initiated and patient is out of bed ambulating 2-3 steps in the room yesterday. Objective Vital Signs Date Time Temp Pulse Resp B/P (MAP) Pulse Ox O2 Delivery O2 Flow Rate FiO2 06/18/17 08:00 98.4 103 15 98/59 (72) 06/18/17 04:00 98 06/16/17 19:12 21 Intake and Output 06/18/17 06/18/17 06/19/17 08:00 16:00 00:00 Intake Total 40 ml 410 ml Output Total 0 ml Balance 40 ml 410 ml Result Diagram: 06/17/17 0450 06/18/17 0350 Imaging Last Impressions Chest X-Ray 06/07/17 0000 Signed Impressions: Service Date/Time: Wednesday, June 07, 2017 03:15 - CONCLUSION: Patchy consolidation or atelectasis of the left lower lung. Tom Berry MD Last Impressions Chest X-Ray 06/07/17 0000 Signed Impressions: Service Date/Time: Wednesday, June 07, 2017 03:15 - CONCLUSION: Patchy consolidation or atelectasis of the left lower lung. Tom Berry MD Objective Remarks GENERAL: 66 year male sitting up in bed undergoing dialysis, in no apparent distress SKIN: Woman dry. No rash HEAD: Atraumatic. Normocephalic. EYES: No scleral icterus. No injection or drainage. ENT: No nasal bleeding or discharge. Mucous membranes pink and dry.. NECK: Trachea midline. Supple. CARDIOVASCULAR: Heart rate in the 80s. Irregularly irregular consistent with A. fib. RESPIRATORY: No accessory muscle use. Clear to auscultation. Breath sounds equal bilaterally. Decreased respiratory effort. GASTROINTESTINAL: Abdomen soft, nondistended. PD catheter has been removed. Site is clean dry and intact. No signs erythema drainage. MUSCULOSKELETAL: Patient has a well-healed rt heel ulcer. Venous stasis changes noted to his bilateral lower extremities. NEUROLOGICAL: Awake and weak and mildly confused. No obvious cranial nerve deficits. Moves bilateral upper extremities. BACK: Stage I/early decubitus in his sacral area. Date of Insertion: Jun 05, 2017 Line: Central Venous Catheter Side: Right Location: Internal, Jugular A/P Assessment and Plan Neuro/Psych: Depression Chronic Pain syndrome History of CVA Holding paroxetine 10 mg daily/home medication. Resume when clinically indicated Avoid sedatives and narcotics including tramadol/home medication, monitor neuro status. Awake and alert Holding clopidogrel 75 mg daily. Resume when okay with GI CV: Atrial fibrillation rate controlled History of essential hypertension Phenylephrine at 30 g per minute- discontinued 06/18 Monitor HR and BP keep MAP >65mmHg Lactic acid 2.2 on 06/07 Holding clopidogrel 75 mg daily light of duodenal ulcer Holding lisinopril 20 mill grams daily, Imdur and metoprolol 50 mill grams daily in light of hypotension random Cortisol level. 20 Continue Midodrine 10 mg 3 times a day Pulm: Continue with oxygen keep sat >92%. Currently on room air Albuterol aerosols every 2 hours when necessary dyspnea GI/liver: Upper GI bleed secondary to duodenal ulcer Currently on soft renal diet On pantoprazole 40 mg by mouth daily s/p EGD 06/06 which showed 2 large duodenal ulcers, grade D esophagitis, gastritis. Renal/: Status post PD catheter removal day #4 Dr. Donovan End-stage renal disease on hemodialysis Monitor renal function, I/O's, avoid nephrotoxins. Pathology Dr. Fair. General Surgery has followed- Dr. Donovan fungal infection requiring PD catheter removal on 06/10. Heme: Macrocytic anemia Monitor CBC, s/p transfusion 2units PRBC on 06/06 Hgb stable, continue to monitor Endocrine: Diabetes mellitus Elevated TSH - repeat in 3-6 weeks. Free T4 normal. Free T3 low. Would not initiate any levothyroxine at this time in this acute clinical setting SSI for glycemic control with low Novulog before meals at bedtime Holding Tradjenta 5 mg daily ID: Infected peritoneal dialysis catheter/peritonitis fungal Continue fluconazole 200 mg po daily docusate 06/24 Monitor for signs of infections ( Fever, WBC) follow up on cultures. Peritoneal fluid 06/06 positive for yeast/Carmen ID is following. MSK: Right heel ulcer Sacral decubitus ulcer 2/ Wound care consulted evaluate and treat / Transfer pt on Zehra bed Prophylaxis: Pantoprazole/heparin subcutaneous Lines: Right IJ CVP placed 06/05 Level II follow-up Hemodynamically stable off vasopressors. [facility] Plan transfer to medical surgical floor when bed available Physician Mavis Collier MD Jun 18, 2017 10:46
[2017-06-18] MEDS: SODIUM CHLORIDE 0.9% FLUSH 10 ML FLUSH IV FLUSH SCH ×2 (10:47→21:04)
--- NOTE | 2017-06-18 11:06 | HHI.NPPN ---
Subjective General Problems: Anemia Renal Failure: End Stage Renal Disease History of Present Illness Patient is a very pleasant 66 year old male who came into the emergency room on 06/06/17 hypotensive, lethargic, and with a hemoglobin of 6.7. He was transfused 2 units of PRBC's with a recheck pending. He was initially put on Levophed for blood pressure support however it is currently not running. Has a past medical history of End -stage renal disease with peritoneal dialysis, AFIB , diabetes, arthritis, chronic pain, and hx of strokes. Onset of acute epigastric pain and discomfort noted for 5 days ago, but worsened over the past 24 hours. Reported loose stools for 3 weeks. In the emergency room patient did report melena, nausea, mild vomiting undigested food yesterday, but denied any coffee ground emesis. Patient has AV fistula and will have dialysis while here. Per patient PD catheter needs to be removed secondary to infection. Additional Remarks Patient is alert seen during dialysis, pressors off since 3 am. Receiving 2 units of PRBC with dialysis. (Samreen Ward) Review of Systems General Constitutional: Fatigue General Remarks weakness (Samreen Ward) Ears, Nose, & Throat ENT Remarks Dry mouth (Samreen Ward) Respiratory Respiratory Remarks Denies SOB (Samreen Ward) Cardiovascular Cardiac Remarks Denies CP (Samreen Ward) Gastrointestinal GI Remarks Denies abdominal pain (Samreen Ward) Objective Data Data 06/18/17 06/19/17 19:00 07:00 Intake Total 410 ml Balance 410 ml Packed Cells 400 ml Blood Product IV Normal Saline Flush 10 ml Vital Signs Date Time Temp Pulse Resp B/P (MAP) Pulse Ox O2 Delivery O2 Flow Rate FiO2 06/18/17 08:00 98.4 103 15 98/59 (72) 06/18/17 08:00 60 06/18/17 06:00 103 06/18/17 04:00 116 06/18/17 04:00 97.8 116 21 106/61 (76) 98 06/18/17 03:53 101 108/60 06/18/17 03:00 102 101/59 06/18/17 02:00 89 06/18/17 00:00 95 06/18/17 00:00 97.9 95 20 120/55 (76) 94 06/17/17 22:00 93 06/17/17 21:00 102 105/58 06/17/17 20:00 98.2 102 17 117/68 (84) 97 06/17/17 20:00 102 06/17/17 20:00 102 117/68 06/17/17 18:00 103 06/17/17 16:00 97.2 101 14 102/60 (74) 94 06/17/17 16:00 101 06/17/17 14:00 109 06/17/17 12:00 96.7 108 12 103/64 (77) 98 06/17/17 12:00 108 (Samreen Ward) -: 06/17/17 0450 06/18/17 0350 Physical Exam General Appearance: Malnourished (Samreen Ward) Neck Neck Exam: Neck Supple (Samreen Ward) Pulmonary Resp Exam: Clear Bilaterally, No Distress (Samreen Ward) Cardiology CV Exam: Regular (Samreen Ward) Gastrointestinal/Abdomen GI Exam: Soft, Non-Tender (Samreen Ward) Genitourinary Exam: Flank Non-Tender (Samreen Ward) Extremeties Extremities Exam: No Edema (Samreen Ward) Assessment/Plan Problem List: (1) ESRD (end stage renal disease) on dialysis ICD Codes: N18.6 - End stage renal disease; Z99.2 - Dependence on renal dialysis Plan: Dialysis MWF Protein corrected calcium at 7.5 today IV calcium gluconate given and on oral replacement. HGB 7.6 yesterday transfusing 2 units of PRBC with dialysis on epogen with dialysis Continue on midodrine 10 mg TID Seen during dialysis On pressors and plans to transfer out of ICU (2) Peritonitis associated with peritoneal dialysis ICD Codes: T85.71XA - Infection and inflammatory reaction due to peritoneal dialysis catheter, initial encounter Plan: Peritoneal fluid culture positive for Carmen. On fluconazole with stop date of the PD catheter removed ID and surgery following. (3) Hypotension ICD Codes: I95.9 - Hypotension, unspecified Status: Acute Plan: Sepsis present on admission. Continue supportive care. (4) GI bleed ICD Codes: K92.2 - Gastrointestinal hemorrhage, unspecified Status: Acute Plan: s/p EGD: duodenal ulcer, gastritis, esophagitis. Received 2 units PRBC on admission. (5) Anemia ICD Codes: D64.9 - Anemia, unspecified Plan: HGB 7.6 today Epogen 10,000 units with each dialysis Transfusing 2 units of PRBC (Samreen Ward) Problem List: (1) ESRD (end stage renal disease) on dialysis ICD Codes: N18.6 - End stage renal disease; Z99.2 - Dependence on renal dialysis Plan: Dialysis MWF Protein corrected calcium at 7.5 today IV calcium gluconate given and on oral replacement. HGB 7.6 yesterday transfusing 2 units of PRBC with dialysis on epogen with dialysis Continue on midodrine 10 mg TID Seen during dialysis Off pressors now and plans to transfer out of ICU. Add Rocaltrol 0.25 ug for low Calcium. (2) Peritonitis associated with peritoneal dialysis ICD Codes: T85.71XA - Infection and inflammatory reaction due to peritoneal dialysis catheter, initial encounter Plan: Peritoneal fluid culture positive for Carmen. On fluconazole with stop date of the PD catheter removed ID and surgery following. (3) Hypotension ICD Codes: I95.9 - Hypotension, unspecified Status: Acute Plan: Sepsis present on admission. Continue supportive care. (4) GI bleed ICD Codes: K92.2 - Gastrointestinal hemorrhage, unspecified Status: Acute Plan: s/p EGD: duodenal ulcer, gastritis, esophagitis. Received 2 units PRBC on admission. (5) Anemia ICD Codes: D64.9 - Anemia, unspecified Plan: HGB 7.6 today Epogen 10,000 units with each dialysis Transfusing 2 units of PRBC (Darryl Fair MD) Problem Qualifiers (1) Hypotension: Qualified Codes: I95.9 - Hypotension, unspecified (2) GI bleed: Qualified Codes: K92.2 - Gastrointestinal hemorrhage, unspecified (3) Anemia: Samreen Ward Jun 18, 2017 11:05 Darryl Fair MD Jun 18, 2017 11:41
[2017-06-18] MEDS ORDERED: CALCIUM GLUCONATE INJ 2 GM in SODIUM CHLORIDE 0.9% INJ 100 ML IV ONE (11:30)
[2017-06-18] MEDS: CALCITRIOL 0.25 MCG CAP PO SCH (11:52)
[2017-06-19] VITALS (35 sets, daily range): BP systolic 92–124; BP diastolic 56–85; PULSE 82–140; RESP 10–23; TEMP 97.6–98; O2SAT 78–100
[2017-06-19] MEDS: CHLORHEXIDINE GLUCONATE 2 % 1 PACK (2 CLOTHS) TOP SCH (04:00)
[2017-06-19 05:17] LABS: HEMATOCRIT 30.4 % (39.0-51.0); HEMOGLOBIN 10.3 GM/DL (13.0-17.0); MEAN CELL VOLUME 95.2 FL (80.0-100.0); MEAN CORPUSCULAR HEMOGLOBIN 32.2 PG (27.0-34.0); MEAN CORPUSCULAR HGB CONC 33.9 % (32.0-36.0); MEAN PLATELET VOLUME 7.6 FL (7.0-11.0); PLATELET COUNT 163 TH/MM3 (150-450); RED CELL DISTRIBUTION WIDTH 21.4 % (11.6-17.2); WHITE BLOOD COUNT 7.3 TH/MM3 (4.0-11.0)
[2017-06-19 05:39] LABS: CALCIUM 7.5 MG/DL (8.5-10.1); CREATININE 3.36 MG/DL (0.60-1.30)
[2017-06-19] MEDS: MIDODRINE 5 MG TAB PO SCH ×3 (07:00→18:01)
[2017-06-19] MEDS: INSULIN NovoLIN REGULAR SUPPLEMENTAL SCALE SQ SCH ×4 (08:00→19:59)
--- NOTE | 2017-06-19 08:33 | HHI.PR ---
Subjective Remarks Pt denies any pain, nausea or vomiting. He denies any SOB/CP. Pt states he wants to get up and leave. Pt seems a bit confused and states that he was discharged last night and he initially tells me that he already left the hospital and is waiting. He later upon further questioning is able to answer my questions such as being in [place], knows the year and the month. Discussed w RN, she tells me that she is very concerned regarding the code status. Apparently pt told her that he wants aggressive care. Per palliative care notes there is some confusion on code status. Will discuss w them as well. RN feels that a psych consult eval would be appropriate to make sure he is able to make decisions. Objective Vitals Vital Signs Date Time Temp Pulse Resp B/P (MAP) Pulse Ox O2 Delivery O2 Flow Rate FiO2 06/19/17 06:00 97 06/19/17 04:00 96 06/19/17 04:00 98.0 96 12 106/56 (73) 06/19/17 02:00 92 06/19/17 00:00 97.7 94 12 95/60 (72) 93 06/19/17 00:00 94 06/18/17 22:00 101 06/18/17 21:11 100 21 06/18/17 20:00 97.5 111 26 110/73 (85) 97 06/18/17 20:00 99 06/18/17 18:00 100 06/18/17 17:45 97 06/18/17 17:00 88 06/18/17 16:00 86 06/18/17 16:00 97.9 86 19 100/60 (73) 97 06/18/17 15:00 118 06/18/17 15:00 118 15 103/67 (79) 06/18/17 14:00 106 06/18/17 14:00 106 23 114/69 (84) 99 06/18/17 13:00 99 26 91 06/18/17 13:00 99 06/18/17 12:00 95 06/18/17 12:00 98.3 95 13 102/62 (75) 100 06/18/17 11:00 99 18 88/59 (69) 06/18/17 11:00 99 06/18/17 10:00 120 06/18/17 10:00 120 14 94/58 (70) 06/18/17 09:00 105 30 100/63 (75) 06/18/17 09:00 105 I/O 06/18/17 06/18/17 06/18/17 06/19/17 06/19/17 06/19/17 07:00 15:00 23:00 07:00 15:00 23:00 Intake Total 40 ml 410 ml 400 ml Output Total 0 ml 1000 ml 0 ml 0 ml Balance 40 ml -590 ml 400 ml 0 ml Intake Oral 40 ml 300 ml IV Total 100 ml Packed Cells 400 ml Blood Product IV Normal Saline Flush 10 ml Output Urine Total 0 ml 0 ml 0 ml Hemodialysis 1000 ml # Bowel Movements 1 1 Result Diagram: 06/19/17 0345 06/19/17 0345 Imaging Last Impressions Chest X-Ray 06/07/17 0000 Signed Impressions: Service Date/Time: Wednesday, June 07, 2017 03:15 - CONCLUSION: Patchy consolidation or atelectasis of the left lower lung. Tom Berry MD Objective Remarks GENERAL: 66 year male sitting up in bed, appears comfortable EYES: EOMI ENT: No nasal bleeding or discharge. Mucous membranes pink and dry.. NECK: Trachea midline. Supple. CARDIOVASCULAR: Heart rate in the 90's Irregularly irregular consistent with A. fib. RESPIRATORY: Clear to auscultation. Breath sounds equal bilaterally. Decreased respiratory effort. GASTROINTESTINAL: Abdomen soft, nondistended. incision healing well, no signs of infection/no drainage. MUSCULOSKELETAL: Patient has a well-healed rt heel ulcer. Venous stasis changes noted to his bilateral lower extremities. NEUROLOGICAL: Awake and weak and mildly confused. No obvious cranial nerve deficits. Moves bilateral upper extremities. BACK: Stage I/early decubitus in his sacral area no evaluated this morning. Date of Insertion: Jun 05, 2017 Line: Central Venous Catheter Side: Right Location: Internal, Jugular A/P Assessment and Plan Neuro/Psych: Depression Chronic Pain syndrome History of CVA Holding paroxetine 10 mg daily/home medication. Resume when clinically indicated Avoid sedatives and narcotics including tramadol/home medication, monitor neuro status. Awake and alert Holding clopidogrel 75 mg daily. Resume when okay with GI. Per records, pt received 1 unit PRBC 06/18/17 CV: Atrial fibrillation rate controlled History of essential hypertension s/p Phenylephrine- discontinued 06/18 Monitor HR and BP keep MAP >65mmHg Lactic acid 2.2 on 06/07 Holding clopidogrel 75 mg daily light of duodenal ulcer Holding lisinopril 20 mill grams daily, Imdur and metoprolol 50 mill grams daily in light of hypotension random Cortisol level. 20 Continue Midodrine 10 mg 3 times a day Pulm: Continue with oxygen keep sat >92%. Currently on room air Albuterol aerosols every 2 hours when necessary dyspnea GI/liver: Upper GI bleed secondary to duodenal ulcer Currently on soft renal diet On pantoprazole 40 mg by mouth daily s/p EGD 06/06 which showed 2 large duodenal ulcers, grade D esophagitis, gastritis. Renal/: Status post PD catheter removal day #5 Dr. Donovan End-stage renal disease on hemodialysis Monitor renal function, I/O's, avoid nephrotoxins. 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 General Surgery has followed- Dr. Donovan fungal infection requiring PD catheter removal on 06/10. Heme: Macrocytic anemia Monitor CBC, s/p transfusion 2units PRBC on 06/06 Hgb stable, continue to monitor Endocrine: Diabetes mellitus Elevated TSH - repeat in 3-6 weeks. Free T4 normal. Free T3 low. Would not initiate any levothyroxine at this time in this acute clinical setting SSI for glycemic control with low Novulog before meals at bedtime Holding Tradjenta 5 mg daily ID: Infected peritoneal dialysis catheter/peritonitis fungal Continue fluconazole 200 mg po daily w end date on 06/24 Monitor for signs of infections ( Fever, WBC) follow up on cultures. Peritoneal fluid 06/06 positive for yeast/Carmen ID is following. MSK: Right heel ulcer Sacral decubitus ulcer 2/4 Wound care consulted evaluate and treat 2/4 Transfer pt on Zehra bed Prophylaxis: Pantoprazole/heparin subcutaneous, monitor H&H closely. If continues to drop, need to hold heparin. Discharge Planning CM assisting w d/c planning I did place a psych consult for assistance as RN is concerned about pt's ability to make own decisions. He does seems confused at times when I speak w him today. Continue to monitor H&H. Transfer to regular floor Nadia Sarah MD Jun 19, 2017 08:33
[2017-06-19] MEDS: CALCIUM CARBONATE 500 MG CHEWABLE TAB CHEW SCH ×2 (09:08→19:41)
[2017-06-19] MEDS: PANTOPRAZOLE SOD 40 MG DELAYED RELEASE TAB PO SCH (09:08)
[2017-06-19] MEDS: HEPARIN SODIUM - SQ 10,000 UNITS/ML VIAL SQ SCH ×2 (09:08→19:42)
[2017-06-19] MEDS: FLUCONAZOLE 200 MG TAB PO SCH (09:08)
[2017-06-19] MEDS: CALCITRIOL 0.25 MCG CAP PO SCH (09:08)
[2017-06-19] MEDS: DOCUSATE SODIUM 50 MG/SENNA 8.6 MG TAB PO SCH ×2 (09:08→19:42)
--- NOTE | 2017-06-19 10:14 | HHI.NPPN ---
Subjective General Problems: Anemia Renal Failure: End Stage Renal Disease History of Present Illness Patient is a very pleasant 66 year old male who came into the emergency room on 06/06/17 hypotensive, lethargic, and with a hemoglobin of 6.7. He was transfused 2 units of PRBC's with a recheck pending. He was initially put on Levophed for blood pressure support however it is currently not running. Has a past medical history of End -stage renal disease with peritoneal dialysis, AFIB , diabetes, arthritis, chronic pain, and hx of strokes. Onset of acute epigastric pain and discomfort noted for 5 days ago, but worsened over the past 24 hours. Reported loose stools for 3 weeks. In the emergency room patient did report melena, nausea, mild vomiting undigested food yesterday, but denied any coffee ground emesis. Patient has AV fistula and will have dialysis while here. Per patient PD catheter needs to be removed secondary to infection. Additional Remarks Patient is alert however confused this morning, Denies any SOB, no edema (Samreen Ward) Review of Systems General Constitutional: Fatigue General Remarks weakness (Samreen Ward) Ears, Nose, & Throat ENT Remarks Dry mouth (Samreen Ward) Respiratory Respiratory Remarks Denies SOB (Samreen Ward) Cardiovascular Cardiac Remarks Denies CP (Samreen Ward) Gastrointestinal GI Remarks Denies abdominal pain (Samreen Ward) Objective Data Data Vital Signs Date Time Temp Pulse Resp B/P (MAP) Pulse Ox O2 Delivery O2 Flow Rate FiO2 06/19/17 06:00 97 06/19/17 04:00 96 06/19/17 04:00 98.0 96 12 106/56 (73) 06/19/17 02:00 92 06/19/17 00:00 97.7 94 12 95/60 (72) 93 06/19/17 00:00 94 06/18/17 22:00 101 06/18/17 21:11 100 21 06/18/17 20:00 97.5 111 26 110/73 (85) 97 06/18/17 20:00 99 06/18/17 18:00 100 06/18/17 17:45 97 06/18/17 17:00 88 06/18/17 16:00 86 06/18/17 16:00 97.9 86 19 100/60 (73) 97 06/18/17 15:00 118 06/18/17 15:00 118 15 103/67 (79) 06/18/17 14:00 106 06/18/17 14:00 106 23 114/69 (84) 99 06/18/17 13:00 99 26 91 06/18/17 13:00 99 06/18/17 12:00 95 06/18/17 12:00 98.3 95 13 102/62 (75) 100 06/18/17 11:00 99 18 88/59 (69) 06/18/17 11:00 99 (Samreen Ward) -: 06/19/17 0345 06/19/17 0345 Physical Exam General Appearance: Malnourished (Samreen Ward) Neck Neck Exam: Neck Supple (Samreen Ward) Pulmonary Resp Exam: Clear Bilaterally, No Distress (Samreen Ward) Cardiology CV Exam: Regular (Samreen Ward) Gastrointestinal/Abdomen GI Exam: Soft, Non-Tender (Samreen Ward) Genitourinary Exam: Flank Non-Tender (Samreen Ward) Extremeties Extremities Exam: No Edema (Samreen Ward) Assessment/Plan Problem List: (1) ESRD (end stage renal disease) on dialysis ICD Codes: N18.6 - End stage renal disease; Z99.2 - Dependence on renal dialysis Plan: Dialysis MWF Calcuim 7.5 today on oral replacement. HGB 10.5 today after 2 units of PRBC's yesterday Continue on midodrine 10 mg TID Transfer to regular floor Referral to cyanide case hardener to assist with outpatient dialysis Plan for dialysis tomorrow (2) Peritonitis associated with peritoneal dialysis ICD Codes: T85.71XA - Infection and inflammatory reaction due to peritoneal dialysis catheter, initial encounter Plan: Peritoneal fluid culture positive for Carmen. On fluconazole with stop date of the th PD catheter removed ID and surgery following. (3) Hypotension ICD Codes: I95.9 - Hypotension, unspecified Status: Acute Plan: Sepsis present on admission. Continue supportive care. (4) GI bleed ICD Codes: K92.2 - Gastrointestinal hemorrhage, unspecified Status: Acute Plan: s/p EGD: duodenal ulcer, gastritis, esophagitis. Received 2 units PRBC on admission. (5) Anemia ICD Codes: D64.9 - Anemia, unspecified Plan: HGB 10.5 Epogen 10,000 units with each dialysis Transfused 2 units of PRBC yesterday (Samreen Ward) Problem List: (1) ESRD (end stage renal disease) on dialysis ICD Codes: N18.6 - End stage renal disease; Z99.2 - Dependence on renal dialysis Plan: Dialysis MWF Calcuim 7.5 today on oral replacement. HGB 10.5 today after 2 units of PRBC's yesterday Continue on midodrine 10 mg TID Transfer to regular floor Referral to cyanide case hardener to assist with outpatient dialysis Plan for dialysis tomorrow. Patient seen and examined, agree with above. Psych. consult noted. (2) Peritonitis associated with peritoneal dialysis ICD Codes: T85.71XA - Infection and inflammatory reaction due to peritoneal dialysis catheter, initial encounter Plan: Peritoneal fluid culture positive for Carmen. On fluconazole with stop date of the PD catheter removed ID and surgery following. (3) Hypotension ICD Codes: I95.9 - Hypotension, unspecified Status: Acute Plan: Sepsis present on admission. Continue supportive care. (4) GI bleed ICD Codes: K92.2 - Gastrointestinal hemorrhage, unspecified Status: Acute Plan: s/p EGD: duodenal ulcer, gastritis, esophagitis. Received 2 units PRBC on admission. (5) Anemia ICD Codes: D64.9 - Anemia, unspecified Plan: HGB 10.5 Epogen 10,000 units with each dialysis Transfused 2 units of PRBC yesterday (Darryl Fair MD) Problem Qualifiers (1) Hypotension: Qualified Codes: I95.9 - Hypotension, unspecified (2) GI bleed: Qualified Codes: K92.2 - Gastrointestinal hemorrhage, unspecified (3) Anemia: Samreen Ward Jun 19, 2017 10:14 Darryl Fair MD Jun 19, 2017 15:28
--- NOTE | 2017-06-19 12:10 | PD.PSY.CON ---
Provisional Diagnosis Admission Date Jun 06, 2017 at 02:11 [place] I. psychological factors affecting a medical [place] II. Deferred History of Present Illness Service Psychiatry Consult Requested By Critical care team Reason for Consult Decision-making capacity Primary Care Physician Darryl Fair MD HPI The patient is a 68 year-old man, domiciled with his in [facility], retired, without any previous psychiatric history, no previous suicidal attempts , no previous psychiatric hospitalizations, the patient denies the use of alcohol and illegal drugs, he has an extensive medical history of hypertension, A. fib, GI bleeding, ESRD, admitted in the ICU due to sepsis/infected peritoneal catheter. Consulted to psychiatry for assessment of decision-making capacity. On psychiatric evaluation today the patient is calm, cooperative and pleasant. She is fully oriented 3, at the beginning a little bit oppositional and irritable with a psychiatric evaluation, asking "why do I have to see a psychiatrist", but he calmed down after redirection. The patient is able to state that he does not want to be resuscitated, but he does want aggressive treatment and intubation if needed. Patient clarifies that indicates that he is unable to take decisions due to his mental state "my is to person making decisions for me". Patient is able to verbalize a very good understanding and appreciation of his underlying medical conditions and his choice is to continue medical treatment and medical recommendations at the moment. The patient denies suicidal and homicidal ideation, he denies visual and auditory hallucinations Review of Systems Constitutional: DENIES: Diaphoretic episodes, Fatigue, Fever, Weight gain, Weight loss, Chills, Dizziness, Change in appetite, Night Sweats Endocrine: DENIES: Heat/cold intolerance, Polydipsia, Polyuria, Polyphagia Eyes: DENIES: Blurred vision, Diplopia, Eye inflammation, Eye pain, Vision loss , Photosensitivity, Double Vision Ears, nose, mouth, throat: DENIES: Tinnitus, Hearing loss, Vertigo, Nasal discharge, Oral lesions, Throat pain, Hoarseness, Ear Pain, Running Nose, Epistaxis, Sinus Pain, Toothache, Odynophagia Respiratory: DENIES: Apneas, Cough, Snoring, Wheezing, Hemoptysis, Sputum production, Shortness of breath Cardiovascular: DENIES: Chest pain, Palpitations, Syncope, Dyspnea on Exertion , PND, Lower Extremity Edema, Orthopnea, Claudication Gastrointestinal: DENIES: Abdominal pain, Black stools, Bloody stools, Constipation, Diarrhea, Nausea, Vomiting, Difficulty Swallowing, Anorexia Genitourinary: DENIES: Sexual dysfunction, Urinary frequency, Urinary incontinence, Urgency, Hematuria, Dysuria, Nocturia, Penile Discharge, Testicular Pain, Testicular Swelling Musculoskeletal: DENIES: Joint pain, Muscle aches, Stiffness, Joint Swelling, Back pain, Neck pain Integumentary: DENIES: Abnormal pigmentation, Nail changes, Pruritus, Rash Hematologic/lymphatic: DENIES: Bruising, Lymphadenopathy Immunologic/allergic: DENIES: Eczema, Urticaria Neurologic: DENIES: Abnormal gait, Headache, Localized weakness, Paresthesias, Seizures, Speech Problems, Tremor, Poor Balance Psychiatric: DENIES: Anxiety, Confusion, Mood changes, Depression, Hallucinations, Agitation, Suicidal Ideation, Homicidal Ideation, Delusions Past Family Social History Coded Allergies: morphine (Unverified Allergy, Severe, anaphylactic, 06/05/17) Unable to Obtain Active Prescriptions or Reported Meds Current Medications Medications (Trade) Dose Ordered Sig/Randall Route Start Time Stop Time Status Last Admin (NS Flush) 2 ml UNSCH PRN IV FLUSH 06/06/17 03:00 06/18/17 10:47 (NS Flush) 2 ml BID IV FLUSH 06/06/17 09:00 06/18/17 21:04 (Zofran Inj) 4 mg Q6H PRN IV PUSH 06/06/17 03:00 (Duoneb Neb) 1 ampule Q4HR NEB PRN INH 06/06/17 03:00 Miscellaneous Information 1 Q361D XX 06/06/17 03:00 (Chlorhexidine 2% Cloth) Taper DAILY@04 TOP 06/06/17 04:00 06/02/18 03:59 06/19/17 04:00 (Chlorhexidine 2% Cloth) 3 pack UNSCH PRN TOP 06/06/17 03:00 (Rebecca-Colace) 1 tab BID PO 06/06/17 09:00 06/19/17 09:08 (Milk Of Magnesia Liq) 30 ml Q12H PRN PO 06/06/17 03:00 (Senokot) 17.2 mg Q12H PRN PO 06/06/17 03:00 (Dulcolax Supp) 10 mg DAILY PRN RECTAL 06/06/17 03:00 (Lactulose Liq) 30 ml DAILY PRN PO 06/06/17 03:00 (D50w (Vial) Inj) 50 ml UNSCH PRN IV PUSH 06/06/17 08:45 (Glucagon Inj) 1 mg UNSCH PRN OTHER 06/06/17 08:45 (Protonix) 40 mg DAILY PO 06/06/17 12:00 06/19/17 09:08 Sodium Chloride 1,000 ml @ 0 mls/hr Q0M PRN OTHER 06/06/17 13:04 (Heparin Inj) 8,000 units UNSCH PRN IV FLUSH 06/06/17 13:15 Sodium Chloride 1,000 ml @ 200 mls/hr Q5H PRN IV 06/06/17 13:04 06/13/17 10:37 Sodium Chloride 1,000 ml @ 0 mls/hr Q0M PRN OTHER 06/06/17 13:04 (Mannitol Inj) 12.5 gm UNSCH PRN IV 06/06/17 13:15 06/06/17 20:10 Albumin Human 100 ml @ 60 mls/hr UNSCH PRN IV 06/06/17 13:15 06/16/17 10:37 (NS Flush) 5 ml UNSCH PRN IV FLUSH 06/06/17 13:15 06/18/17 10:46 (Heparin Inj) UNSCH PRN .XX 06/06/17 13:15 (Gentamicin (Dialysis) Inj) 20 mg UNSCH PRN OTHER 06/06/17 13:15 (Zofran Inj) 4 mg UNSCH PRN IV PUSH 06/06/17 13:15 (Tylenol) 650 mg UNSCH PRN PO 06/06/17 13:15 06/18/17 21:03 (Benadryl) 25 mg UNSCH PRN PO 06/06/17 13:15 (Nitrostat Sl) 0.4 mg UNSCH PRN SL 06/06/17 13:15 (Catapres) 0.1 mg UNSCH PRN PO 06/06/17 13:15 (Epogen Inj) 10,000 units UNSCH PRN IV PUSH 06/06/17 13:15 06/16/17 10:37 (Gelfoam 12 Mm/7 Mm Top) 1 foam UNSCH PRN TOP 06/06/17 13:15 06/16/17 10:38 (NovoLIN R SUPPLEMENTAL SCALE) 1 ACHS SQ 06/09/17 08:00 06/18/17 21:00 (Tums Chew) 500 mg Q12HR CHEW 06/09/17 21:00 06/19/17 09:08 (Albuterol Neb) 2.5 mg Q2HR NEB PRN NEB 06/11/17 12:00 (Heparin Inj) 5,000 units Q12HR SQ 06/11/17 21:00 06/19/17 09:08 Phenylephrine HCl 160 mg/Dextrose 500 ml @ 7.5 mls/hr TITRATE PRN IV 06/12/17 11:00 06/16/17 04:27 (Brethine Inj) 1 mg UNSCH PRN SQ 06/12/17 11:00 (Diflucan) 200 mg DAILY PO 06/14/17 09:00 06/24/17 10:00 06/19/17 09:08 (Proamatine) 10 mg TID@07,12,17 PO 06/13/17 17:00 06/19/17 07:00 (Rocaltrol) 0.25 mcg DAILY PO 06/18/17 11:45 06/19/17 09:08 Family Psych History No family psychiatric history Social History Patient was born and raised in [place], he lives in [place] is , he has a son, his retired, his highest level of education is a college degree, 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 Patient's Strengths (min. 2) Family support, no previous psychiatric history Physical Exam Vital Signs Vital Signs Date Time Temp Pulse Resp B/P (MAP) Pulse Ox O2 Delivery O2 Flow Rate FiO2 06/19/17 06:00 97 06/19/17 04:00 98.0 12 106/56 (73) 06/19/17 00:00 93 06/18/17 21:11 21 I/O 06/19/17 06/19/17 06/20/17 08:00 16:00 00:00 Output Total 0 ml Balance 0 ml Lab Results Test 06/19/17 03:45 White Blood Count 7.3 TH/MM3 Red Blood Count 3.20 MIL/MM3 Hemoglobin 10.3 GM/DL Hematocrit 30.4 % Mean Corpuscular Volume 95.2 FL Mean Corpuscular Hemoglobin 32.2 PG Mean Corpuscular Hemoglobin Concent 33.9 % Red Cell Distribution Width 21.4 % Platelet Count 163 TH/MM3 Mean Platelet Volume 7.6 FL Blood Urea Nitrogen 33 MG/DL Creatinine 3.36 MG/DL Random Glucose 119 MG/DL Calcium Level 7.5 MG/DL Sodium Level 140 MEQ/L Potassium Level 4.2 MEQ/L Chloride Level 100 MEQ/L Carbon Dioxide Level 31.0 MEQ/L Anion Gap 9 MEQ/L Estimat Glomerular Filtration Rate 18 ML/MIN Date/Time Source Procedure Growth Status 06/06/17 07:19 Blood Peripheral Aerobic Blood Culture - Final NO GROWTH IN 5 DAYS Complete 06/06/17 07:19 Blood Peripheral Anaerobic Blood Culture - Final NO GROWTH IN 5 DAYS Complete 06/06/17 15:20 Fluid Peritoneal Fluid Fungal Smear - Final NO FUNGAL ELEMENTS SEEN. Resulted 06/06/17 15:20 Fungal Culture - Preliminary Carmen Albicans Resulted Mental Status Examination Appearance: Appropriate Consciousness: Alert Orientation: x4 Motor Activity: Normal gait Speech: Unremarkable Language: Adequate Fund of Knowledge: Adequate Attention and Concentration: Adequate Memory: Unremarkable Mood: Appropriate Affect: Appropriate Thought Process & Associations: Intact Thought Content: Appropriate Hallucination Type: None Delusion Type: None Suicidal Ideation: No Suicidal Plan: No Suicidal Intention: No Homicidal Ideation: No Homicidal Plan: No Homicidal Intention: No Insight: Adequate Judgment: Adequate Assessment & Plan Problem List: (1) Psychological factors affecting medical condition ICD Codes: F54 - Psychological and behavioral factors associated with disorders or diseases classified elsewhere Assessment & Plan: On psychiatric evaluation today the patient does not present any acute, significant neuropsychiatric symptoms that requires immediate psychiatric intervention. Patient denies suicidal and homicidal ideation, he denies visual and auditory hallucinations. The patient is fully oriented 3. There is no evidence of delirium, attention deficit, fluctuation of consciousness at this moment. The patient is completely logical, coherent and relevant. He is able to express a clear choice of continuing his medical treatment, signing DNR, but not wish to be DNI. His is healthcare by proxy. The patient clearly have decision-making capacity to make this decision at this moment. (2) Peritonitis associated with peritoneal dialysis ICD Codes: T85.71XA - Infection and inflammatory reaction due to peritoneal dialysis catheter, initial encounter (3) ESRD (end stage renal disease) on dialysis ICD Codes: N18.6 - End stage renal disease; Z99.2 - Dependence on renal dialysis Assessment & Plan Estimated LOS: days Matty Jackson MD Jun 19, 2017 12:09
[2017-06-19] MEDS: SODIUM CHLORIDE 0.9% FLUSH 10 ML FLUSH IV FLUSH SCH ×2 (12:55→19:42)
--- NOTE | 2017-06-19 12:57 | HHI.HCPN ---
Reason for visit a. To assist with evaluation and management of symptoms including: weakness , chronic pain b. To assist medical decision maker(s) with: better understanding of current medical conditions; weighing benefits/burdens of medical treatment options; making medical treatment decisions. Subjective/Interval History Pt seen today to follow up on comfort, goals. Patient has been weaned off pressors, awaiting transfer out of ICU to medical unit. Ongoing HD, transfused 2 U RBC during hemodialysis yesterday. CM working on discharge placement w , possible accepting facilities. Notified by [facility] nursing requesting follow up regarding goals w pt, psychiatry evaluated today to render opinion regarding capacity. Patient seen in room no visitors present. He is initially sleeping though arouses to stimuli. He does not remember my name but recognizes me. He is mostly oriented but confused about certain aspects. He tells me that he was discharged 2 days ago and he is going to get in trouble for being here, and that his doesn't know his here. However interestingly when I ask him where he's at he knows he is at [facility] in [facility] and he knows that he has been here for a while, he knows he is been getting hemodialysis, and he knows that he was supposed to be getting discharged to rehabilitation. He knows he has been in and out of the hospital since April. However he again tells me that he was supposedly discharged 2 days ago and he should be in rehabilitation now. When I further review hospital course he concurs and he tells me that that is all correct except that he has been discharged. He tells me he has been walking, that he "walked in here today "and his walking has been doing fine. He asked that I updated his because she does not know that he is here. Asked him who he would trust to make his decisions if he were incapacitated he tells me his . This is consistent with prior conversations that I have had with this patient. He denies pain. He denies dyspnea. Explore with him resuscitation status he tells me that he would not want CPR though he might want a tube if he needed it for feeding. Her explore with him what resuscitation entails I reviewed cardiac resuscitation which involves chest compressions and possible shock, and intubation which would then require subsequent ventilation with mechanical ventilator. He tells me that he would not want a breathing tube nor would he want anything done to his chest that the only to be would want would be possibly if he needed a tube to help him eat. He again further clarifies that he would not want a machine to breathe for him. Further explore what he would except he acknowledges he would accept oxygen masks and possibly high flow oxygen masks but that he would not want a tube to breathe for him. This is consistent with prior conversations that I have had with this patient. Discussed with med attending Dr Sarah, primary nurse off unit, updated covering nurse. Also discussed with psychiatry Dr. Lopez. . Family/friend interactions Following exam call to patient . She was in yesterday to see patient. She is expecting him to transfer out of the ICU when of her room is available. She feels like overall he is doing little better. She notes that his mental status does fluctuate and he has some days where he appears quite confused her and other days that he is clear. Review with her hospital course and that patient remains debilitated and will likely continue to experience fluctuations in health and complications given his prolonged hospitalizations starting in April. Questions answered regarding blood pressure, overall medical conditions, dialysis, discharge planning. Explore with her that I again reviewed with patient CPR status and that he expressed he did not want chest compressions shock or breathing tubes, she affirms that this is consistent with wishes he has expressed her. She is supportive of this. All questions answered. She is appreciative of ongoing updates and support. . Advance Directives Living Will: Never completed Health Care Surrogate: Copy in medical record Durable Power of Resource Director: Copy in medical record Advance Directive Specifics Date completed: 06/01/17 Health Care Surrogate(s): Healthcare surrogate document [06/01/17] actually names the patient as healthcare surrogate. durable power of securities attorney does not include healthcare decision making. Palliative care assisted patient to complete new healthcare surrogate designation when he was alert and oriented he named his as healthcare surrogate. Objective Vital Signs Date Time Temp Pulse Resp B/P (MAP) Pulse Ox O2 Delivery O2 Flow Rate FiO2 06/19/17 06:00 97 06/19/17 04:00 96 06/19/17 04:00 98.0 96 12 106/56 (73) 06/19/17 02:00 92 06/19/17 00:00 97.7 94 12 95/60 (72) 93 06/19/17 00:00 94 06/18/17 22:00 101 06/18/17 21:11 100 21 06/18/17 20:00 97.5 111 26 110/73 (85) 97 06/18/17 20:00 99 06/18/17 18:00 100 06/18/17 17:45 97 06/18/17 17:00 88 06/18/17 16:00 86 06/18/17 16:00 97.9 86 19 100/60 (73) 97 06/18/17 15:00 118 06/18/17 15:00 118 15 103/67 (79) 06/18/17 14:00 106 06/18/17 14:00 106 23 114/69 (84) 99 06/18/17 13:00 99 26 91 06/18/17 13:00 99 06/18/17 12:00 95 06/18/17 12:00 98.3 95 13 102/62 (75) 100 Intake & Output 06/19/17 06/19/17 07:00 19:00 Output Total 0 ml Balance 0 ml Output Urine Total 0 ml Physical Exam CONSTITUTIONAL/GENERAL: Frail. Slight temporal wasting. In no apparent distress. TUBES/LINES/DRAINS: Central line rt IJ. Peripheral IV upper extremity. SKIN: Pale. Scattered petechia/ecchymosis on upper extremities. Chronic venous insufficiency of lower extremities. NECK: Trachea midline. Supple, nontender. No palpable thyroid enlargement or nodularity. CARDIOVASCULAR: Irregular rate and irregular rhythm, no murmur. No JVD. Peripheral pulses symmetric. RESPIRATORY/CHEST: Mild shortness of breath with conversation-though denies shortness of breath. Lungs are clear. Breath sounds equal bilaterally. GASTROINTESTINAL: Abdomen soft, round, non-tender, nondistended. No hepato- splenomegaly. No guarding. MUSCULOSKELETAL: Atrophy in bilateral lower extremities. Extremities without clubbing, cyanosis, or edema.+ chronic vascular skin changes BLE. No joint effusion, erythema or tenderness to exam bilateral knees NEUROLOGICAL: Awake and alert. Oriented x 2-3. limited insight. Forgetful at times. Follows commands. moves all 4 extremities. PSYCHIATRIC:. No obvious anxiety/depression. . Diagnostic Tests Laboratory Laboratory Tests Test 06/17/17 04:50 06/18/17 03:50 06/19/17 03:45 White Blood Count 5.8 TH/MM3 (4.0-11.0) 7.3 TH/MM3 (4.0-11.0) Red Blood Count 2.28 MIL/MM3 (4.50-5.90) 3.20 MIL/MM3 (4.50-5.90) Hemoglobin 7.6 GM/DL (13.0-17.0) 10.3 GM/DL (13.0-17.0) Hematocrit 23.1 % (39.0-51.0) 30.4 % (39.0-51.0) Mean Corpuscular Volume 101.3 FL (80.0-100.0) 95.2 FL (80.0-100.0) Mean Corpuscular Hemoglobin 33.5 PG (27.0-34.0) 32.2 PG (27.0-34.0) Mean Corpuscular Hemoglobin Concent 33.1 % (32.0-36.0) 33.9 % (32.0-36.0) Red Cell Distribution Width 22.9 % (11.6-17.2) 21.4 % (11.6-17.2) Platelet Count 202 TH/MM3 (150-450) 163 TH/MM3 (150-450) Mean Platelet Volume 7.6 FL (7.0-11.0) 7.6 FL (7.0-11.0) Blood Urea Nitrogen 26 MG/DL (7-18) 36 MG/DL (7-18) 33 MG/DL (7-18) Creatinine 3.65 MG/DL (0.60-1.30) 4.13 MG/DL (0.60-1.30) 3.36 MG/DL (0.60-1.30) Random Glucose 117 MG/DL (74-106) 105 MG/DL (74-106) 119 MG/DL (74-106) Total Protein 5.2 GM/DL (6.4-8.2) 5.0 GM/DL (6.4-8.2) Calcium Level 7.2 MG/DL (8.5-10.1) 6.5 MG/DL (8.5-10.1) 7.5 MG/DL (8.5-10.1) Phosphorus Level 3.0 MG/DL (2.5-4.9) 3.4 MG/DL (2.5-4.9) Magnesium Level 2.1 MG/DL (1.5-2.5) 2.1 MG/DL (1.5-2.5) Sodium Level 139 MEQ/L (136-145) 139 MEQ/L (136-145) 140 MEQ/L (136-145) Potassium Level 4.1 MEQ/L (3.5-5.1) 4.4 MEQ/L (3.5-5.1) 4.2 MEQ/L (3.5-5.1) Chloride Level 99 MEQ/L (98-107) 100 MEQ/L (98-107) 100 MEQ/L (98-107) Carbon Dioxide Level 31.9 MEQ/L (21.0-32.0) 30.1 MEQ/L (21.0-32.0) 31.0 MEQ/L (21.0-32.0) Anion Gap 8 MEQ/L (5-15) 9 MEQ/L (5-15) 9 MEQ/L (5-15) Estimat Glomerular Filtration Rate 17 ML/MIN (>89) 15 ML/MIN (>89) 18 ML/MIN (>89) Protein Corrected Calcium 8.2 MG/DL (8.5-10.1) 7.5 MG/DL (8.5-10.1) Result Diagram: 06/19/17 0345 06/19/17 0345 Imaging Last Impressions Chest X-Ray 06/07/17 0000 Signed Impressions: Service Date/Time: Wednesday, June 07, 2017 03:15 - CONCLUSION: Patchy consolidation or atelectasis of the left lower lung. Tom Berry MD Procedures 06/06/17 EGD Assessment and Plan Disease Oriented Problem List: (1) Atrial fibrillation (2) Sacral decubitus ulcer (3) Heel ulceration (4) Hypotension (5) GI bleed (6) Anemia (7) ESRD (end stage renal disease) on dialysis Symptom Scale: (1) Weakness 0-10 Scale: Unable to quantify Pertinent Non-Medical Issues Psychosocial: to his x 6 yrs. Has 1 adult son from prior marriage, who is incarcerated in [place]. He communicates with him every Friday (son calls him). Originally from [place] worked in [employer] there. His mother is still living there, and a sister. Moved to [place] in his 50s for senior care. 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 Per [place] statutes his would be appropriate legal proxy if patient incapacitated. 06/06/17 assisted pt to complete new HCS, names his as HCS. Ethical issues impacting care: Important Contacts spouse Aparna Guadalupe [phone] . Prognosis This patient was admitted for hypotension, significant anemia, GI bleed. He has known history of dialysis dependent end-stage renal disease. Ongoing diagnostics, GI evaluation. With ongoing aggressive treatments and interventions may be able to recover from current acute conditions. . Code Status: No Code Plan * Legal decision maker:Patient has a healthcare surrogate document in his chart however this document actually names the patient as designated healthcare surrogate. Per [place] statutes his would be appropriate legal proxy if patient incapacitated. Pt at time of my exam is oriented, appropriate and appears to have fair insight to his conditions/options. Appears able to make his own decisions . 06/06/17 assisted pt to complete new HCS, names his as HCS. * Goals: 06/19/17 Pt goals remain aggressive short of resuscitation. I pt mostly oriented during my interaction with him today however at times forgetful or confuses details. I have reviewed with him the components of CPR and he again affirms DNR/DNI status with me today. I have updated his on the phone, whom he indicates would be his medical decision maker should he be incapacitated. She agrees with the DNR status as consistent with patient previously expressed wishes. * CODE STATUS: DNR * SYMPTOMS: --weakness/debility- ongoing since May 05. Limited to no ambulation since that time. Rec cont OT/PT to maintain/improve functional status --pain- today pt reports Rt knee pain, exam benign. pt reports he has chronic neuropathic sounding pain to BLE alyse at night, and chronic pain to bilateral chronic foot wounds. He has been on norco 5mg at home. Pt hypotensive during hospital course, requiring pressor, cautious use of opiates. Consider resuming home norco or tramadol PRN if patient begins having pain. * Palliative care will continue to follow during hospital course as condition evolves, to assist patient/decision-maker with understanding of medical conditions, weighing benefits/burdens of treatment options, for clarification of goals of treatment. Additionally will assist with any symptoms of palliative concern Attestation To help prompt me to consider important information that might be impacting today's encounter and assessment, information from prior notes written by myself or my colleagues may have been "brought forward" into today's note. My signature on this note, however, is an attestation that I personally performed the exam, history, and/or decision-making noted today, and, unless otherwise indicated, the interactions with patient, family, and staff as well as the review of records all occurred today. I also attest that the listed assessment and stated plan reflect my best clinical judgment today based on the combination of historical information, prior notes, and today's exam/ interactions. When time spent is documented, it refers only to time spent today by the signer, or if indicated, combined time spent today by collaborating physician/nurse practitioner. Ranjana Linda Jun 19, 2017 12:52
[2017-06-20] VITALS (9 sets, daily range): BP systolic 88–97; BP diastolic 52–61; PULSE 85–146; RESP 14–18; TEMP 97.2–97.9; O2SAT 93–97
[2017-06-20] MEDS: CHLORHEXIDINE GLUCONATE 2 % 1 PACK (2 CLOTHS) TOP SCH (03:49)
[2017-06-20] MEDS: MIDODRINE 5 MG TAB PO SCH ×3 (06:32→18:47)
[2017-06-20 07:51] LABS: AUTOMATED NEUTROPHIL # 6.8 TH/MM3 (1.8-7.7); BASOPHIL # 0.1 TH/MM3 (0-0.2); BASOPHIL % 0.6 % (0.0-2.0); EOSINOPHIL # 0.1 TH/MM3 (0-0.4); EOSINOPHIL % 1.3 % (0.0-4.0); HEMATOCRIT 29.4 % (39.0-51.0); LYMPH % 5.1 % (9.0-44.0); LYMPHOCYTE # 0.4 TH/MM3 (1.0-4.8); MEAN CELL VOLUME 97.7 FL (80.0-100.0); MEAN CORPUSCULAR HEMOGLOBIN 33.3 PG (27.0-34.0); MEAN CORPUSCULAR HGB CONC 34.1 % (32.0-36.0); MEAN PLATELET VOLUME 7.5 FL (7.0-11.0); MONO % 6.7 % (0.0-8.0); MONOCYTE # 0.5 TH/MM3 (0-0.9); NEUT % 86.3 % (16.0-70.0); PLATELET COUNT 160 TH/MM3 (150-450); RED BLOOD COUNT 3.01 MIL/MM3 (4.50-5.90); WHITE BLOOD COUNT 7.8 TH/MM3 (4.0-11.0)
[2017-06-20] MEDS: INSULIN NovoLIN REGULAR SUPPLEMENTAL SCALE SQ SCH ×4 (08:00→22:43)
[2017-06-20 08:07] LABS: BICARBONATE 26.4 MEQ/L (21.0-32.0); CALCIUM 6.9 MG/DL (8.5-10.1); CREATININE 3.99 MG/DL (0.60-1.30)
[2017-06-20 08:33] LABS: CALCIUM-PROTEIN CORRECTED 7.9 MG/DL (8.5-10.1); TOTAL PROTEIN 5.1 GM/DL (6.4-8.2)
[2017-06-20] MEDS: FLUCONAZOLE 200 MG TAB PO SCH (08:34)
[2017-06-20] MEDS: CALCIUM CARBONATE 500 MG CHEWABLE TAB CHEW SCH ×2 (08:34→22:41)
[2017-06-20] MEDS: CALCITRIOL 0.25 MCG CAP PO SCH (08:34)
[2017-06-20] MEDS: HEPARIN SODIUM - SQ 10,000 UNITS/ML VIAL SQ SCH ×2 (08:34→21:00)
[2017-06-20] MEDS: DOCUSATE SODIUM 50 MG/SENNA 8.6 MG TAB PO SCH ×2 (08:34→21:00)
[2017-06-20] MEDS: SODIUM CHLORIDE 0.9% FLUSH 10 ML FLUSH IV FLUSH SCH ×2 (08:35→22:42)
[2017-06-20] MEDS: PANTOPRAZOLE SOD 40 MG DELAYED RELEASE TAB PO SCH (08:36)
--- NOTE | 2017-06-20 09:48 | HHI.NPPN ---
Subjective General Problems: Anemia Renal Failure: End Stage Renal Disease History of Present Illness Patient is a very pleasant 66 year old male who came into the emergency room on 06/06/17 hypotensive, lethargic, and with a hemoglobin of 6.7. He was transfused 2 units of PRBC's with a recheck pending. He was initially put on Levophed for blood pressure support however it is currently not running. Has a past medical history of End -stage renal disease with peritoneal dialysis, AFIB , diabetes, arthritis, chronic pain, and hx of strokes. Onset of acute epigastric pain and discomfort noted for 5 days ago, but worsened over the past 24 hours. Reported loose stools for 3 weeks. In the emergency room patient did report melena, nausea, mild vomiting undigested food yesterday, but denied any coffee ground emesis. Patient has AV fistula and will have dialysis while here. Per patient PD catheter needs to be removed secondary to infection. Additional Remarks Patient is alert, now eating breakfast, not in distress. Review of Systems General Constitutional: Fatigue General Remarks weakness Ears, Nose, & Throat ENT Remarks Dry mouth Respiratory Respiratory Remarks Denies SOB Cardiovascular Cardiac Remarks Denies CP Gastrointestinal GI Remarks Denies abdominal pain Objective Data Data Vital Signs Date Time Temp Pulse Resp B/P (MAP) Pulse Ox O2 Delivery O2 Flow Rate FiO2 06/20/17 08:00 97.2 103 14 89/55 (66) 93 06/20/17 04:35 97.4 100 18 97/61 (73) 96 06/20/17 04:35 Room Air 06/20/17 04:00 94 06/20/17 00:00 97.6 85 18 90/52 (65) 96 06/20/17 00:00 Room Air 06/19/17 23:50 95 06/19/17 22:12 87 06/19/17 21:15 Room Air 06/19/17 21:15 97.8 82 22 97/56 (70) 94 06/19/17 21:09 100 21 06/19/17 20:00 100 06/19/17 20:00 97.9 100 18 124/61 (82) 95 06/19/17 18:00 120 06/19/17 17:00 131 06/19/17 17:00 131 17 121/59 (79) 93 06/19/17 16:00 124 19 111/85 (94) 06/19/17 16:00 124 06/19/17 15:00 121 19 108/64 (79) 96 06/19/17 15:00 121 06/19/17 14:00 129 06/19/17 14:00 129 20 107/66 (80) 98 06/19/17 13:01 140 22 116/75 (89) 80 06/19/17 13:01 140 06/19/17 12:45 107 15 97 06/19/17 12:30 115 16 99 06/19/17 12:15 120 21 06/19/17 12:00 110 06/19/17 12:00 110 14 103/57 (72) 06/19/17 12:00 97.6 110 14 103/57 (72) 06/19/17 11:45 108 17 06/19/17 11:30 126 18 06/19/17 11:15 111 22 06/19/17 11:00 101 06/19/17 11:00 101 18 104/63 (77) 78 06/19/17 11:00 101 18 104/63 (77) 78 06/19/17 10:45 110 14 99 06/19/17 10:30 99 11 06/19/17 10:15 104 16 92 06/19/17 10:00 99 06/19/17 10:00 99 12 92/60 (71) 91 06/19/17 10:00 99 12 92/60 (71) 91 -: 06/20/17 0631 06/20/17 0631 Physical Exam General Appearance: Malnourished Neck Neck Exam: Neck Supple Pulmonary Resp Exam: Clear Bilaterally, No Distress Cardiology CV Exam: Regular Gastrointestinal/Abdomen GI Exam: Soft, Non-Tender Genitourinary Exam: Flank Non-Tender Extremeties Extremities Exam: No Edema Assessment/Plan Problem List: (1) ESRD (end stage renal disease) on dialysis ICD Codes: N18.6 - End stage renal disease; Z99.2 - Dependence on renal dialysis Plan: Dialysis MWF Calcuim 7.5 today on oral replacement. HGB 10.0 today after 2 units of PRBC's on 06/18. Continue on midodrine 10 mg TID HD today, remove less fluid as BP is low. Placement to Rehab. (2) Peritonitis associated with peritoneal dialysis ICD Codes: T85.71XA - Infection and inflammatory reaction due to peritoneal dialysis catheter, initial encounter Plan: Peritoneal fluid culture positive for Carmen. On fluconazole with stop date of the PD catheter removed ID and surgery following. (3) Hypotension ICD Codes: I95.9 - Hypotension, unspecified Status: Acute Plan: Sepsis present on admission. Continue supportive care. (4) GI bleed ICD Codes: K92.2 - Gastrointestinal hemorrhage, unspecified Status: Acute Plan: s/p EGD: duodenal ulcer, gastritis, esophagitis. Received 2 units PRBC on admission. (5) Anemia ICD Codes: D64.9 - Anemia, unspecified Plan: HGB 10.5 Epogen 10,000 units with each dialysis Transfused 2 units of PRBC yesterday Problem Qualifiers (1) Hypotension: Qualified Codes: I95.9 - Hypotension, unspecified (2) GI bleed: Qualified Codes: K92.2 - Gastrointestinal hemorrhage, unspecified (3) Anemia: Darryl Fair MD Jun 20, 2017 09:48
--- NOTE | 2017-06-20 10:53 | HHI.GIFU ---
Subjective Remarks Pt resting in bed eating breakfast. Denies any GI complaints. Denies any continued melanotic stool, nausea, vomiting. (Ban Morfin) Objective Vitals I&O Vital Signs Date Time Temp Pulse Resp B/P (MAP) Pulse Ox O2 Delivery O2 Flow Rate FiO2 06/20/17 08:00 97.2 103 14 89/55 (66) 93 06/20/17 04:35 97.4 100 18 97/61 (73) 96 06/20/17 04:35 Room Air 06/20/17 04:00 94 06/20/17 00:00 97.6 85 18 90/52 (65) 96 06/20/17 00:00 Room Air 06/19/17 23:50 95 06/19/17 22:12 87 06/19/17 21:15 Room Air 06/19/17 21:15 97.8 82 22 97/56 (70) 94 06/19/17 21:09 100 21 06/19/17 20:00 100 06/19/17 20:00 97.9 100 18 124/61 (82) 95 06/19/17 18:00 120 06/19/17 17:00 131 06/19/17 17:00 131 17 121/59 (79) 93 06/19/17 16:00 124 19 111/85 (94) 06/19/17 16:00 124 06/19/17 15:00 121 19 108/64 (79) 96 06/19/17 15:00 121 06/19/17 14:00 129 06/19/17 14:00 129 20 107/66 (80) 98 06/19/17 13:01 140 22 116/75 (89) 80 06/19/17 13:01 140 06/19/17 12:45 107 15 97 06/19/17 12:30 115 16 99 06/19/17 12:15 120 21 06/19/17 12:00 110 06/19/17 12:00 110 14 103/57 (72) 06/19/17 12:00 97.6 110 14 103/57 (72) 06/19/17 11:45 108 17 06/19/17 11:30 126 18 06/19/17 11:15 111 22 06/19/17 11:00 101 06/19/17 11:00 101 18 104/63 (77) 78 06/19/17 11:00 101 18 104/63 (77) 78 06/19/17 10:45 110 14 99 I/O 06/19/17 06/19/17 06/19/17 06/20/17 06/20/17 06/20/17 07:00 15:00 23:00 07:00 15:00 23:00 Intake Total 240 ml 360 ml Output Total 0 ml Balance 0 ml 240 ml 360 ml Intake Oral 240 ml 360 ml Output Urine Total 0 ml # Voids 0 # Bowel Movements 2 1 Laboratory Laboratory Tests Test 06/20/17 06:31 White Blood Count 7.8 Red Blood Count 3.01 Hemoglobin 10.0 Hematocrit 29.4 Mean Corpuscular Volume 97.7 Mean Corpuscular Hemoglobin 33.3 Mean Corpuscular Hemoglobin Concent 34.1 Red Cell Distribution Width 22.0 Platelet Count 160 Mean Platelet Volume 7.5 Neutrophils (%) (Auto) 86.3 Lymphocytes (%) (Auto) 5.1 Monocytes (%) (Auto) 6.7 Eosinophils (%) (Auto) 1.3 Basophils (%) (Auto) 0.6 Neutrophils # (Auto) 6.8 Lymphocytes # (Auto) 0.4 Monocytes # (Auto) 0.5 Eosinophils # (Auto) 0.1 Basophils # (Auto) 0.1 CBC Comment DIFF FINAL Differential Comment Blood Urea Nitrogen 48 Creatinine 3.99 Random Glucose 43 Total Protein 5.1 Calcium Level 6.9 Sodium Level 140 Potassium Level 5.0 Chloride Level 102 Carbon Dioxide Level 26.4 Anion Gap 12 Estimat Glomerular Filtration Rate 15 Protein Corrected Calcium 7.9 Date/Time Source Procedure Growth Status 06/06/17 07:19 Blood Peripheral Aerobic Blood Culture - Final NO GROWTH IN 5 DAYS Complete 06/06/17 07:19 Blood Peripheral Anaerobic Blood Culture - Final NO GROWTH IN 5 DAYS Complete 06/06/17 15:20 Fluid Peritoneal Fluid Fungal Smear - Final NO FUNGAL ELEMENTS SEEN. Resulted 06/06/17 15:20 Fungal Culture - Preliminary Carmen Albicans Resulted Physical Exam HEENT:Normocephalic; atraumatic CHEST: Even/unlabored , CARDIAC: RRR ABDOMEN: Irregularly irregular EXTREMITIES: No clubbing, cyanosis, or edema. APPLICATIONS SYSTEM ANALYST: Alert and oriented x 3 (Ban Morfin) Assessment and Plan Assessment: (1) Anemia ICD Codes: D64.9 - Anemia, unspecified (2) GI bleed ICD Codes: K92.2 - Gastrointestinal hemorrhage, unspecified Status: Acute (3) History of renal failure ICD Codes: Z87.448 - Personal history of other diseases of urinary system Status: Acute Plan Assessment: - History of GIB- previously following this patient to evaluate for anemia and melena. S/P EGD --> Severe grade D esophagitis, severe gastritis, anemia could be related to chronic disease plus blood loss from the upper GI tract. Pathology --> Gastric mucosa without significant histopathologic abnormality. (small intestine) Fibrinopurulent exudate and inflamed granulation tissue, consistent with ulcer base. We recommended pt to continue Protonix, better control of diabetes, and avoid NSAIDs. GI signed off and recommended pt follow up on outpatient basis for colonoscopy. Dr. Mireles has asked us to evaluate pt and determine if anticoagulation can be restarted. Pt denies any continue melena, nausea, vomiting. H/H currently 03/09.4, last transfused 2 U PRBCs on Jun 18 with dialysis. No obvious continuation of GIB, anemia likely secondary to renal insufficiency. OK to restart anticoagulation for a GI standpoint. Plan: OK to restart anticoagulation from GI standpoint Continue Protonix Avoid NSAIDs Have pt follow up with GI after discharge Colonoscopy outpatient GI will sign off, please reconsult as needed Pt has been seen and examined by myself and Dr. Ridley and this note is written on her behalf (Ban Morfin) Physician Comments seen, examined agree with above (Angie Ridley MD) Problem Qualifiers (1) Anemia: (2) GI bleed: Qualified Codes: K92.2 - Gastrointestinal hemorrhage, unspecified Ban Morfin Jun 20, 2017 10:53 Angie Ridley MD Jun 20, 2017 19:54
[2017-06-20] MEDS ORDERED: TRAD5TAB PO (13:43)
[2017-06-20] MEDS ORDERED: ISOS30TA17 PO (13:45)
[2017-06-20] MEDS ORDERED: FURO40TA PO (13:46)
[2017-06-20] MEDS ORDERED: PLAV75TA29 PO (13:48)
[2017-06-20] MEDS ORDERED: CLOP300 PO (13:52)
[2017-06-20] MEDS ORDERED: TRAM50TA PO (13:54)
[2017-06-20] MEDS ORDERED: METO25TA3 PO (13:57)
[2017-06-20] MEDS ORDERED: ALBUMIN 25% INJ 50 ML IV SCH (14:00)
--- NOTE | 2017-06-20 15:09 | HHI.PR ---
Subjective Remarks Follow-up GI bleed. No further GI bleeding per discussed discussed with GI DISTRIBUTION FIELD TECHNICIAN okay to restart anticoagulation/antiplatelets. Patient has borderline low BP denies dizziness. Discussed with nephrology will start IV albumin patient already on ProAmatine Objective Vitals Vital Signs Date Time Temp Pulse Resp B/P (MAP) Pulse Ox O2 Delivery O2 Flow Rate FiO2 06/20/17 12:00 Room Air 06/20/17 11:42 97.6 105 14 88/53 (65) 94 06/20/17 11:33 120 06/20/17 08:00 97.2 103 14 89/55 (66) 93 06/20/17 08:00 Room Air 06/20/17 07:36 103 06/20/17 04:35 97.4 100 18 97/61 (73) 96 06/20/17 04:35 Room Air 06/20/17 04:00 94 06/20/17 00:00 97.6 85 18 90/52 (65) 96 06/20/17 00:00 Room Air 06/19/17 23:50 95 06/19/17 22:12 87 06/19/17 21:15 Room Air 06/19/17 21:15 97.8 82 22 97/56 (70) 94 06/19/17 21:09 100 21 06/19/17 20:00 100 06/19/17 20:00 97.9 100 18 124/61 (82) 95 06/19/17 18:00 120 06/19/17 17:00 131 06/19/17 17:00 131 17 121/59 (79) 93 06/19/17 16:00 124 19 111/85 (94) 06/19/17 16:00 124 I/O 06/19/17 06/19/17 06/19/17 06/20/17 06/20/17 06/20/17 07:00 15:00 23:00 07:00 15:00 23:00 Intake Total 240 ml 360 ml Output Total 0 ml Balance 0 ml 240 ml 360 ml Intake Oral 240 ml 360 ml Output Urine Total 0 ml # Voids 0 # Bowel Movements 2 1 Result Diagram: 06/20/17 0631 06/20/17 0631 Imaging Last Impressions Chest X-Ray 06/07/17 0000 Signed Impressions: Service Date/Time: Wednesday, June 07, 2017 03:15 - CONCLUSION: Patchy consolidation or atelectasis of the left lower lung. Tom Berry MD Objective Remarks GENERAL: 66 year male sitting up in bed, appears comfortable EYES: EOMI ENT: No nasal bleeding or discharge. Mucous membranes pink and dry.. NECK: Trachea midline. Supple. CARDIOVASCULAR: Heart rate in the 90's Irregularly irregular consistent with A. fib. RESPIRATORY: Clear to auscultation. Breath sounds equal bilaterally. Decreased respiratory effort. GASTROINTESTINAL: Abdomen soft, nondistended. incision healing well, no signs of infection/no drainage. MUSCULOSKELETAL: Patient has a well-healed rt heel ulcer. Venous stasis changes noted to his bilateral lower extremities. NEUROLOGICAL: Awake and weak. No obvious cranial nerve deficits. Moves bilateral upper extremities. BACK: Stage I/early decubitus in his sacral area Procedures EGD and removal of PD catheter Date of Insertion: Jun 05, 2017 Line: Central Venous Catheter Side: Right Location: Internal, Jugular A/P Problem List: (1) GI bleed ICD Code: K92.2 - Gastrointestinal hemorrhage, unspecified Status: Acute Assessment and Plan Upper GI bleed secondary to duodenal ulcer. Stable continue PPI and avoid NSAIDs. Status post EGD which showed 2 large duodenal ulcers and grade D esophagitis and gastritis. History of essential hypertension. Patient has been having low BP on ProAmatine. Cortisol of 20. Low albumin will start IV albumin End-stage renal disease on hemodialysis. Monitor renal function, I/O's, avoid nephrotoxins. History of CVA . Stable restart Plavix okay with GI Atrial fibrillation rate controlled. Intermittent RVR. Patient is asymptomatic. Unable to start rate limiting agents secondary to borderline BP. Not a candidate for digoxin therapy secondary to end-stage renal disease. Plavix as mentioned Macrocytic anemia. Required transfusion of 2 units. Currently stable Diabetes mellitus. Stable continue fingersticks monitoring of home meds Elevated TSH - repeat in 3-6 weeks. Free T4 normal. Free T3 low. Would not initiate any levothyroxine at this time in this acute clinical setting Infected peritoneal dialysis catheter/peritonitis fungal. Status post removal of PD catheter. Continue Diflucan until June 24 Right heel and Sacral decubitus ulcer. Wound care Depression. Stable continue to hold Paxil Chronic Pain syndrome. Stable Prophylaxis: Pantoprazole/heparin subcutaneous, monitor H&H closely. If continues to drop, need to hold heparin. Discharge Planning Needs rehab but unable to afford co-pay Problem Qualifiers (1) GI bleed: Qualified Codes: K92.2 - Gastrointestinal hemorrhage, unspecified Srinath Mireles MD Jun 20, 2017 15:09
[2017-06-20 15:42] LABS: HEMOGLOBIN A1C 5.2 % (4.3-6.0)
[2017-06-20] MEDS ORDERED: CLOPIDOGREL 75 MG TAB PO SCH (18:00)
[2017-06-20] MEDS: ALBUMIN 25% INJ 50 ML IV SCH (18:46)
[2017-06-21] VITALS (12 sets, daily range): BP systolic 90–133; BP diastolic 54–68; PULSE 62–118; RESP 17–20; TEMP 97.3–98.3; O2SAT 91–98
[2017-06-21 00:06] LABS: HEMATOCRIT 25.3 % (39.0-51.0); HEMOGLOBIN 8.4 GM/DL (13.0-17.0)
[2017-06-21] MEDS ORDERED: SODIUM CHLOR 0.9% 250 ML INJ 250 ML IV ONE (01:15)
[2017-06-21] MEDS ORDERED: FUROSEMIDE 20 MG/2 ML VIAL IV PUSH ONE ×3 (01:30→20:15)
[2017-06-21] MEDS: ALBUMIN 25% INJ 50 ML IV SCH ×2 (03:00→15:56)
[2017-06-21] MEDS: DOCUSATE SODIUM 50 MG/SENNA 8.6 MG TAB PO SCH ×2 (09:00→21:00)
[2017-06-21] MEDS: SODIUM CHLORIDE 0.9% FLUSH 10 ML FLUSH IV FLUSH SCH ×2 (09:00→21:33)
[2017-06-21] MEDS: CALCITRIOL 0.25 MCG CAP PO SCH (09:08)
[2017-06-21] MEDS: MIDODRINE 5 MG TAB PO SCH ×3 (09:08→21:32)
[2017-06-21] MEDS: CALCIUM CARBONATE 500 MG CHEWABLE TAB CHEW SCH ×2 (09:08→21:32)
[2017-06-21] MEDS: FLUCONAZOLE 200 MG TAB PO SCH (09:09)
[2017-06-21] MEDS: PANTOPRAZOLE SOD 40 MG DELAYED RELEASE TAB PO SCH (09:09)
[2017-06-21] MEDS: INSULIN NovoLIN REGULAR SUPPLEMENTAL SCALE SQ SCH ×4 (09:10→21:00)
--- NOTE | 2017-06-21 09:58 | PD.CONS ---
HPI History of Present Illness This is a 66 year old M who has been previously evaluated by our service for melena. S/P EGD on Jun 06 which revealed severe grade D esophagitis, gastritis , and 2 large duodenal ulcers almost taking over the duodenal bulb and first potion. Pathology --> Gastric mucosa without significant histopathologic abnormality. (small intestine) Fibrinopurulent exudate and inflamed granulation tissue, consistent with ulcer base. We recommended pt to continue Protonix, better control of diabetes, and avoid NSAIDs. We were asked to reevaluate the pt yesterday and determine if anticoagulation could be restarted. Pt was restarted on Plavix, received on dose last night. We have been reconsulted because pt is having continued rectal bleeding. Spoke with RN Mica, who reports pt is now having maroon colored stool, she is unsure how many episodes over the night. H/H dropped from 10/29.4 yesterday morning to 8.4 /25.3 last night. He has now received 2 U PRBCs. (Ban Morfin) PFSH Past Medical History End-stage renal disease with peritoneal dialysis Atrial fibrillation Hypertension Diabetes Renal failure with left AV fistula Arthritis Chronic pain CVAs : 2006, 1995 recent infection to peritoneal dialysis catheter per pt . Past Surgical History Appendectomy Cataracts removed with lens implants Right peritoneal double-lumen catheter placement 2016 Left hip replacement . (Ban Morfin) Coded Allergies: morphine (Unverified Allergy, Severe, anaphylactic, 06/05/17) Family History Mother had arthritis, father of old age at age 84, sister living in good health Social History Patient does have No current tobacco or alcohol (Bna Morfin) Review of Systems Gastrointestinal: COMPLAINS OF: Bloody stools, Diarrhea, DENIES: Abdominal pain , Black stools, Constipation, Nausea, Vomiting, Swelling of Abdomen (Ban Morfin) GI Exam Vitals I&O Vital Signs Date Time Temp Pulse Resp B/P (MAP) Pulse Ox O2 Delivery O2 Flow Rate FiO2 06/21/17 08:00 97.9 112 18 99/62 (74) 91 06/21/17 06:57 97.8 104 20 95/61 93 06/21/17 06:20 98.0 110 20 98/55 95 06/21/17 05:41 98.3 110 20 133/54 96 06/21/17 04:34 95 06/21/17 04:00 Room Air 06/21/17 04:00 97.5 62 17 104/67 (79) 98 06/21/17 02:45 98.1 110 20 96/54 95 06/21/17 02:30 98.0 112 20 98/55 95 06/21/17 00:00 106 06/21/17 00:00 97.3 118 17 90/55 (67) 98 06/21/17 00:00 Room Air 06/20/17 20:00 96 Room Air 06/20/17 20:00 97.9 110 17 93/55 (68) 97 06/20/17 20:00 146 06/20/17 17:33 94 21 06/20/17 16:00 Room Air 06/20/17 12:00 Room Air 06/20/17 11:42 97.6 105 14 88/53 (65) 94 06/20/17 11:33 120 I/O 06/20/17 06/20/17 06/20/17 06/21/17 06/21/17 06/21/17 07:00 15:00 23:00 07:00 15:00 23:00 Intake Total 360 ml 510 ml Output Total 1000 ml Balance 360 ml -1000 ml 510 ml Intake Oral 360 ml 0 ml IV Total 50 ml Packed Cells 400 ml Blood Product IV Normal Saline Flush 60 ml Hemodialysis 1000 ml # Voids 0 2 # Bowel Movements 1 2 Imaging Last Impressions Chest X-Ray 06/07/17 0000 Signed Impressions: Service Date/Time: Wednesday, June 07, 2017 03:15 - CONCLUSION: Patchy consolidation or atelectasis of the left lower lung. Tom Berry MD Laboratory Test 06/20/17 23:40 Hemoglobin 8.4 GM/DL Hematocrit 25.3 % Date/Time Source Procedure Growth Status 06/06/17 07:19 Blood Peripheral Aerobic Blood Culture - Final NO GROWTH IN 5 DAYS Complete 06/06/17 07:19 Blood Peripheral Anaerobic Blood Culture - Final NO GROWTH IN 5 DAYS Complete 06/06/17 15:20 Fluid Peritoneal Fluid Fungal Smear - Final NO FUNGAL ELEMENTS SEEN. Resulted 06/06/17 15:20 Fungal Culture - Preliminary Carmen Albicans Resulted 06/20/17 22:00 Stool Stool Stool Occult Blood (JUSTIN) - Final HEMOCCULT POSITIVE Complete Physical Examination HEENT:Normocephalic; atraumatic CHEST: Even/unlabored CARDIAC: Irregularly irregular ABDOMEN: Soft, nondistended, nontender; bowel sounds active EXTREMITIES: BLE SKIN: Normal; no rash; no jaundice. SUPERVISOR IN CHARGE: Awake (Ban Morfin) Assessment and Plan Assessment: (1) Anemia ICD Codes: D64.9 - Anemia, unspecified (2) GI bleed ICD Codes: K92.2 - Gastrointestinal hemorrhage, unspecified Status: Acute (3) History of renal failure ICD Codes: Z87.448 - Personal history of other diseases of urinary system Status: Acute Plan Assessment: - History of GIB- previously following this patient to evaluate for anemia and melena. S/P EGD --> Severe grade D esophagitis, severe gastritis, and 2 large duodenal ulcers almost taking over the duodenal bulb and first potion. Pathology --> Gastric mucosa without significant histopathologic abnormality. (small intestine) Fibrinopurulent exudate and inflamed granulation tissue, consistent with ulcer base. We recommended pt to continue Protonix, better control of diabetes, and avoid NSAIDs. GI signed off and recommended pt follow up on outpatient basis for colonoscopy. Dr. Mireles has asked us to evaluate pt and determine if anticoagulation can be restarted. Pt denies any continue melena, nausea, vomiting. H/H currently 10/29.4, last transfused 2 U PRBCs on Jun 18 with dialysis. No obvious continuation of GIB, anemia likely secondary to renal insufficiency. OK to restart anticoagulation for a GI standpoint. (06/21) Pt received one dose of Plavix last night. Began with rectal bleeding over night. Spoke with RN, Mica who states it is maroon in color. She is unsure how many episodes of bleeding he has had over night. H/H dropped from 10/29.4 yesterday morning to 8.4/25.3 late last night. Has now received 2 U PRBCs. Plan: EGD today Obtain consent Keep NPO Protonix gtt Monitor H/H Further recommendations to follow based on results of above Pt has been seen and examined by myself and Dr. Booth and this note is written on his behalf (Ban Morfin) Plan Patient was seen and examined, agree with above-noted, he will need: EGD, we'll plan on doing that on Friday (Avani Booth MD) Problem Qualifiers (1) Anemia: (2) GI bleed: Qualified Codes: K92.2 - Gastrointestinal hemorrhage, unspecified Ban Morfin Jun 21, 2017 09:58 Avani Booth MD Jun 21, 2017 16:35
--- NOTE | 2017-06-21 11:23 | HHI.NPPN ---
Subjective General Problems: Anemia Renal Failure: End Stage Renal Disease History of Present Illness Patient is a very pleasant 66 year old male who came into the emergency room on 06/06/17 hypotensive, lethargic, and with a hemoglobin of 6.7. He was transfused 2 units of PRBC's with a recheck pending. He was initially put on Levophed for blood pressure support however it is currently not running. Has a past medical history of End -stage renal disease with peritoneal dialysis, AFIB , diabetes, arthritis, chronic pain, and hx of strokes. Onset of acute epigastric pain and discomfort noted for 5 days ago, but worsened over the past 24 hours. Reported loose stools for 3 weeks. In the emergency room patient did report melena, nausea, mild vomiting undigested food yesterday, but denied any coffee ground emesis. Patient has AV fistula and will have dialysis while here. Per patient PD catheter needs to be removed secondary to infection. Additional Remarks Patient is lethargic. Has active GI bleed with drop in HGB plans for EGD today. Has been transfused 2 units of PRBC (Samreen Ward) Review of Systems General Constitutional: Fatigue General Remarks weakness (Samreen Ward) Respiratory Respiratory Remarks Denies SOB (Samreen Ward) Cardiovascular Cardiac Remarks Denies CP (Samreen Ward) Gastrointestinal Gastrointestinal: Blood/Tarry Stools (Samreen Ward) Objective Data Data Vital Signs Date Time Temp Pulse Resp B/P (MAP) Pulse Ox O2 Delivery O2 Flow Rate FiO2 06/21/17 08:00 97.9 112 18 99/62 (74) 91 06/21/17 06:57 97.8 104 20 95/61 93 06/21/17 06:20 98.0 110 20 98/55 95 06/21/17 05:41 98.3 110 20 133/54 96 06/21/17 04:34 95 06/21/17 04:00 Room Air 06/21/17 04:00 97.5 62 17 104/67 (79) 98 06/21/17 02:45 98.1 110 20 96/54 95 06/21/17 02:30 98.0 112 20 98/55 95 06/21/17 00:00 106 2/10/18 00:00 97.3 118 17 90/55 (67) 98 06/21/17 00:00 Room Air 06/20/17 20:00 96 Room Air 06/20/17 20:00 97.9 110 17 93/55 (68) 97 06/20/17 20:00 146 06/20/17 17:33 94 21 06/20/17 16:00 Room Air 06/20/17 12:00 Room Air 06/20/17 11:42 97.6 105 14 88/53 (65) 94 06/20/17 11:33 120 (Samreen Ward) -: 06/20/17 2340 06/20/17 0631 Microbiology 06/20/17 Stool Occult Blood (JUSTIN) - Final, Complete HEMOCCULT POSITIVE Imaging Last Impressions Chest X-Ray 06/07/17 0000 Signed Impressions: Service Date/Time: Wednesday, June 07, 2017 03:15 - CONCLUSION: Patchy consolidation or atelectasis of the left lower lung. Tom Berry MD (Samreen Ward) Physical Exam General Appearance: Malnourished (Samreen Ward) Neck Neck Exam: Neck Supple (Samreen Ward) Pulmonary Resp Exam: Clear Bilaterally, No Distress (Samreen Ward) Cardiology CV Exam: Regular (Samreen Ward) Gastrointestinal/Abdomen GI Exam: Soft, Non-Tender (Samreen Ward) Genitourinary Exam: Flank Non-Tender (Samreen Ward) Extremeties Extremities Exam: No Edema (Samreen Ward) Assessment/Plan Problem List: (1) ESRD (end stage renal disease) on dialysis ICD Codes: N18.6 - End stage renal disease; Z99.2 - Dependence on renal dialysis Plan: Dialysis MWF Continue on midodrine 10 mg TID Active GI bleed with drop in HGB 10.0 to 8.4 transfused 2 units of PRBC's and plan for scope today. Received one dose of plavix last night Labs pending for this morning (2) Peritonitis associated with peritoneal dialysis ICD Codes: T85.71XA - Infection and inflammatory reaction due to peritoneal dialysis catheter, initial encounter Plan: Peritoneal fluid culture positive for Carmen. On fluconazole with stop date of the 13th PD catheter removed ID and surgery following. (3) Hypotension ICD Codes: I95.9 - Hypotension, unspecified Status: Acute Plan: Sepsis present on admission. Continue supportive care. (4) GI bleed ICD Codes: K92.2 - Gastrointestinal hemorrhage, unspecified Status: Acute Plan: s/p EGD: duodenal ulcer, gastritis, esophagitis. Active GI with drop in HGB plan for EGD today (5) Anemia ICD Codes: D64.9 - Anemia, unspecified Plan: HGB 8.4 Epogen 10,000 units with each dialysis Transfused 2 units of PRBC today Plan for EGD today (Samreen Ward) Problem List: (1) ESRD (end stage renal disease) on dialysis ICD Codes: N18.6 - End stage renal disease; Z99.2 - Dependence on renal dialysis Plan: Dialysis MWF Continue on midodrine 10 mg TID Active GI bleed with drop in HGB 10.0 to 8.4 transfused 2 units of PRBC's and plan for scope today. Received one dose of plavix last night Patient seen and examined, agree with above. Seen by GI, for EGD, possibly today. Follow Hgb and transfuse as needed. (2) Peritonitis associated with peritoneal dialysis ICD Codes: T85.71XA - Infection and inflammatory reaction due to peritoneal dialysis catheter, initial encounter Plan: Peritoneal fluid culture positive for Carmen. On fluconazole with stop date of the 13 PD catheter removed ID and surgery following. (3) Hypotension ICD Codes: I95.9 - Hypotension, unspecified Status: Acute Plan: Sepsis present on admission. Continue supportive care. (4) GI bleed ICD Codes: K92.2 - Gastrointestinal hemorrhage, unspecified Status: Acute Plan: s/p EGD: duodenal ulcer, gastritis, esophagitis. Active GI with drop in HGB plan for EGD today (5) Anemia ICD Codes: D64.9 - Anemia, unspecified Plan: HGB 8.4 Epogen 10,000 units with each dialysis Transfused 2 units of PRBC today Plan for EGD today (Darryl Fair MD) Problem Qualifiers (1) Hypotension: Qualified Codes: I95.9 - Hypotension, unspecified (2) GI bleed: Qualified Codes: K92.2 - Gastrointestinal hemorrhage, unspecified (3) Anemia: Samreen Ward Jun 21, 2017 11:23 Darryl Fair MD Jun 21, 2017 14:51
[2017-06-21] MEDS ORDERED: PROPOFOL 200 MG/20 ML AMP IV ONE (12:00)
[2017-06-21] MEDS ORDERED: PHENYLEPH/NS 1000 MCG/10 ML SYR IV ONE (12:00)
[2017-06-21] MEDS ORDERED: LIDOCAINE HCL 1% PF 5 ML SYRINGE OTHER ONE (12:00)
[2017-06-21] MEDS: PANTOPRAZOLE INJ 80 MG in SODIUM CHLORIDE 0.9% INJ 100 ML IV SCH ×2 (12:42→21:33)
[2017-06-21 15:08] LABS: AUTOMATED NEUTROPHIL # 6.5 TH/MM3 (1.8-7.7); BASOPHIL % 0.2 % (0.0-2.0); EOSINOPHIL % 0.2 % (0.0-4.0); HEMATOCRIT 33.1 % (39.0-51.0); LYMPH % 6.3 % (9.0-44.0); LYMPHOCYTE # 0.5 TH/MM3 (1.0-4.8); MEAN CELL VOLUME 93.3 FL (80.0-100.0); MEAN CORPUSCULAR HGB CONC 33.2 % (32.0-36.0); MEAN PLATELET VOLUME 7.6 FL (7.0-11.0); MONO % 9.4 % (0.0-8.0); MONOCYTE # 0.7 TH/MM3 (0-0.9); NEUT % 83.9 % (16.0-70.0); PLATELET COUNT 170 TH/MM3 (150-450); RED BLOOD COUNT 3.55 MIL/MM3 (4.50-5.90); WHITE BLOOD COUNT 7.8 TH/MM3 (4.0-11.0)
[2017-06-21 15:27] LABS: BICARBONATE 33.6 MEQ/L (21.0-32.0); CALCIUM 7.4 MG/DL (8.5-10.1); CREATININE 3.39 MG/DL (0.60-1.30); MAGNESIUM 2.2 MG/DL (1.5-2.5)
--- NOTE | 2017-06-21 15:34 | HHI.PR ---
Subjective Remarks Follow-up GI bleed. Patient had maroon colored stools overnight denies abdominal pain and dizziness. He was restarted on Plavix yesterday and has been receiving Lovenox for DVT prophylaxis. Discussed with nursing Objective Vitals Vital Signs Date Time Temp Pulse Resp B/P (MAP) Pulse Ox O2 Delivery O2 Flow Rate FiO2 06/21/17 12:00 77 06/21/17 08:00 103 06/21/17 08:00 97.9 112 18 99/62 (74) 91 06/21/17 07:00 Room Air 06/21/17 06:57 97.8 104 20 95/61 93 06/21/17 06:20 98.0 110 20 98/55 95 06/21/17 05:41 98.3 110 20 133/54 96 06/21/17 04:34 95 06/21/17 04:00 Room Air 06/21/17 04:00 97.5 62 17 104/67 (79) 98 06/21/17 02:45 98.1 110 20 96/54 95 06/21/17 02:30 98.0 112 20 98/55 95 06/21/17 00:00 106 06/21/17 00:00 97.3 118 17 90/55 (67) 98 06/21/17 00:00 Room Air 06/20/17 20:00 96 Room Air 06/20/17 20:00 97.9 110 17 93/55 (68) 97 06/20/17 20:00 146 06/20/17 17:33 94 21 06/20/17 16:00 Room Air I/O 06/20/17 06/20/17 06/20/17 06/21/17 06/21/17 06/21/17 07:00 15:00 23:00 07:00 15:00 23:00 Intake Total 360 ml 510 ml Output Total 1000 ml Balance 360 ml -1000 ml 510 ml Intake Oral 360 ml 0 ml IV Total 50 ml Packed Cells 400 ml Blood Product IV Normal Saline Flush 60 ml Hemodialysis 1000 ml # Voids 0 2 # Bowel Movements 1 2 Result Diagram: 06/21/17 1350 06/20/17 0631 Imaging Last Impressions Chest X-Ray 06/07/17 0000 Signed Impressions: Service Date/Time: Wednesday, June 07, 2017 03:15 - CONCLUSION: Patchy consolidation or atelectasis of the left lower lung. Tom Berry MD Objective Remarks GENERAL: 66 year male sitting up in bed, appears comfortable EYES: EOMI ENT: No nasal bleeding or discharge. Mucous membranes pink and dry.. NECK: Trachea midline. Supple. CARDIOVASCULAR: Heart rate in the 90's Irregularly irregular consistent with A. fib. RESPIRATORY: Clear to auscultation. Breath sounds equal bilaterally. Decreased respiratory effort. GASTROINTESTINAL: Abdomen soft, nondistended. incision healing well, no signs of infection/no drainage. MUSCULOSKELETAL: Patient has a well-healed rt heel ulcer. Venous stasis changes noted to his bilateral lower extremities. NEUROLOGICAL: Awake and weak. No obvious cranial nerve deficits. Moves bilateral upper extremities. BACK: Stage I/early decubitus in his sacral area Procedures EGD and removal of PD catheter Date of Insertion: Jun 05, 2017 Line: Central Venous Catheter Side: Right Location: Internal, Jugular A/P Problem List: (1) GI bleed ICD Code: K92.2 - Gastrointestinal hemorrhage, unspecified Status: Acute Assessment and Plan Upper GI bleed secondary to duodenal ulcer. Status post EGD which showed 2 large duodenal ulcers and grade D esophagitis and gastritis. Patient had maroon colored stools overnight, guaiac positive and drop his hemoglobin to 8.9. We consulted GI for repeat endoscopy today. Continue PPI. Avoid NSAIDs. Plavix and heparin on hold History of essential hypertension. Patient has been having low BP on ProAmatine. Cortisol of 20. Low albumin will continue IV albumin End-stage renal disease on hemodialysis. Monitor renal function, I/O's, avoid nephrotoxins. History of CVA . Stable restart Plavix when okay with GI Atrial fibrillation rate controlled. Intermittent RVR. Patient is asymptomatic. Unable to start rate limiting agents secondary to borderline BP. Not a candidate for digoxin therapy secondary to end-stage renal disease. Plavix as mentioned Macrocytic anemia. Required transfusion of 2 units. Currently stable Diabetes mellitus. Stable continue fingersticks monitoring of home meds Elevated TSH - repeat in 3-6 weeks. Free T4 normal. Free T3 low. Would not initiate any levothyroxine at this time in this acute clinical setting Infected peritoneal dialysis catheter/peritonitis fungal. Status post removal of PD catheter. Continue Diflucan until June 24 Right heel and Sacral decubitus ulcer. Wound care Depression. Stable continue to hold Paxil Chronic Pain syndrome. Stable Prophylaxis: Pantoprazole Discharge Planning Needs rehab but unable to afford co-pay Problem Qualifiers (1) GI bleed: Qualified Codes: K92.2 - Gastrointestinal hemorrhage, unspecified Srinath Mireles MD Jun 21, 2017 15:34
[2017-06-21 15:43] LABS: CALCIUM-PROTEIN CORRECTED 8.3 MG/DL (8.5-10.1); TOTAL PROTEIN 5.4 GM/DL (6.4-8.2)
[2017-06-21] MEDS ORDERED: DO NOT ADM ANY ANTICOAGULANT DRUGS PRN (20:15)
--- NOTE | 2017-06-21 21:03 | PD.PROCEDR ---
GI Procedure PROCEDURE PERFORMED EGD with cautery INDICATION FOR PROCEDURE GI bleed PROCEDURE: The procedure, risks and benefits were discussed with Mr. Flor and informed consent was obtained. Anesthesia sedated him with Diprivan. He was placed in the left lateral decubitus position. EGD: The Pentax videoscope was introduced through the oropharynx and advanced to the second portion of the duodenum under direct visualization. Retroflexion was performed in the stomach. FINDINGS: The esophagus this appeared to be unremarkable The stomach this too appeared to be unremarkable The duodenum there were 2 large ulcerations in the duodenal sweep and the first portion of the duodenum the larger of the 2 ulcers was the one that seen the first portion of the duodenum there was a visible vessel noted this was cauterized successfully using the David probe ESTIMATED BLOOD LOSS: Minimal blood loss as I cauterized SPECIMENS REMOVED: None COMPLICATIONS: None IMPRESSION: Duodenal ulcer with high risk stigmata of bleeding PLAN: Continue with current supportive care Monitor labs and transfuse as needed EGD in 2 months Priyank Ho MD Jun 21, 2017 21:03
[2017-06-22] VITALS (7 sets, daily range): BP systolic 87–110; BP diastolic 51–67; PULSE 85–123; RESP 18–20; TEMP 97.1–97.5; O2SAT 94–100
[2017-06-22] MEDS: ALBUMIN 25% INJ 50 ML IV SCH (03:11)
[2017-06-22] MEDS: MIDODRINE 5 MG TAB PO SCH ×3 (06:37→15:50)
[2017-06-22] MEDS: PANTOPRAZOLE INJ 80 MG in SODIUM CHLORIDE 0.9% INJ 100 ML IV SCH ×2 (07:00→13:24)
[2017-06-22] MEDS: SODIUM CHLORIDE 0.9% FLUSH 10 ML FLUSH IV FLUSH SCH ×2 (07:09→21:53)
[2017-06-22] MEDS: INSULIN NovoLIN REGULAR SUPPLEMENTAL SCALE SQ SCH ×4 (08:00→21:53)
[2017-06-22] MEDS: FLUCONAZOLE 200 MG TAB PO SCH (08:05)
[2017-06-22] MEDS: CALCIUM CARBONATE 500 MG CHEWABLE TAB CHEW SCH ×2 (08:05→21:53)
[2017-06-22] MEDS: DOCUSATE SODIUM 50 MG/SENNA 8.6 MG TAB PO SCH ×2 (08:05→21:00)
[2017-06-22] MEDS: CALCITRIOL 0.25 MCG CAP PO SCH (08:05)
--- NOTE | 2017-06-22 09:47 | HHI.NPPN ---
Subjective General Problems: Anemia Renal Failure: End Stage Renal Disease History of Present Illness Patient is a very pleasant 66 year old male who came into the emergency room on 06/06/17 hypotensive, lethargic, and with a hemoglobin of 6.7. He was transfused 2 units of PRBC's with a recheck pending. He was initially put on Levophed for blood pressure support however it is currently not running. Has a past medical history of End -stage renal disease with peritoneal dialysis, AFIB , diabetes, arthritis, chronic pain, and hx of strokes. Onset of acute epigastric pain and discomfort noted for 5 days ago, but worsened over the past 24 hours. Reported loose stools for 3 weeks. In the emergency room patient did report melena, nausea, mild vomiting undigested food yesterday, but denied any coffee ground emesis. Patient has AV fistula and will have dialysis while here. Per patient PD catheter needs to be removed secondary to infection. Additional Remarks Patient is more alert today. EGD yesterday with Duodenal ulcer with high risk stigmata of bleeding. Has cough. Denies any SOB (Samreen Ward) Review of Systems General Constitutional: Fatigue General Remarks weakness (Samreen Ward) Respiratory Lungs: Cough Respiratory Remarks Denies SOB (Samreen Ward) Cardiovascular Cardiac Remarks Denies CP (Samreen Ward) Gastrointestinal Gastrointestinal: Blood/Tarry Stools (Samreen Ward) Objective Data Data Vital Signs Date Time Temp Pulse Resp B/P (MAP) Pulse Ox O2 Delivery O2 Flow Rate FiO2 06/22/17 07:12 Nasal Cannula 3.00 06/22/17 04:00 97.4 102 18 92/60 (71) 94 06/22/17 04:00 107 06/22/17 00:00 111 06/22/17 00:00 97.5 103 18 87/56 (66) 94 06/22/17 00:00 Nasal Cannula 3.00 06/21/17 20:30 Nasal Cannula 3.00 06/21/17 20:00 97.9 99 12 95/62 (73) 93 Nasal Cannula 3 06/21/17 20:00 97.5 96 18 101/68 (79) 94 06/21/17 19:48 92 12 88/55 (66) 95 Nasal Cannula 3 06/21/17 19:45 88 12 86/53 (64) 95 Nasal Cannula 3 06/21/17 19:41 97.8 86 12 91/61 (71) 94 Nasal Cannula 3 06/21/17 16:00 93 06/21/17 16:00 98.2 87 18 93/55 (68) 93 06/21/17 12:00 77 06/21/17 12:00 97.3 95 18 102/57 (72) 92 (Samreen Ward) -: 06/21/17 1350 06/21/17 1358 Physical Exam General Appearance: No Acute Distress, Malnourished (Samreen Ward) Neck Neck Exam: Neck Supple (Samreen Ward) Pulmonary Resp Exam: Clear Bilaterally, No Distress, Decreased Bases (Samreen Ward) Cardiology CV Exam: Regular (Samreen Ward) Gastrointestinal/Abdomen GI Exam: Soft, Non-Tender (Samreen Ward) Genitourinary Exam: Flank Non-Tender (Samreen Ward) Integumentary Skin Exam: Warm, Dry, Ulcer(s) (Samreen Ward) Extremeties Extremities Exam: No Edema (Samreen Ward) Neurologic Neuro Exam: Alert (Samreen Ward) Psychiatric Psych Exam: Appropriate Responses (Samreen Ward) Assessment/Plan Problem List: (1) ESRD (end stage renal disease) on dialysis ICD Codes: N18.6 - End stage renal disease; Z99.2 - Dependence on renal dialysis Plan: Dialysis MWF Continue on midodrine 10 mg TID Map >65mmhg ECHO pending S/P EGD yesterday with duodenal ulcer with high risk stigmata of bleeding Labs pending today Dialysis tomorrow (2) Peritonitis associated with peritoneal dialysis ICD Codes: T85.71XA - Infection and inflammatory reaction due to peritoneal dialysis catheter, initial encounter Plan: Peritoneal fluid culture positive for Carmen. On fluconazole with stop date of the PD catheter removed ID and surgery following. (3) Hypotension ICD Codes: I95.9 - Hypotension, unspecified Status: Acute Plan: Sepsis present on admission. Continue supportive care. (4) GI bleed ICD Codes: K92.2 - Gastrointestinal hemorrhage, unspecified Status: Acute Plan: s/p EGD: duodenal ulcer, gastritis, esophagitis. S/P on 06/21 Duodenal ulcer with high risk stigmata of bleeding (5) Anemia ICD Codes: D64.9 - Anemia, unspecified Plan: HGB 10.4 yesterday Epogen 10,000 units with each dialysis Transfused 2 units of PRBC yesterday (Samreen Ward) Problem List: (1) ESRD (end stage renal disease) on dialysis ICD Codes: N18.6 - End stage renal disease; Z99.2 - Dependence on renal dialysis Plan: Dialysis MWF Continue on midodrine 10 mg TID Map >65mmhg ECHO pending S/P EGD yesterday with duodenal ulcer with high risk stigmata of bleeding Labs pending today Dialysis tomorrow. Patient seen and examined, agree with above. (2) Peritonitis associated with peritoneal dialysis ICD Codes: T85.71XA - Infection and inflammatory reaction due to peritoneal dialysis catheter, initial encounter Plan: Peritoneal fluid culture positive for Carmen. On fluconazole with stop date of the PD catheter removed ID and surgery following. (3) Hypotension ICD Codes: I95.9 - Hypotension, unspecified Status: Acute Plan: Sepsis present on admission. Continue supportive care. (4) GI bleed ICD Codes: K92.2 - Gastrointestinal hemorrhage, unspecified Status: Acute Plan: s/p EGD: duodenal ulcer, gastritis, esophagitis. S/P on 06/21 Duodenal ulcer with high risk stigmata of bleeding (5) Anemia ICD Codes: D64.9 - Anemia, unspecified Plan: HGB 10.4 yesterday Epogen 10,000 units with each dialysis Transfused 2 units of PRBC yesterday (Darryl Fair MD) Problem Qualifiers (1) Hypotension: Qualified Codes: I95.9 - Hypotension, unspecified (2) GI bleed: Qualified Codes: K92.2 - Gastrointestinal hemorrhage, unspecified (3) Anemia: Samreen Ward Jun 22, 2017 09:47 Darryl Fair MD Jun 22, 2017 12:17
--- NOTE | 2017-06-22 10:28 | ECHRPT ---
Indication: CARDIOMYOPATHY CONCLUSIONS The left ventricular systolic function is normal with an estimated ejection fraction in the range of 55-60%. Normal left ventricular size. Wall thickness is normal. No regional wall motion abnormalities are present. The right ventricle is mildly dilated. The left atrial size is [id number]-seiheahqpd dilated. The right atrial size is moderately dilated. Mild mitral valve regurgitation. Diffuse calcification of the aortic valve. There is mild to moderate tricuspid valve regurgitation. The estimated pulmonary arterial pressure is 47.7 mmHg. There is trace pericardial effusion present. BP: 95 / 61 HR: 79 Rhythm: MEASUREMENTS (Male / Female) Normal Values Technical Quality: 2D ECHO LV Diastolic Diameter PLAX 3.5 cm 4.2 - 5.9 / 3.9 - 5.3 cm LV Systolic Diameter PLAX 2.6 cm IVS Diastolic Thickness 1.2 cm 0.6 - 1.0 / 0.6 - 0.9 cm LVPW Diastolic Thickness 1.2 cm 0.6 - 1.0 / 0.6 - 0.9 cm LV Relative Wall Thickness 0.7 RV Internal Dim ED PLAX 3.9 cm LVOT Diameter 1.4 cm LA Systolic Diameter LX 4.8 cm 3.0 - 4.0 / 2.7 - 3.8 cm LV Ejection Fraction MOD 4C 52.3 % LV Cardiac Index MOD 4C 1422.5 cm/minm LV Ejection Fraction 4C AL 53.7 % LV Cardiac Index 4C AL 1508.5 cm/minm M-MODE Aortic Root Diameter MM 2.6 cm LA Systolic Diameter MM 4.3 cm LA Ao Ratio MM 1.7 AV Cusp Separation MM 1.6 cm DOPPLER AV Peak Velocity 139.0 cm/s AV Peak Gradient 7.7 mmHg LVOT Peak Velocity 100.0 cm/s LVOT Peak Gradient 4.0 mmHg AV Area Cont Eq pk 1.1 cm MV Area PHT 4.2 cm LV E' Lateral Velocity 7.1 cm/s LV E' Septal Velocity 6.3 cm/s TR Peak Velocity 307.0 cm/s TR Peak Gradient 37.7 mmHg Right Atrial Pressure 10.0 mmHg Pulmonary Artery Systolic Pressu 47.7 mmHg Right Ventricular Systolic Press 47.7 mmHg PV Peak Velocity 100.0 cm/s PV Peak Gradient 4.0 mmHg FINDINGS LEFT VENTRICLE The left ventricular systolic function is normal with an estimated ejection fraction in the range of 55-60%. Normal left ventricular size. Wall thickness is normal. No regional wall motion abnormalities are present. RIGHT VENTRICLE The right ventricle is mildly dilated. LEFT ATRIUM The left atrial size is lfwy-qh-beekeintms dilated. RIGHT ATRIUM The right atrial size is moderately dilated. ATRIAL SEPTUM Normal atrial septal thickness without atrial level shunting by limited color doppler interrogation. AORTA The aortic root and proximal ascending aorta are normal in size on limited imaging. MITRAL VALVE Structurally normal mitral valve. Mild mitral valve regurgitation. AORTIC VALVE Trileaflet aortic valve. Diffuse calcification of the aortic valve. TRICUSPID VALVE Structurally normal tricuspid valve. There is mild to moderate tricuspid valve regurgitation. The estimated pulmonary arterial pressure is 47.7 mmHg. PULMONARY VALVE No pulmonary valve regurgitation or stenosis. VESSELS The inferior vena cava is normal in size. PERICARDIUM There is trace pericardial effusion present. Isabel Izquierdo MD (Electronically Signed) Final Date:22 June 2017 10:27
--- NOTE | 2017-06-22 14:28 | HHI.PR ---
Subjective Remarks Follow-up GI bleed and A. fib. No further bleeding tolerated repeat EGD showing duodenal ulcer with visible vessel status post cautery. Patient received 2 units packed RBC yesterday and RN reported abnormal breath sounds and patient received IV Lasix. He denies shortness of breath. Patient with intermittent RVR denies palpitations. Discussed with nephrology, may digitalize patient but use half of the usual digoxin dose. Objective Vitals Vital Signs Date Time Temp Pulse Resp B/P (MAP) Pulse Ox O2 Delivery O2 Flow Rate FiO2 06/22/17 12:00 103 06/22/17 08:00 97.2 107 20 96/51 (66) 95 06/22/17 08:00 123 06/22/17 07:12 Nasal Cannula 3.00 06/22/17 04:00 97.4 102 18 92/60 (71) 94 06/22/17 04:00 107 06/22/17 00:00 111 06/22/17 00:00 97.5 103 18 87/56 (66) 94 06/22/17 00:00 Nasal Cannula 3.00 06/21/17 20:30 Nasal Cannula 3.00 06/21/17 20:00 97.9 99 12 95/62 (73) 93 Nasal Cannula 3 06/21/17 20:00 97.5 96 18 101/68 (79) 94 06/21/17 19:48 92 12 88/55 (66) 95 Nasal Cannula 3 06/21/17 19:45 88 12 86/53 (64) 95 Nasal Cannula 3 06/21/17 19:41 97.8 86 12 91/61 (71) 94 Nasal Cannula 3 06/21/17 16:00 93 06/21/17 16:00 98.2 87 18 93/55 (68) 93 I/O 06/21/17 06/21/17 06/21/17 06/22/17 06/22/17 06/22/17 07:00 15:00 23:00 07:00 15:00 23:00 Intake Total 510 ml 400 ml 110 ml 177 ml Balance 510 ml 400 ml 110 ml 177 ml Intake Oral 0 ml 60 ml 0 ml IV Total 50 ml 177 ml Packed Cells 400 ml 400 ml Blood Product IV Normal Saline Flush 60 ml Other 50 ml # Voids 2 1 0 # Bowel Movements 2 2 2 Result Diagram: 06/21/17 1350 06/21/17 1358 Objective Remarks GENERAL: 66 year male sitting up in bed, appears comfortable CARDIOVASCULAR: Heart rate in the 90's Irregularly irregular consistent with A. fib. RESPIRATORY: Decreased breath sounds equal bilaterally. Decreased respiratory effort. GASTROINTESTINAL: Abdomen soft, nondistended. incision healing well, no signs of infection/no drainage. MUSCULOSKELETAL: Patient has a well-healed rt heel ulcer. Venous stasis changes noted to his bilateral lower extremities. NEUROLOGICAL: Awake and weak. No obvious cranial nerve deficits. Moves bilateral upper extremities. BACK: Stage I/early decubitus in his sacral area Procedures EGD and removal of PD catheter Date of Insertion: Jun 05, 2017 Line: Central Venous Catheter Side: Right Location: Internal, Jugular A/P Problem List: (1) GI bleed ICD Code: K92.2 - Gastrointestinal hemorrhage, unspecified Status: Acute Assessment and Plan Upper GI bleed secondary to duodenal ulcer. Status post EGD which showed 2 large duodenal ulcers and grade D esophagitis and gastritis. Patient had maroon colored stools guaiac positive 06/21 underwent repeat EGD with duodenal ulcer and visible vessel status post cautery. Continue PPI. Avoid NSAIDs. Plavix and heparin on hold History of essential hypertension. Patient has been having low BP on ProAmatine. Cortisol of 20. Low albumin will continue IV albumin. Improving End-stage renal disease on hemodialysis. Monitor renal function, I/O's, avoid nephrotoxins. History of CVA . Stable restart Plavix when okay with GI Atrial fibrillation rate controlled. Intermittent RVR. Patient is asymptomatic. Unable to start rate limiting agents secondary to borderline BP. Discussed with nephrology may digitalize patient using half of the usual dose. Rate control may improve hypertension. Plavix as mentioned Macrocytic anemia secondary to acute blood loss. Required transfusion of 4 units. Improved Diabetes mellitus. Stable continue fingersticks monitoring of home meds Elevated TSH - repeat in 3-6 weeks. Free T4 normal. Free T3 low. Would not initiate any levothyroxine at this time in this acute clinical setting Infected peritoneal dialysis catheter/peritonitis fungal. Status post removal of PD catheter. Continue Diflucan until June 24 Right heel and Sacral decubitus ulcer. Wound care Depression. Stable continue to hold Paxil Chronic Pain syndrome. Stable Prophylaxis: Pantoprazole Palliative care following, patient wants to continue aggressive care Discharge Planning Needs rehab but unable to afford co-pay Problem Qualifiers (1) GI bleed: Qualified Codes: K92.2 - Gastrointestinal hemorrhage, unspecified Srinath Mireles MD Jun 22, 2017 14:28
[2017-06-22] MEDS ORDERED: PILL SPLITTER OTHER PRN (14:45)
[2017-06-22] MEDS ORDERED: DIGOXIN 0.25 MG TAB PO ONE (14:45)
--- NOTE | 2017-06-22 14:50 | HHI.GIFU ---
Subjective Remarks Pt resting in bed, at bedside. He reports one small BM today, denies any blood. No GI complaints at this time. (Ban Morfin) Objective Vitals I&O Vital Signs Date Time Temp Pulse Resp B/P (MAP) Pulse Ox O2 Delivery O2 Flow Rate FiO2 06/22/17 12:00 103 06/22/17 08:00 97.2 107 20 96/51 (66) 95 06/22/17 08:00 123 06/22/17 07:12 Nasal Cannula 3.00 06/22/17 04:00 97.4 102 18 92/60 (71) 94 06/22/17 04:00 107 06/22/17 00:00 111 06/22/17 00:00 97.5 103 18 87/56 (66) 94 06/22/17 00:00 Nasal Cannula 3.00 06/21/17 20:30 Nasal Cannula 3.00 06/21/17 20:00 97.9 99 12 95/62 (73) 93 Nasal Cannula 3 06/21/17 20:00 97.5 96 18 101/68 (79) 94 06/21/17 19:48 92 12 88/55 (66) 95 Nasal Cannula 3 06/21/17 19:45 88 12 86/53 (64) 95 Nasal Cannula 3 06/21/17 19:41 97.8 86 12 91/61 (71) 94 Nasal Cannula 3 06/21/17 16:00 93 06/21/17 16:00 98.2 87 18 93/55 (68) 93 I/O 06/21/17 06/21/17 06/21/17 06/22/17 06/22/17 06/22/17 07:00 15:00 23:00 07:00 15:00 23:00 Intake Total 510 ml 400 ml 110 ml 177 ml Balance 510 ml 400 ml 110 ml 177 ml Intake Oral 0 ml 60 ml 0 ml IV Total 50 ml 177 ml Packed Cells 400 ml 400 ml Blood Product IV Normal Saline Flush 60 ml Other 50 ml # Voids 2 1 0 # Bowel Movements 2 2 2 Laboratory Date/Time Source Procedure Growth Status 06/06/17 07:19 Blood Peripheral Aerobic Blood Culture - Final NO GROWTH IN 5 DAYS Complete 06/06/17 07:19 Blood Peripheral Anaerobic Blood Culture - Final NO GROWTH IN 5 DAYS Complete 06/06/17 15:20 Fluid Peritoneal Fluid Fungal Smear - Final NO FUNGAL ELEMENTS SEEN. Resulted 06/06/17 15:20 Fungal Culture - Preliminary Carmen Albicans Resulted 06/20/17 22:00 Stool Stool Stool Occult Blood (JUSTIN) - Final HEMOCCULT POSITIVE Complete Imaging Last Impressions Chest X-Ray 06/07/17 0000 Signed Impressions: Service Date/Time: Friday, June 07, 2017 03:15 - CONCLUSION: Patchy consolidation or atelectasis of the left lower lung. Tom Berry MD Physical Exam HEENT: Normocephalic; atraumatic CHEST: Even/unlabored , CARDIAC: RRR ABDOMEN: Irregularly irregular EXTREMITIES: No clubbing, cyanosis, or edema. PIE FILLER: Alert and oriented x 3 (Ban MorfinP) Assessment and Plan Assessment: (1) Anemia ICD Codes: D64.9 - Anemia, unspecified (2) GI bleed ICD Codes: K92.2 - Gastrointestinal hemorrhage, unspecified Status: Acute (3) History of renal failure ICD Codes: Z87.448 - Personal history of other diseases of urinary system Status: Acute Plan - History of GIB- previously following this patient to evaluate for anemia and melena. S/P EGD --> Severe grade D esophagitis, severe gastritis, and 2 large duodenal ulcers almost taking over the duodenal bulb and first potion. Pathology --> Gastric mucosa without significant histopathologic abnormality. (small intestine) Fibrinopurulent exudate and inflamed granulation tissue, consistent with ulcer base. We recommended pt to continue Protonix, better control of diabetes, and avoid NSAIDs. GI signed off and recommended pt follow up on outpatient basis for colonoscopy. Dr. Mireles has asked us to evaluate pt and determine if anticoagulation can be restarted. Pt denies any continue melena, nausea, vomiting. H/H currently 10/29.4, last transfused 2 U PRBCs on Jun 18 with dialysis. No obvious continuation of GIB, anemia likely secondary to renal insufficiency. OK to restart anticoagulation for a GI standpoint. (06/21) Pt received one dose of Plavix last night. Began with rectal bleeding over night. Spoke with RN, Mica who states it is maroon in color. She is unsure how many episodes of bleeding he has had over night. H/H dropped from 10/29.4 yesterday morning to 8.4/.3 late last night. Has now received 2 U PRBCs. (06/22) S/P EGD yesterday --> Duodenal ulcer with high risk stigmata of bleeding. Pt reports one BM today, states possibly old blood, unsure. Received 2 U PRBCs yesterday. H/H currently .1. Protonix gtt DCd now on Protonix BID. Plan: KAM Protonix Monitor CBC closely Notify GI of active bleeding Recommend repeat EGD in 2 months Further recommendations to follow based on results of above Pt has been seen and examined by myself and Dr. Ho and this note is written on his behalf (Ban Morfin) Physician Comments patient seen and examined agree with above monitor labs continue present supportive care avoid NSAIDs and ASA or anticoagulation for at least a month f/u with GI post D/C (Priyank Ho MD) Problem Qualifiers (1) Anemia: (2) GI bleed: Qualified Codes: K92.2 - Gastrointestinal hemorrhage, unspecified Ban Morfin Jun 22, 2017 14:50 Priyank Ho MD Jun 22, 2017 21:54
--- NOTE | 2017-06-22 15:28 | RADRPT ---
EXAM DATE/TIME: 06/22/2017 14:45 [facility] COMPARISON: CHEST SINGLE AP, June 07, 2017, 3:15. INDICATIONS : Shortness of breath and cough for 6 days. MEDICAL HISTORY : Stroke. Renal disease, end stage. Renal failure, chronic. A-Fib SURGICAL HISTORY : Appendectomy. ENCOUNTER: Subsequent ACUITY: 4 - 6 days PAIN SCORE: 0/10 LOCATION: Bilateral chest FINDINGS: Patient has developed a left basilar opacity with indistinctness of the hemidiaphragm and is question as to mild homogeneous increased density in the left lung suggesting that the majority this represen ts effusion. CONCLUSION: Development of left basilar density in the majority probably representing effusion. Davonte Cottrell MD on June 22, 2017 at 15:25 Board Certified Radiologist. This report was verified electronically.
[2017-06-22] MEDS ORDERED: PANTOPRAZOLE SOD 40 MG DELAYED RELEASE TAB PO SCH (21:00)
[2017-06-22 21:59] LABS: AUTOMATED NEUTROPHIL # 6.6 TH/MM3 (1.8-7.7); BASOPHIL % 0.3 % (0.0-2.0); EOSINOPHIL # 0.1 TH/MM3 (0-0.4); HEMATOCRIT 30.9 % (39.0-51.0); HEMOGLOBIN 10.4 GM/DL (13.0-17.0); LYMPH % 4.2 % (9.0-44.0); LYMPHOCYTE # 0.3 TH/MM3 (1.0-4.8); MEAN CELL VOLUME 94.1 FL (80.0-100.0); MEAN CORPUSCULAR HEMOGLOBIN 31.8 PG (27.0-34.0); MEAN CORPUSCULAR HGB CONC 33.8 % (32.0-36.0); MEAN PLATELET VOLUME 7.9 FL (7.0-11.0); MONO % 5.3 % (0.0-8.0); MONOCYTE # 0.4 TH/MM3 (0-0.9); NEUT % 89.2 % (16.0-70.0); PLATELET COUNT 160 TH/MM3 (150-450); RED BLOOD COUNT 3.29 MIL/MM3 (4.50-5.90); RED CELL DISTRIBUTION WIDTH 20.7 % (11.6-17.2); WHITE BLOOD COUNT 7.4 TH/MM3 (4.0-11.0)
[2017-06-22 22:30] LABS: BICARBONATE 30.2 MEQ/L (21.0-32.0); CALCIUM 7.8 MG/DL (8.5-10.1); CREATININE 4.14 MG/DL (0.60-1.30); MAGNESIUM 2.3 MG/DL (1.5-2.5)
[2017-06-23] VITALS (10 sets, daily range): BP systolic 49–131; BP diastolic 23–69; PULSE 43–118; RESP 13–26; TEMP 97–97.7; O2SAT 94–98
[2017-06-23] MEDS ORDERED: SODIUM CHLOR 0.9% 250 ML INJ 250 ML IV ONE (06:30)
[2017-06-23] MEDS ORDERED: FUROSEMIDE 20 MG/2 ML VIAL IV PUSH ONE (06:30)
--- NOTE | 2017-06-23 06:37 | HHI.PR ---
Addendum to Inpatient Note Addendum Reason: Additional Documentation Additional Information 66 yo male admitted with GIB s/p endoscopy with cautery of duodenal ulcers now with bright red blood per rectum, hypotension, and increased O2 requirement. Patient is awake and alert and denies CP, SOB, abdominal pain. Objective VS: BP 57/44, SpO2 100% on non-rebreather mask Gen: Thin elderly white male resting in bed drowsy but in NAD Lungs: CTAB, normal rate and effort Heart: Tachycardic with regular rhythm, no murmur Abd: Soft, NDNT. Bright red blood leaking onto bedsheets. MSK: No cyanosis or edema Neuro: Awake and alert. Follows commands, responds to questions. A/P 66 yo male with GIB s/p endoscopy with cautery of duodenal ulcers on 06/21 now with bright red blood per rectum, hypotension, increased O2 requirement. - NS bolus 1 L - Type and cross 2 units - Check H/H; transfuse if < 10 due to ongoing bleed - BMP - Transfer to ICU for continued monitoring/treatment - Primary team aware Luis Miguel Lema MD Jun 23, 2017 06:37
[2017-06-23] MEDS ORDERED: PHENYLEPHRINE HCL 10 MG/ML VIAL ONE (06:50)
[2017-06-23] MEDS ORDERED: TERBUTALINE INJ 1 MG/ML AMP SQ PRN (07:30)
[2017-06-23] MEDS ORDERED: SODIUM CHLORIDE 0.9% FLUSH 10 ML FLUSH IV FLUSH PRN (07:30)
--- NOTE | 2017-06-23 07:38 | HHI.CCPN ---
Subjective Remarks/Hospital Course 66 year-old male with a medical history significant for end-stage renal disease on peritoneal dialysis who was noted to be severely hypotensive and lethargic at the dialysis center on 06/05 and was called and patient was transferred to [facility] ER. On arrival he was noted to be hypotensive with SBP 70s and heart rate 100s. He also reportedly had significant melena and rectal bleeding following arrival. A right IJ central line was placed by ER physician. Patient's arrived and wanted to make patient DNR status and did not want blood transfusions and wished transferring to hospice however subsequently patient woke up and wanted to continue aggressive care including blood transfusions. ER physician contacted me questioning patient's 's ability to make decisions for him due to concern for secondary gain as well as possible psychiatric illness. Patient was accepted for admission by critical care medicine service. 4 units PRBCs were ordered to be transfused stat by ER physician. When I arrived to see the patient he was laying in the ER stretcher on nasal cannula on 5 mics of Levophed. He is drowsy but easily arousable. He knew he was at the hospital. He could not give me details of his history. 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 06/07 Patient is on Levophed 2 mics, s/p HD yesterday. Awake and alert on Protonix drip. s/p EGD yesterday showed 2 large Duodenal ulcer, esophagitis and gastritis. 06/08: Afebrile. Currently off norepinephrine but MAP is around 60 currently. States he is okay with removing peritoneal dialysis catheter. Will discuss with general surgery in nephrology in a.m. 06/09: Blood pressures are borderline. Awake and alert and eating popsicles currently. Patient's okay with removing peroneal dialysis catheter. Dr. Van as yet to see patient today. Agree with ID and nephrology's recommendations for removal. 06/10 Patient s/p PD catheter removal this morning. On Levophed 2 mics. Afebrile. 06/11: Postoperative day #1 PD catheter removal. Remains on norepinephrine at 2 g per minute. Asymptomatic. Plan for hemodialysis today. 06/12: Afebrile. Intermittently A. fib with RVR, currently rate controlled. Denies chest pain or shortness of breath. Intermittently on phenylephrine drip 2/2: Resting in bed in no acute distress. Remains on Manan-Synephrine drip at 60 mics grams per minute. Appears more depressed today. Status post -3 L of hemodialysis. 06/14: Resting in bed in no acute distress. Afebrile. Remains on low-dose phenylephrine at 50 mics grams per minute. More attentive today. 06/15: No acute issues overnight. Patient remains on low-dose phenylephrine currently at 40 mcgs/min. Patient continues on Midrin 3 times a day. Hemoglobin stable. Patient tolerating diet. 06/16: The patient continues on Phenylephrine infusion, now increased to 60 mcgs/ min. 06/17: Phenylephrine continues at 30mcg/min. Patient up out of bed with physical therapy today. IHD 3.5 L off yesterday 06/18: Phenylephrine weaned off since 3 AM. Patient currently undergoing hemodialysis and is hemodynamically stable with maps in the low 70s. The patient is tolerating a diet. PT has been initiated and patient is out of bed ambulating 2-3 steps in the room yesterday. Subjective 06/23: Stat reconsult secondary to hypotension likely recurrent upper GI bleed from duodenal ulcer. During a recent EGD with grade D esophagitis, severe gastritis pathology negative and 2 large duodenal ulcers. IR has been notified planned for attempted embolization gastroduodenal artery. Central line emergently placed and currently on phenylephrine drip with 2 units PRBCs to be given when available Objective Vital Signs Date Time Temp Pulse Resp B/P (MAP) Pulse Ox O2 Delivery O2 Flow Rate FiO2 06/23/17 06:15 97 15.00 100 06/23/17 04:00 81 06/23/17 04:00 97.3 20 131/69 (89) 06/23/17 00:00 Nasal Cannula Result Diagram: 06/22/17212806/22/172128 Other Results Microbiology Date/Time Source Procedure Growth Status 06/06/17 07:19 Blood Peripheral Aerobic Blood Culture - Final NO GROWTH IN 5 DAYS Complete 06/06/17 07:19 Blood Peripheral Anaerobic Blood Culture - Final NO GROWTH IN 5 DAYS Complete 06/06/17 15:20 Fluid Peritoneal Fluid Fungal Smear - Final NO FUNGAL ELEMENTS SEEN. Resulted 06/06/17 15:20 Fungal Culture - Preliminary Carmen Albicans Resulted 06/20/17 22:00 Stool Stool Stool Occult Blood (JUSTIN) - Final HEMOCCULT POSITIVE Complete Imaging Last Impressions Chest X-Ray 06/22/17 0000 Signed Impressions: Service Date/Time: Thursday, June 22, 2017 14:45 - CONCLUSION: Development of left basilar density in the majority probably representing effusion. Davonte Cottrell MD Objective Remarks GENERAL: 66 year male very pale appearing resting in bed in mild respiratory distress SKIN: Pale and dry.. No rash HEAD: Atraumatic. Normocephalic. EYES: No scleral icterus. No injection or drainage. ENT: No nasal bleeding or discharge. Mucous membranes pink and dry. Oropharynx without erythema or thrush. NECK: Trachea midline. Supple. CARDIOVASCULAR: Tachycardic, IRR. S1, S2. No S4. RESPIRATORY: Diminished breath sounds left lower lobe. GASTROINTESTINAL: Abdomen soft, nondistended. PD catheter has been removed. Site is clean dry and intact. No signs erythema drainage. Left upper extremity AV fistula with positive thrill will palpated MUSCULOSKELETAL: Patient has a well-healed rt heel ulcer. Venous stasis changes noted to his bilateral lower extremities. NEUROLOGICAL: Awake and weak and mildly confused. No obvious cranial nerve deficits. Moves bilateral upper extremities and lower extremities spontaneously. Sensation appears intact.. BACK: Stage I/early decubitus in his sacral area. Procedures EGD and removal of PD catheter Urinary Catheter: No Assessment to: Continue Vascular Central Line Catheter: Yes Date of Insertion: Jun 23, 2017 Line: Central Venous Catheter Side: Right Location: Internal, Jugular A/P Assessment and Plan Neuro/Psych: Depression Chronic Pain syndrome History of CVA Acetaminophen 600 mg p.o. every 6 hours as needed fever/headache Holding paroxetine 10 mg daily/home medication. Resume when clinically indicated Avoid sedatives and narcotics including tramadol/home medication, monitor neuro status. Awake and alert Holding clopidogrel 75 mg daily. CV: Atrial fibrillation rate controlled History of essential hypertension Mild pulmonary hypertension Phenylephrine at 60 g per minute-to maintain mean arterial pressure greater than equal 65 Monitor HR and BP keep MAP >65mmHg Lactic acid 2.2 on 06/07 Holding clopidogrel 75 mg daily light of duodenal ulcer Holding lisinopril 20 mill grams daily, isosorbide dinitrate 30 mg daily and metoprolol 25 mill grams daily in light of hypotension random Cortisol level. 20 Continue Midodrine 10 mg 3 times a day 2D echocardiogram 06/22 revealed EF 55-60%. Bilateral atrial enlargement. RV dilatation. PAP 47.7 mmHg. Pulm: Left pleural effusion Acute respiratory failure Continue with oxygen keep sat >92%. Currently on nonrebreather Albuterol aerosols every 4 hours with albuterol aerosols every 2 hours when necessary dyspnea GI/liver: Upper GI bleed secondary to duodenal ulcer Currently n.p.o. On pantoprazole drip at 8 mg an hour after receiving 80 mg bolus s/p EGD 06/06 which showed 2 large duodenal ulcers, grade D esophagitis, gastritis. Repeat EEG 06/21 --The esophagus this appeared to be unremarkable, stomach this too appeared to be unremarkable, duodenum there were 2 large ulcerations in the duodenal sweep and the first portion of the duodenum the larger of the 2 ulcers was the one that seen the first portion of the duodenum there was a visible vessel noted this was cauterized successfully using the David probe GI continue to follow IR for possible i embolization n gastroduodenal artery today Renal/: Status post PD catheter removal Dr. Donovan End-stage renal disease on hemodialysis M/W/F Monitor renal function, I/O's, avoid nephrotoxins. Pathology Dr. Fair. General Surgery has followed- Dr. Donovan fungal infection requiring PD catheter removal on 06/10. Heme: Macrocytic anemia Acute blood loss anemia Monitor CBC, s/p transfusion 2units PRBC on 06/06. Transfuse 8 units PRBCs since admission Hgb s every 6 hours ordered. Coags pending Endocrine: Diabetes mellitus Elevated TSH - repeat in 3-6 weeks. Free T4 normal. Free T3 low. Would not initiate any levothyroxine at this time in this acute clinical setting SSI for glycemic control with low Novulog every 6 hours Holding Tradjenta 5 mg daily ID: Infected peritoneal dialysis catheter/peritonitis fungal Continue fluconazole 200 mg po daily stop date 06/23. Monitor for signs of infections ( Fever, WBC) follow up on cultures. Peritoneal fluid 06/06 positive for yeast/Carmen ID is following. MSK: Right heel ulcer Sacral decubitus ulcer 2/ Wound care consulted evaluate and treat 2/4 Transfer pt on [facility] bed Prophylaxis: Pantoprazole/no pharmacological prophylaxis in light of acute upper GI bleeding Lines: Right IJ CV CVL 06/23- present Critical Care: The total critical care time was 35 minutes. Time to perform other separately billable procedures was not included in the critical care time. 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 GDA supplies the liver henceforth cannot embolize. Discussed with Dr. Donovan. He will have Dr. Ellsworth evaluate. Discussed with Dr. Haro/GI. Recommended general surgery versus esophageal/duodenal stent. Discussed with Aparna Godinez. All 3 options including surgery which would likely include a partial gastrectomy duodenectomy, placement of esophageal stents as we do not have duodenal stents here versus comfort measures. Discussed with palliative care Dr. Rene. She wishes to proceed with comfort measures at this time. Notify Dr. Seng Haro of 's wishes. Dr. Martinez okay as long as is aware of options available which she has verified with myself and palliative care. Consultation to General surgery canceled after discussing with Dr. Ellsworth.. Tariq Lacy MD Jun 23, 2017 07:38
--- NOTE | 2017-06-23 07:39 | PD.PROCEDR ---
Central Line Procedure REASON FOR PROCEDURE Central venous access PROCEDURE PERFORMED Central line placement: Right IJ CVL CONSENT Informed consent for procedure was obtained from competent patient. The risks and benefits of the procedure were discussed to include but limited to bleeding , clot formation, infection, and even . ANESTHESIA Local injection of 1% Lidocaine DESCRIPTION OF THE PROCEDURE The patient was placed in supine, mild Trendelenburg position. The area was exposed and cleansed with ChloraPrep, times two. Large sterile drape was used to cover the patient, with the site exposed, under sterile conditions including cap, face mask, sterile gown, and sterile gloves. On single attempt, the introducer needle was inserted with negative pressure in syringe and venous flash was obtained. The guide wire was then advanced without any restriction and the needle was removed. The dilator was used without any complications. Using Seldinger technique the antibiotic coated triple lumen catheter was advanced over the guide wire to a depth of 16 centimeters. The guide wire was removed. All ports were aspirated with dark venous blood return and flushed easily with sterile saline. All ports were capped. Antibiotic disc was placed around central line at puncture site. The central line was secured to the skin with two interrupted 2.0 silk sutures. The area was bandaged with sterile see- through central line bandage. RADIOLOGICAL DATA Ultrasound guidance was used to locate right internal jugular vein. Doppler/ color flow was used to confirm venous flow. COMPLICATIONS: No apparent complications ESTIMATED BLOOD LOSS: Less than 1 cc. Tariq Lacy MD Jun 23, 2017 07:39
[2017-06-23 07:43] LABS: AUTOMATED NEUTROPHIL # 5.5 TH/MM3 (1.8-7.7); BASOPHIL % 0.3 % (0.0-2.0); EOSINOPHIL # 0.1 TH/MM3 (0-0.4); EOSINOPHIL % 1.3 % (0.0-4.0); LYMPHOCYTE # 0.3 TH/MM3 (1.0-4.8); MEAN CELL VOLUME 94.9 FL (80.0-100.0); MEAN CORPUSCULAR HGB CONC 33.7 % (32.0-36.0); MEAN PLATELET VOLUME 7.9 FL (7.0-11.0); MONO % 6.1 % (0.0-8.0); MONOCYTE # 0.4 TH/MM3 (0-0.9); NEUT % 87.3 % (16.0-70.0); PLATELET COUNT 162 TH/MM3 (150-450); RED BLOOD COUNT 1.76 MIL/MM3 (4.50-5.90); RED CELL DISTRIBUTION WIDTH 20.3 % (11.6-17.2); WHITE BLOOD COUNT 6.2 TH/MM3 (4.0-11.0)
[2017-06-23 07:51] LABS: HEMATOCRIT 16.7 % (39.0-51.0); HEMOGLOBIN 5.6 GM/DL (13.0-17.0)
--- NOTE | 2017-06-23 07:52 | RADRPT ---
EXAM DATE/TIME: 06/23/2017 07:22 [facility] COMPARISON: CHEST SINGLE AP, June 22, 2017, 14:45. INDICATIONS : Central line placement. MEDICAL HISTORY : Stroke. Renal disease, end stage. Renal failure, chronic. A-Fib SURGICAL HISTORY : Appendectomy. ENCOUNTER: Initial ACUITY: 1 day PAIN SCORE: Non-responsive. LOCATION: Bilateral chest FINDINGS: Right IJ central line with tip in the atriocaval junction. Persistent diffuse hazy left hemithorax op acity and left lower lobe airspace consolidation. Improved aeration in the right lung. Cardiomediasti nal contours are stable. Remainder of the exam is unchanged. CONCLUSION: 1. Right IJ central line in good position without pneumothorax. 2. Left lower lobe airspace disease and slightly worsening pleural effusion. 3. Improved aeration in the right lower lung zone. Rob Eckert MD on June 23, 2017 at 7:48 Board Certified Radiologist. This report was verified electronically.
[2017-06-23] MEDS ORDERED: FLUCONAZOLE 200 MG PREMIX BAG 100 ML IV ONE (08:00)
[2017-06-23 08:12] LABS: INTERNATIONAL NORMALIZED RATIO 1.5 RATIO; PROTHROMBIN TIME - PATIENT 14.8 SEC (9.8-11.6)
[2017-06-23] MEDS ORDERED: MIDAZOLAM HCL 2 MG/2 ML VIAL ONE (08:14)
[2017-06-23 08:18] LABS: ALBUMIN 1.4 GM/DL (3.4-5.0); CALCIUM 6.5 MG/DL (8.5-10.1); CALCIUM-PROTEIN CORRECTED 8.7 MG/DL (8.5-10.1); CREATININE 4.06 MG/DL (0.60-1.30); DIGOXIN 0.5 NG/ML (0.8-2.0); MAGNESIUM 2.2 MG/DL (1.5-2.5); TOTAL BILIRUBIN ADULT 0.5 MG/DL (0.2-1.0); TOTAL PROTEIN 3.2 GM/DL (6.4-8.2)
[2017-06-23] MEDS ORDERED: PANTOPRAZOLE INJ 80 MG in SODIUM CHLORIDE 0.9% INJ 35 ML IV ONE (08:40)
[2017-06-23] MEDS ORDERED: PANTOPRAZOLE INJ 80 MG in SODIUM CHLORIDE 0.9% INJ 100 ML IV SCH (08:40)
[2017-06-23] MEDS ORDERED: SODIUM BICARBONATE 8.4% SOLN 50 MEQ/50 ML VIAL SLOW IVP ONE (09:00)
[2017-06-23] MEDS ORDERED: SODIUM CHLORIDE 0.9% FLUSH 10 ML FLUSH IV FLUSH SCH (09:00)
[2017-06-23] MEDS ORDERED: PHENYLEPHRINE INJ 160 MG in DEXTROSE 5% IN WATE 500 ML INJ 484 ML IV PRN ×2 (09:00)
[2017-06-23] MEDS ORDERED: cefTRIAXone INJ 1,000 MG in SODIUM CHLORIDE 0.9% INJ 100 ML IV SCH (09:00)
[2017-06-23] MEDS ORDERED: CALCIUM CHLORIDE INJ 1 GM in SODIUM CHLORIDE 0.9% INJ 100 ML IV ONE (09:00)
[2017-06-23] MEDS ORDERED: DEXTROSE 50% IN WATER 50 ML VIAL(D50) IV PUSH ONE (09:00)
[2017-06-23] MEDS ORDERED: INSULIN HUMAN REGULAR 1,000 UNITS/10 ML VIAL IV PUSH ONE (09:00)
--- NOTE | 2017-06-23 09:03 | PD.RAD ---
Post Procedure Progress Note Pre Procedure Diagnosis: (1) GI bleed (2) Hypotension Post Procedure Diagnosis: (1) GI bleed (2) Hypotension Procedure Date: Jun 23, 2017 Supervising Radiologist: Bennett Dia Estimated blood loss: 2cc Anesthesia: Local, Conscious Sedation Plan of Activity Patient to Unit: ROPU Patient Condition: Critical Additional Comments: 66 y/o with know duodenal ulceration and GI bleed. Angio completed. PT has severe, end stage vascular disease. 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 SMA severely diseased but patent. Entire liver feeds from the GDA. CHRISTIE patent but severely diseased. No active bleed evident. GDA not embolized as it is providing blood flow to the liver. See PACS Report for procedural detail/treatment Bennett Dia MD Jun 23, 2017 09:03
[2017-06-23] MEDS: RESP: ALBUTEROL 2.5 MG/IPRATROPIUM 0.5 MG NEB (SCH) INH ×2 (09:38→11:41)
--- NOTE | 2017-06-23 09:39 | HHI.HCPN ---
Reason for visit a. To assist with evaluation and management of symptoms including: weakness , chronic pain, dyspnea. b. To assist medical decision maker(s) with: better understanding of current medical conditions; weighing benefits/burdens of medical treatment options; making medical treatment decisions. Subjective/Interval History Pt has duodenal ulcer, require transfusion. Pt has active bleed. Pt due for dialysis. Pt currently tachypneic and unstable. Pt was suppose to get IR for duodenal ulcer but they are not able to do it. 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 Family/friend interactions I have called Aparna Guadalupe pt's spouse x 3 and left voicemail. Reportedly pt 's spouse is on her way. Later I was able to meet with . see his clinical decline, spoke with her . made decisions for comfort measures only, no dialysis, or further medical treament, surgeries, transufsions, etc. Amenable for me to consult hospice. Amenable for comfort meds and comfort care. Trying to reach other family for him to say hi. Advance Directives Living Will: Never completed Health Care Surrogate: Copy in medical record Durable Power of Garment Looper: Copy in medical record Advance Directive Specifics Date completed: 06/01/17 Health Care Surrogate(s): Healthcare surrogate document [06/01/17] actually names the patient as healthcare surrogate. durable power of reinforcer does not include healthcare decision making. Palliative care assisted patient to complete new healthcare surrogate designation when he was alert and oriented he named his as healthcare surrogate. Objective Vital Signs Date Time Temp Pulse Resp B/P (MAP) Pulse Ox O2 Delivery O2 Flow Rate FiO2 06/23/17 09:06 97.6 104 26 93/51 06/23/17 07:00 Non-Rebreather 15.00 06/23/17 06:15 97 15.00 100 06/23/17 04:00 81 06/23/17 04:00 97.3 58 20 131/69 (89) 98 06/23/17 00:00 97.2 118 21 99/60 (73) 97 06/23/17 00:00 Nasal Cannula 3.00 06/23/17 00:00 101 06/22/17 21:00 Nasal Cannula 3.00 06/22/17 20:00 104 06/22/17 20:00 97.4 92 18 110/67 (81) 100 06/22/17 16:26 85 06/22/17 16:00 97.3 92 20 105/64 (78) 96 06/22/17 12:00 97.1 93 20 94/61 (72) 97 06/22/17 12:00 103 Intake & Output 06/23/17 06/23/17 07:00 19:00 Intake Total 5 ml Balance 5 ml Blood Product IV Normal Saline Flush 5 ml Physical Exam CONSTITUTIONAL/GENERAL: Frail. tachpneic TUBES/LINES/DRAINS: Central line rt IJ. Peripheral IV upper extremity. SKIN: Pale. Scattered petechia/ecchymosis on upper extremities. Chronic venous insufficiency of lower extremities. NECK: Trachea midline. Supple, nontender. No palpable thyroid enlargement or nodularity. CARDIOVASCULAR: Irregular rate and irregular rhythm, no murmur. No JVD. Peripheral pulses symmetric. RESPIRATORY/CHEST: Dyspnea,tachpneic, shallow breaths. GASTROINTESTINAL: Abdomen soft, round, non-tender, nondistended. No hepato- splenomegaly. No guarding. MUSCULOSKELETAL: Atrophy in bilateral lower extremities. Extremities without clubbing, cyanosis, or edema.+ chronic vascular skin changes BLE. No joint effusion, erythema or tenderness to exam bilateral knees NEUROLOGICAL: Unable to follow commands or moves all 4 extremities, tachpniec , minimally responsive. PSYCHIATRIC:. No obvious anxiety/depression. . Diagnostic Tests Laboratory Laboratory Tests Test 06/20/17 23:40 06/21/17 13:50 06/21/17 13:58 06/22/17 21:29 Hemoglobin 8.4 GM/DL (13.0-17.0) 11.0 GM/DL (13.0-17.0) 10.4 GM/DL (13.0-17.0) Hematocrit 25.3 % (39.0-51.0) 33.1 % (39.0-51.0) 30.9 % (39.0-51.0) White Blood Count 7.8 TH/MM3 (4.0-11.0) 7.4 TH/MM3 (4.0-11.0) Red Blood Count 3.55 MIL/MM3 (4.50-5.90) 3.29 MIL/MM3 (4.50-5.90) Mean Corpuscular Volume 93.3 FL (80.0-100.0) 94.1 FL (80.0-100.0) Mean Corpuscular Hemoglobin 31.0 PG (27.0-34.0) 31.8 PG (27.0-34.0) Mean Corpuscular Hemoglobin Concent 33.2 % (32.0-36.0) 33.8 % (32.0-36.0) Red Cell Distribution Width 21.0 % (11.6-17.2) 20.7 % (11.6-17.2) Platelet Count 170 TH/MM3 (150-450) 160 TH/MM3 (150-450) Mean Platelet Volume 7.6 FL (7.0-11.0) 7.9 FL (7.0-11.0) Neutrophils (%) (Auto) 83.9 % (16.0-70.0) 89.2 % (16.0-70.0) Lymphocytes (%) (Auto) 6.3 % (9.0-44.0) 4.2 % (9.0-44.0) Monocytes (%) (Auto) 9.4 % (0.0-8.0) 5.3 % (0.0-8.0) Eosinophils (%) (Auto) 0.2 % (0.0-4.0) 1.0 % (0.0-4.0) Basophils (%) (Auto) 0.2 % (0.0-2.0) 0.3 % (0.0-2.0) Neutrophils # (Auto) 6.5 TH/MM3 (1.8-7.7) 6.6 TH/MM3 (1.8-7.7) Lymphocytes # (Auto) 0.5 TH/MM3 (1.0-4.8) 0.3 TH/MM3 (1.0-4.8) Monocytes # (Auto) 0.7 TH/MM3 (0-0.9) 0.4 TH/MM3 (0-0.9) Eosinophils # (Auto) 0.0 TH/MM3 (0-0.4) 0.1 TH/MM3 (0-0.4) Basophils # (Auto) 0.0 TH/MM3 (0-0.2) 0.0 TH/MM3 (0-0.2) CBC Comment DIFF FINAL DIFF FINAL Differential Comment Blood Urea Nitrogen 50 MG/DL (7-18) 66 MG/DL (7-18) Creatinine 3.39 MG/DL (0.60-1.30) 4.14 MG/DL (0.60-1.30) Random Glucose 119 MG/DL (74-106) 203 MG/DL (74-106) Total Protein 5.4 GM/DL (6.4-8.2) Calcium Level 7.4 MG/DL (8.5-10.1) 7.8 MG/DL (8.5-10.1) Magnesium Level 2.2 MG/DL (1.5-2.5) 2.3 MG/DL (1.5-2.5) Sodium Level 140 MEQ/L (136-145) 140 MEQ/L (136-145) Potassium Level 4.6 MEQ/L (3.5-5.1) 4.7 MEQ/L (3.5-5.1) Chloride Level 100 MEQ/L (98-107) 100 MEQ/L (98-107) Carbon Dioxide Level 33.6 MEQ/L (21.0-32.0) 30.2 MEQ/L (21.0-32.0) Anion Gap 6 MEQ/L (5-15) 10 MEQ/L (5-15) Estimat Glomerular Filtration Rate 18 ML/MIN (>89) 15 ML/MIN (>89) Protein Corrected Calcium 8.3 MG/DL (8.5-10.1) Test 06/23/17 07:23 06/23/17 07:38 White Blood Count 6.2 TH/MM3 (4.0-11.0) Red Blood Count 1.76 MIL/MM3 (4.50-5.90) Hemoglobin 5.6 GM/DL (13.0-17.0) Hematocrit 16.7 % (39.0-51.0) Mean Corpuscular Volume 94.9 FL (80.0-100.0) Mean Corpuscular Hemoglobin 32.0 PG (27.0-34.0) Mean Corpuscular Hemoglobin Concent 33.7 % (32.0-36.0) Red Cell Distribution Width 20.3 % (11.6-17.2) Platelet Count 162 TH/MM3 (150-450) Mean Platelet Volume 7.9 FL (7.0-11.0) Neutrophils (%) (Auto) 87.3 % (16.0-70.0) Lymphocytes (%) (Auto) 5.0 % (9.0-44.0) Monocytes (%) (Auto) 6.1 % (0.0-8.0) Eosinophils (%) (Auto) 1.3 % (0.0-4.0) Basophils (%) (Auto) 0.3 % (0.0-2.0) Neutrophils # (Auto) 5.5 TH/MM3 (1.8-7.7) Lymphocytes # (Auto) 0.3 TH/MM3 (1.0-4.8) Monocytes # (Auto) 0.4 TH/MM3 (0-0.9) Eosinophils # (Auto) 0.1 TH/MM3 (0-0.4) Basophils # (Auto) 0.0 TH/MM3 (0-0.2) CBC Comment AUTO DIFF Differential Comment AUTO DIFF CONFIRMED Prothrombin Time 14.8 SEC (9.8-11.6) Prothromb Time International Ratio 1.5 RATIO Activated Partial Thromboplast Time 32.0 SEC (24.3-30.1) Fibrinogen 199 mg/dL (227-377) Blood Urea Nitrogen 69 MG/DL (7-18) Creatinine 4.06 MG/DL (0.60-1.30) Random Glucose 192 MG/DL (74-106) Total Protein 3.2 GM/DL (6.4-8.2) Albumin 1.4 GM/DL (3.4-5.0) Calcium Level 6.5 MG/DL (8.5-10.1) Alkaline Phosphatase 157 U/L (45-117) Aspartate Amino Transf (AST/SGOT) 14 U/L (15-37) Alanine Aminotransferase (ALT/SGPT) 10 U/L (12-78) Total Bilirubin 0.5 MG/DL (0.2-1.0) Sodium Level 142 MEQ/L (136-145) Potassium Level 5.4 MEQ/L (3.5-5.1) Chloride Level 104 MEQ/L (98-107) Carbon Dioxide Level 30.0 MEQ/L (21.0-32.0) Anion Gap 8 MEQ/L (5-15) Estimat Glomerular Filtration Rate 15 ML/MIN (>89) Protein Corrected Calcium 8.7 MG/DL (8.5-10.1) Magnesium Level 2.2 MG/DL (1.5-2.5) Total Creatine Kinase 29 U/L (39-308) Digoxin Level 0.5 NG/ML (0.8-2.0) Lactic Acid Level 3.9 mmol/L (0.4-2.0) Result Diagram: 06/23/1772206/23/17722 Microbiology Microbiology Date/Time Source Procedure Growth Status 06/20/17 22:00 Stool Stool Stool Occult Blood (JUSTIN) - Final HEMOCCULT POSITIVE Complete Imaging Last Impressions Chest X-Ray 06/23/17720 Signed Impressions: Service Date/Time: Friday, June 23, 2017 07:22 - CONCLUSION: 1. Right IJ central line in good position without pneumothorax. 2. Left lower lobe airspace disease and slightly worsening pleural effusion. 3. Improved aeration in the right lower lung zone. Rob Eckert MD Procedures 06/06/17 EGD Assessment and Plan Disease Oriented Problem List: (1) Atrial fibrillation (2) Sacral decubitus ulcer (3) Heel ulceration (4) Hypotension (5) GI bleed (6) Anemia (7) ESRD (end stage renal disease) on dialysis Symptom Scale: (1) Weakness 0-10 Scale: Unable to quantify Pertinent Non-Medical Issues Psychosocial: to his x 6 yrs. Has 1 adult son from prior marriage, who is incarcerated in [place]. He communicates with him every Friday (son calls him). Originally from [place] worked in [employer] there. His mother is still living there, and a sister. Moved to [place] in his 50s for fpc. Spiritual:no particular affiliation, does not want laborer/grade check support Legal:Patient has a healthcare surrogate document in his chart however this document actually names the patient as designated healthcare surrogate. Per [place] statutes his would be appropriate legal proxy if patient incapacitated. 06/06/17 assisted pt to complete new HCS, names his as HCS. Ethical issues impacting care: Important Contacts spouse Aparna Guadalupe [phone] . Prognosis This patient was admitted for hypotension, significant anemia, GI bleed. He has known history of dialysis dependent end-stage renal disease. Ongoing diagnostics, GI evaluation. With ongoing aggressive treatments and interventions may be able to recover from current acute conditions. . Code Status: No Code Plan * Legal decision maker:Patient has a healthcare surrogate document in his chart however this document actually names the patient as designated healthcare surrogate. Per [place] statutes his would be appropriate legal proxy if patient incapacitated. Pt at time of my exam is oriented, appropriate and appears to have fair insight to his conditions/options. Appears able to make his own decisions . 06/06/17 assisted pt to complete new HCS, names his as HCS. * Pt has no capacity to make medical decisions currently. * Goals: 06/23/2017. Transition to comfort measures only, no dialysis, blood products, or further procedures. Consult Hospice * CODE STATUS: DNR * SYMPTOMS: --weakness/debility- ongoing since May 05. Limited to no ambulation since that time. Rec cont OT/PT to maintain/improve functional status --pain- today pt reports Rt knee pain, exam benign. pt reports he has chronic neuropathic sounding pain to BLE alyse at night, and chronic pain to bilateral chronic foot wounds. He has been on norco 5mg at home. Pt hypotensive during hospital course, requiring pressor, cautious use of opiates. Consider resuming home norco or tramadol PRN if patient begins having pain. - Tachpneia 2nd to decline, bleed. amenable to comfort meds. Will order Dilaudid and ativan for dyspnea and anxiety associated with dyspnea. * Palliative care will continue to follow during hospital course as condition evolves, to assist patient/decision-maker with understanding of medical conditions, weighing benefits/burdens of treatment options, for clarification of goals of treatment. Attestation To help prompt me to consider important information that might be impacting today's encounter and assessment, information from prior notes written by myself or my colleagues may have been "brought forward" into today's note. My signature on this note, however, is an attestation that I personally performed the exam, history, and/or decision-making noted today, and, unless otherwise indicated, the interactions with patient, family, and staff as well as the review of records all occurred today. I also attest that the listed assessment and stated plan reflect my best clinical judgment today based on the combination of historical information, prior notes, and today's exam/ interactions. When time spent is documented, it refers only to time spent today by the signer, or if indicated, combined time spent today by collaborating physician/nurse practitioner. Sarabjit Rene MD Jun 23, 2017 09:39
--- NOTE | 2017-06-23 09:55 | HHI.NPPN ---
Subjective General Problems: Anemia Renal Failure: End Stage Renal Disease History of Present Illness Patient is a very pleasant 66 year old male who came into the emergency room on 06/06/17 hypotensive, lethargic, and with a hemoglobin of 6.7. He was transfused 2 units of PRBC's with a recheck pending. He was initially put on Levophed for blood pressure support however it is currently not running. Has a past medical history of End -stage renal disease with peritoneal dialysis, AFIB , diabetes, arthritis, chronic pain, and hx of strokes. Onset of acute epigastric pain and discomfort noted for 5 days ago, but worsened over the past 24 hours. Reported loose stools for 3 weeks. In the emergency room patient did report melena, nausea, mild vomiting undigested food yesterday, but denied any coffee ground emesis. Patient has AV fistula and will have dialysis while here. Per patient PD catheter needs to be removed secondary to infection. Additional Remarks Transferred to ICU for GI bleed. Patient is agonally breathing. at bedside (Samreen Ward) Review of Systems General Constitutional: Fatigue General Remarks weakness (Samreen Ward) Gastrointestinal Gastrointestinal: Blood/Tarry Stools (Samreen Ward) Objective Data Data 06/23/17 06/24/17 19:00 07:00 Intake Total 5 ml Balance 5 ml Blood Product IV Normal Saline Flush 5 ml Vital Signs Date Time Temp Pulse Resp B/P (MAP) Pulse Ox O2 Delivery O2 Flow Rate FiO2 06/23/17 09:39 Non-Rebreather 15.00 06/23/17 09:06 97.6 104 26 93/51 06/23/17 07:00 Non-Rebreather 15.00 06/23/17 06:15 97 15.00 100 06/23/17 04:00 81 06/23/17 04:00 97.3 58 20 131/69 (89) 98 06/23/17 00:00 97.2 118 21 99/60 (73) 97 06/23/17 00:00 Nasal Cannula 3.00 06/23/17 00:00 101 06/22/17 21:00 Nasal Cannula 3.00 06/22/17 20:00 104 06/22/17 20:00 97.4 92 18 110/67 (81) 100 06/22/17 16:26 85 06/22/17 16:00 97.3 92 20 105/64 (78) 96 06/22/17 12:00 97.1 93 20 94/61 (72) 97 06/22/17 12:00 103 (Samreen Ward) -: 06/23/17 0723 06/23/17 0723 Physical Exam General Appearance: Malnourished (Samreen Ward) Pulmonary Resp Exam: Retractions, Labored Resp Remarks agonal (Samreen Ward) Integumentary Skin Exam: Warm, Dry (Samreen Ward) Extremeties Extremities Exam: No Edema (Samreen Ward) Neurologic Neuro Exam: Alert (Samreen Ward) Psychiatric Psych Exam: Appropriate Responses (Samreen Ward) Assessment/Plan Problem List: (1) ESRD (end stage renal disease) on dialysis ICD Codes: N18.6 - End stage renal disease; Z99.2 - Dependence on renal dialysis Plan: Patient is agonally breathing. Patient is a DNR Palliative care consulted HGB at last check at 5.6 PRBC infusing Phenylephrine drip at bedside (2) Peritonitis associated with peritoneal dialysis ICD Codes: T85.71XA - Infection and inflammatory reaction due to peritoneal dialysis catheter, initial encounter Plan: Peritoneal fluid culture positive for Carmen. On fluconazole with stop date of the PD catheter removed ID and surgery following. (3) Hypotension ICD Codes: I95.9 - Hypotension, unspecified Status: Acute Plan: Sepsis present on admission. Continue supportive care. (4) GI bleed ICD Codes: K92.2 - Gastrointestinal hemorrhage, unspecified Status: Acute Plan: s/p EGD: duodenal ulcer, gastritis, esophagitis. S/P on 06/21 Duodenal ulcer with high risk stigmata of bleeding (5) Anemia ICD Codes: D64.9 - Anemia, unspecified Plan: See above (Samreen Ward) Problem List: (1) ESRD (end stage renal disease) on dialysis ICD Codes: N18.6 - End stage renal disease; Z99.2 - Dependence on renal dialysis Plan: Patient is agonally breathing. Patient is a DNR Palliative care consulted HGB at last check at 5.6 PRBC infusing Phenylephrine drip at bedside. Made DNR by family, Palliative care following. (2) Peritonitis associated with peritoneal dialysis ICD Codes: T85.71XA - Infection and inflammatory reaction due to peritoneal dialysis catheter, initial encounter Plan: Peritoneal fluid culture positive for Carmen. On fluconazole with stop date of the PD catheter removed ID and surgery following. (3) Hypotension ICD Codes: I95.9 - Hypotension, unspecified Status: Acute Plan: Sepsis present on admission. Continue supportive care. (4) GI bleed ICD Codes: K92.2 - Gastrointestinal hemorrhage, unspecified Status: Acute Plan: s/p EGD: duodenal ulcer, gastritis, esophagitis. S/P on 06/21 Duodenal ulcer with high risk stigmata of bleeding (5) Anemia ICD Codes: D64.9 - Anemia, unspecified Plan: See above (Darryl Fair MD) Problem Qualifiers (1) Hypotension: Qualified Codes: I95.9 - Hypotension, unspecified (2) GI bleed: Qualified Codes: K92.2 - Gastrointestinal hemorrhage, unspecified (3) Anemia: Samreen Ward Jun 23, 2017 09:55 Darryl Fair MD Jun 23, 2017 19:26
[2017-06-23] MEDS ORDERED: HYDROmorphone HCL PF 2 MG/ML VIAL IV PUSH ONE (10:00)
[2017-06-23] MEDS ORDERED: LORazepam 2 MG/ML VIAL IV PUSH ONE (10:00)
[2017-06-23] MEDS ORDERED: LORazepam 2 MG/ML VIAL IV PUSH PRN ×2 (10:30)
[2017-06-23] MEDS ORDERED: HYDROmorphone HCL PF 2 MG/ML VIAL IV PUSH PRN ×2 (10:30)
--- NOTE | 2017-06-23 10:47 | RADRPT ---
EXAM DATE/TIME: 06/23/2017 08:41 [facility] COMPARISON: No previous studies available for comparison. INDICATIONS : Patient presents with GI Bleed in need of possible embolization. MEDICAL HISTORY : Atrial Fibrilation Diabetes Kidney Failure Hx Strokes SURGICAL HISTORY : Appendectomy Cataracts removed with lens implants Left hip replacement ENCOUNTER: Initial ACUITY: 2 days PAIN SCORE: FLUORO TIME: 4.5 minutes IMAGE SERIES: 24 ACCESS SITE: Right Femoral artery CONTRAST: 1.) 40 cc Visipaque (iodixanol) PROCEDURE : 1. Ultrasound-guided puncture of the access site. 2. Conscious sedation with continuous EKG and Oximetry monitoring. 3. Angiography of the celiac axis 4. Angiography of the superior mesenteric artery 5. Angiography of the inferior mesenteric artery The patient is a 66-year-old with endstage renal disease. The patient was recently admitted for a GI bleed. The patient underwent endoscopy at which time there was cauterization of a large duodenal ulce ration. The patient was stable for approximately 2-3 days. Immediately prior to the procedure the pat ient again suffered a massive GI bleed. The risks, benefits and alternatives to the procedure were explained to the patient's and verbal and written consent was obtained. The site was prepped in sterile fashion. Full sterile technique was used, including cap, mask, sterile gloves and gown and a large sterile sheet. Hand hygiene and 2 % chlorhexidine and/or betadine/alcohol prep was utilized per protocol for cutaneous antisepsis. Jeff rile gel and sterile probe cover were utilized for ultrasound guidance. The skin and subcutaneous ti ssues were infiltrated with local anesthetic solution. With ultrasound and fluoroscopic guidance the right common femoral artery was accessed. A 4 Mauritian sh eath was placed. A 0.035 angle Glidewire and 4 Mauritian hook catheter were danced into the abdominal aorta. The celiac o rigin was selected. The celiac origin is severely diseased. The stump of the hepatic artery was evide nt however it occludes just distal to its origin. The splenic artery is patent but severely diseased in its proximal segment. The SMA was easily selected. This is severely diseased as well. The examination demonstrates collater al filling of the hepatic circulation via the gastroduodenal artery. No active bleeding from this was identified. The distal branches of the SMA were assessed with a second injection. No active GI bleed was seen. The catheter was withdrawn. The CHRISTIE was selected catheter directed angiography was performed. No acti ve bleeding from the CHRISTIE distribution was evident. The puncture site was closed with manual pressure and hemostasis was obtained. The patient tolerated the procedure well and there were no complications. Conscious sedation was performed with the prescribed dosages and duration as above in the presence of an independent trained radiology nurse to assist in the monitoring of the patient. EKG and oximetry remained stable throughout the procedure. CONCLUSION: 1. 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 The stump is faintly visualized from the celiac injection. The liver feeds via collaterals from the S MA. No active GI bleeding was identified. The gastroduodenal could not be prophylactically embolized due to it providing flow to the liver. 2. The SMA and CHRISTIE are patent but severely diseased. Bennett Dia MD on June 23, 2017 at 10:40 Board Certified Radiologist. This report was verified electronically.
--- NOTE | 2017-06-23 11:48 | HHI.GIFU ---
Subjective Remarks Pt had rectal bleeding over night, s/p angiogram but no embolization. opted for comfort measures. she is upset that he is receiving blood and demands that RN stop blood transfusion. pt in bed in no acute distress. does not rouse to exam (Ruth Conley) Objective Vitals I&O Vital Signs Date Time Temp Pulse Resp B/P (MAP) Pulse Ox O2 Delivery O2 Flow Rate FiO2 06/23/17 11:33 15 06/23/17 10:40 97.4 97 15 61/25 06/23/17 10:25 97.5 112 19 56/25 94 06/23/17 10:00 106 06/23/17 09:39 Non-Rebreather 15.00 06/23/17 09:21 97.7 103 26 54/23 96 06/23/17 09:06 97.6 104 26 93/51 06/23/17 07:00 Non-Rebreather 15.00 06/23/17 06:15 97 15.00 100 06/23/17 04:00 81 06/23/17 04:00 97.3 58 20 131/69 (89) 98 06/23/17 00:00 97.2 118 21 99/60 (73) 97 06/23/17 00:00 Nasal Cannula 3.00 06/23/17 00:00 101 06/22/17 21:00 Nasal Cannula 3.00 06/22/17 20:00 104 06/22/17 20:00 97.4 92 18 110/67 (81) 100 06/22/17 16:26 85 06/22/17 16:00 97.3 92 20 105/64 (78) 96 06/22/17 12:00 97.1 93 20 94/61 (72) 97 06/22/17 12:00 103 I/O 06/22/17 06/22/17 06/22/17 06/23/17 06/23/17 06/23/17 07:00 15:00 23:00 07:00 15:00 23:00 Intake Total 177 ml 15 ml 720 ml 1075 ml Balance 177 ml 15 ml 720 ml 1075 ml Intake Oral 0 ml 720 ml IV Total 177 ml 15 ml 10 ml Packed Cells 800 ml Blood Product IV Normal Saline Flush 265 ml # Voids 0 0 # Bowel Movements 2 1 Laboratory Laboratory Tests Test 06/22/17 21:29 06/23/17 07:23 06/23/17 07:38 White Blood Count 7.4 6.2 Red Blood Count 3.29 1.76 Hemoglobin 10.4 5.6 Hematocrit 30.9 16.7 Mean Corpuscular Volume 94.1 94.9 Mean Corpuscular Hemoglobin 31.8 32.0 Mean Corpuscular Hemoglobin Concent 33.8 33.7 Red Cell Distribution Width 20.7 20.3 Platelet Count 160 162 Mean Platelet Volume 7.9 7.9 Neutrophils (%) (Auto) 89.2 87.3 Lymphocytes (%) (Auto) 4.2 5.0 Monocytes (%) (Auto) 5.3 6.1 Eosinophils (%) (Auto) 1.0 1.3 Basophils (%) (Auto) 0.3 0.3 Neutrophils # (Auto) 6.6 5.5 Lymphocytes # (Auto) 0.3 0.3 Monocytes # (Auto) 0.4 0.4 Eosinophils # (Auto) 0.1 0.1 Basophils # (Auto) 0.0 0.0 CBC Comment DIFF FINAL AUTO DIFF Differential Comment AUTO DIFF CONFIRMED Blood Urea Nitrogen 66 69 Creatinine 4.14 4.06 Random Glucose 203 192 Calcium Level 7.8 6.5 Magnesium Level 2.3 2.2 Sodium Level 140 142 Potassium Level 4.7 5.4 Chloride Level 100 104 Carbon Dioxide Level 30.2 30.0 Anion Gap 10 8 Estimat Glomerular Filtration Rate 15 15 Prothrombin Time 14.8 Prothromb Time International Ratio 1.5 Activated Partial Thromboplast Time 32.0 Fibrinogen 199 Total Protein 3.2 Albumin 1.4 Alkaline Phosphatase 157 Aspartate Amino Transf (AST/SGOT) 14 Alanine Aminotransferase (ALT/SGPT) 10 Total Bilirubin 0.5 Protein Corrected Calcium 8.7 Total Creatine Kinase 29 Digoxin Level 0.5 Lactic Acid Level 3.9 Date/Time Source Procedure Growth Status 06/06/17 07:19 Blood Peripheral Aerobic Blood Culture - Final NO GROWTH IN 5 DAYS Complete 06/06/17 07:19 Blood Peripheral Anaerobic Blood Culture - Final NO GROWTH IN 5 DAYS Complete 06/06/17 15:20 Fluid Peritoneal Fluid Fungal Smear - Final NO FUNGAL ELEMENTS SEEN. Resulted 06/06/17 15:20 Fungal Culture - Preliminary Carmen Albicans Resulted 06/20/17 22:00 Stool Stool Stool Occult Blood (JUSTIN) - Final HEMOCCULT POSITIVE Complete Imaging Last Impressions Chest X-Ray 06/23/17 0721 Signed Impressions: Service Date/Time: Friday, June 23, 2017 07:22 - CONCLUSION: 1. Right IJ central line in good position without pneumothorax. 2. Left lower lobe airspace disease and slightly worsening pleural effusion. 3. Improved aeration in the right lower lung zone. Rob Eckert MD Physical Exam HEENT: Normocephalic; atraumatic CHEST: coarse breath sounds CARDIAC: irr HR ABDOMEN: soft, BS faint EXTREMITIES: No clubbing, cyanosis, or edema. RADIO ASSEMBLER: lethargic, did not rouse to exam (Ruth Conley HOUSEFELLOW) Assessment and Plan Assessment: (1) Anemia ICD Codes: D64.9 - Anemia, unspecified (2) GI bleed ICD Codes: K92.2 - Gastrointestinal hemorrhage, unspecified Status: Acute (3) History of renal failure ICD Codes: Z87.448 - Personal history of other diseases of urinary system Status: Acute Plan - History of GIB- previously following this patient to evaluate for anemia and melena. S/P EGD --> Severe grade D esophagitis, severe gastritis, and 2 large duodenal ulcers almost taking over the duodenal bulb and first potion. Pathology --> Gastric mucosa without significant histopathologic abnormality. (small intestine) Fibrinopurulent exudate and inflamed granulation tissue, consistent with ulcer base. We recommended pt to continue Protonix, better control of diabetes, and avoid NSAIDs. GI signed off and recommended pt follow up on outpatient basis for colonoscopy. Dr. Mireles has asked us to evaluate pt and determine if anticoagulation can be restarted. Pt denies any continue melena, nausea, vomiting. H/H currently 10/29.4, last transfused 2 U PRBCs on Jun 18 with dialysis. No obvious continuation of GIB, anemia likely secondary to renal insufficiency. OK to restart anticoagulation for a GI standpoint. (06/21) Pt received one dose of Plavix last night. Began with rectal bleeding over night. Spoke with RN, Mica who states it is maroon in color. She is unsure how many episodes of bleeding he has had over night. H/H dropped from 10/29.4 yesterday morning to 8.4/25.3 late last night. Has now received 2 U PRBCs. (06/22) S/P EGD yesterday --> Duodenal ulcer with high risk stigmata of bleeding. Pt reports one BM today, states possibly old blood, unsure. Received 2 U PRBCs yesterday. H/H currently .1. Protonix gtt DCd now on Protonix BID. 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 opting for comfort measures. hgb dropped to 5.3 Plan: - comfort care per - recommend hospice consult - supportive care - GI will sign off. please reconsult if needed Pt has been seen and examined by myself and Dr. Ho and this note is written on his behalf (Ruth Conley) Physician Comments Patient seen and examined Agree with above Continue with current supportive care Monitor labs Apparently patient is not a candidate for embolization and family has made a decision for comfort care and as such I do agree with the decision for hospice We will sign off (Priyank Ho MD) Problem Qualifiers (1) Anemia: (2) GI bleed: Qualified Codes: K92.2 - Gastrointestinal hemorrhage, unspecified Ruth Conley Jun 23, 2017 11:48 Priyank Ho MD Jun 23, 2017 19:01
[2017-06-23] MEDS ORDERED: HYDROmorphone HCL PF 2 MG/ML VIAL IV PUSH SCH (12:00)
[2017-06-23] MEDS ORDERED: INSULIN NovoLIN REGULAR SUPPLEMENTAL SCALE SQ SCH (12:00)
[2017-06-23] MEDS ORDERED: LORazepam 2 MG/ML VIAL IV PUSH SCH (12:00)
--- NOTE | 2017-06-23 15:30 | HHI.DS ---
Summary Note Date of : Jun 23, 2017 Time Of : 14:12 Admission Date Jun 06, 2017 at 02:11 Admitting Diagnosis GI Bleed Diagnosis at Time of : (1) GI bleed ICD Code: K92.2 - Gastrointestinal hemorrhage, unspecified Diagnosis: Principal (2) Hypotension ICD Code: I95.9 - Hypotension, unspecified Diagnosis: Principal (3) Peritonitis associated with peritoneal dialysis ICD Code: T85.71XA - Infection and inflammatory reaction due to peritoneal dialysis catheter, initial encounter Diagnosis: Secondary Procedures EGD and removal of PD catheter Brief History History of Present Illness HPI 66 year-old male with a medical history significant for end-stage renal disease on peritoneal dialysis who was noted to be severely hypotensive and lethargic at the dialysis center on 06/05 and 911 was called and patient was transferred to [facility] ER. On arrival he was noted to be hypotensive with SBP 70s and heart rate 100s. He also reportedly had significant melena and rectal bleeding following arrival. A right IJ central line was placed by ER physician. Patient's arrived and wanted to make patient DNR status and did not want blood transfusions and wished transferring to hospice however subsequently patient woke up and wanted to continue aggressive care including blood transfusions. ER physician contacted me questioning patient's 's ability to make decisions for him due to concern for secondary gain as well as possible psychiatric illness. Patient was accepted for admission by critical care medicine service. 4 units PRBCs were ordered to be transfused stat by ER physician. When I arrived to see the patient he was laying in the ER stretcher on nasal cannula on 5 mics of Levophed. He is drowsy but easily arousable. He knew he was at the hospital. He could not give me details of his history. 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 Fair is his triage specialist. FORMERLY [facility], [facility] Past Medical History Atrial Fibrillation: Yes Cancer: No Cardiovascular Problems: Yes (a fib) Diabetes: Yes Patient Takes Glucophage: Yes (unknown) Endocrine: Yes Genitourinary: Yes (kidney failure left AV fistula, peritoneal dialysis catheter) Hepatitis: No Hiatal Hernia: No Immune Disorder: No Medical other: Yes Musculoskeletal: Yes (minor arthritis) Neurologic: Yes (hx strokes) Psychiatric: No Reproductive: No Respiratory: No Renal Failure: Yes Thyroid Disease: No Past Surgical History Abdominal Surgery: Yes (appendectomy) Appendectomy: Yes Body Medical Devices: right double lumen catheter Cardiac Surgery: No Ear Surgery: No Endocrine Surgery: No Eye Surgery: Yes (CATARACTS REMOVED WITH LENS IMPLANTS) Genitourinary Surgery: No Joint Replacement: Yes (left hip) Oral Surgery: No Pacemaker: No Thoracic Surgery: Yes (double lumen catheter on the right side) Social History Alcohol Use: No Tobacco Use: No Substance Use: No Allergies-Medications (Allergen,Severity, Reaction): Coded Allergies: morphine (Unverified Allergy, Severe, anaphylactic, 06/05/17) Reported Meds & Prescriptions Reported Meds & Active Scripts Active Active Prescriptions or Reported Medications Unobtainable Review of Systems ROS Limitations: Clinical Condition (Review of systems may not be extremely accurate secondary to the patient's clinical situation.) Except as stated in HPI: all other systems reviewed are Neg General / Constitutional: No: Fever, Chills HENT: No: Headaches, Lightheadedness, Neck Stiffness, Neck Pain Cardiovascular: No: Chest Pain or Discomfort, Palpitations Respiratory: No: Cough, Shortness of Breath Gastrointestinal: Positive: Diarrhea, No: Nausea, Vomiting Genitourinary: Positive: Other (Patient reports that he makes trace amount of urine.) Musculoskeletal: Positive: Weakness (Generalized), No: Pain Neurologic: Positive: Weakness, No: Headache (Generalized) CBC/BMP: 06/23/17 0723 06/23/17 0723 Significant Findings Laboratory Tests Test 06/20/17 23:40 06/21/17 13:50 06/21/17 13:58 06/22/17 21:29 Hemoglobin 8.4 GM/DL (13.0-17.0) 11.0 GM/DL (13.0-17.0) 10.4 GM/DL (13.0-17.0) Hematocrit 25.3 % (39.0-51.0) 33.1 % (39.0-51.0) 30.9 % (39.0-51.0) Red Blood Count 3.55 MIL/MM3 (4.50-5.90) 3.29 MIL/MM3 (4.50-5.90) Red Cell Distribution Width 21.0 % (11.6-17.2) 20.7 % (11.6-17.2) Neutrophils (%) (Auto) 83.9 % (16.0-70.0) 89.2 % (16.0-70.0) Lymphocytes (%) (Auto) 6.3 % (9.0-44.0) 4.2 % (9.0-44.0) Monocytes (%) (Auto) 9.4 % (0.0-8.0) Lymphocytes # (Auto) 0.5 TH/MM3 (1.0-4.8) 0.3 TH/MM3 (1.0-4.8) Blood Urea Nitrogen 50 MG/DL (7-18) 66 MG/DL (7-18) Creatinine 3.39 MG/DL (0.60-1.30) 4.14 MG/DL (0.60-1.30) Random Glucose 119 MG/DL (74-106) 203 MG/DL (74-106) Total Protein 5.4 GM/DL (6.4-8.2) Calcium Level 7.4 MG/DL (8.5-10.1) 7.8 MG/DL (8.5-10.1) Carbon Dioxide Level 33.6 MEQ/L (21.0-32.0) Estimat Glomerular Filtration Rate 18 ML/MIN (>89) 15 ML/MIN (>89) Protein Corrected Calcium 8.3 MG/DL (8.5-10.1) Test 06/23/17 07:23 06/23/17 07:38 Red Blood Count 1.76 MIL/MM3 (4.50-5.90) Hemoglobin 5.6 GM/DL (13.0-17.0) Hematocrit 16.7 % (39.0-51.0) Red Cell Distribution Width 20.3 % (11.6-17.2) Neutrophils (%) (Auto) 87.3 % (16.0-70.0) Lymphocytes (%) (Auto) 5.0 % (9.0-44.0) Lymphocytes # (Auto) 0.3 TH/MM3 (1.0-4.8) Prothrombin Time 14.8 SEC (9.8-11.6) Activated Partial Thromboplast Time 32.0 SEC (24.3-30.1) Fibrinogen 199 mg/dL (227-377) Blood Urea Nitrogen 69 MG/DL (7-18) Creatinine 4.06 MG/DL (0.60-1.30) Random Glucose 192 MG/DL (74-106) Total Protein 3.2 GM/DL (6.4-8.2) Albumin 1.4 GM/DL (3.4-5.0) Calcium Level 6.5 MG/DL (8.5-10.1) Alkaline Phosphatase 157 U/L (45-117) Aspartate Amino Transf (AST/SGOT) 14 U/L (15-37) Alanine Aminotransferase (ALT/SGPT) 10 U/L (12-78) Potassium Level 5.4 MEQ/L (3.5-5.1) Estimat Glomerular Filtration Rate 15 ML/MIN (>89) Total Creatine Kinase 29 U/L (39-308) Digoxin Level 0.5 NG/ML (0.8-2.0) Lactic Acid Level 3.9 mmol/L (0.4-2.0) Imaging Last Impressions Chest X-Ray 06/22/17 0000 Signed Impressions: Service Date/Time: Thursday, June 22, 2017 14:45 - CONCLUSION: Development of left basilar density in the majority probably representing effusion. Davonte Cottrell MD Hospital Course Neuro/Psych: Depression Chronic Pain syndrome History of CVA Acetaminophen 600 mg p.o. every 6 hours as needed fever/headache Holding paroxetine 10 mg daily/home medication. Resume when clinically indicated Avoid sedatives and narcotics including tramadol/home medication, monitor neuro status. Awake and alert Holding clopidogrel 75 mg daily. CV: Atrial fibrillation rate controlled History of essential hypertension Mild pulmonary hypertension Phenylephrine at 60 g per minute-to maintain mean arterial pressure greater than equal 65 Monitor HR and BP keep MAP >65mmHg Lactic acid 2.2 on 06/07 Holding clopidogrel 75 mg daily light of duodenal ulcer Holding lisinopril 20 mill grams daily, isosorbide dinitrate 30 mg daily and metoprolol 25 mill grams daily in light of hypotension random Cortisol level. 20 Continue Midodrine 10 mg 3 times a day 2D echocardiogram 06/22 revealed EF 55-60%. Bilateral atrial enlargement. RV dilatation. PAP 47.7 mmHg. Pulm: Left pleural effusion Acute respiratory failure Continue with oxygen keep sat >92%. Currently on nonrebreather Albuterol aerosols every 4 hours with albuterol aerosols every 2 hours when necessary dyspnea GI/liver: Upper GI bleed secondary to duodenal ulcer Currently n.p.o. On pantoprazole drip at 8 mg an hour after receiving 80 mg bolus s/p EGD 06/06 which showed 2 large duodenal ulcers, grade D esophagitis, gastritis. Repeat EEG 06/21 --The esophagus this appeared to be unremarkable, stomach this too appeared to be unremarkable, duodenum there were 2 large ulcerations in the duodenal sweep and the first portion of the duodenum the larger of the 2 ulcers was the one that seen the first portion of the duodenum there was a visible vessel noted this was cauterized successfully using the David probe GI continue to follow IR for possible i embolization n gastroduodenal artery today Renal/: Status post PD catheter removal Dr. Donovan End-stage renal disease on hemodialysis M/W/F Monitor renal function, I/O's, avoid nephrotoxins. Pathology Dr. Fair. General Surgery has followed- Dr. Donovan fungal infection requiring PD catheter removal on 06/10. Heme: Macrocytic anemia Acute blood loss anemia Monitor CBC, s/p transfusion 2units PRBC on 06/06. Transfuse 8 units PRBCs since admission Hgb s every 6 hours ordered. Coags pending Endocrine: Diabetes mellitus Elevated TSH - repeat in 3-6 weeks. Free T4 normal. Free T3 low. Would not initiate any levothyroxine at this time in this acute clinical setting SSI for glycemic control with low Novulog every 6 hours Holding Tradjenta 5 mg daily ID: Infected peritoneal dialysis catheter/peritonitis fungal Continue fluconazole 200 mg po daily stop date 06/23. Monitor for signs of infections ( Fever, WBC) follow up on cultures. Peritoneal fluid 06/06 positive for yeast/Carmen ID is following. MSK: Right heel ulcer Sacral decubitus ulcer 2/4 Wound care consulted evaluate and treat 2/4 Transfer pt on [facility] bed Prophylaxis: Pantoprazole/no pharmacological prophylaxis in light of acute upper GI bleeding Lines: Right IJ CV CVL 06/23- present Critical Care: The total critical care time was 35 minutes. Time to perform other separately billable procedures was not included in the critical care time. 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 GDA supplies the liver henceforth cannot embolize. Discussed with Dr. Donovan. He will have Dr. Ellsworth evaluate. Discussed with Dr. Haro/GI. Recommended general surgery versus esophageal/duodenal stent. Discussed with Aparna Godinez. All 3 options including surgery which would likely include a partial gastrectomy duodenectomy, placement of esophageal stents as we do not have duodenal stents here versus comfort measures. Discussed with palliative care Dr. Rene. She wishes to proceed with comfort measures at this time. Notify Dr. Seng Haro of 's wishes. Dr. Martinez okay as long as is aware of options available which she has verified with myself and palliative care. Consultation to General surgery canceled after discussing with Dr. Ellsworth. Hospice consulted. TOD 1412. Tariq Lacy MD Jun 23, 2017 15:30
[2017-06-24] MEDS ORDERED: DIGOXIN 0.125 MG TAB PO SCH (09:00)
== END 2017-06-23 17:00 | disposition hospice, inpatient (51) | DRG 356 ==
LOC: NEPE 16:48 → NEDA 06-06 02:11 → HIME 06-06 05:45 → N04B 06-19 21:28 → N03A 06-23 07:07
PROVIDERS: ADMIT Internal Medicine Critical Care Medicine; ATTEND Internal Medicine Critical Care Medicine
PROC: 30233N1 Transfusion of Nonautologous Red Blood Cells into Peripheral Vein, Percutaneous Approach (ICD-10-PCS; 2017-06-06)
PROC: 0DB98ZX Excision of Duodenum, Via Natural or Artificial Opening Endoscopic, Diagnostic (ICD-10-PCS; 2017-06-06)
PROC: 0DB78ZX Excision of Stomach, Pylorus, Via Natural or Artificial Opening Endoscopic, Diagnostic (ICD-10-PCS; 2017-06-06)
PROC: 5A1D70Z Performance of Urinary Filtration, Intermittent, Less than 6 Hours Per Day (ICD-10-PCS; 2017-06-06)
PROC: 05HM33Z Insertion of Infusion Device into Right Internal Jugular Vein, Percutaneous Approach (ICD-10-PCS; principal; 2017-06-06 11:37)
PROC: 0WPG03Z Removal of Infusion Device from Peritoneal Cavity, Open Approach (ICD-10-PCS; 2017-06-10)
PROC: 0W3P8ZZ Control Bleeding in Gastrointestinal Tract, Via Natural or Artificial Opening Endoscopic (ICD-10-PCS; 2017-06-21)
PROC: 05HM33Z Insertion of Infusion Device into Right Internal Jugular Vein, Percutaneous Approach (ICD-10-PCS; 2017-06-23)
PROC: B4121ZZ Fluoroscopy of Hepatic Artery using Low Osmolar Contrast (ICD-10-PCS; 2017-06-23)
PROC: B4131ZZ Fluoroscopy of Splenic Arteries using Low Osmolar Contrast (ICD-10-PCS; 2017-06-23)
DX: K26.4 Chronic or unspecified duodenal ulcer with hemorrhage (principal); N18.6 End stage renal disease; J96.00 Acute respiratory failure, unspecified whether with hypoxia or hypercapnia; G93.40 Encephalopathy, unspecified; A41.9 Sepsis, unspecified organism; L89.151 Pressure ulcer of sacral region, stage 1; K65.9 Peritonitis, unspecified; J90 Pleural effusion, not elsewhere classified; I12.0 Hypertensive chronic kidney disease with stage 5 chronic kidney disease or end stage renal disease; L97.419 Non-pressure chronic ulcer of right heel and midfoot with unspecified severity; L97.429 Non-pressure chronic ulcer of left heel and midfoot with unspecified severity; T85.71XA Infection and inflammatory reaction due to peritoneal dialysis catheter, initial encounter; D62 Acute posthemorrhagic anemia; E11.22 Type 2 diabetes mellitus with diabetic chronic kidney disease; D69.6 Thrombocytopenia, unspecified; I48.91 Unspecified atrial fibrillation; I95.9 Hypotension, unspecified; Z96.642 Presence of left artificial hip joint; F17.210 Nicotine dependence, cigarettes, uncomplicated; E11.621 Type 2 diabetes mellitus with foot ulcer; M19.90 Unspecified osteoarthritis, unspecified site; I87.8 Other specified disorders of veins; Z99.2 Dependence on renal dialysis; Z86.73 Personal history of transient ischemic attack (TIA), and cerebral infarction without residual deficits; K20.9 Esophagitis, unspecified; K29.70 Gastritis, unspecified, without bleeding; I87.2 Venous insufficiency (chronic) (peripheral); L97.519 Non-pressure chronic ulcer of other part of right foot with unspecified severity; Y83.8 Other surgical procedures as the cause of abnormal reaction of the patient, or of later complication, without mention of misadventure at the time of the procedure; D63.8 Anemia in other chronic diseases classified elsewhere; F32.9 Major depressive disorder, single episode, unspecified; G89.4 Chronic pain syndrome; F54 Psychological and behavioral factors associated with disorders or diseases classified elsewhere; I27.20 Pulmonary hypertension, unspecified; I70.8 Atherosclerosis of other arteries; B37.9 Candidiasis, unspecified
CPT/HCPCS: 36245; 36246; 36430; 36556; 71045; 75726; 75774; 76937; 80048; 80053; 80069; 80162; 82272; 82533; 82550; 82948; 83036; 83605; 83735; 84100; 84155; 84439; 84443; 84481; 84484; 85007; 85014; 85018; 85025; 85027; 85384; 85610; 85730; 86850; 86900; 86901; 86920; 87015; 87040; 87070; 87102; 87116; 87205; 87206; 87641; 88305; 88312; 90935; 93005; 93306; 94150; 94664; 96365; 96366; 96374; 96375; C1769; C1887; C1894; C9113; J0131; J0610; J1100; J1170; J1450; J1644; J1815; J1940; J1956; J2060; J2150; J2248; J2250; J2370; J2405; J2543; J3010; J3430; J7030; J7040; J7050; J7060; P9016; P9047; Q4081